=== PATIENT | female | born 1965 | race Caucasian/White ===

== ENCOUNTER 2018-12-16 14:17 | Outpatient (CLI) | payer MEDICARE, OTHER | END 2018-12-16 14:18 | disposition home or self-care (01) | LOC: BICMAMMO 14:17 | PROVIDERS: ATTEND Family Medicine | DX: Z12.31 Encounter for screening mammogram for malignant neoplasm of breast (principal); R92.1 Mammographic calcification found on diagnostic imaging of breast | CPT/HCPCS: 77063; 77067 ==

== ENCOUNTER 2019-12-14 10:27 | Inpatient (IN) | payer MEDICARE, MEDICAID ==
[2019-12-14 10:56] LABS: #Lymphocytes 1.5 thou/uL (1.20-3.40); #Monocytes 0.5 thou/uL (0.11-0.59); #Neutrophils 3.8 thou/uL (1.40-6.50); %Basophils 0.7 % (0.0-1.0); %Eosinophils 0.7 % (0.0-10.0); %Lymphocytes 25.6 % (21.0-51.0); %Monocytes 8.6 % (0.0-10.0); %Neutrophils 64.4 % (42.0-75.0); Hemoglobin 9.6 g/dL (12.0-16.0); Mean Corpuscular HGB CONC 32.5 g/dL (32.0-36.0); Mean Corpuscular Hemoglobin 32.2 pg (27.0-31.0); Mean Corpuscular Volume 98.9 fL (78.0-98.0); Mean Platelet Volume 8.2 fL (7.4-10.4); Platelet Count 181 thou/uL (130-400); RBC Distribution Width 15.4 % (11.5-14.5); Red Blood Cell (RBC) Count 2.99 mill/uL (4.20-5.40); White Blood Cell (WBC) Count 5.9 thou/uL (4.8-10.8)
[2019-12-14] MEDS ORDERED: Cefepime 1 GM VIAL ONE (11:00)
[2019-12-14 11:08] LABS: Actual Bicarbonate (HCO3a) 19.5 mEq/L (22-28); Analyzer IN Cardio ER; Base Excess (BEa) -6.3 mEq/L (-2.0 to +3.0); CO2 Tension 39.7 mmHg (35.0-45.0); Calcium, Ionized 1.06 mmol/L (1.12-1.30); Carboxyhemoglobin (COHb) 1.1 gm% (0.0-3.0); Hemoglobin (Hb) 9.2 g/dL (12.0-16.0); Potassium - ABG Lab 4.46 mmol/L (3.70-5.30); pH, Arterial 7.31 (7.35-7.45)
[2019-12-14 11:13] LABS: O2 Tension (PaO2) 57.3 mmHg (80.0-100.0)
[2019-12-14 11:14] LABS: ALV-art Gradient 106.975 (0-20); Puncture Site RR
[2019-12-14 11:14] LABS: ALT (SGPT) 28 U/L (8-55); AST (SGOT) 30 U/L (5-34); Albumin 3.8 g/dL (3.5-5.0); Alkaline Phosphatase 97 U/L (40-110); Anion Gap 25 mmol/L (10-20); BUN (Urea Nitrogen) 68 mg/dL (9.8-20.1); Bilirubin, Total 0.3 mg/dL (0.2-1.2); CK (CPK) 146 U/L (29-168); Calc. Creatinine Clearance 0 mL/min (70-130); Calcium 8.5 mg/dL (7.8-10.44); Carbon Dioxide 19 mmol/L (22-29); Chloride 107 mmol/L (98-107); Estimated GFR-MDRD 4; Globulin 2.9 g/dL (2.4-3.5); Glucose 90 mg/dL (70-105); Potassium 4.9 mmol/L (3.5-5.1); Protein, Total 6.7 g/dL (6.0-8.3); Sodium 146 mmol/L (136-145)
[2019-12-14 11:36] LABS: CKMB 4.9 ng/mL (0-6.6)
--- NOTE | 2019-12-14 11:39 | RAD ---
CHEST 1 VIEW: Date: 12/14/2019 HISTORY: Dyspnea, fever. History of COPD. History of pneumonia. FINDINGS: There are bilateral bullous changes and hyperinflation changes in the upper lung zones. There are guerline rly extensive bilateral interstitial and alveolar opacity changes in the mid and lower lung zones wit h blunting of both costophrenic angles, worse on the right side. Heart size is upper range of normal. IMPRESSION: Fairly extensive bilateral interstitial and alveolar opacity changes in the mid and lower lung zones bilaterally with costophrenic angle blunting, as well as marked hyperinflation and bullous changes in the upper lung zones. These basilar changes could certainly represent bilateral atypical pneumonia o r pneumonitis. There may well be some extensive component of chronic lung disease as well. Treatment and short-term follow-up for clearing or stability is suggested. No prior imaging available. POS: OFF
[2019-12-14] MEDS ORDERED: Bisacodyl 5 MG TAB PO PRN (13:16)
[2019-12-14] MEDS ORDERED: Ondansetron ODT 4 MG TAB PO PRN (13:16)
[2019-12-14] MEDS ORDERED: Ondansetron PF 4 MG/2 ML Vial IVP PRN (13:16)
[2019-12-14] MEDS ORDERED: HYDROcodone/Acetaminophen 7.5/325 mg Tablet PO PRN (13:16)
[2019-12-14] MEDS ORDERED: Loperamide HCl 2 MG CAP PO PRN (13:16)
[2019-12-14] MEDS ORDERED: Calcium Carbonate 500 MG ChewTAB PO PRN (13:16)
[2019-12-14] MEDS ORDERED: diphenhydrAMINE 25 MG CAP PO PRN (13:18)
[2019-12-14 14:26] LABS: Troponin I 0.069 ng/mL (< 0.028)
--- NOTE | 2019-12-14 14:48 | PDOC.HHP ---
Hospitalist HPI - History of Present Illness Shortness of breath History of Present Illness: 54-year-old female with past medical history of end-stage renal disease, extensive tobacco use who is currently smoking, and COPD presents for shortness of breath of hypoxia. Patient with two days of worsening malaise, cough with productive sputum, subjective fever and chills, and worsening shortness of breath. Patient denies sick contacts though she states that she did go to a get together that have a many people though she is not sure if any of them were sick or not. Patient has been compliant with her hemodialysis and had a full session on Thursday of this week. When patient shortness of breath worsen this a.m. 911 was called, patient was found to have hypoxia with O2 saturation's in the 70s on arrival. I find the patient in the emergency department she is struggling to breathe even on BiPAP therapy. She is able to talk in short one or two word sentences until she gets winded. Patient's breathing is tenuous and she states that she has never been this bad before. Patient tells me that she continues to smoke though she has come back to three cigarettes per day. Patient placed on continuous BiPAP with plans to admit to the critical care unit. Patient with bilateral pneumonia and bolus emphysema on chest x-ray. Prognosis guarded. Hospitalist ROS - Review of Systems All other systems reviewed; all pertinent +/- noted in HPI/Subj Hospitalist History - Past Medical History Source: patient Cardiac: denies: CAD, CHF Pulmonary: reports: COPD. denies: CVA/TIA/stroke RADIOLOGIC THERAPIST: denies: CVA, Seizure, TIA Renal/: reports: Chronic renal failure Endocrine: denies: Diabetes - Social History Smoking Status: Current every day smoker Tobacco Type: cigarettes Alcohol: reports: None Drugs: reports: none Living Situation: With Family Domestic Violence: Negative Activity level: independent ambulation - Exam General Appearance: ill appearing Eye: PERRL, anicteric sclera ENT: normocephalic atraumatic, moist mucosa Neck: supple, symmetric, no lymphadenopathy Heart: no murmur, no gallops, no rubs Respiratory: no rales, rhonchi, tachypneic, wheezes. negative: normal chest expansion Gastrointestinal: soft, non-tender, non-distended, no guarding, no rigidity Extremities: no edema Skin: no lesions, no rashes Neurological: cranial nerve grossly intact, no focal deficits Musculoskeletal: generalized weakness Psychiatric: normal affect, normal behavior, A&O x 3 Hospitalist Results - Labs Result Diagrams: 12/14/19 10:44 12/14/19 10:44 Lab results: WBC 5.9 thou/uL (4.8-10.8) 12/14/19 10:44 Hgb 9.6 g/dL (12.0-16.0) L 12/14/19 10:44 Hct 29.5 % (36.0-47.0) L 12/14/19 10:44 MCV 98.9 fL (78.0-98.0) H 12/14/19 10:44 Plt Count 181 thou/uL (130-400) 12/14/19 10:44 Neutrophils % 64.4 % (42.0-75.0) 12/14/19 10:44 ABG pH 7.31 (7.35-7.45) L 12/14/19 11:00 ABG pCO2 39.7 mmHg (35.0-45.0) 12/14/19 11:00 ABG pO2 57.3 mmHg (80.0-100.0) L* 12/14/19 11:00 Sodium 146 mmol/L (136-145) H 12/14/19 10:44 Potassium 4.9 mmol/L (3.5-5.1) 12/14/19 10:44 Chloride 107 mmol/L (98-107) 12/14/19 10:44 Carbon Dioxide 19 mmol/L (22-29) L 12/14/19 10:44 BUN 68 mg/dL (9.8-20.1) H 12/14/19 10:44 Creatinine 10.48 mg/dL (0.6-1.1) H 12/14/19 10:44 Glucose 90 mg/dL (70-105) 12/14/19 10:44 Lactic Acid 0.8 mmol/L (0.5-2.2) 12/14/19 10:44 Calcium 8.5 mg/dL (7.8-10.44) 12/14/19 10:44 Total Bilirubin 0.3 mg/dL (0.2-1.2) 12/14/19 10:44 AST 30 U/L (5-34) 12/14/19 10:44 ALT 28 U/L (8-55) 12/14/19 10:44 Alkaline Phosphatase 97 U/L (40-110) 12/14/19 10:44 Creatine Kinase 146 U/L (29-168) 12/14/19 10:44 CK-MB (CK-2) 4.9 ng/mL (0-6.6) 12/14/19 10:44 Troponin I 0.069 ng/mL (< 0.028) H 12/14/19 13:46 B-Natriuretic Peptide 1095.6 pg/mL (0-100) H 12/14/19 10:44 Serum Total Protein 6.7 g/dL (6.0-8.3) 12/14/19 10:44 Albumin 3.8 g/dL (3.5-5.0) 12/14/19 10:44 - Radiology Interpretation Chest x-ray Status: image reviewed by vt Hospitalist H&P A/P - Problem (1) COPD exacerbation Code(s): J44.1 - CHRONIC OBSTRUCTIVE PULMONARY DISEASE W (ACUTE) EXACERBATION Status: Acute (2) Acute respiratory failure Code(s): J96.00 - ACUTE RESPIRATORY FAILURE, UNSP W HYPOXIA OR HYPERCAPNIA Status: Acute (3) Shortness of breath Code(s): R06.02 - SHORTNESS OF BREATH Status: Acute (4) Tobacco abuse Code(s): Z72.0 - TOBACCO USE Status: Acute (5) ESRD (end stage renal disease) on dialysis Code(s): N18.6 - END STAGE RENAL DISEASE; Z99.2 - DEPENDENCE ON RENAL DIALYSIS Status: Acute - Plan Plan: Plan: Admit to intensive care unit pulmonology/critical-care consultation, recommendations appreciated nephrology consultation, recommendations appreciated continuous BiPAP as needed to maintain O2 saturation's breathing treatments IV steroids IV antibiotics hemodialysis per nephrology replace electrolytes as needed home medications as able G.I. prophylaxis DVT prophylaxis disposition: prognosis guarded
[2019-12-14] MEDS ORDERED: Bacteriostatic Water 30 ML VIAL FS PRN (15:20)
[2019-12-14] MEDS ORDERED: Pharmacy to Dose VANCOMYCIN, CEFEPIME IVPB PRN (15:27)
[2019-12-14] MEDS ORDERED: Vancomycin HCl 1 GM in Premix Bag 1 BAG IVPB SCH ×2 (15:30→21:00)
[2019-12-14] MEDS ORDERED: Vancomycin HCl 500 MG in Sodium Chloride 0.9% 100 ML IVPB SCH (15:30)
[2019-12-14] MEDS ORDERED: Vancomycin HCl 750 MG in Sodium Chloride 0.9% 250 ML 250 ML IVPB SCH (15:30)
[2019-12-14] MEDS ORDERED: Vancomycin HCl 250 MG in Sodium Chloride 0.9% 100 ML IVPB SCH (15:30)
[2019-12-14] MEDS ORDERED: HOLD VANCOMYCIN FOR LEVEL >20 FS SCH (15:30)
[2019-12-14] MEDS ORDERED: Vancomycin Sliding Scale 1 EACH FS ONE (15:30)
[2019-12-14] MEDS ORDERED: methylPREDNISolone Sod Succ 40 MG VIAL IVP SCH (16:00)
[2019-12-14 16:06] VITALS: BMI 19.5
[2019-12-14 16:29] LABS: ALV-art Gradient 165.425 (0-20); Actual Bicarbonate (HCO3a) 16.4 mEq/L (22-28); Base Excess (BEa) -9.5 mEq/L (-2.0 to +3.0); CO2 Tension 35.5 mmHg (35.0-45.0); Calcium, Ionized 1.13 mmol/L (1.12-1.30); Carboxyhemoglobin (COHb) 1.6 gm% (0.0-3.0); Hemoglobin (Hb) 9.1 g/dL (12.0-16.0); O2 Tension (PaO2) 75.4 mmHg (80.0-100.0); Potassium - ABG Lab 4.88 mmol/L (3.70-5.30); Puncture Site RRA; pH, Arterial 7.28 (7.35-7.45)
[2019-12-14 17:17] LABS: Troponin I 0.065 ng/mL (< 0.028)
[2019-12-14] MEDS ORDERED: methylPREDNISolone Sod Succ/PF 125 MG/2 ML VIAL IVP SCH (18:00)
[2019-12-14] MEDS ORDERED: Piperacillin/Tazobactam 3.375 GM in Sodium Chloride 0.9% 100 ML IVPB SCH (18:00)
[2019-12-14] MEDS ORDERED: Epoetin (ESRD) 20,000 UNITS/ML SC SCH (18:00)
[2019-12-14] MEDS ORDERED: EPOETIN ALFA-EPBX (ESRD) 4,000 UNIT/ML VIAL SC SCH (18:30)
[2019-12-14] MEDS: Heparin 5,000 UNITS/ML VIAL SC SCH ×2 (18:59→20:28)
--- NOTE | 2019-12-14 19:11 | PRG ---
DATE OF SERVICE: 12/14/2019 SUBJECTIVE: Ms. Branch is a 54-year-old female with ESRD-on maintenance hemodialysis, COPD, was admitted for acute respiratory distress. Chest x-ray suggested possible pneumonia. We are being consulted to follow up with her maintenance hemodialysis and management of her ESRD. I have scheduled her for emergent hemodialysis today. She has also been started with empiric IV antibiotics. Please note, this patient has had multiple episodes of pneumonia. She has also underlying COPD. OBJECTIVE: VITAL SIGNS: Blood pressure is 158/64, heart rate 90, respiratory rate 19, and pulse ox 98% on BiPAP. GENERAL: The patient is awake, comfortable on BiPAP, not in overt distress. SKIN: Adequate turgor. HEENT: She has a slightly pale conjunctivae. Anicteric sclerae. No neck mass. No carotid bruits. No JVD. CHEST: No deformities. LUNGS: Decreased breath sounds. HEART: Normal sinus rhythm. No murmurs, gallops, or rubs. ABDOMEN: Globular, soft, and nontender. No masses. EXTREMITIES: No edema. No deformities. NEUROLOGIC: Awake and oriented to 3 spheres. Moving all extremities. No tremors. No asterixis. MEDICATIONS: Medications of December 14, 2019 were reviewed. LABORATORY DATA: Of December 14, 2019, troponin I 0.065. BNP is 1095. Sodium 146, potassium 4.9, chloride 107, carbon dioxide 19, BUN 68, creatinine 10.48, calcium 8.5, AST 30, ALT 28, and albumin 3.8. White count 5.9 and hemoglobin 9.6. Chest x-ray shows multiple infiltrates ? of multifocal pneumonia. ASSESSMENT AND PLAN: 1. Shortness of breath, multifactorial etiology. This could be an underlying pneumonia as well as chronic obstructive pulmonary disease exacerbation. Due to history of previous congestive heart failure, we will max out fluid removal with hemodialysis today. On IV antibiotics. Currently on BiPAP. Continue supportive care. Pulmonary is following. 2. End-stage renal disease. We will continue hemodialysis regimen Thursday, Thursday, and Thursday. I have scheduled this patient for a 3.5 hour hemodialysis. We will do fluid removal as tolerated by the patient. 3. Anemia. We will resume weekly Epogen with this patient. 4. Overall prognosis remains guarded. Case discussed at length with the daughter. Job ID: [id number]
[2019-12-14] MEDS: Labetalol HCl 100 MG/20 ML VIAL SLOW IVP PRN (20:28)
[2019-12-14] MEDS: Famotidine 20 MG TAB PO SCH (20:29)
[2019-12-14] MEDS: methylPREDNISolone Sod Succ 40 MG VIAL IVP SCH (20:35)
[2019-12-14] MEDS ORDERED: Amlodipine 10 MG TAB PO SCH (22:15)
[2019-12-14] MEDS ORDERED: Losartan 25 MG TAB PO SCH (22:30)
[2019-12-14] MEDS: Melatonin 3 MG TAB PO PRN (22:40)
[2019-12-14] MEDS ORDERED: hydrALAZINE 25 MG TAB PO SCH (22:45)
[2019-12-14] MEDS: Acetaminophen 325 MG TAB PO PRN (22:50)
[2019-12-15] MEDS: Labetalol HCl 100 MG/20 ML VIAL SLOW IVP PRN ×3 (00:02→15:50)
[2019-12-15] MEDS: methylPREDNISolone Sod Succ 40 MG VIAL IVP SCH ×2 (03:10→07:48)
[2019-12-15 03:40] LABS: #Lymphocytes 0.5 thou/uL (1.20-3.40); #Monocytes 0.3 thou/uL (0.11-0.59); #Neutrophils 3.9 thou/uL (1.40-6.50); %Eosinophils 0.2 % (0.0-10.0); %Monocytes 5.5 % (0.0-10.0); %Neutrophils 83.3 % (42.0-75.0); Hemoglobin 9.2 g/dL (12.0-16.0); Mean Corpuscular HGB CONC 31.9 g/dL (32.0-36.0); Mean Corpuscular Hemoglobin 30.8 pg (27.0-31.0); Mean Corpuscular Volume 96.5 fL (78.0-98.0); Mean Platelet Volume 7.8 fL (7.4-10.4); Platelet Count 160 thou/uL (130-400); RBC Distribution Width 14.9 % (11.5-14.5); White Blood Cell (WBC) Count 4.7 thou/uL (4.8-10.8)
[2019-12-15 04:09] LABS: Anion Gap 17 mmol/L (10-20); BUN (Urea Nitrogen) 28 mg/dL (9.8-20.1); Calc. Creatinine Clearance 11 mL/min (70-130); Calcium 9.2 mg/dL (7.8-10.44); Carbon Dioxide 27 mmol/L (22-29); Chloride 102 mmol/L (98-107); Estimated GFR-MDRD 11; Glucose 112 mg/dL (70-105); Potassium 4.1 mmol/L (3.5-5.1); Sodium 142 mmol/L (136-145)
--- NOTE | 2019-12-15 07:35 | CON ---
DATE OF CONSULTATION: HISTORY OF PRESENT ILLNESS: Yolanda Branch is a 54-year-old female, who is in the hospital with respiratory distress. She is a pack a day smoker apparently most of her life, who apparently has chronic renal failure, followed by Dr. Alvarado, and it appears she might have missed a dialysis. In the ER, she was severely hypoxemic. Saturations were in the 70s. She was placed on noninvasive BiPAP. Still lethargic, arousable. PAST MEDICAL HISTORY: Renal failure, tobacco abuse, coronary artery disease, CHF, apparently diabetes. ALLERGIES: CEFTRIAXONE, CLONIDINE, PENICILLIN. SOCIAL HISTORY: Tobacco abuse. Alcohol, none. REVIEW OF SYSTEMS: Difficult to obtain. CHRONIC MEDICATIONS: Difficult to obtain at this time. PHYSICAL EXAMINATION: GENERAL: In the ER, she is arousable but lethargic. VITAL SIGNS: Saturations are 96% on BiPAP. Pulse 80, blood pressure 138/80. CHEST: Bilateral rhonchi and crackles. CARDIAC: Normal S1 and S2. No gallops. ABDOMEN: No masses. DIAGNOSTIC STUDIES: X-ray shows cardiomegaly, bilateral pleural effusion, bilateral infiltrates. White count is 5000, hemoglobin and hematocrit are 9 and 29, platelet count is 181. PO2 is 57, pCO2 of 39, pH 7.31. Creatinine is 10, BUN is 68, bicarb is 19. Troponin is elevated and BNP is 1095. IMPRESSION: Respiratory failure, multifactorial; 1. Congestive heart failure. 2. Fluid overloaded. 3. Tobacco abuse, chronic obstructive pulmonary disease, possibly superimposed pneumonia. Nephrology is consulted stat for emergency dialysis. Repeat blood gas in the ICU. She is still acidotic. She may very well require intubation. Primary care physician has already placed her on multiple antibiotics, neb treatments, supportive care, which we will follow up. This is a 45-minute consultation note. ADDENDUM: We were finally able to get a list of medicine. She normally goes to [facility] here locally. She has not been in this hospital before. MEDICATIONS: List of her medications includes, 1. Hydralazine 100 mg three times a day. 2. Amlodipine 5 mg twice a day. 3. Losartan 25 once a day. 4. Xanax 0.25 once a day as needed. 5. Pregabalin 100 mg once a day. PAST MEDICAL HISTORY: Pertinent for COPD, end-stage renal disease, major anxiety. PREVIOUS SURGERIES: Brain aneurysm bleed, dialysis access, eye surgery, , hysterectomy, tubal ligation. Please note, the patient is now in the ICU on BiPAP. She appears to be a little bit more responsive. I have notified dialysis for emergency dialysis. We will continue on the BiPAP until she gets dialysis. Thereafter, download it to nasal O2. Job ID: [id number]
[2019-12-15] MEDS: HYDROcodone/Acetaminophen 5/325 mg Tablet PO PRN ×2 (07:40→20:39)
[2019-12-15] MEDS ORDERED: Sevelamer Carbonate 800 MG TAB PO SCH (08:00)
[2019-12-15] MEDS: Heparin 5,000 UNITS/ML VIAL SC SCH ×3 (08:20→20:41)
[2019-12-15] MEDS: hydrALAZINE 25 MG TAB PO SCH ×3 (08:20→20:37)
--- NOTE | 2019-12-15 08:36 | RAD ---
PORTABLE CHEST: HISTORY: CCU followup. COMPARISON: 12/14/2019. FINDINGS: Increased interstitial markings in the lung bases again noted. Some of this may be due to crowding f rom bullous changes in the upper lung zones, although superimposed infiltrate cannot be excluded as n oted on yesterday's study. There is a spiculated nodular density in the right upper lung. Recommend elective followup CT chest to rule out underlying nodule. Mild cardiomegaly with dense aortic calcification again noted. IMPRESSION: 1. No acute change from yesterday. Basilar interstitial opacities remain as noted above. 2. Evidence of a spiculated nodular density in the right upper lung zone. Recommend followup chest CT to better evaluate lung cassidy. POS: [facility]
[2019-12-15] MEDS: Amlodipine 10 MG TAB PO SCH (09:05)
--- NOTE | 2019-12-15 09:16 | PRG ---
DATE OF SERVICE: 12/15/2019 SUBJECTIVE: This morning, she is much better. She was dialyzed last night. OBJECTIVE: VITAL SIGNS: Pulse of 53, blood pressure of 180/80, saturations 90%, respirations 18. CHEST: Decreased breath sounds. Minimal rhonchi. CARDIAC: Normal S1 and S2. No gallops. ABDOMEN: No masses. LABORATORY DATA: White count 4000, hemoglobin and hematocrit are 9 and 28, platelet count is normal. LABORATORY DATA: Creatinine is elevated at 4.3. X-ray shows much improvement in her bilateral infiltrates and pleural effusion. Findings all consistent with fluid overload. Influenza titer was negative. IMPRESSION AND PLAN: 1. Acute on chronic respiratory failure, fluid overload, chronic renal failure, missed dialysis, congestive heart failure. 2. Tobacco abuse, chronic obstructive pulmonary disease. P.o. medication. I do not see any evidence of any sepsis or gross pneumonia. Continue PT, supportive care. She is stable, she can be transferred out of the ICU at any time. Pulmonary will follow for the next 24 to 48 hours. She is clearly told to refrain from smoking. Job ID: [id number]
[2019-12-15] MEDS: Doxycycline 100 MG CAP PO SCH ×2 (09:27→20:36)
--- NOTE | 2019-12-15 10:05 | PRG ---
DATE OF SERVICE: 12/15/2019 SUBJECTIVE: Ms. Branch is a 54-year-old female with ESRD - maintenance hemodialysis, who was admitted for acute respiratory failure. She was found to have a superimposed pneumonia/COPD exacerbation. She was placed on BiPAP with improvement. She is also on empiric IV antibiotics. She also underwent hemodialysis yesterday. We were able to remove several liters of fluid. No other complaints. Today, she is feeling better. OBJECTIVE: VITAL SIGNS: Blood pressure is 169/60, heart rate 88, and respiratory rate 28. GENERAL: She is awake and alert, sitting comfortable, not in distress. SKIN: Adequate turgor. HEENT: Slightly pale conjunctivae. Anicteric sclerae. NECK: No neck mass. No carotid bruits. No JVD. CHEST: No deformities. LUNGS: Positive for wheezing. HEART: Normal sinus rhythm. No murmur. No gallops. No rubs. ABDOMEN: Globular, soft, and nontender. No masses. EXTREMITIES: No edema. MEDICATIONS: Medications of December 15, 2019, reviewed. LABORATORY DATA: Laboratories of December 15, 2019, white count 4.7 and hemoglobin 9.2. Sodium 142, potassium 4.1, chloride 102, carbon dioxide 27, BUN 28, creatinine 4.33, glucose 112, and calcium 9.2. BNP 1095. ASSESSMENT AND PLAN: 1. Shortness of breath, multifactorial etiology. Consider chronic obstructive pulmonary disease exacerbation/pneumonia as well as some degree of volume overload. Fluid removal was done with hemodialysis yesterday and she tolerated said treatment. 2. End-stage renal disease, stable. We will continue current Thursday, Thursday, and Thursday hemodialysis regimen. 3. Anemia. Continuing weekly Epogen. Agree with current management. Job ID: [id number]
[2019-12-15] MEDS ORDERED: Cefepime 1 GM in Sodium Chloride 0.9% 100 ML IVPB SCH (11:00)
[2019-12-15] MEDS: Sevelamer Carbonate 800 MG TAB PO SCH ×2 (11:48→17:24)
--- NOTE | 2019-12-15 13:54 | PDOC.HOSPP ---
- Subjective Subjective: Seen and examined. Clinically improving. Was able to be taken off BiPAP this a.m. and able to eat her breakfast. Maintained off BiPAP and the afternoon. Tolerated hemodialysis. Clinically improving on maximal medical therapy. Patient may be downgraded from the intensive care unit today. - Objective Vital Signs & Weight: Vital Signs (12 hours) Temp Pulse Pulse Pulse Resp BP BP 12/15/19 12:58 88 20 12/15/19 11:00 98.6 F 12/15/19 09:05 88 86 82 169/60 H 168/69 H 12/15/19 08:20 88 169/60 H 12/15/19 08:11 88 12/15/19 08:03 88 28 H 12/15/19 08:00 12/15/19 07:00 98.3 F 12/15/19 05:54 82 190/54 H 12/15/19 04:00 98.3 F 12/15/19 02:21 82 BP Pulse Ox Pulse Ox Pulse Ox 12/15/19 12:58 90 L 12/15/19 11:00 12/15/19 09:05 178/65 H 88 L 97 12/15/19 08:20 12/15/19 08:11 12/15/19 08:03 92 L 12/15/19 08:00 97 12/15/19 07:00 12/15/19 05:54 12/15/19 04:00 12/15/19 02:21 Weight Weight 107 lb 9.369 oz Most Recent Monitor Data Heart Rate from ECG 87 NIBP 166/73 NIBP BP-Mean 104 Respiration from ECG 19 SpO2 100 I&O: 12/14/19 12/15/19 12/16/19 06:59 06:59 06:59 Intake Total 384 340 Output Total 425 200 Balance -41 140 Result Diagrams: 12/15/19 03:18 12/15/19 03:18 Radiology Reviewed by me: Yes Hospitalist ROS - Review of Systems All other systems reviewed; all pertinent +/- noted in HPI/Subj - Medication Medications: Active Medications Generic Name Dose Route Start Last Admin Trade Name Freq PRN Reason Stop Dose Admin Acetaminophen 650 mg 12/14/19 13:16 12/14/19 22:50 Tylenol PO 650 mg Q4H PRN Administration Headache/Fever/Mild Pain (1-3) Hydrocodone Bitart/Acetaminophen 1 tab 12/14/19 13:16 12/15/19 07:40 Draper 5/325 PO 1 tab Q4H PRN Administration Moderate Pain (4-6) Albuterol/Ipratropium 3 ml 12/15/19 13:00 12/15/19 12:58 Duoneb NEB 3 ml [id number] PAT Administration Amlodipine Besylate 10 mg 12/15/19 09:00 12/15/19 09:05 Norvasc PO 10 mg DAILY PAT Administration Doxycycline Hyclate 100 mg 12/15/19 09:00 12/15/19 09:27 Vibramycin PO 12/20/19 09:01 100 mg BID PAT Administration Epoetin Alden-epbx 7,500 unit 12/14/19 18:30 12/14/19 20:29 Retacrit SC 7,500 unit Q7D PAT Administration Famotidine 20 mg 12/14/19 21:00 12/14/19 20:29 Pepcid PO 20 mg Q48H PAT Administration Heparin Sodium (Porcine) 5,000 units 12/14/19 15:00 12/15/19 08:20 Heparin SC 5,000 units TID PAT Administration Hydralazine HCl 100 mg 12/15/19 09:00 12/15/19 08:20 Apresoline PO 100 mg TID PAT Administration Labetalol HCl 10 mg 12/14/19 13:18 12/15/19 05:54 Normodyne SLOW IVP 10 mg Q4H PRN Administration SBP Greater Than 180 Melatonin 3 mg 12/14/19 13:18 12/14/19 22:40 Melatonin PO 3 mg HS PRN Administration Insomnia Sertraline HCl 50 mg 12/15/19 09:00 12/15/19 09:05 Zoloft PO 50 mg DAILY PAT Administration Sevelamer Carbonate 2,400 mg 12/15/19 12:00 12/15/19 11:48 Renvela PO 2,400 mg TID-WM PAT Administration Sodium Chloride 10 ml 12/14/19 21:00 12/15/19 08:20 Flush - Normal Saline IVF 10 ml Q12HR PAT Administration Sterile Water 1 ml 12/14/19 15:20 12/14/19 20:36 Bacteriostatic Water FS 1 ml PRN PRN Administration RECONSTITUTION - Exam General Appearance: NAD, awake alert Eye: anicteric sclera ENT: normocephalic atraumatic, moist mucosa Neck: supple, symmetric, no lymphadenopathy Heart: RRR, no murmur, no gallops, no rubs Respiratory: no rales, normal chest expansion, no tachypnea, rhonchi, wheezes Gastrointestinal: soft, non-tender, no guarding, no rigidity Extremities: no edema Skin: no lesions, no rashes Neurological: cranial nerve grossly intact, no focal deficits Musculoskeletal: generalized weakness Psychiatric: normal affect, normal behavior, A&O x 3 Hosp A/P (1) COPD exacerbation Code(s): J44.1 - CHRONIC OBSTRUCTIVE PULMONARY DISEASE W (ACUTE) EXACERBATION Status: Acute (2) Acute respiratory failure Code(s): J96.00 - ACUTE RESPIRATORY FAILURE, UNSP W HYPOXIA OR HYPERCAPNIA Status: Acute (3) Shortness of breath Code(s): R06.02 - SHORTNESS OF BREATH Status: Acute (4) Tobacco abuse Code(s): Z72.0 - TOBACCO USE Status: Acute (5) ESRD (end stage renal disease) on dialysis Code(s): N18.6 - END STAGE RENAL DISEASE; Z99.2 - DEPENDENCE ON RENAL DIALYSIS Status: Acute - Plan Plan: intensive care unit, stable for downgrade pulmonology/critical-care consultation, recommendations appreciated nephrology consultation, recommendations appreciated excellent PRN BiPAP to as needed to maintain O2 saturation's breathing treatments steroids, transition to oral per pulmonology antibiotics, transition to oral per pulmonology hemodialysis per nephrology replace electrolytes as needed home medications as able G.I. prophylaxis DVT prophylaxis smoking cessation
[2019-12-15] MEDS ORDERED: Prevnar 13-Val Conj/PF 0.5 ML SYRINGE IM ONE (17:30)
[2019-12-15] MEDS ORDERED: FLU VACC QS2019-20(6MOS UP)/PF 60 MCG/0.5 ML SYRINGE IM ONE (17:30)
[2019-12-15] MEDS: Budesonide 0.5 MG/2 ML NEB INH SCH (18:11)
[2019-12-15] MEDS: Losartan 25 MG TAB PO SCH (20:37)
[2019-12-15] MEDS: Doxazosin 2 MG TAB PO SCH (20:37)
[2019-12-15] MEDS: Gabapentin 300 MG CAP PO PRN (20:43)
[2019-12-15] MEDS ORDERED: Pregabalin 50 MG CAP PO SCH (21:00)
[2019-12-16] MEDS: Budesonide 0.5 MG/2 ML NEB INH SCH ×2 (07:33→18:41)
[2019-12-16] MEDS: predniSONE 20 MG TAB PO SCH (07:59)
[2019-12-16] MEDS: Amlodipine 10 MG TAB PO SCH (07:59)
[2019-12-16] MEDS: Sevelamer Carbonate 800 MG TAB PO SCH ×3 (07:59→15:33)
[2019-12-16] MEDS: Doxycycline 100 MG CAP PO SCH ×2 (08:00→20:07)
[2019-12-16] MEDS: Heparin 5,000 UNITS/ML VIAL SC SCH ×3 (08:01→20:07)
[2019-12-16] MEDS: hydrALAZINE 25 MG TAB PO SCH ×3 (08:01→20:07)
[2019-12-16] MEDS: HYDROcodone/Acetaminophen 5/325 mg Tablet PO PRN ×2 (08:08→20:10)
--- NOTE | 2019-12-16 09:24 | RAD ---
CHEST 1 VIEW PORTABLE: HISTORY: Followup pneumonia. COMPARISON: 12/15/2019. FINDINGS: Stable-appearing cardiomegaly, upper lung hyperinflation and bullous changes and mid and lower lung z one interstitial and alveolar opacity changes with some blunting of the left costophrenic angle. No significant new process. IMPRESSION: Extensive mid and lower lung zone parenchymal changes with bilateral emphysema and chronic lung garcía es in the mid and upper lung zones. Continued followup for clearing or stability. POS: [facility]
--- NOTE | 2019-12-16 12:03 | PRG ---
DATE OF SERVICE: 12/16/2019 SUBJECTIVE: This morning, she is better. Less cough and less shortness of breath. She is being dialyzed. OBJECTIVE: VITAL SIGNS: Temperature 98, pulse 82, blood pressure 149/57, satting 95% on 3 liters. Denies any breathing issues today. CHEST: Decreased breath sounds. No wheezing. CARDIAC: Normal S1 and S2. ABDOMEN: Soft, no masses. LABORATORY DATA: X-ray shows cardiomegaly, bilateral lower lung chronic changes. Cultures, all negative. IMPRESSION AND PLAN: 1. Chronic obstructive pulmonary disease exacerbation. 2. Bronchitis. 3. Respiratory failure. 4. Congestive heart failure. 5. Renal failure. 6. Fluid overload. 7. Poor compliance. Pulmonary jon, nebs, steroids, and p.o. antibiotics. Job ID: [id number]
[2019-12-16] MEDS ORDERED: HYDROcodone/Acetaminophen 10/325 mg Tablet PO PRN (14:44)
--- NOTE | 2019-12-16 14:47 | PDOC.HOSPP ---
- Subjective Subjective: Seen while on dialysis. Patient complains of pain with severe coughing. Rib pain that is reproducible to the touch. Requesting increased dose of [place]. Breathing much more comfortably though she is still very wheezy. Patient improving on maximal medical therapy. - Objective Vital Signs & Weight: Vital Signs (12 hours) Temp Pulse Resp BP BP Pulse Ox 12/16/19 13:11 81 16 94 L 12/16/19 13:04 82 176/54 H 12/16/19 08:01 82 149/57 H 12/16/19 08:00 95 12/16/19 07:59 82 149/57 H 12/16/19 07:33 82 20 95 12/16/19 07:13 98.6 F 82 20 149/57 H 95 12/16/19 03:37 98.4 F 82 18 168/57 H 98 Weight Weight 104 lb 14.4 oz Most Recent Monitor Data Heart Rate from ECG 76 NIBP 144/52 NIBP BP-Mean 82 Respiration from ECG 26 SpO2 90 I&O: 12/15/19 12/16/19 12/17/19 06:59 06:59 06:59 Intake Total 384 2050 Output Total 425 460 Balance -41 1590 Result Diagrams: 12/15/19 03:18 12/15/19 03:18 Radiology Reviewed by me: Yes Hospitalist ROS - Review of Systems All other systems reviewed; all pertinent +/- noted in HPI/Subj - Medication Medications: Active Medications Generic Name Dose Route Start Last Admin Trade Name Freq PRN Reason Stop Dose Admin Acetaminophen 650 mg 12/14/19 13:16 12/14/19 22:50 Tylenol PO 650 mg Q4H PRN Administration Headache/Fever/Mild Pain (1-3) Hydrocodone Bitart/Acetaminophen 1 tab 12/14/19 13:16 12/16/19 08:08 [place] 5/325 PO 1 tab Q4H PRN Administration Moderate Pain (4-6) Albuterol/Ipratropium 3 ml 12/15/19 13:00 12/16/19 13:11 Duoneb NEB 3 ml [id number] PAT Administration Amlodipine Besylate 10 mg 12/15/19 09:00 12/16/19 07:59 Norvasc PO 10 mg DAILY PAT Administration Budesonide 0.5 mg 12/15/19 18:30 12/16/19 07:33 Pulmicort Neb Solution INH 0.5 mg BID-RT PAT Administration Doxazosin Mesylate 4 mg 12/15/19 21:00 12/15/19 20:37 Cardura PO 4 mg HS PAT Administration Doxycycline Hyclate 100 mg 12/15/19 09:00 12/16/19 08:00 Vibramycin PO 12/20/19 09:01 100 mg BID PAT Administration Epoetin Alden-epbx 7,500 unit 12/14/19 18:30 12/14/19 20:29 Retacrit SC 7,500 unit Q7D PAT Administration Famotidine 20 mg 12/14/19 21:00 12/14/19 20:29 Pepcid PO 20 mg Q48H PAT Administration Gabapentin 300 mg 12/15/19 13:52 12/15/19 20:43 Neurontin PO 300 mg TID PRN Administration Pain Heparin Sodium (Porcine) 5,000 units 12/14/19 15:00 12/16/19 12:43 Heparin SC Not Given TID PAT Hydralazine HCl 100 mg 12/15/19 09:00 12/16/19 13:04 Apresoline PO 100 mg TID PAT Administration Labetalol HCl 10 mg 12/14/19 13:18 12/15/19 15:50 Normodyne SLOW IVP 10 mg Q4H PRN Administration SBP Greater Than 180 Losartan Potassium 25 mg 12/15/19 21:00 12/15/19 20:37 Cozaar PO 25 mg HS PAT Administration Melatonin 3 mg 12/14/19 13:18 12/14/19 22:40 Melatonin PO 3 mg HS PRN Administration Insomnia Prednisone 40 mg 12/16/19 08:00 12/16/19 07:59 Prednisone PO 40 mg QAM-WM PAT Administration Sertraline HCl 50 mg 12/15/19 09:00 12/16/19 08:00 Zoloft PO 50 mg DAILY PAT Administration Sevelamer Carbonate 2,400 mg 12/15/19 12:00 12/16/19 10:47 Renvela PO Not Given TID-WM PAT Sodium Chloride 10 ml 12/14/19 21:00 12/16/19 08:05 Flush - Normal Saline IVF 10 ml Q12HR PAT Administration Sterile Water 1 ml 12/14/19 15:20 12/14/19 20:36 Bacteriostatic Water FS 1 ml PRN PRN Administration RECONSTITUTION - Exam General Appearance: NAD, awake alert Eye: PERRL ENT: normocephalic atraumatic, moist mucosa Neck: supple, symmetric, no lymphadenopathy Heart: no murmur, no gallops, no rubs Respiratory: no rales, normal chest expansion, no tachypnea, rhonchi, wheezes ( moderate to severe - improving) Gastrointestinal: soft, non-tender, no guarding, no rigidity Extremities: 1+ LE edema Skin: no lesions, no rashes Neurological: cranial nerve grossly intact, no focal deficits Musculoskeletal: generalized weakness Psychiatric: normal affect, A&O x 3 Hosp A/P (1) COPD exacerbation Code(s): J44.1 - CHRONIC OBSTRUCTIVE PULMONARY DISEASE W (ACUTE) EXACERBATION Status: Acute (2) Acute respiratory failure Code(s): J96.00 - ACUTE RESPIRATORY FAILURE, UNSP W HYPOXIA OR HYPERCAPNIA Status: Acute (3) Shortness of breath Code(s): R06.02 - SHORTNESS OF BREATH Status: Acute (4) Tobacco abuse Code(s): Z72.0 - TOBACCO USE Status: Acute (5) ESRD (end stage renal disease) on dialysis Code(s): N18.6 - END STAGE RENAL DISEASE; Z99.2 - DEPENDENCE ON RENAL DIALYSIS Status: Acute - Plan Plan: medical unit pulmonology/critical-care consultation, recommendations appreciated nephrology consultation, recommendations appreciated Supplemental O2 to maintain O2 sat >88% breathing treatments steroids, transition to oral per pulmonology antibiotics, transition to oral per pulmonology hemodialysis per nephrology replace electrolytes as needed home medications as able G.I. prophylaxis DVT prophylaxis smoking cessation
[2019-12-16] MEDS: Acetaminophen 325 MG TAB PO PRN (15:33)
[2019-12-16] MEDS: Sodium Chloride 0.9% 1,000 ML IV SCH (18:02)
--- NOTE | 2019-12-16 18:04 | PRG ---
DATE OF SERVICE: 12/16/2019 SUBJECTIVE: Ms. Branch is a 54-year-old female with ESRD, was admitted for acute respiratory failure. She was empirically treated with renal antibiotics and maxed out on the fluid removal with dialysis today. She is feeling better. She did have some cramping with dialysis; for that reason, we will be restarting IV fluid. OBJECTIVE: VITAL SIGNS: Blood pressure 138/51, heart rate 81, respiratory rate 16, pulse ox 94% on 3 L. GENERAL: Awake, alert, and comfortable, not in distress. Skin: Adequate turgor. HEENT: Slightly pale conjunctivae. Anicteric sclerae. NECK: No neck mass. No carotid bruits. No JVD. CHEST: No deformities. LUNGS: Clear breath sounds. HEART: Normal sinus rhythm. No murmurs, gallops, or rubs. ABDOMEN: Globular. Soft. Nontender. No masses. EXTREMITIES: No edema. No deformities. MEDICATIONS: Medications of December 16, 2019 reviewed. LABORATORY DATA: Laboratories of December 15, 2019, hemoglobin 9.2, sodium 142, potassium 4.1, chloride 102, carbon dioxide 27, BUN 28, creatinine 4.33, and calcium 9.2. ASSESSMENT AND PLAN: 1. Shortness of breath - multifactorial etiology. Combination of possible pneumonia/congestive heart failure. She may also have COPD exacerbation, clinically much improved. Continue current management. 2. End-stage renal disease, stable, tolerating current hemodialysis. 2.5 L of fluid was removed today. She did develop some cramping later this afternoon; for that reason, we will resume normal saline at 75 mL/hour. 3. We will recheck basic metabolic, CBC in a.m. Job ID: [id number]
[2019-12-16] MEDS: Famotidine 20 MG TAB PO SCH (20:07)
[2019-12-16] MEDS: Doxazosin 2 MG TAB PO SCH (20:07)
[2019-12-16] MEDS: Losartan 25 MG TAB PO SCH (20:07)
[2019-12-16] MEDS: Benzonatate 100 MG CAP PO PRN (20:10)
[2019-12-17] MEDS: Benzonatate 100 MG CAP PO PRN ×3 (05:20→20:51)
[2019-12-17] MEDS: Acetaminophen 325 MG TAB PO PRN (05:20)
[2019-12-17] MEDS: Sodium Chloride 0.9% 1,000 ML IV SCH ×2 (05:20→20:52)
[2019-12-17] MEDS: Budesonide 0.5 MG/2 ML NEB INH SCH ×2 (05:31→19:58)
[2019-12-17 06:30] LABS: Band 5 % (5-11); Elliptocytes SLIGHT = 2-5 cells (100X) (0-1/hpf); Hemoglobin 9.6 g/dL (12.0-16.0); Lymphocytes 14 % (21-51); MDiff Complete? YES; Mean Corpuscular HGB CONC 31.4 g/dL (32.0-36.0); Mean Corpuscular Hemoglobin 30.9 pg (27.0-31.0); Mean Corpuscular Volume 98.5 fL (78.0-98.0); Mean Platelet Volume 7.8 fL (7.4-10.4); Metamyelocyte 1 % (0-0); Monocytes 3 % (0-10); Neutrophil 77 % (42-75); Platelet Count 189 thou/uL (130-400); Platelet Morphology Comment Appears Adequate; RBC Distribution Width 15.2 % (11.5-14.5); Red Blood Cell (RBC) Count 3.11 mill/uL (4.20-5.40); White Blood Cell (WBC) Count 5.2 thou/uL (4.8-10.8)
[2019-12-17 06:32] LABS: Anion Gap 15 mmol/L (10-20); BUN (Urea Nitrogen) 33 mg/dL (9.8-20.1); Calc. Creatinine Clearance 10 mL/min (70-130); Calcium 8.2 mg/dL (7.8-10.44); Carbon Dioxide 25 mmol/L (22-29); Chloride 104 mmol/L (98-107); Estimated GFR-MDRD 9; Glucose 83 mg/dL (70-105); Potassium 4.4 mmol/L (3.5-5.1); Sodium 140 mmol/L (136-145)
[2019-12-17] MEDS: Amlodipine 10 MG TAB PO SCH (08:00)
[2019-12-17] MEDS: Sevelamer Carbonate 800 MG TAB PO SCH ×3 (08:00→16:09)
[2019-12-17] MEDS: predniSONE 20 MG TAB PO SCH (08:00)
[2019-12-17] MEDS: Heparin 5,000 UNITS/ML VIAL SC SCH ×3 (08:00→20:43)
[2019-12-17] MEDS: Doxycycline 100 MG CAP PO SCH ×2 (08:01→20:43)
[2019-12-17] MEDS: hydrALAZINE 25 MG TAB PO SCH ×3 (08:02→20:43)
--- NOTE | 2019-12-17 12:55 | PDOC.HOSPP ---
- Subjective Subjective: Cough with productive sputum though she is not able to get much up. Patient overall states that she's feeling better. Still with rib pain from severe coughing. Patient has been tolerating dialysis. Time was given for questions, all answered in detail. - Objective Vital Signs & Weight: Vital Signs (12 hours) Temp Pulse Resp BP BP BP Pulse Ox 12/17/19 11:07 98.7 F 85 20 150/52 H 90 L 12/17/19 08:02 70 159/56 H 12/17/19 08:00 70 159/56 H 96 12/17/19 07:30 98.5 F 70 20 159/56 H 96 12/17/19 05:30 88 16 97 12/17/19 04:30 99.1 F 88 20 153/55 H 93 L Weight Weight 104 lb 4.458 oz Most Recent Monitor Data Heart Rate from ECG 76 NIBP 144/52 NIBP BP-Mean 82 Respiration from ECG 26 SpO2 90 I&O: 12/16/19 12/17/19 12/18/19 06:59 06:59 06:59 Intake Total 2050 1350 Output Total 460 Balance 1590 1350 Result Diagrams: 12/17/19 05:41 12/17/19 05:41 Radiology Reviewed by me: Yes Hospitalist ROS - Review of Systems All other systems reviewed; all pertinent +/- noted in HPI/Subj - Medication Medications: Active Medications Generic Name Dose Route Start Last Admin Trade Name Freq PRN Reason Stop Dose Admin Acetaminophen 650 mg 12/14/19 13:16 12/17/19 05:20 Tylenol PO 650 mg Q4H PRN Administration Headache/Fever/Mild Pain (1-3) Hydrocodone Bitart/Acetaminophen 1 tab 12/14/19 13:16 12/16/19 20:10 [place] 5/325 PO 1 tab Q4H PRN Administration Moderate Pain (4-6) Hydrocodone Bitart/Acetaminophen 1 tab 12/16/19 14:44 12/17/19 11:34 [place] 10/325 PO 1 tab Q4H PRN Administration Severe Pain (7-10) Albuterol/Ipratropium 3 ml 12/15/19 13:00 12/17/19 05:30 Duoneb NEB 3 ml [id number] PAT Administration Amlodipine Besylate 10 mg 12/15/19 09:00 12/17/19 08:00 Norvasc PO 10 mg DAILY PAT Administration Benzonatate 100 mg 12/14/19 13:18 12/17/19 05:20 Tessalon PO 100 mg Q4H PRN Administration Cough Budesonide 0.5 mg 12/15/19 18:30 12/17/19 05:31 Pulmicort Neb Solution INH 0.5 mg BID-RT PAT Administration Doxazosin Mesylate 4 mg 12/15/19 21:00 12/16/19 20:07 Cardura PO 4 mg HS PAT Administration Doxycycline Hyclate 100 mg 12/15/19 09:00 12/17/19 08:01 Vibramycin PO 12/20/19 09:01 100 mg BID PAT Administration Epoetin Alden-epbx 7,500 unit 12/14/19 18:30 12/14/19 20:29 Retacrit SC 7,500 unit Q7D PAT Administration Famotidine 20 mg 12/14/19 21:00 12/16/19 20:07 Pepcid PO 20 mg Q48H PAT Administration Gabapentin 300 mg 12/15/19 13:52 12/15/19 20:43 Neurontin PO 300 mg TID PRN Administration Pain Heparin Sodium (Porcine) 5,000 units 12/14/19 15:00 12/17/19 08:00 Heparin SC 5,000 units TID PAT Administration Hydralazine HCl 100 mg 12/15/19 09:00 12/17/19 08:02 Apresoline PO 100 mg TID PAT Administration Sodium Chloride 1,000 mls @ 75 mls/hr 12/16/19 17:45 12/17/19 05:20 Normal Saline 0.9% IV 1,000 mls .[id number] PAT Administration Labetalol HCl 10 mg 12/14/19 13:18 12/15/19 15:50 Normodyne SLOW IVP 10 mg Q4H PRN Administration SBP Greater Than 180 Losartan Potassium 25 mg 12/15/19 21:00 12/16/19 20:07 Cozaar PO 25 mg HS PAT Administration Melatonin 3 mg 12/14/19 13:18 12/14/19 22:40 Melatonin PO 3 mg HS PRN Administration Insomnia Prednisone 40 mg 12/16/19 08:00 12/17/19 08:00 Prednisone PO 40 mg QAM-WM PAT Administration Sertraline HCl 50 mg 12/15/19 09:00 12/17/19 08:01 Zoloft PO 50 mg DAILY PAT Administration Sevelamer Carbonate 2,400 mg 12/15/19 12:00 12/17/19 11:32 Renvela PO 2,400 mg TID-WM PAT Administration Sodium Chloride 10 ml 12/14/19 21:00 12/17/19 08:29 Flush - Normal Saline IVF Not Given Q12HR PAT Sterile Water 1 ml 12/14/19 15:20 12/14/19 20:36 Bacteriostatic Water FS 1 ml PRN PRN Administration RECONSTITUTION - Exam General Appearance: NAD, awake alert Eye: PERRL ENT: normocephalic atraumatic, moist mucosa Neck: supple, symmetric, no lymphadenopathy Heart: no murmur, no gallops, no rubs Respiratory: no rales, normal chest expansion, no tachypnea, rhonchi (improving) , wheezes Gastrointestinal: soft, no guarding, no rigidity Extremities: no edema Skin: no lesions, no rashes Neurological: cranial nerve grossly intact, no focal deficits Musculoskeletal: generalized weakness Psychiatric: normal behavior, A&O x 3 Hosp A/P (1) COPD exacerbation Code(s): J44.1 - CHRONIC OBSTRUCTIVE PULMONARY DISEASE W (ACUTE) EXACERBATION Status: Acute (2) Acute respiratory failure Code(s): J96.00 - ACUTE RESPIRATORY FAILURE, UNSP W HYPOXIA OR HYPERCAPNIA Status: Acute (3) Shortness of breath Code(s): R06.02 - SHORTNESS OF BREATH Status: Acute (4) Tobacco abuse Code(s): Z72.0 - TOBACCO USE Status: Acute (5) ESRD (end stage renal disease) on dialysis Code(s): N18.6 - END STAGE RENAL DISEASE; Z99.2 - DEPENDENCE ON RENAL DIALYSIS Status: Acute - Plan Plan: medical unit pulmonology/critical-care consultation, recommendations appreciated nephrology consultation, recommendations appreciated Supplemental O2 to maintain O2 sat >88% breathing treatments steroids, transition to oral per pulmonology antibiotics, transition to oral per pulmonology hemodialysis per nephrology IV fluids per nephrology Add Mucinex as expectorant for secretions replace electrolytes as needed home medications as able G.I. prophylaxis DVT prophylaxis smoking cessation
--- NOTE | 2019-12-17 15:56 | PRG ---
DATE OF SERVICE: Dr. Singh progress note Yolanda Fenton [id number] date of service 12/17/2019 she feels okay. She is only complaining of constipation. OBJECTIVE: VITAL SIGNS: Temperature 98.7, pulse, respirations 16, O2 saturation 98% on 4 L blood pressure 150/52. HEENT exam unremarkable neck no adenopathy or JVD. LUNGS: Coarse breath sounds cardiac S1, S2. Regular. ABDOMEN: Soft. EXTREMITIES: No edema. LABORATORY DATA: White blood cell count 5.2, hematocrit 30.7, and platelet count 189. Sodium 140, potassium 4.4, BUN 33, creatinine 4.8, and glucose 83. ASSESSMENT: 1. Multi focal pneumonia. 2. Chronic obstructive pulmonary disease with exacerbation. 3. Congestive heart failure. 4. Renal failure. PLAN: S continue current supportive care with oral antibiotics, nebulization treatments and steroids indication. Job ID: [id number]
[2019-12-17] MEDS: Docusate 100 MG CAP PO PRN (16:14)
[2019-12-17] MEDS: Doxazosin 2 MG TAB PO SCH (20:42)
[2019-12-17] MEDS: guaiFENesin ER 600 MG TAB PO SCH (20:43)
[2019-12-17] MEDS: Losartan 25 MG TAB PO SCH (20:44)
[2019-12-17] MEDS: Gabapentin 300 MG CAP PO PRN (20:51)
[2019-12-18] MEDS: HYDROcodone/Acetaminophen 5/325 mg Tablet PO PRN ×2 (00:10→08:21)
[2019-12-18] MEDS: Sodium Chloride 0.9% 1,000 ML IV SCH ×2 (07:04→22:50)
[2019-12-18] MEDS: Budesonide 0.5 MG/2 ML NEB INH SCH ×2 (07:50→19:20)
[2019-12-18] MEDS: hydrALAZINE 25 MG TAB PO SCH ×3 (08:03→20:43)
[2019-12-18] MEDS: Sevelamer Carbonate 800 MG TAB PO SCH ×3 (08:04→17:03)
[2019-12-18] MEDS: Heparin 5,000 UNITS/ML VIAL SC SCH ×3 (08:04→20:44)
[2019-12-18] MEDS: guaiFENesin ER 600 MG TAB PO SCH ×2 (08:04→20:44)
[2019-12-18] MEDS: Doxycycline 100 MG CAP PO SCH ×2 (08:04→20:44)
[2019-12-18] MEDS: predniSONE 20 MG TAB PO SCH (08:04)
[2019-12-18] MEDS: Amlodipine 10 MG TAB PO SCH (08:04)
[2019-12-18] MEDS: Docusate 100 MG CAP PO PRN (08:09)
--- NOTE | 2019-12-18 13:17 | PDOC.HOSPP ---
- Subjective Subjective: Patient continues to improve the course rhonchi in her lungs are improving. She remains diffusely wheezy and all lung cassidy. With the addition abuse and next she is starting to bring up more thick phlegm. Time was given for questions, all answered in detail. - Objective Vital Signs & Weight: Vital Signs (12 hours) Temp Pulse Resp BP Pulse Ox 12/18/19 12:02 77 18 92 L 12/18/19 11:41 98.5 F 73 20 147/56 H 91 L 12/18/19 08:00 92 L 12/18/19 07:49 84 20 92 L 12/18/19 07:27 98.5 F 84 18 158/55 H 92 L Weight Weight 106 lb 4.205 oz Most Recent Monitor Data Heart Rate from ECG 76 NIBP 144/52 NIBP BP-Mean 82 Respiration from ECG 26 SpO2 90 I&O: 12/17/19 12/18/19 12/19/19 06:59 06:59 06:59 Intake Total 1350 1400 Balance 1350 1400 Result Diagrams: 12/17/19 05:41 12/17/19 05:41 Radiology Reviewed by me: Yes Hospitalist ROS - Review of Systems All other systems reviewed; all pertinent +/- noted in HPI/Subj - Medication Medications: Active Medications Generic Name Dose Route Start Last Admin Trade Name Freq PRN Reason Stop Dose Admin Acetaminophen 650 mg 12/14/19 13:16 12/17/19 05:20 Tylenol PO 650 mg Q4H PRN Administration Headache/Fever/Mild Pain (1-3) Hydrocodone Bitart/Acetaminophen 1 tab 12/14/19 13:16 12/18/19 08:21 [place] 5/325 PO 1 tab Q4H PRN Administration Moderate Pain (4-6) Hydrocodone Bitart/Acetaminophen 1 tab 12/16/19 14:44 12/17/19 11:34 [place] 10/325 PO 1 tab Q4H PRN Administration Severe Pain (7-10) Albuterol/Ipratropium 3 ml 12/15/19 13:00 12/18/19 12:02 Duoneb NEB 3 ml [id number] PAT Administration Amlodipine Besylate 10 mg 12/15/19 09:00 12/18/19 08:04 Norvasc PO 10 mg DAILY PAT Administration Benzonatate 100 mg 12/14/19 13:18 12/17/19 20:51 Tessalon PO 100 mg Q4H PRN Administration Cough Budesonide 0.5 mg 12/15/19 18:30 12/18/19 07:50 Pulmicort Neb Solution INH 0.5 mg BID-RT PAT Administration Diphenhydramine HCl 25 mg 12/14/19 13:18 12/18/19 00:10 Benadryl PO 25 mg Q6H PRN Administration Itching & Insomnia Docusate Sodium 100 mg 12/14/19 13:18 12/18/19 08:09 Colace PO 100 mg BIDPRN PRN Administration Constipation Doxazosin Mesylate 4 mg 12/15/19 21:00 12/17/19 20:42 Cardura PO 4 mg HS PAT Administration Doxycycline Hyclate 100 mg 12/15/19 09:00 12/18/19 08:04 Vibramycin PO 12/20/19 09:01 100 mg BID PAT Administration Epoetin Alden-epbx 7,500 unit 12/14/19 18:30 12/14/19 20:29 Retacrit SC 7,500 unit Q7D PAT Administration Famotidine 20 mg 12/14/19 21:00 12/16/19 20:07 Pepcid PO 20 mg Q48H PAT Administration Gabapentin 300 mg 12/15/19 13:52 12/17/19 20:51 Neurontin PO 300 mg TID PRN Administration Pain Guaifenesin 1,200 mg 12/17/19 21:00 12/18/19 08:04 Mucinex PO 12/20/19 09:01 1,200 mg BID PAT Administration Heparin Sodium (Porcine) 5,000 units 12/14/19 15:00 12/18/19 08:04 Heparin SC 5,000 units TID PAT Administration Hydralazine HCl 100 mg 12/15/19 09:00 12/18/19 08:03 Apresoline PO 100 mg TID PAT Administration Sodium Chloride 1,000 mls @ 75 mls/hr 12/16/19 17:45 12/18/19 07:04 Normal Saline 0.9% IV 1,000 mls .[id number] PAT Administration Labetalol HCl 10 mg 12/14/19 13:18 12/15/19 15:50 Normodyne SLOW IVP 10 mg Q4H PRN Administration SBP Greater Than 180 Losartan Potassium 25 mg 12/15/19 21:00 12/17/19 20:44 Cozaar PO 25 mg HS PAT Administration Melatonin 3 mg 12/14/19 13:18 12/14/19 22:40 Melatonin PO 3 mg HS PRN Administration Insomnia Prednisone 40 mg 12/16/19 08:00 12/18/19 08:04 Prednisone PO 40 mg QAM-WM PAT Administration Sertraline HCl 50 mg 12/15/19 09:00 12/18/19 08:04 Zoloft PO 50 mg DAILY PAT Administration Sevelamer Carbonate 2,400 mg 12/15/19 12:00 12/18/19 11:35 Renvela PO 2,400 mg TID-WM PAT Administration Sodium Chloride 10 ml 12/14/19 21:00 12/18/19 08:04 Flush - Normal Saline IVF Not Given Q12HR PAT Sterile Water 1 ml 12/14/19 15:20 12/14/19 20:36 Bacteriostatic Water FS 1 ml PRN PRN Administration RECONSTITUTION - Exam General Appearance: NAD, awake alert Eye: anicteric sclera ENT: normocephalic atraumatic, moist mucosa Neck: supple, symmetric, no lymphadenopathy Heart: no murmur, no gallops, no rubs Respiratory: no rales, no ronchi, normal chest expansion, no tachypnea, wheezes (Rhonchi are gone though still moderate to severe wheezing) Gastrointestinal: soft, non-tender, no guarding, no rigidity Extremities: no edema Skin: no lesions, no rashes Neurological: cranial nerve grossly intact, no focal deficits Musculoskeletal: generalized weakness Psychiatric: normal affect, A&O x 3 Hosp A/P (1) COPD exacerbation Code(s): J44.1 - CHRONIC OBSTRUCTIVE PULMONARY DISEASE W (ACUTE) EXACERBATION Status: Acute (2) Acute respiratory failure Code(s): J96.00 - ACUTE RESPIRATORY FAILURE, UNSP W HYPOXIA OR HYPERCAPNIA Status: Acute (3) Shortness of breath Code(s): R06.02 - SHORTNESS OF BREATH Status: Acute (4) Tobacco abuse Code(s): Z72.0 - TOBACCO USE Status: Acute (5) ESRD (end stage renal disease) on dialysis Code(s): N18.6 - END STAGE RENAL DISEASE; Z99.2 - DEPENDENCE ON RENAL DIALYSIS Status: Acute - Plan Plan: medical unit pulmonology/critical-care consultation, recommendations appreciated nephrology consultation, recommendations appreciated Supplemental O2 to maintain O2 sat >88% breathing treatments steroids, transition to oral per pulmonology antibiotics, transition to oral per pulmonology hemodialysis per nephrology IV fluids per nephrology Continue Mucinex as expectorant for secretions 3 times per day replace electrolytes as needed home medications as able G.I. prophylaxis DVT prophylaxis smoking cessation
--- NOTE | 2019-12-18 15:47 | PRG ---
DATE OF SERVICE: 12/18/2019 SUBJECTIVE: The patient has no complaints. OBJECTIVE: VITAL SIGNS: Temperature 98.7, pulse 77, respirations 18, O2 saturation 92% on 3 L blood pressure 147/56. HEENT: Unremarkable. NECK: No adenopathy. LUNGS: Coarse breath sounds. CARDIAC: S1, S2 regular. ABDOMEN: Soft. EXTREMITIES: No edema. ASSESSMENT: 1. Chronic renal failure requiring, hemodialysis. 2. Chronic obstructive pulmonary disease. 3. Congestive heart failure. PLAN: Continue present therapy. Hopefully, home soon. Job ID: [id number]
[2019-12-18] MEDS: Famotidine 20 MG TAB PO SCH (20:43)
[2019-12-18] MEDS: Doxazosin 2 MG TAB PO SCH (20:43)
[2019-12-18] MEDS: Melatonin 3 MG TAB PO PRN (20:43)
[2019-12-18] MEDS: Losartan 25 MG TAB PO SCH (20:44)
[2019-12-19] MEDS: Budesonide 0.5 MG/2 ML NEB INH SCH (05:20)
--- NOTE | 2019-12-19 09:03 | PRG ---
DATE OF SERVICE: 12/19/2019 SUBJECTIVE: Ms. Branch is a 54-year-old female with ESRD and followed up by the [facility] for her hemodialysis. Still with cough. No acute shortness of breath. She is currently undergoing hemodialysis. We will attempt to remove about 2.5 L of fluid with her today. OBJECTIVE: VITAL SIGNS: Blood pressure is 160/58, heart rate 74, respiratory rate 18, temperature 97.7, pulse ox is 99%. GENERAL: Awake, alert, comfortable, not in overt distress. SKIN: Adequate turgor. HEENT: Slightly pale conjunctivae. Anicteric sclerae. No neck mass. No carotid bruits. No JVD. CHEST: No deformities. LUNGS: Harsh breath Sounds. HEART: Normal sinus rhythm. No murmur. No gallops. No rubs. ABDOMEN: Globular, soft, nontender. No masses. EXTREMITIES: No edema. MEDICATIONS: Medications of December 19, 2019, was reviewed. LABORATORY DATA: Laboratories of December 17, 2019, white count 5.2, hemoglobin 9.6, sodium 140, potassium 4.4, chloride 104, carbon dioxide 25, BUN 33, creatinine 4.87, glucose 83, and calcium 8.2. ASSESSMENT/PLAN: 1. Chronic obstructive pulmonary disease exacerbation-continue supportive care. Pulmonary is following. 2. End stage renal disease, stable. We will continue Thursday, Thursday, and Thursday hemodialysis, attempting 2.5 L fluid removal with today's dialysis. 3. Anemia. We will continue current Epogen regimen. 4. Hyperphosphatemia. The patient currently on Renvela one tablet t.i.d. Recheck basic metabolic panel and CBC in a.m. Job ID: [id number]
[2019-12-19] MEDS: Sevelamer Carbonate 800 MG TAB PO SCH ×3 (09:09→16:10)
[2019-12-19] MEDS: hydrALAZINE 25 MG TAB PO SCH ×3 (09:10→20:23)
[2019-12-19] MEDS: Heparin 5,000 UNITS/ML VIAL SC SCH ×3 (09:10→20:24)
[2019-12-19] MEDS: Acetaminophen 325 MG TAB PO PRN (09:33)
--- NOTE | 2019-12-19 09:45 | PRG ---
DATE OF SERVICE: 12/19/2019 SUBJECTIVE: A 54-year-old female, being dialyzed today. She is having difficulty breathing. OBJECTIVE: VITAL SIGNS: Temperature 97, pulse rate 74, saturations are 98% on 3L, respiratory rate 18, and blood pressure 160/58. CHEST: Bilateral wheezing. CARDIAC: Normal S1 and S2. No gallops. ABDOMEN: No masses. IMPRESSION: 1. Chronic obstructive pulmonary disease. 2. Respiratory failure. 3. Congestive heart failure. 4. Chronic renal failure. Discontinue IV fluids. Continue PT, supportive care. Disposition as per Nephrology. Job ID: [id number]
[2019-12-19] MEDS: predniSONE 20 MG TAB PO SCH (11:44)
[2019-12-19] MEDS: guaiFENesin ER 600 MG TAB PO SCH ×2 (11:45→20:22)
[2019-12-19] MEDS: Amlodipine 10 MG TAB PO SCH (11:45)
[2019-12-19] MEDS: Doxycycline 100 MG CAP PO SCH ×2 (12:02→20:53)
--- NOTE | 2019-12-19 16:58 | PDOC.HOSPP ---
- Subjective Subjective: Seen and examined. Follow up on COPD in end-stage renal disease. Patient remains diffusely wheezy, the saturating into the 70s at times. Decreased exercise tolerance. Patient has had big improvements over the past several days though. - Objective Vital Signs & Weight: Vital Signs (12 hours) Temp Pulse Resp BP BP Pulse Ox 12/19/19 16:11 81 167/58 H 12/19/19 13:10 83 165/55 H 95 12/19/19 12:05 74 16 96 12/19/19 11:41 97.6 F 83 18 186/52 H 12/19/19 07:58 99 12/19/19 07:41 97.7 F 74 18 160/58 H 99 12/19/19 07:33 90 L 12/19/19 07:32 79 16 90 L 12/19/19 05:20 80 16 94 L 12/19/19 05:19 80 16 94 L Weight Weight 115 lb 8 oz Most Recent Monitor Data Heart Rate from ECG 76 NIBP 144/52 NIBP BP-Mean 82 Respiration from ECG 26 SpO2 90 I&O: 12/18/19 12/19/19 12/20/19 06:59 06:59 06:59 Intake Total 1400 1550 Balance 1400 1550 Result Diagrams: 12/17/19 05:41 12/17/19 05:41 Radiology Reviewed by me: Yes Hospitalist ROS - Review of Systems All other systems reviewed; all pertinent +/- noted in HPI/Subj - Medication Medications: Active Medications Generic Name Dose Route Start Last Admin Trade Name Freq PRN Reason Stop Dose Admin Acetaminophen 650 mg 12/14/19 13:16 12/19/19 09:33 Tylenol PO 650 mg Q4H PRN Administration Headache/Fever/Mild Pain (1-3) Hydrocodone Bitart/Acetaminophen 1 tab 12/14/19 13:16 12/18/19 08:21 [place] 5/325 PO 1 tab Q4H PRN Administration Moderate Pain (4-6) Hydrocodone Bitart/Acetaminophen 1 tab 12/16/19 14:44 12/17/19 11:34 [place] 10/325 PO 1 tab Q4H PRN Administration Severe Pain (7-10) Albuterol/Ipratropium 3 ml 12/15/19 13:00 12/19/19 12:05 Duoneb NEB 3 ml [id number] PAT Administration Albuterol/Ipratropium 3 ml 12/19/19 05:09 12/19/19 05:19 Duoneb NEB 3 ml Q4H PRN Administration SOB &/or Wheezing Amlodipine Besylate 10 mg 12/15/19 09:00 12/19/19 11:45 Norvasc PO 10 mg DAILY PAT Administration Benzonatate 100 mg 12/14/19 13:18 12/17/19 20:51 Tessalon PO 100 mg Q4H PRN Administration Cough Diphenhydramine HCl 25 mg 12/14/19 13:18 12/18/19 00:10 Benadryl PO 25 mg Q6H PRN Administration Itching & Insomnia Docusate Sodium 100 mg 12/14/19 13:18 12/18/19 08:09 Colace PO 100 mg BIDPRN PRN Administration Constipation Doxazosin Mesylate 4 mg 12/15/19 21:00 12/18/19 20:43 Cardura PO 4 mg HS PAT Administration Doxycycline Hyclate 100 mg 12/15/19 09:00 12/19/19 12:02 Vibramycin PO 12/20/19 09:01 100 mg BID PAT Administration Epoetin Alden-epbx 7,500 unit 12/14/19 18:30 12/14/19 20:29 Retacrit SC 7,500 unit Q7D PAT Administration Famotidine 20 mg 12/14/19 21:00 12/18/19 20:43 Pepcid PO 20 mg Q48H PAT Administration Gabapentin 300 mg 12/15/19 13:52 12/17/19 20:51 Neurontin PO 300 mg TID PRN Administration Pain Guaifenesin 1,200 mg 12/17/19 21:00 12/19/19 11:45 Mucinex PO 12/20/19 09:01 1,200 mg BID PAT Administration Heparin Sodium (Porcine) 5,000 units 12/14/19 15:00 12/19/19 16:10 Heparin SC 5,000 units TID PAT Administration Hydralazine HCl 100 mg 12/15/19 09:00 12/19/19 16:11 Apresoline PO 100 mg TID PAT Administration Labetalol HCl 10 mg 12/14/19 13:18 12/15/19 15:50 Normodyne SLOW IVP 10 mg Q4H PRN Administration SBP Greater Than 180 Losartan Potassium 25 mg 12/15/19 21:00 12/18/19 20:44 Cozaar PO 25 mg HS PAT Administration Melatonin 3 mg 12/14/19 13:18 12/18/19 20:43 Melatonin PO 3 mg HS PRN Administration Insomnia Prednisone 40 mg 12/16/19 08:00 12/19/19 11:44 Prednisone PO 40 mg QAM-WM PAT Administration Sertraline HCl 50 mg 12/15/19 09:00 12/19/19 11:45 Zoloft PO 50 mg DAILY PAT Administration Sevelamer Carbonate 2,400 mg 12/15/19 12:00 12/19/19 16:10 Renvela PO 2,400 mg TID-WM PAT Administration Sodium Chloride 10 ml 12/14/19 21:00 12/19/19 11:46 Flush - Normal Saline IVF 10 ml Q12HR PAT Administration Sterile Water 1 ml 12/14/19 15:20 12/14/19 20:36 Bacteriostatic Water FS 1 ml PRN PRN Administration RECONSTITUTION - Exam General Appearance: NAD, awake alert Eye: anicteric sclera ENT: normocephalic atraumatic, moist mucosa Neck: supple, symmetric, no lymphadenopathy Heart: no murmur, no gallops, no rubs Respiratory: no rales, normal chest expansion, no tachypnea, rhonchi, wheezes ( improving) Gastrointestinal: soft, non-tender, no guarding, no rigidity Extremities: no edema Skin: no rashes Neurological: cranial nerve grossly intact, no focal deficits Musculoskeletal: generalized weakness Psychiatric: normal affect, normal behavior, A&O x 3 Hosp A/P (1) COPD exacerbation Code(s): J44.1 - CHRONIC OBSTRUCTIVE PULMONARY DISEASE W (ACUTE) EXACERBATION Status: Acute (2) Acute respiratory failure Code(s): J96.00 - ACUTE RESPIRATORY FAILURE, UNSP W HYPOXIA OR HYPERCAPNIA Status: Acute (3) Shortness of breath Code(s): R06.02 - SHORTNESS OF BREATH Status: Acute (4) Tobacco abuse Code(s): Z72.0 - TOBACCO USE Status: Acute (5) ESRD (end stage renal disease) on dialysis Code(s): N18.6 - END STAGE RENAL DISEASE; Z99.2 - DEPENDENCE ON RENAL DIALYSIS Status: Acute - Plan Plan: medical unit pulmonology/critical-care consultation, recommendations appreciated nephrology consultation, recommendations appreciated Supplemental O2 to maintain O2 sat >88% breathing treatments steroids, transition to oral per pulmonology antibiotics, transition to oral per pulmonology hemodialysis per nephrology IV fluids per nephrology Continue Mucinex as expectorant for secretions BID for 3 days total replace electrolytes as needed home medications as able G.I. prophylaxis DVT prophylaxis smoking cessation
[2019-12-19] MEDS: Docusate 100 MG CAP PO PRN (18:18)
[2019-12-19] MEDS: Mometasone/Formoterol 120 PUFF INHALER INH SCH (19:12)
[2019-12-19] MEDS: Gabapentin 300 MG CAP PO PRN (20:23)
[2019-12-19] MEDS: Losartan 25 MG TAB PO SCH (20:53)
[2019-12-19] MEDS: Doxazosin 2 MG TAB PO SCH (20:53)
[2019-12-19] MEDS: Melatonin 3 MG TAB PO PRN (20:55)
[2019-12-20 06:07] LABS: #Monocytes 0.4 thou/uL (0.11-0.59); #Neutrophils 1.6 thou/uL (1.40-6.50); %Basophils 1.6 % (0.0-1.0); %Eosinophils 0.4 % (0.0-10.0); %Lymphocytes 34.5 % (21.0-51.0); %Monocytes 11.8 % (0.0-10.0); %Neutrophils 51.8 % (42.0-75.0); Hemoglobin 9.5 g/dL (12.0-16.0); Mean Corpuscular HGB CONC 31.9 g/dL (32.0-36.0); Mean Corpuscular Hemoglobin 31.2 pg (27.0-31.0); Mean Corpuscular Volume 97.9 fL (78.0-98.0); Mean Platelet Volume 7.5 fL (7.4-10.4); Platelet Count 184 thou/uL (130-400); RBC Distribution Width 15.3 % (11.5-14.5); Red Blood Cell (RBC) Count 3.05 mill/uL (4.20-5.40)
[2019-12-20 06:30] LABS: Anion Gap 13 mmol/L (10-20); BUN (Urea Nitrogen) 37 mg/dL (9.8-20.1); Calc. Creatinine Clearance 9 mL/min (70-130); Calcium 8.2 mg/dL (7.8-10.44); Carbon Dioxide 27 mmol/L (22-29); Chloride 103 mmol/L (98-107); Estimated GFR-MDRD 8; Glucose 75 mg/dL (70-105); Potassium 5.1 mmol/L (3.5-5.1); Sodium 138 mmol/L (136-145)
[2019-12-20] MEDS: Mometasone/Formoterol 120 PUFF INHALER INH SCH ×2 (06:35→18:43)
[2019-12-20] MEDS: hydrALAZINE 25 MG TAB PO SCH ×3 (09:40→20:14)
[2019-12-20] MEDS: predniSONE 20 MG TAB PO SCH (09:41)
[2019-12-20] MEDS: guaiFENesin ER 600 MG TAB PO SCH (09:41)
[2019-12-20] MEDS: Sevelamer Carbonate 800 MG TAB PO SCH ×3 (09:42→17:53)
[2019-12-20] MEDS: Doxycycline 100 MG CAP PO SCH (09:42)
[2019-12-20] MEDS: Amlodipine 10 MG TAB PO SCH (09:42)
[2019-12-20] MEDS: Heparin 5,000 UNITS/ML VIAL SC SCH ×3 (09:42→20:13)
[2019-12-20] MEDS: HYDROcodone/Acetaminophen 5/325 mg Tablet PO PRN (09:47)
--- NOTE | 2019-12-20 11:18 | PRG ---
DATE OF SERVICE: 12/20/2019 OBJECTIVE: VITAL SIGNS: Temperature 98, pulse 70, blood pressure 177/65, respirations 18. GENERAL: She is walking in the halls. She is less short of breath. CHEST: Decreased breath sounds. No wheezing. CARDIAC: Normal S1, S2. No gallops IMPRESSION: Renal failure, respiratory failure, pneumonia, chronic obstructive pulmonary disease. PLAN: Disposition as per Nephrology. She is stable enough to be discharged home. Follow up with the primary care physician. Job ID: [id number]
--- NOTE | 2019-12-20 14:13 | PDOC.HOSPP ---
- Subjective Subjective: Seen and examined. Patient is having significant improvement over the past several days. She tells me that she did walk around the yan with her oxygen she did dip down into the low 80s. She is having improved exercise tolerance. She is wheezing and coughing less. Patient happy with plan of care. - Objective Vital Signs & Weight: Vital Signs (12 hours) Temp Pulse Pulse Pulse Pulse Resp BP 12/20/19 09:42 70 177/65 H 12/20/19 09:40 70 177/65 H 12/20/19 09:31 88 70 74 12/20/19 08:00 12/20/19 07:24 98.5 F 70 18 12/20/19 06:33 78 18 BP BP Pulse Ox Pulse Ox Pulse Ox Pulse Ox 12/20/19 09:42 12/20/19 09:40 12/20/19 09:31 177/65 H 86 L 93 L 92 L 12/20/19 08:00 93 L 12/20/19 07:24 177/65 H 93 L 12/20/19 06:33 98 Weight Weight 110 lb 7.225 oz Most Recent Monitor Data Heart Rate from ECG 76 NIBP 144/52 NIBP BP-Mean 82 Respiration from ECG 26 SpO2 90 I&O: 12/19/19 12/20/19 12/21/19 06:59 06:59 06:59 Intake Total 1550 1275 240 Balance 1550 1275 240 Result Diagrams: 12/20/19 05:37 12/20/19 05:37 Radiology Reviewed by me: Yes Hospitalist ROS - Review of Systems All other systems reviewed; all pertinent +/- noted in HPI/Subj - Medication Medications: Active Medications Generic Name Dose Route Start Last Admin Trade Name Freq PRN Reason Stop Dose Admin Acetaminophen 650 mg 12/14/19 13:16 12/19/19 09:33 Tylenol PO 650 mg Q4H PRN Administration Headache/Fever/Mild Pain (1-3) Hydrocodone Bitart/Acetaminophen 1 tab 12/14/19 13:16 12/20/19 09:47 [place] 5/325 PO 1 tab Q4H PRN Administration Moderate Pain (4-6) Hydrocodone Bitart/Acetaminophen 1 tab 12/16/19 14:44 12/17/19 11:34 [place] 10/325 PO 1 tab Q4H PRN Administration Severe Pain (7-10) Albuterol/Ipratropium 3 ml 12/15/19 13:00 12/20/19 06:33 Duoneb NEB 3 ml [id number] PAT Administration Albuterol/Ipratropium 3 ml 12/19/19 05:09 12/19/19 05:19 Duoneb NEB 3 ml Q4H PRN Administration SOB &/or Wheezing Amlodipine Besylate 10 mg 12/15/19 09:00 12/20/19 09:42 Norvasc PO 10 mg DAILY PAT Administration Benzonatate 100 mg 12/14/19 13:18 12/17/19 20:51 Tessalon PO 100 mg Q4H PRN Administration Cough Bisacodyl 10 mg 12/14/19 13:16 12/20/19 09:52 Dulcolax PO 10 mg DAILYPRN PRN Administration Constipation Calcium Carbonate 1,000 mg 12/14/19 13:16 12/19/19 20:53 Tums PO 1,000 mg Q4H PRN Administration Heartburn or Indigestion Diphenhydramine HCl 25 mg 12/14/19 13:18 12/18/19 00:10 Benadryl PO 25 mg Q6H PRN Administration Itching & Insomnia Docusate Sodium 100 mg 12/14/19 13:18 12/19/19 18:18 Colace PO 100 mg BIDPRN PRN Administration Constipation Doxazosin Mesylate 4 mg 12/15/19 21:00 12/19/19 20:53 Cardura PO 4 mg HS PAT Administration Epoetin Alden-epbx 7,500 unit 12/14/19 18:30 12/14/19 20:29 Retacrit SC 7,500 unit Q7D PAT Administration Famotidine 20 mg 12/14/19 21:00 12/18/19 20:43 Pepcid PO 20 mg Q48H PAT Administration Gabapentin 300 mg 12/15/19 13:52 12/19/19 20:23 Neurontin PO 300 mg TID PRN Administration Pain Heparin Sodium (Porcine) 5,000 units 12/14/19 15:00 12/20/19 09:42 Heparin SC 5,000 units TID PAT Administration Hydralazine HCl 100 mg 12/15/19 09:00 12/20/19 09:40 Apresoline PO 100 mg TID PAT Administration Labetalol HCl 10 mg 12/14/19 13:18 12/15/19 15:50 Normodyne SLOW IVP 10 mg Q4H PRN Administration SBP Greater Than 180 Losartan Potassium 25 mg 12/15/19 21:00 12/19/19 20:53 Cozaar PO 25 mg HS PAT Administration Melatonin 3 mg 12/14/19 13:18 12/19/19 20:55 Melatonin PO 3 mg HS PRN Administration Insomnia Mometasone Furoate/Formoterol Fumar 2 puff 12/19/19 18:30 12/20/19 06:35 Dulera 200 Mcg/5 Mcg Inhaler INH 2 puff BID-RT PAT Administration Prednisone 40 mg 12/16/19 08:00 12/20/19 09:41 Prednisone PO 40 mg QAM-WM PAT Administration Sertraline HCl 50 mg 12/15/19 09:00 12/20/19 09:41 Zoloft PO 50 mg DAILY PAT Administration Sevelamer Carbonate 2,400 mg 12/15/19 12:00 12/20/19 13:28 Renvela PO 2,400 mg TID-WM PAT Administration Sodium Chloride 10 ml 12/14/19 21:00 12/20/19 09:42 Flush - Normal Saline IVF 10 ml Q12HR PAT Administration Sterile Water 1 ml 12/14/19 15:20 12/14/19 20:36 Bacteriostatic Water FS 1 ml PRN PRN Administration RECONSTITUTION - Exam General Appearance: NAD, awake alert Eye: anicteric sclera ENT: normocephalic atraumatic, moist mucosa Neck: supple, symmetric, no lymphadenopathy Heart: no murmur, no gallops, no rubs Respiratory: no rales, normal chest expansion, no tachypnea, rhonchi, wheezes ( improving) Gastrointestinal: soft, non-tender, no rigidity Extremities: no edema Skin: normal turgor, no lesions, no rashes Neurological: cranial nerve grossly intact, no weakness Musculoskeletal: generalized weakness Psychiatric: normal affect, normal behavior, A&O x 3 Hosp A/P (1) COPD exacerbation Code(s): J44.1 - CHRONIC OBSTRUCTIVE PULMONARY DISEASE W (ACUTE) EXACERBATION Status: Acute (2) Acute respiratory failure Code(s): J96.00 - ACUTE RESPIRATORY FAILURE, UNSP W HYPOXIA OR HYPERCAPNIA Status: Acute (3) Shortness of breath Code(s): R06.02 - SHORTNESS OF BREATH Status: Acute (4) Tobacco abuse Code(s): Z72.0 - TOBACCO USE Status: Acute (5) ESRD (end stage renal disease) on dialysis Code(s): N18.6 - END STAGE RENAL DISEASE; Z99.2 - DEPENDENCE ON RENAL DIALYSIS Status: Acute - Plan Plan: medical unit pulmonology/critical-care consultation, recommendations appreciated nephrology consultation, recommendations appreciated Supplemental O2 to maintain O2 sat >88% breathing treatments steroids, transition to oral per pulmonology antibiotics, transition to oral per pulmonology hemodialysis per nephrology IV fluids per nephrology Continue Mucinex as expectorant for secretions BID for 3 days total replace electrolytes as needed home medications as able G.I. prophylaxis DVT prophylaxis smoking cessationDisposition: Improving on maximum medical therapy. Anticipate D/c in the next 24-48 hours. Still desaturating to the low 80% while on oxygen with ambulation.
[2019-12-20] MEDS ORDERED: Gabapentin 100 MG CAP PO PRN (15:30)
--- NOTE | 2019-12-20 15:50 | PQF ---
CLINICAL DOCUMENTATION IMPROVEMENT CLARIFICATION FORM: ICD-10 Updated PLEASE DO AN ADDENDUM TO THE PROGRESS NOTE WITH ANY DOCUMENTATION UPDATES OR ADDITIONS AND CARRY THROUGH TO DC SUMMARY. THANK YOU. DATE: 12/21/19 ATTN: DR. COLLIER Please exercise your independent, professional judgment in responding to the clarification form. Clinical indicators are provided on the bottom of this form for your review Please check appropriate box(s) to clarify if the following diagnosis has been ruled in or ruled out: "PNEUMONIA" [ ] Ruled in diagnosis [ ] Continue to treat [ ] Resolved [ ] Ruled out diagnosis [ ] Cannot rule out diagnosis [ ] Other diagnosis [ ] Unable to determine In addition, please specify: Present on Admission (POA): [ ] Yes [ ] No [ ] Unable to determine For continuity of documentation, please document condition throughout progress notes and discharge summary. Thank You. CLINICAL INDICATORS - SIGNS / SYMPTOMS / LABS / RESULTS AND LOCATION IN MR ER NOTE: "MULTIFOCAL PNEUMONIA" PROGRESS NOTE (PULMONARY) 12/15: "I DO NOT SEE ANY EVIDENCE OF SEPSIS OR GROSS PNEUMONIA" PROGRESS NOTE (PULMONARY) 12/19: "MULTIFOCAL PNEUMONIA" RISKS: COPD EXACERBATION (ER) TREATMENT: IV METHYLPREDNISOLONE (ER) IV VANCOMYCIN (ER) IV CEFEPIME (ER) DUONEBS (ER) DULERA (12/19-PRESENT) PO PREDNISONE (12/16-PRESENT) VIBRAMYCIN (12/15-12/20) MUCINEX (12/17-12/20) PULMONARY CONSULT SAP Process Safety Specialist Crystal Reports Winform Viewer (This form is maintained as a part of the permanent medical record) 2014 [employer] All Rights Reserved CARLIN [email or web address] Office: [phone] [facility]
[2019-12-20] MEDS: Famotidine 20 MG TAB PO SCH (20:15)
[2019-12-20] MEDS: Losartan 25 MG TAB PO SCH (20:15)
[2019-12-20] MEDS: Doxazosin 2 MG TAB PO SCH (20:15)
[2019-12-21] MEDS: Mometasone/Formoterol 120 PUFF INHALER INH SCH (07:29)
[2019-12-21] MEDS: Amlodipine 10 MG TAB PO SCH (07:52)
[2019-12-21] MEDS: Acetaminophen 325 MG TAB PO PRN (07:52)
[2019-12-21] MEDS: hydrALAZINE 25 MG TAB PO SCH ×2 (07:58→15:15)
[2019-12-21] MEDS: Heparin 5,000 UNITS/ML VIAL SC SCH (09:14)
[2019-12-21] MEDS: Sevelamer Carbonate 800 MG TAB PO SCH ×2 (09:14→11:13)
--- NOTE | 2019-12-21 10:29 | PRG ---
DATE OF SERVICE: 12/21/2019 SUBJECTIVE: This morning, she is awake, alert, and responsive. She is being dialyzed. OBJECTIVE: VITAL SIGNS: Temperature 98, pulse 79, blood pressure 186/75, and sats 97 on 3 L. CHEST: Minimal wheezing. CARDIAC: Normal S1 and S2. No gallops. ABDOMEN: No masses. IMPRESSION: Chronic obstructive pulmonary disease, bronchitis, and chronic renal failure. PLAN: The patient is much improved. She can be discharged home any time. Follow up with the primary care physician at [facility]. Job ID: [id number]
[2019-12-21] MEDS: predniSONE 20 MG TAB PO SCH (11:07)
--- NOTE | 2019-12-21 12:23 | PDOC.HOSPP ---
- Subjective Encounter Date: 12/21/19 Encounter Time: 12:22 Subjective: Patient seen and examined for resp failure. SOB improving. Cough with some production. No new complaints. No overnight events - Objective Vital Signs & Weight: Vital Signs (12 hours) Temp Pulse Resp BP BP Pulse Ox 12/21/19 09:00 87 14 97 12/21/19 07:58 73 186/75 H 12/21/19 07:52 73 186/75 H 12/21/19 04:00 98.4 F 79 20 175/68 H 93 L 12/21/19 00:34 71 16 97 Weight Weight 110 lb 7.225 oz Most Recent Monitor Data Heart Rate from ECG 76 NIBP 144/52 NIBP BP-Mean 82 Respiration from ECG 26 SpO2 90 I&O: 12/20/19 12/21/19 12/22/19 06:59 06:59 06:59 Intake Total 1275 1080 Balance 1275 1080 Result Diagrams: 12/20/19 05:37 12/20/19 05:37 Radiology Reviewed by me: Yes (CXR - improving) Hospitalist ROS - Review of Systems Constitutional: reports: weakness (gen). denies: fever, chills, sweats, malaise , other Cardiovascular: denies: chest pain, palpitations, orthopnea, paroxysmal noc. dyspnea, edema, light headedness, other - Medication Medications: Active Medications Generic Name Dose Route Start Last Admin Trade Name Freq PRN Reason Stop Dose Admin Acetaminophen 650 mg 12/14/19 13:16 12/21/19 07:52 Tylenol PO 650 mg Q4H PRN Administration Headache/Fever/Mild Pain (1-3) Hydrocodone Bitart/Acetaminophen 1 tab 12/14/19 13:16 12/20/19 09:47 [place] 5/325 PO 1 tab Q4H PRN Administration Moderate Pain (4-6) Hydrocodone Bitart/Acetaminophen 1 tab 12/16/19 14:44 12/17/19 11:34 [place] 10/325 PO 1 tab Q4H PRN Administration Severe Pain (7-10) Albuterol/Ipratropium 3 ml 12/15/19 13:00 12/21/19 07:30 Duoneb NEB Not Given [id number] PAT Albuterol/Ipratropium 3 ml 12/19/19 05:09 12/21/19 09:00 Duoneb NEB 3 ml Q4H PRN Administration SOB &/or Wheezing Amlodipine Besylate 10 mg 12/15/19 09:00 12/21/19 07:52 Norvasc PO 10 mg DAILY PAT Administration Benzonatate 100 mg 12/14/19 13:18 12/17/19 20:51 Tessalon PO 100 mg Q4H PRN Administration Cough Bisacodyl 10 mg 12/14/19 13:16 12/20/19 09:52 Dulcolax PO 10 mg DAILYPRN PRN Administration Constipation Calcium Carbonate 1,000 mg 12/14/19 13:16 12/19/19 20:53 Tums PO 1,000 mg Q4H PRN Administration Heartburn or Indigestion Diphenhydramine HCl 25 mg 12/14/19 13:18 12/18/19 00:10 Benadryl PO 25 mg Q6H PRN Administration Itching & Insomnia Docusate Sodium 100 mg 12/14/19 13:18 12/19/19 18:18 Colace PO 100 mg BIDPRN PRN Administration Constipation Doxazosin Mesylate 4 mg 12/15/19 21:00 12/20/19 20:15 Cardura PO 4 mg HS PAT Administration Epoetin Alden-epbx 7,500 unit 12/14/19 18:30 12/14/19 20:29 Retacrit SC 7,500 unit Q7D PAT Administration Famotidine 20 mg 12/14/19 21:00 12/20/19 20:15 Pepcid PO 20 mg Q48H PAT Administration Gabapentin 200 mg 12/20/19 15:30 12/20/19 20:21 Neurontin PO 200 mg DAILYPRN PRN Administration NEUROPATHY Heparin Sodium (Porcine) 5,000 units 12/14/19 15:00 12/21/19 09:14 Heparin SC Not Given TID PAT Hydralazine HCl 100 mg 12/15/19 09:00 12/21/19 07:58 Apresoline PO 100 mg TID PAT Administration Labetalol HCl 10 mg 12/14/19 13:18 12/15/19 15:50 Normodyne SLOW IVP 10 mg Q4H PRN Administration SBP Greater Than 180 Losartan Potassium 25 mg 12/15/19 21:00 12/20/19 20:15 Cozaar PO 25 mg HS PAT Administration Melatonin 3 mg 12/14/19 13:18 12/19/19 20:55 Melatonin PO 3 mg HS PRN Administration Insomnia Mometasone Furoate/Formoterol Fumar 2 puff 12/19/19 18:30 12/21/19 07:29 Dulera 200 Mcg/5 Mcg Inhaler INH Not Given BID-RT PAT Prednisone 40 mg 12/16/19 08:00 12/21/19 11:07 Prednisone PO 40 mg QAM-WM PAT Administration Sertraline HCl 50 mg 12/15/19 09:00 12/21/19 11:08 Zoloft PO 50 mg DAILY PAT Administration Sevelamer Carbonate 2,400 mg 12/15/19 12:00 12/21/19 11:13 Renvela PO 2,400 mg TID-WM PAT Administration Sodium Chloride 10 ml 12/14/19 21:00 12/21/19 11:08 Flush - Normal Saline IVF 10 ml Q12HR PAT Administration Sterile Water 1 ml 12/14/19 15:20 12/14/19 20:36 Bacteriostatic Water FS 1 ml PRN PRN Administration RECONSTITUTION - Exam General Appearance: NAD Neck: symmetric, no JVD Heart: no gallops, no rubs Respiratory: rhonchi, wheezes Gastrointestinal: non-tender, non-distended, normal bowel sounds Extremities: no cyanosis, no clubbing, no edema Hosp A/P - Plan DVT proph w/heparin Acute on chronic hypoxic resp failure due to COPD exacerbation s/p NIPPV Severe Sepsis due to Multifocal Pneumonia ?gram negative - POA ESRD on dialysis HTN Physical deconditioning Tobacco dep Anemia due to renal insuf PLAN: Cont Prednisone/Nebs Atbx completed Counselled to quit smoking Cont other meds DC planning in 24-48 hr
[2019-12-21] MEDS ORDERED: hydrALAZINE 20 MG/ML VIAL SLOW IVP PRN (12:31)
--- NOTE | 2019-12-21 14:54 | PRG ---
DATE OF SERVICE: SUBJECTIVE: Ms. Branch is a 54-year-old female, who was admitted for acute respiratory failure. She has underlying pneumonia/COPD exacerbation. She intermittently is hypoxemic, but clinically improving. No other complaints today. She is undergoing hemodialysis. OBJECTIVE: VITAL SIGNS: Blood pressure is 186/75 after and before BP medications, heart rate 79, respiratory rate 20, temperature 98.4, pulse ox 93%. GENERAL: The patient is awake, comfortable, not in overt distress. SKIN: Adequate turgor. HEENT: She has slightly pale conjunctivae. Anicteric sclerae. NECK: No neck mass. No carotid bruits. No JVD. CHEST: No deformities. LUNGS: Clear breath sounds. No wheezing. No crackles. HEART: Normal sinus rhythm. No murmur. No gallops. No rubs. ABDOMEN: Globular, soft, nontender. No masses. EXTREMITIES: No edema. No deformities. MEDICATIONS: Medications of December 20, 2019, was reviewed. LABORATORY DATA: Laboratories of December 20, 2019, white count 3, hemoglobin 9.5. Sodium 138, potassium 5.1, chloride 103, carbon dioxide 27, BUN 37, creatinine 5.63, glucose 75, calcium is 8.2. ASSESSMENT AND PLAN: 1. End-stage renal disease, stable, tolerating current hemodialysis regimen. We will continue Thursday, Thursday, and Thursday dialysis treatment. 2. Chronic obstructive pulmonary disease exacerbation. Supportive care. On supplemental O2. 3. Anemia, continuing weekly Epogen. Agree with current management. Job ID: [id number]
--- NOTE | 2019-12-21 15:10 | DIS ---
DATE OF ADMISSION: 12/14/2019 DATE OF DISCHARGE: 12/21/2019 DISCHARGE DISPOSITION: Home. FOLLOWUP: 1. Follow up with primary care physician, Dr. Chavo Johnson in 1 week. 2. Follow up with primary product development chemist, Dr. Velásquez as scheduled. ALLERGIES: THE PATIENT IS ALLERGIC TO CEFTRIAXONE, CLONIDINE, AND PENICILLIN. DISCHARGE MEDICATIONS: Same as admission medications. Prednisone taper was added. The patient was seen and examined on the day of discharge. Please refer to my progress note for details. BRIEF HOSPITAL COURSE: The patient is a 54-year-old female with COPD, chronic hypoxic respiratory failure, on home oxygen, with ongoing tobacco abuse, presented to the hospital on November,, with shortness of breath along with chest tightness, wheezing, and fever. She was started on noninvasive positive-pressure ventilation. Her workup was consistent with acute hypoxic respiratory failure secondary to COPD exacerbation along with multifocal pneumonia. She showed good improvement with above measures. She was later transferred to the medical floor. She has completed antibiotics. She will continue prednisone taper as outpatient. Please refer to the various consultation note for details. She underwent hemodialysis per Nephrology. FINAL DIAGNOSES: 1. Acute on chronic hypoxic respiratory failure. 2. Chronic obstructive pulmonary disease exacerbation, requiring noninvasive positive pressure ventilation. 3. Severe sepsis due to multifocal pneumonia, suspected gram negative. 4. End-stage renal disease, on hemodialysis. 5. Hypertension. 6. Ongoing tobacco abuse. The patient was counseled. 7. Anemia due to renal insufficiency. 8. Physical deconditioning. Home health care will be resumed. Job ID: [id number]
[2019-12-21 15:16] VITALS: BP 177/56; TEMP 98.6
[2019-12-21] MEDS ORDERED: Calcium Carbonate + Vit D 1 TAB PO SCH (17:00)
[2019-12-21] MEDS ORDERED: guaiFENesin ER 600 MG TAB PO SCH (21:00)
[2019-12-21] MEDS ORDERED: Heparin 5,000 UNITS/ML VIAL SC SCH (21:00)
--- NOTE | 2019-12-22 01:26 | PQF ---
[employer] Emergency Technician Crystal Reports Winform Viewer WENDY ALVES MAGAN LOPEZ MD [id number] CLINICAL DOCUMENTATION CLARIFICATION FORM: POST DISCHARGE Addendum to original discharge summary date: ____ Late entry note date: __ DATE: 12/22/19 ATTN: Magan Aldana Please exercise your independent, professional judgment in responding to the clarification form. Clinical indicators are provided on the bottom of this form for your review Diagnosis: Severe Sepsis DS 12/21/19 pg.1 Present on Admission (POA): [ ] Yes [ ] No [ ] Unable to determine Coding guidelines require hospitals to identify whether a diagnosis was present on admission (POA) or not. To accurately assign the appropriate POA indicator, this information must be clearly documented within the medical record. CLINICAL INDICATORS - SIGNS / SYMPTOMS / LABS H and P pg.1- presents for shortness of breath of hypoxia" H and P pg.4- Admit to ICU PN 12/[address] Felipe- I do not see any evidence of any sepsis or gross pneumonia DS pg.1- severe sepsis due to multifactorial; pneumonia, suspected gram negative RISK FACTORS: Acute on chronic hypoxic respiratory failure- DS pg.1 COPD exacerbation- DS pg.1 ESRD- DS pg.1 Hypertension- DS pg.1 Tobacco abuse- DS pg.1 Pneumonia- DS pg.1 TREATMENT: IV Antibiotics- SALVATORE IV fluid- SALVATORE Pulmonary Consult 12/14 Dr. Felipe Chest X ray 12/14 BiPAP- ED Provider (This form is maintained as a part of the permanent medical record) 2014 [employer]. All Rights Reserved [email or web address] [email or web address]
[2019-12-22] MEDS ORDERED: Saccharomyces boulardii 250 MG CAP PO SCH (09:00)
[2019-12-22] MEDS ORDERED: Folic Acid/Vit B Comp W-C PO SCH (09:00)
== END 2019-12-21 18:07 | disposition home health service (06) | DRG 871 ==
LOC: ERS 10:27 → CCU 13:33 → T4-B 12-15 16:41
PROVIDERS: ADMIT Internal Medicine; ATTEND Internal Medicine
PROC: 5A09457 Assistance with Respiratory Ventilation, 24-96 Consecutive Hours, Continuous Positive Airway Pressure (ICD-10-PCS; principal; 2019-12-14)
PROC: 5A1D70Z Performance of Urinary Filtration, Intermittent, Less than 6 Hours Per Day (ICD-10-PCS; 2019-12-15)
DX: A41.50 Gram-negative sepsis, unspecified (principal); J96.21 Acute and chronic respiratory failure with hypoxia; J15.6 Pneumonia due to other Gram-negative bacteria; N18.6 End stage renal disease; J44.1 Chronic obstructive pulmonary disease with (acute) exacerbation; J44.0 Chronic obstructive pulmonary disease with (acute) lower respiratory infection; I13.2 Hypertensive heart and chronic kidney disease with heart failure and with stage 5 chronic kidney disease, or end stage renal disease; E87.2 Acidosis; R65.20 Severe sepsis without septic shock; D63.1 Anemia in chronic kidney disease; I50.9 Heart failure, unspecified; I25.10 Atherosclerotic heart disease of native coronary artery without angina pectoris; F17.210 Nicotine dependence, cigarettes, uncomplicated; F41.9 Anxiety disorder, unspecified; Z99.2 Dependence on renal dialysis; Z90.710 Acquired absence of both cervix and uterus; Z98.51 Tubal ligation status; Z88.0 Allergy status to penicillin; Z88.1 Allergy status to other antibiotic agents; Z88.8 Allergy status to other drugs, medicaments and biological substances; Z79.899 Other long term (current) drug therapy; K59.00 Constipation, unspecified; E83.39 Other disorders of phosphorus metabolism
CPT/HCPCS: 36415; 71045; 80048; 80053; 82550; 82553; 82805; 83605; 83880; 84484; 85025; 87040; 87804; 90935; 93005; 93306; 94640; 94660; 96365; 96367; 99292; G0257; J0692; J1644; J2920; J3370; J7512; J7620; J7626; Q0163; Q5105

== ENCOUNTER 2020-01-15 19:21 | Inpatient (IN) | payer MEDICARE, MEDICAID ==
[2020-01-15 19:59] LABS: #Eosinphils 0.4 thou/uL (0.0-0.7); #Lymphocytes 1.6 thou/uL (1.20-3.40); #Monocytes 0.6 thou/uL (0.11-0.59); #Neutrophils 5.8 thou/uL (1.40-6.50); %Basophils 0.6 % (0.0-1.0); %Eosinophils 4.3 % (0.0-10.0); %Lymphocytes 19.6 % (21.0-51.0); %Monocytes 6.5 % (0.0-10.0); %Neutrophils 69.1 % (42.0-75.0); Hemoglobin 8.7 g/dL (12.0-16.0); Mean Corpuscular HGB CONC 32.4 g/dL (32.0-36.0); Mean Corpuscular Volume 98.7 fL (78.0-98.0); Mean Platelet Volume 6.8 fL (7.4-10.4); Platelet Count 244 thou/uL (130-400); RBC Distribution Width 14.5 % (11.5-14.5); Red Blood Cell (RBC) Count 2.72 mill/uL (4.20-5.40); White Blood Cell (WBC) Count 8.4 thou/uL (4.8-10.8)
--- NOTE | 2020-01-15 20:07 | RAD ---
EXAM: CHEST ONE VIEW, PORTABLE: History: Shortness of breath, difficulty breathing. Comparison: 12-16-2019 FINDINGS: Extensive bilateral upper lung zone bullous emphysema changes with minimal cardiomegaly and fairly pr ominent increased linear, interstitial, and reticular nodular parenchymal changes in the lower lung z ones. These appear little changed from one 12-16-2019, but appear more marked than on the 12-15-2019 st udy, raising concern for some bilateral lower lobe pneumonia in addition to underlying chronic change . IMPRESSION: Bilateral upper lung zone bullous emphysema changes. Parenchymal changes in the lower lung zones bila terally showing worsening from 12-15-2019 suggesting some acute bilateral pneumonia in addition to ext ensive underlying chronic changes. Continued short term follow up. POS: RRE
[2020-01-15] MEDS ORDERED: Albuterol Sulfate 2.5 mg/3 ml Neb ONE (20:09)
[2020-01-15 20:20] LABS: ALT (SGPT) 24 U/L (8-55); AST (SGOT) 24 U/L (5-34); Albumin 3.6 g/dL (3.5-5.0); Alkaline Phosphatase 92 U/L (40-110); Anion Gap 19 mmol/L (10-20); BUN (Urea Nitrogen) 71 mg/dL (9.8-20.1); Bilirubin, Total 0.6 mg/dL (0.2-1.2); Calc. Creatinine Clearance 0 mL/min (70-130); Calcium 9.1 mg/dL (7.8-10.44); Carbon Dioxide 24 mmol/L (22-29); Chloride 106 mmol/L (98-107); Estimated GFR-MDRD 5; Globulin 2.8 g/dL (2.4-3.5); Glucose 100 mg/dL (70-105); Potassium 5.4 mmol/L (3.5-5.1); Protein, Total 6.4 g/dL (6.0-8.3); Sodium 144 mmol/L (136-145)
[2020-01-15 20:42] LABS: CKMB 4.3 ng/mL (0-6.6)
[2020-01-15] MEDS ORDERED: Aztreonam 2 GM in Sodium Chloride 0.9% 100 ML IVPB SCH (21:30)
[2020-01-15 23:29] LABS: Troponin I 0.022 ng/mL (< 0.028)
[2020-01-16] MEDS ORDERED: Vancomycin HCl 1.25 GM in Sodium Chloride 0.9% 250 ML 250 ML IVPB SCH (00:15)
[2020-01-16] MEDS ORDERED: Ondansetron ODT 4 MG TAB SL PRN (00:31)
[2020-01-16] MEDS ORDERED: Ondansetron PF 4 MG/2 ML Vial IVP PRN (00:31)
[2020-01-16 02:14] LABS: Troponin I 0.031 ng/mL (< 0.028)
[2020-01-16 02:29] LABS: Bacteria/HPF None Seen HPF (None Seen); Bilirubin Negative (Negative); Blood, Urine Trace (Negative); Clarity Clear (Clear); Glucose, Urine (Dipstick) 300 mg/dL (Negative); Leukocyte Negative Leu/uL (Negative); Nitrite Negative (Negative); Protein, Urine (Dipstick) 600 mg/dL (Neg-Trace); RBC/HPF 0-3 HPF (0-3); Urobilinogen Normal mg/dL (Less than 2); WBC/HPF 0-3 HPF (0-3)
[2020-01-16] MEDS: methylPREDNISolone Sod Succ 40 MG VIAL IVP SCH ×4 (03:20→22:32)
[2020-01-16] MEDS ORDERED: methylPREDNISolone Sod Succ 40 MG VIAL ONE ×2 (03:21→09:21)
[2020-01-16] MEDS ORDERED: Bacteriostatic Water 30 ML VIAL FS PRN (04:17)
[2020-01-16] MEDS ORDERED: Ondansetron ODT 4 MG TAB PO PRN (09:00)
[2020-01-16] MEDS ORDERED: PROVENTIL INHALER 6.7 G (200 INHALATIONS) INH PRN (09:00)
[2020-01-16] MEDS ORDERED: Non-Formulary Item 1 EACH (Hydralazine Hcl [Hydralazine Hcl] 100 MG) PO SCH (09:00)
[2020-01-16] MEDS ORDERED: Non-Formulary Item 1 EACH (Sertraline Hcl [Sertraline Hcl] 50 MG) PO SCH (09:00)
[2020-01-16] MEDS ORDERED: Senokot S 8.6-50 MG TAB PO PRN (09:00)
[2020-01-16] MEDS ORDERED: hydrALAZINE 20 MG/ML VIAL ONE (10:58)
[2020-01-16] MEDS ORDERED: Lorazepam 2 MG/ML VIAL ONE (10:59)
[2020-01-16] MEDS: hydrALAZINE 25 MG TAB PO SCH ×3 (13:58→21:09)
[2020-01-16] MEDS: Amlodipine 10 MG TAB PO SCH (14:00)
[2020-01-16] MEDS: Sevelamer Carbonate 800 MG TAB PO SCH ×2 (14:28→18:22)
[2020-01-16 15:00] LABS: Actual Bicarbonate (HCO3a) 21.8 mEq/L (22-28); Base Excess (BEa) -5.8 mEq/L (-2.0 to +3.0); CO2 Tension 53.4 mmHg (35.0-45.0); Calcium, Ionized 1.24 mmol/L (1.12-1.30); Carboxyhemoglobin (COHb) 0.6 gm% (0.0-3.0); Hemoglobin (Hb) 9.4 g/dL (12.0-16.0); Potassium - ABG Lab 5.81 mmol/L (3.70-5.30)
[2020-01-16 15:03] LABS: pH, Arterial 7.23 (7.35-7.45)
[2020-01-16] MEDS ORDERED: ALPRAZolam 0.25 MG TAB PO PRN (15:44)
[2020-01-16] MEDS ORDERED: Furosemide 20 MG/2 ML VIAL SLOW IVP SCH (15:45)
--- NOTE | 2020-01-16 16:38 | PDOC.EVN ---
Event Note - Event Note Event Note: code status addressed with pt and she likes to be DNR
--- NOTE | 2020-01-16 18:23 | PRG ---
DATE OF SERVICE: 01/16/2020 SUBJECTIVE: Ms. Branch is a 54-year-old female with known history of ESRD and was admitted for shortness of breath. She was found to have COPD exacerbation as well as possible CHF. We have been consulted for emergent hemodialysis. I have scheduled this patient for hemodialysis this afternoon. She is currently on BiPAP. REVIEW OF SYSTEM: No chest pain. Positive for shortness of breath. No nausea. No vomiting. No diarrhea. No constipation. No productive cough. No fever or chills. No diarrhea. No syncopal episode. No dysuria. No urinary frequency. MEDICATIONS: Home medications includes; 1. Hydralazine 100 mg t.i.d. 2. Amlodipine 10 mg at bedtime. 3. Losartan 25 mg once a day. 4. Xanax 0.25 mg p.r.n. 5. Renvela 800 mg three tablets t.i.d. with meals. 6. Doxazosin 4 mg at bedtime. 7. Lyrica 100 mg once a day. 8. Sertraline 50 mg daily. 9. Gabapentin? 400 mg daily. 10. Symbicort oral inhaler as directed. 11. Ventolin oral inhaler as directed. PHYSICAL EXAMINATION: VITAL SIGNS: Blood pressure is 197/67 with a heart rate of 105, respiratory rate 26, O2 saturation 95% on BiPAP, temperature 98.7. GENERAL: Noted to be awake, alert, comfortable, not in overt distress. SKIN: Adequate turgor. HEENT: [place], slightly pale conjunctivae. Anicteric sclerae. No neck mass. No carotid bruits. No JVD. CHEST: No deformities. LUNGS: Decreased breath sounds. HEART: Normal sinus rhythm. No murmur. No gallops. No rubs. ABDOMEN: Globular, soft, nontender. No masses. EXTREMITIES: No edema. No deformities. LABORATORY DATA: January 15, 2020; white count 8.4, hemoglobin 8.7. Sodium was 144, potassium 5.4, chloride 106, carbon dioxide 24, BUN 71, creatinine 9.05. Troponin I 0.031. BNP is 620. DIAGNOSTIC DATA: Chest x-ray of January 15, 2020, showed bilateral upper lung bullous emphysema changes. Parenchymal changes in the lower lung zones bilaterally showing worsening from December 15 suggesting acute bilateral pneumonia. She does have underlying extensive chronic changes. ASSESSMENT AND PLAN: 1. Shortness of breath, multifactorial etiology. COPD exacerbation with ? of pneumonia. Please note that with this last hospitalization, the patient was treated with a prolonged course of antibiotics. 2. ESRD. We will do emergent hemodialysis. Fluid removal as tolerated by the patient. We will max out fluid removal as tolerated by the patient. 3. Anemia. We will start weekly Epogen 7500 units subcu every week. Job ID: [id number]
[2020-01-16] MEDS ORDERED: EPOETIN ALFA-EPBX (ESRD) 4,000 UNIT/ML VIAL SC SCH (20:00)
--- NOTE | 2020-01-16 22:11 | HP ---
CHIEF COMPLAINT: Short of breath. HISTORY OF PRESENT ILLNESS: A 54-year-old female with a longstanding history of pulmonary dysfunction with COPD secondary to active tobacco abuse, presenting with not able to breathe and not able to lie down flat. She was recently hospitalized and discharged on December 21 for similar complaints. She does wear CPAP at home, but that is not working. She felt congested and home oxygen did not help her as well as breathing treatments. During the previous hospitalization, she required BiPAP to improve her respiratory status. She also had a severe sepsis at that time, seemed to be gram-negative. Patient is on nonrebreather mask during my exam. She is in respiratory distress but able to complete her sentences fully. I also talked to the respiratory therapist as well as the RN who is taking care of her in the ER. We will give her a low dose Ativan to reduce her anxiety level. We will also be getting a stat Mag level. REVIEW OF SYSTEMS: A 13-point review of systems reviewed with the patient. The only pertinent addressed in the history of present illness. She did not have any fever, but subjective cough at home. She denies any nausea, vomiting, abdominal pain, constipation, diarrhea, hematuria, dysuria, or hematochezia. PAST MEDICAL HISTORY: 1. Chronic renal failure/end-stage kidney disease. 2. Hypertension. SOCIAL HISTORY: She does smoke, but states that she quit smoking during her last hospitalization. She does not drink alcohol. She lives with her family. MEDICATIONS: 1. Proventil HFA as needed twice a day. 2. Norvasc 10 mg daily. 3. Hydralazine 100 mg three times a day. 4. Sertraline 50 mg daily. 5. Losartan 25 mg bedtime. 6. Cardura 4 mg at bedtime. 7. Xanax 0.25 mg p.o. p.r.n. 8. Lyrica 100 mg. 9. Gabapentin 400 mg. 10. Renvela mg t.i.d. PHYSICAL EXAMINATION: VITAL SIGNS: Her temp is 98.7, pulse 102, and blood pressure is 197/67. GENERAL: Patient is alert and oriented. She is in respiratory distress. I discussed with the RN. Her blood pressure needs aggressive intervention. I gave her a stat order for hydralazine IV. HEENT: Pupils are equal, round, and reactive to light. HEART: She is tachycardic with a regular rhythm. RESPIRATORY: She has wheezing as well as crackles. She is tachypneic. She is on a nonbreathing mask. ABDOMEN: Soft, nontender, and nondistended. Good bowel sounds. EXTREMITIES: Without any pitting edema. LABORATORIES: Her CBC with a hemoglobin 8.7, platelets 244, and WBC 8.4. Her potassium 5.4, creatinine 9.05. Troponin is 0.031. BNP 620. Chest x-ray showed bilateral upper lung zone bullous emphysema changes and it seems to be worsening from the x-ray with acute bilateral pneumonia in addition to extensive underlying chronic lung changes. IMPRESSION AND PLAN: This is a 54-year-old female with a significant lung dysfunction, presenting with: 1. Acute respiratory failure with hypercapnia.-Healthcare-associated pneumonia. 2. Bilateral pneumonia with underlying history of chronic emphysema changes. 3. Oxygen dependent worsening chronic respiratory failure. 4. Hypertensive urgency. 5. End-stage renal disease, on hemodialysis. 6. Elevated BNP in the context of end-stage renal disease, on hemodialysis, as well as pulmonary congestion. 7. Patient had an echo done on December 15 that showed an ejection fraction of 65% with normal diastolic function. Mild concentric left ventricular hypertrophy as well as dilated left atrium. Patient is admitted in the telemetry monitoring. We will continue to monitor her closely. Lately, her breathing condition got worse requiring BiPAP intervention. We did a blood gas that showed a pH of 7.23, pCO2 of 53, as well as PO2 of 77. Patient will be moving to the intermediate care unit. I will request Dr. Singh, who has seen her during her previous hospitalization for further input. We will also treat her with aggressive breathing treatments. Also, she will be scheduled to go to dialysis today. 8. Given her worsening lung conditions, I am also going to give her one dose of Lasix until her dialysis starts today or tomorrow. 9. Accelerated hypertension secondary to acute stress. Already, she will be receiving home regimen as well as p.r.n. hydralazine. We will continue the same regimen. 10. Healthcare-associated pneumonia. Patient is admitted within the last 30 days, so I am going to switch from ceftriaxone, Zithromax to broad-spectrum antibiotic to cover for gram negative rods, atypical etc... Further management based on clinical course. Job ID: [id number] MTDD
[2020-01-16] MEDS: Pregabalin 50 MG CAP PO SCH (22:30)
[2020-01-16] MEDS: Losartan 25 MG TAB PO SCH (22:32)
[2020-01-16] MEDS: Doxazosin 2 MG TAB PO SCH (22:32)
[2020-01-17] MEDS: methylPREDNISolone Sod Succ 40 MG VIAL IVP SCH ×4 (04:21→20:34)
--- NOTE | 2020-01-17 08:39 | PRG ---
DATE OF SERVICE: 01/17/2020 SUBJECTIVE: Ms. Branch is a 54-year-old female, who was admitted for shortness of breath. She underwent emergent hemodialysis yesterday. Her breathing is much improved. The shortness of breath is multifactorial-combination of COPD exacerbation/CHF. No new complaints today, she is eating better. OBJECTIVE: VITAL SIGNS: Blood pressure 179/65, heart rate 90, respiratory rate 26, and pulse ox 91%. GENERAL: Awake, alert, comfortable, not in distress. SKIN: Adequate turgor. HEENT: Pinkish conjunctivae, anicteric sclerae. NECK: No neck mass. No carotid bruits. No JVD. CHEST: No deformities. LUNGS: Decreased breath sounds. HEART: Normal sinus rhythm. No murmurs, gallops, or rubs. ABDOMEN: Globular. Soft. Nontender. No masses. EXTREMITIES: No edema. No deformities. MEDICATIONS: Medications of January 17, 2020, reviewed. LABORATORY DATA: Laboratories of January 15, 2020, hemoglobin 8.7, sodium 144, potassium 5.4, chloride 106, carbon dioxide 24, BUN 71, creatinine 9.05. LFTs normal. ASSESSMENT AND PLAN: 1. Anemia. Continuing weekly Epogen with this patient. 2. Shortness of breath, multifactorial etiology. Fluid removal was done with hemodialysis yesterday. Continue to try to treat her underlying emphysema. 3. End-stage renal disease, stable. We will continue current Thursday, Thursday, and Thursday hemodialysis regimen. Again, fluid removal only as tolerated. We will recheck basic metabolic profile and CBC in a.m. Job ID: [id number]
[2020-01-17] MEDS ORDERED: Meropenem 500 MG in Sodium Chloride 0.9% 100 ML IVPB SCH (09:00)
[2020-01-17] MEDS: hydrALAZINE 25 MG TAB PO SCH ×3 (09:06→22:44)
[2020-01-17] MEDS: Sevelamer Carbonate 800 MG TAB PO SCH ×3 (09:06→17:32)
[2020-01-17] MEDS: Amlodipine 10 MG TAB PO SCH (09:06)
--- NOTE | 2020-01-17 09:36 | CON ---
DATE OF CONSULTATION: HISTORY OF PRESENT ILLNESS: Yolanda Branch, who said she came back to the hospital again with increasing shortness of breath and cough. She was just recently discharged with a diagnosis of failed dialysis and superimposed pneumonia. Till smoking up to half pack a day. She, this morning, says she is feeling better. She is here for almost 36 hours now, arrived on 01/15 at 1924 hours. This morning, she says she feels better after she was dialyzed yesterday. PAST MEDICAL HISTORY: Extensive past medical history; COPD, renal failure, history of brain aneurysm, and hypertension. PAST SURGICAL HISTORY: Previous surgeries; access, hysterectomy, tubal ligation, eye surgery, and . SOCIAL HISTORY: Tobacco and alcohol, none. MEDICATIONS: Home medicines: 1. Symbicort. 2. Ventolin. 3. Norvasc. 4. Hydralazine 100. 5. Zoloft 50. 6. Cozaar 25. 7. Cardura 4. 8. Xanax. 9. Lyrica 100. 10. Zofran. 11. Gabapentin. She is now started on: 1. Levaquin. 2. Meropenem. 3. Steroids. REVIEW OF SYSTEMS: Otherwise, 10-point negative. PHYSICAL EXAMINATION: VITAL SIGNS: Saturations are 98%, blood pressure 179/85, respirations 18, and pulse 80. GENERAL: Awake, alert, and responsive. No distress. CHEST: Bilateral crackles. CARDIAC: Normal S1 and S2. No gallops. ABDOMEN: No masses. LABORATORY DATA: A pO2 was 77, pCO2 53, pH 7.23. Rest of the lab shows white count 8000, H and H 8 and 26, and platelet count normal. Chemistry profile shows BNP 620. ASSESSMENT AND PLAN: 1. Acute on chronic respiratory failure secondary to mainly superimposed fluid overload, congestive heart failure. 2. Chronic obstructive pulmonary disease. 3. Tobacco abuse. I doubt she got significant pneumonia mostly maybe fluid overloaded. I would obtain sputum for culture. Continue antibiotics, deescalate in the next 24 to 48 hours. We will follow. This is a consultation note, 70 minutes, 50% direct patient care. Job ID: [id number]
[2020-01-17] MEDS ORDERED: Furosemide 20 MG/2 ML VIAL SLOW IVP SCH (10:45)
--- NOTE | 2020-01-17 14:19 | PDOC.HOSPP ---
- Subjective Encounter Date: 01/17/20 Encounter Time: 11:45 Subjective: pt much better, off bipap, boy friend at bedside. fluid overload, had HD y'day. agreed for pulm rehab. - Objective Vital Signs & Weight: Vital Signs (12 hours) Temp Pulse Resp BP Pulse Ox 01/17/20 12:32 97.9 F 01/17/20 11:12 104 H 18 92 L 01/17/20 09:06 90 01/17/20 08:00 98 01/17/20 07:43 94 L 01/17/20 07:40 90 16 01/17/20 07:39 97.9 F 01/17/20 04:00 98.1 F 94 16 174/65 H 96 01/17/20 02:14 97 16 100 Weight Weight 104 lb 14.4 oz Most Recent Monitor Data Heart Rate from ECG 90 NIBP 179/65 NIBP BP-Mean 103 Respiration from ECG 26 SpO2 91 I&O: 01/16/20 01/17/20 01/18/20 06:59 06:59 06:59 Intake Total 270 Output Total 3500 Balance -3230 Result Diagrams: 01/15/20 19:51 01/15/20 19:51 Hospitalist ROS - Medication Medications: Active Medications Generic Name Dose Route Start Last Admin Trade Name Freq PRN Reason Stop Dose Admin Albuterol/Ipratropium 3 ml 01/16/20 06:30 01/17/20 11:12 Duoneb NEB 3 ml [id number] PAT Administration Amlodipine Besylate 10 mg 01/16/20 09:00 01/17/20 09:06 Norvasc PO 10 mg DAILY PAT Administration Doxazosin Mesylate 4 mg 01/16/20 21:00 01/16/20 22:32 Cardura PO 4 mg HS PAT Administration Epoetin Alden-epbx 7,500 unit 01/16/20 20:00 01/17/20 06:14 Retacrit SC 7,500 unit Q7D PAT Administration Hydralazine HCl 100 mg 01/16/20 09:00 01/17/20 09:06 Apresoline PO 100 mg TID PAT Administration Meropenem 500 mg/ Sodium 100 mls @ 200 mls/hr 01/17/20 09:00 01/17/20 09:07 Chloride IVPB 100 mls DAILY PAT Administration Losartan Potassium 25 mg 01/16/20 21:00 01/16/20 22:32 Cozaar PO 25 mg HS PAT Administration Methylprednisolone Sodium Succinate 40 mg 01/16/20 09:00 01/17/20 09:07 Solu-Medrol IVP 40 mg 0300,0900,1500,2100 PAT Administration Pregabalin 100 mg 01/16/20 21:00 01/16/20 22:30 Lyrica PO 100 mg HS PAT Administration Sertraline HCl 50 mg 01/16/20 09:00 01/17/20 09:06 Zoloft PO 50 mg DAILY PAT Administration Sevelamer Carbonate 2,400 mg 01/16/20 12:00 01/17/20 13:15 Renvela PO 2,400 mg TID-WM PAT Administration Sodium Chloride 10 ml 01/16/20 21:00 01/17/20 09:07 Flush - Normal Saline IVF 10 ml Q12HR PAT Administration Sodium Chloride 10 ml 01/16/20 09:12 01/17/20 04:22 Flush - Normal Saline IVF 10 ml PRN PRN Administration Saline Flush - Exam General Appearance: NAD, awake alert Eye: PERRL ENT: normocephalic atraumatic Neck: supple Heart: RRR Respiratory: normal chest expansion, rales Gastrointestinal: normal bowel sounds Extremities: no cyanosis Skin: normal turgor Neurological: cranial nerve grossly intact, no focal deficits Hosp A/P - Plan HCAP Acute on chronic resp failure w.. hypoxia and hypercapnia - cw abx -off bipap -echo done on 12/15--nl ef, no diastolic dysfn.. --? not sure then she has CHF ESRD on HD HTN urgency - pt has very little voiding -titrate her BP meds, along w.. her HD. Code status has to be readdressed with her and her family Pulm rehab- PT and CM consult. pt agreeable for rehab eval..
[2020-01-17] MEDS: Acetaminophen 325 MG TAB PO PRN (17:32)
[2020-01-17] MEDS: Mometasone/Formoterol 120 PUFF INHALER INH SCH (18:55)
[2020-01-17] MEDS: Doxazosin 2 MG TAB PO SCH (19:37)
[2020-01-17] MEDS: Losartan 25 MG TAB PO SCH (19:38)
[2020-01-17] MEDS: Pregabalin 50 MG CAP PO SCH (20:26)
[2020-01-17] MEDS: hydrALAZINE 20 MG/ML VIAL SLOW IVP PRN (20:30)
[2020-01-18 03:11] LABS: #Eosinphils 0.1 thou/uL (0.0-0.7); #Lymphocytes 0.5 thou/uL (1.20-3.40); #Monocytes 0.3 thou/uL (0.11-0.59); #Neutrophils 8.8 thou/uL (1.40-6.50); %Basophils 0.2 % (0.0-1.0); %Eosinophils 1.4 % (0.0-10.0); %Lymphocytes 4.9 % (21.0-51.0); %Monocytes 3.2 % (0.0-10.0); %Neutrophils 90.3 % (42.0-75.0); Mean Corpuscular HGB CONC 31.8 g/dL (32.0-36.0); Mean Corpuscular Hemoglobin 31.9 pg (27.0-31.0); Mean Platelet Volume 7.9 fL (7.4-10.4); Platelet Count 218 thou/uL (130-400); RBC Distribution Width 14.7 % (11.5-14.5); Red Blood Cell (RBC) Count 2.82 mill/uL (4.20-5.40); White Blood Cell (WBC) Count 9.8 thou/uL (4.8-10.8)
[2020-01-18] MEDS: methylPREDNISolone Sod Succ 40 MG VIAL IVP SCH ×2 (03:29→08:03)
[2020-01-18] MEDS: hydrALAZINE 20 MG/ML VIAL SLOW IVP PRN ×2 (05:14→16:37)
[2020-01-18 06:45] LABS: Anion Gap 19 mmol/L (10-20); BUN (Urea Nitrogen) 82 mg/dL (9.8-20.1); Calc. Creatinine Clearance 7 mL/min (70-130); Carbon Dioxide 25 mmol/L (22-29); Chloride 101 mmol/L (98-107); Estimated GFR-MDRD 6; Glucose 107 mg/dL (70-105); Potassium 5.4 mmol/L (3.5-5.1); Sodium 140 mmol/L (136-145)
[2020-01-18] MEDS: hydrALAZINE 25 MG TAB PO SCH ×3 (08:04→19:53)
[2020-01-18] MEDS: Amlodipine 10 MG TAB PO SCH (08:04)
[2020-01-18] MEDS: Sevelamer Carbonate 800 MG TAB PO SCH ×3 (08:05→16:32)
[2020-01-18] MEDS: Acetaminophen 325 MG TAB PO PRN ×2 (08:09→19:53)
--- NOTE | 2020-01-18 08:59 | PRG ---
DATE OF SERVICE: 01/18/2020 SUBJECTIVE: This morning, she is better, less short of breath. She is being dialyzed. OBJECTIVE: VITAL SIGNS: Temperature 98.7, blood pressure 170/69, saturations 92% on 2 L, and respiratory rate 18. CHEST: No wheezing or crackles. CARDIAC: Normal S1 and S2. No gallops. ABDOMEN: No masses. LABORATORY DATA: White count 9000 without a left shift. Creatinine 7. ASSESSMENT: Chronic renal failure, abnormal chest x-ray, fluid overload versus possibly pneumonia. PLAN: Switch over to oral medication, PT, supportive care. Disposition, home in the next few days. Job ID: [id number]
[2020-01-18] MEDS ORDERED: Furosemide 20 MG/2 ML VIAL SLOW IVP SCH (09:00)
--- NOTE | 2020-01-18 09:49 | PRG ---
DATE OF SERVICE: 01/18/2020 SUBJECTIVE: Ms. Branch is a 54-year-old female with ESRD, who was admitted for shortness of breath. She is breathing better. She did develop episode of cramping with fluid removal. We are currently minimizing fluid removal with her today. OBJECTIVE: VITAL SIGNS: Blood pressure is 171/69, heart rate 99, and respiratory rate 12. GENERAL: The patient is noted to be awake, alert, and comfortable, not in distress. SKIN: Adequate turgor. HEENT: She has slightly pale conjunctivae. Anicteric sclerae. NECK: No neck mass. No carotid bruits. No JVD. CHEST: No deformities. LUNGS: Decreased breath sounds. HEART: Normal sinus rhythm. No murmur. No gallops. No rubs. ABDOMEN: Globular, soft, and nontender. No masses. EXTREMITIES: No edema. No deformities. MEDICATIONS: Medications of January 18, 2020, reviewed. LABORATORY DATA: Laboratories of January 18, 2020; white count 9.8, hemoglobin 9. Sodium 140, potassium 5.4, chloride 101, carbon dioxide 25, BUN 82, creatinine 7.3, glucose 107, calcium 9, and magnesium 2.3. ASSESSMENT AND PLAN: 1. End-stage renal disease, stable, currently undergoing hemodialysis today. Fluid removal of about 1.2 L will be done. Fluid removal only as tolerated. 2. Anemia. Continuing weekly Epogen. 3. Hypertension. Agree with current management. Continue current BP medications. 4. Cramping-we are minimizing fluid removal at the present time. 5. Shortness of breath, much improved. Combination of congestive heart failure/chronic obstructive pulmonary disease exacerbation. Agree with current management. Job ID: [id number]
[2020-01-18] MEDS: Losartan 25 MG TAB PO SCH ×2 (12:29→19:54)
[2020-01-18] MEDS: Mometasone/Formoterol 120 PUFF INHALER INH SCH ×2 (14:30→19:03)
--- NOTE | 2020-01-18 16:04 | PDOC.HOSPP ---
- Subjective Encounter Date: 01/18/20 Encounter Time: 09:45 Subjective: getting dialysis, cramps. - Objective Vital Signs & Weight: Vital Signs (12 hours) Temp Pulse Resp BP Pulse Ox 01/18/20 15:10 99.8 F H 01/18/20 14:17 98 24 H 01/18/20 11:28 101 H 16 01/18/20 11:07 99.2 F 01/18/20 08:04 99 171/69 H 01/18/20 08:00 98 01/18/20 07:42 97.4 F L 01/18/20 06:32 89 15 100 01/18/20 06:30 90 15 100 01/18/20 05:14 103 H 181/83 H Weight Weight 106 lb 3.2 oz Most Recent Monitor Data Heart Rate from ECG 101 NIBP 165/57 NIBP BP-Mean 93 Respiration from ECG 25 SpO2 93 I&O: 01/17/20 01/18/20 01/19/20 06:59 06:59 06:59 Intake Total 270 500 Output Total 3500 650 Balance -3230 -150 Result Diagrams: 01/18/20 03:02 01/18/20 06:13 Hospitalist ROS - Medication Medications: Active Medications Generic Name Dose Route Start Last Admin Trade Name Freq PRN Reason Stop Dose Admin Acetaminophen 650 mg 01/16/20 09:00 01/18/20 08:09 Tylenol PO 650 mg Q4H PRN Administration Headache/Fever/Mild Pain (1-3) Albuterol/Ipratropium 3 ml 01/16/20 06:30 01/18/20 14:17 Duoneb NEB 3 ml [id number] PAT Administration Amlodipine Besylate 10 mg 01/16/20 09:00 01/18/20 08:04 Norvasc PO 10 mg DAILY PAT Administration Doxazosin Mesylate 4 mg 01/16/20 21:00 01/17/20 19:37 Cardura PO 4 mg HS PAT Administration Epoetin Alden-epbx 7,500 unit 01/16/20 20:00 01/17/20 06:14 Retacrit SC 7,500 unit Q7D PAT Administration Hydralazine HCl 100 mg 01/16/20 09:00 01/18/20 08:04 Apresoline PO 100 mg TID PAT Administration Hydralazine HCl 10 mg 01/17/20 03:28 01/18/20 05:14 Apresoline SLOW IVP 10 mg Q4H PRN Administration SBP Greater Than 180 Losartan Potassium 50 mg 01/18/20 09:00 01/18/20 12:29 Cozaar PO 50 mg BID PAT Administration Mometasone Furoate/Formoterol Fumar 2 puff 01/17/20 18:30 01/18/20 14:30 Dulera 200 Mcg/5 Mcg Inhaler INH Not Given BID-RT PAT Pregabalin 100 mg 01/16/20 21:00 01/17/20 20:26 Lyrica PO 100 mg HS PAT Administration Sertraline HCl 50 mg 01/16/20 09:00 01/18/20 08:03 Zoloft PO 50 mg DAILY PAT Administration Sevelamer Carbonate 2,400 mg 01/16/20 12:00 01/18/20 12:29 Renvela PO 2,400 mg TID-WM PAT Administration Sodium Chloride 10 ml 01/16/20 21:00 01/18/20 08:06 Flush - Normal Saline IVF 10 ml Q12HR PAT Administration Sodium Chloride 10 ml 01/16/20 09:12 01/18/20 05:15 Flush - Normal Saline IVF 10 ml PRN PRN Administration Saline Flush - Exam General Appearance: NAD, awake alert Eye: PERRL ENT: normocephalic atraumatic Neck: supple Heart: RRR Respiratory: CTAB Gastrointestinal: normal bowel sounds Extremities: no cyanosis Hosp A/P - Plan HCAP Acute on chronic resp failure w.. hypoxia and hypercapnia - cw abx -off bipap -echo done on 12/15--nl ef, no diastolic dysfn.. --? not sure then she has CHF ESRD on HD HTN urgency - pt has very little voiding -titrate her BP meds, along w.. her HD. Code status has to be readdressed with her and her family Pulm rehab- PT and CM consult. pt agreeable for rehab eval.. pending rehab placement. stable for dc.
[2020-01-18] MEDS: Pregabalin 50 MG CAP PO SCH (19:54)
[2020-01-18] MEDS: Doxazosin 2 MG TAB PO SCH (19:55)
[2020-01-19] MEDS: Mometasone/Formoterol 120 PUFF INHALER INH SCH (07:32)
[2020-01-19] MEDS ORDERED: predniSONE 20 MG TAB PO SCH (08:00)
--- NOTE | 2020-01-19 08:07 | RAD ---
EXAM: XR Chest Pa Lat STANDARD PROVIDED CLINICAL HISTORY: Congestive heart failure COMPARISON: 01/15/2020 FINDINGS: Cardiac silhouette remains enlarged. Conspicuous emphysematous changes are redemonstrated. Improvemen t in bibasilar parenchymal opacities. Blunting of the costophrenic angles related to hyperinflation without definite pleural fluid. No evidence for pneumothorax. Atherosclerosis is redemonstrated. IMPRESSION: Interval improvement in aeration at the lung bases.
[2020-01-19] MEDS: Amlodipine 10 MG TAB PO SCH (08:28)
[2020-01-19] MEDS: Sevelamer Carbonate 800 MG TAB PO SCH ×2 (08:28→12:32)
[2020-01-19] MEDS: hydrALAZINE 25 MG TAB PO SCH ×2 (08:29→14:32)
[2020-01-19] MEDS: Losartan 25 MG TAB PO SCH (08:29)
--- NOTE | 2020-01-19 09:13 | PRG ---
DATE OF SERVICE: 01/19/2020 SUBJECTIVE: This morning, she is awake, alert, and responsive. X-ray shows primary resolution of the infiltrate, which is probably felt to be fluid overloaded rather than a pneumonia. OBJECTIVE: VITAL SIGNS: Temperature 99, pulse 70, respiratory rate 16, saturations 90% on room air, and blood pressure 160/61. CHEST: No wheezing or crackles. CARDIAC: Normal S1 and S2. No gallops. ABDOMEN: No masses. ASSESSMENT: Congestive heart failure, doubt significant pneumonia, chronic obstructive pulmonary disease, tobacco abuse, and renal failure. PLAN: Disposition, home at any time. Follow up with her doctor at [facility]. Job ID: [id number]
--- NOTE | 2020-01-19 09:40 | PRG ---
DATE OF SERVICE: 01/19/2020 SUBJECTIVE: Ms. Branch is a 54-year-old female with ESRD, admitted for shortness of breath. She had a COPD exacerbation as well as some mild CHF. Her breathing is much better. No other complaints today. OBJECTIVE: VITAL SIGNS: Blood pressure is 143/53, heart rate 89, temperature 99, and pulse ox 95%. GENERAL: Awake, alert, and comfortable, not in overt distress. SKIN: Adequate turgor. HEENT: She has slightly pale conjunctivae. Anicteric sclerae. NECK: No neck mass. No carotid bruits. No JVD. CHEST: No deformities. LUNGS: Clear breath sounds. No wheezing. No crackles. HEART: Normal sinus rhythm. No murmur. No gallops. No rubs. ABDOMEN: Globular, soft, and nontender. No masses. EXTREMITIES: No edema. No deformities. MEDICATIONS: Medications of January 19, 2020, reviewed. LABORATORY DATA: Laboratories of January 18, 2020; white count 9.8, hemoglobin 9. Sodium 140, potassium 5.4, chloride 101, carbon dioxide 25, BUN 82, creatinine 7.3, glucose 107, and calcium 9. ASSESSMENT AND PLAN: 1. End-stage renal disease, stable, continuing hemodialysis regimen Thursday, Thursday, and Thursday. Fluid removal as tolerated. We have been adjusting the fluid removal due to the cramping episodes. 2. Anemia. We will continue current Epogen regimen. 3. Chronic obstructive pulmonary disease/emphysema/congestive heart failure, clinically much improved with neb treatment. In addition, we are maxing out fluid removal as tolerated by the patient. Recheck CBC and basic metabolic in a.m. Job ID: [id number]
[2020-01-19 10:26] LABS: #Eosinphils 0.1 thou/uL (0.0-0.7); #Lymphocytes 1.5 thou/uL (1.20-3.40); #Monocytes 0.9 thou/uL (0.11-0.59); #Neutrophils 6.9 thou/uL (1.40-6.50); %Basophils 0.2 % (0.0-1.0); %Eosinophils 1.4 % (0.0-10.0); %Monocytes 9.3 % (0.0-10.0); %Neutrophils 73.1 % (42.0-75.0); Hemoglobin 9.4 g/dL (12.0-16.0); Mean Corpuscular HGB CONC 31.8 g/dL (32.0-36.0); Mean Corpuscular Hemoglobin 31.6 pg (27.0-31.0); Mean Corpuscular Volume 99.4 fL (78.0-98.0); Mean Platelet Volume 6.8 fL (7.4-10.4); Platelet Count 271 thou/uL (130-400); RBC Distribution Width 14.4 % (11.5-14.5); Red Blood Cell (RBC) Count 2.96 mill/uL (4.20-5.40); White Blood Cell (WBC) Count 9.5 thou/uL (4.8-10.8)
[2020-01-19 10:46] LABS: Anion Gap 16 mmol/L (10-20); BUN (Urea Nitrogen) 48 mg/dL (9.8-20.1); Calc. Creatinine Clearance 9 mL/min (70-130); Calcium 8.3 mg/dL (7.8-10.44); Carbon Dioxide 28 mmol/L (22-29); Chloride 101 mmol/L (98-107); Estimated GFR-MDRD 8; Glucose 77 mg/dL (70-105); Potassium 4.4 mmol/L (3.5-5.1); Sodium 141 mmol/L (136-145)
--- NOTE | 2020-01-19 13:30 | PDOC.HOSPP ---
- Subjective Encounter Date: 01/19/20 Encounter Time: 10:20 Subjective: pt doing well, still ongoing cough and congestion. - Objective Vital Signs & Weight: Vital Signs (12 hours) Temp Pulse Resp BP Pulse Ox 01/19/20 11:14 99.6 F 01/19/20 10:53 89 17 98 01/19/20 08:29 88 143/53 H 01/19/20 08:28 89 143/53 H 01/19/20 08:00 98 01/19/20 07:39 99.0 F 01/19/20 07:31 78 16 95 01/19/20 03:25 97.9 F 01/19/20 02:11 85 95 01/19/20 02:10 85 16 95 Weight Weight 109 lb 12.643 oz Most Recent Monitor Data Heart Rate from ECG 88 NIBP 138/51 NIBP BP-Mean 80 Respiration from ECG 14 SpO2 91 I&O: 01/18/20 01/19/20 01/20/20 06:59 06:59 06:59 Intake Total 500 850 Output Total 650 650 Balance -150 200 Result Diagrams: 01/19/20 10:15 01/19/20 10:15 Hospitalist ROS - Medication Medications: Active Medications Generic Name Dose Route Start Last Admin Trade Name Freq PRN Reason Stop Dose Admin Acetaminophen 650 mg 01/16/20 09:00 01/18/20 19:53 Tylenol PO 650 mg Q4H PRN Administration Headache/Fever/Mild Pain (1-3) Albuterol/Ipratropium 3 ml 01/16/20 06:30 01/19/20 10:53 Duoneb NEB 3 ml Q9SX-CG PAT Administration Amlodipine Besylate 10 mg 01/16/20 09:00 01/19/20 08:28 Norvasc PO 10 mg DAILY PAT Administration Doxazosin Mesylate 4 mg 01/16/20 21:00 01/18/20 19:55 Cardura PO 4 mg HS PAT Administration Epoetin Alden-epbx 7,500 unit 01/16/20 20:00 01/17/20 06:14 Retacrit SC 7,500 unit Q7D PAT Administration Hydralazine HCl 100 mg 01/16/20 09:00 01/19/20 08:29 Apresoline PO 100 mg TID PAT Administration Hydralazine HCl 10 mg 01/17/20 03:28 01/18/20 16:37 Apresoline SLOW IVP 10 mg Q4H PRN Administration SBP Greater Than 180 Levofloxacin 250 mg 01/19/20 06:00 01/19/20 06:38 Levaquin PO 01/22/20 06:01 250 mg 0600 PAT Administration Losartan Potassium 50 mg 01/18/20 09:00 01/19/20 08:29 Cozaar PO 50 mg BID PAT Administration Mometasone Furoate/Formoterol Fumar 2 puff 01/17/20 18:30 01/19/20 07:32 Dulera 200 Mcg/5 Mcg Inhaler INH 2 puff BID-RT PAT Administration Ondansetron HCl 4 mg 01/16/20 09:00 01/18/20 19:53 Zofran Odt PO 4 mg Q6H PRN Administration Nausea/Vomiting Prednisone 20 mg 01/19/20 08:00 01/19/20 08:29 Prednisone PO 20 mg QAM-WM PAT Administration Pregabalin 100 mg 01/16/20 21:00 01/18/20 19:54 Lyrica PO 100 mg HS PAT Administration Sertraline HCl 50 mg 01/16/20 09:00 01/19/20 08:28 Zoloft PO 50 mg DAILY PAT Administration Sevelamer Carbonate 2,400 mg 01/16/20 12:00 01/19/20 12:32 Renvela PO 2,400 mg TID-WM PAT Administration Sodium Chloride 10 ml 01/16/20 21:00 01/19/20 08:30 Flush - Normal Saline IVF 10 ml Q12HR PAT Administration Sodium Chloride 10 ml 01/16/20 09:12 01/18/20 05:15 Flush - Normal Saline IVF 10 ml PRN PRN Administration Saline Flush - Exam General Appearance: NAD, awake alert Eye: PERRL ENT: normocephalic atraumatic Neck: supple Heart: RRR Respiratory: normal chest expansion, no tachypnea, rales, rhonchi Gastrointestinal: soft, normal bowel sounds Hosp A/P - Plan HCAP Acute on chronic resp failure w.. hypoxia and hypercapnia - cw abx -off bipap -echo done on 12/15--nl ef, no diastolic dysfn.. --? not sure then she has CHF ESRD on HD HTN urgency - pt has very little voiding -titrate her BP meds, along w.. her HD. Code status has to be readdressed with her and her family Pulm rehab- PT and CM consult. pt agreeable for rehab eval.. clinically some improvement but with underling hx of COPD and active tobacco abuse, cant expect good resolution, hence pulm rehab. pending rehab placement. stable for dc.
[2020-01-19 15:03] VITALS: TEMP 98.2
[2020-01-19 15:06] VITALS: BP 155/64
--- NOTE | 2020-01-20 11:16 | DIS ---
DATE OF ADMISSION: 01/15/2020 DATE OF DISCHARGE: 01/19/2020 DISCHARGE DIAGNOSES: 1. Chronic obstructive pulmonary disease exacerbation. 2. Chronic oxygen-dependent respiratory failure. 3. Acute on chronic hypoxia and hypercapnia. 4. End-stage renal disease, on hemodialysis. 5. Hypertensive urgency. DISCHARGE MEDICATIONS: 1. Levaquin 250 mg daily for seven days. 2. Prednisone 40 mg daily for two weeks. 3. Zofran 4 mg as needed for nausea. 4. Gabapentin 400 mg daily. 5. Budesonide/formoterol two puffs every 4 hours as needed. 6. Xanax 0.25 mg daily as needed. 7. Ventolin two puffs every 4 hours as needed. 8. Renvela 2400 mg three times a day. 9. Sertraline 50 mg daily. 10. Pregabalin 50 mg daily. 11. Losartan 25 mg daily. 12. Hydralazine 100 mg three times daily. 13. Doxazosin 4 mg bedtime. 14. Amlodipine 10 mg daily. Please see my progress note for today's observation and exam. HOSPITAL COURSE: A 54-year-old female with a history of COPD and ongoing tobacco abuse, acute on chronic respiratory failure, as well as oxygen dependent, presented with the shortness of breath and home inhaler is not helping much. She was transiently put on BiPAP while monitored in the ER and on the floor. She also had dialysis during her stay. Her pulmonary function is quite labile and she needs pulmonary rehab. She also had some signs of volume overload and that was addressed by hemodialysis. The patient is voiding very little during off dialysis. Her volume expansion as well as hypertensive urgency have to be addressed. In this regard, IV Lasix did not help much as her voiding is very little. She is completely dialysis dependent. She will be going to the pulmonary rehab. DISCHARGE INSTRUCTIONS: 1. Activity as tolerated with supervision. 2. Renal diet. 3. Follow up with the primary care physician in 1 week. TIME SPENT: Discharge time took over 30 minutes. Job ID: [id number] MTDD
--- NOTE | 2020-01-20 23:50 | PQF ---
JOSELYNWENDY KRISTOPHER PICKENS [id number] NISA ANNA [id number] CLINICAL DOCUMENTATION CLARIFICATION FORM: POST DISCHARGE Addendum to original discharge summary date: ____ Late entry note date: __ DATE: 01/20/2020 ATTN:KRISTOPHER PICKENS Please exercise your independent, professional judgment in responding to the clarification form. Clinical indicators are provided on the bottom of this form for your review Please check appropriate box(s) to clarify if the following diagnosis has been ruled in or ruled out: Pneumonia [ x] Ruled in diagnosis [ x] Continue to treat [ ] Resolved [ ] Ruled out diagnosis [ ] Cannot rule out diagnosis [ ] Other diagnosis [ ] Unable to determine For continuity of documentation, please document condition throughout progress notes and discharge summary. Thank You. CLINICAL INDICATORS - SIGNS / SYMPTOMS / LABS - Bilateral pneumonia with underlying history of chronic emphysema changes-H&P, 01/16, KRISTOPHER PICKENS - COPD exacerbation with ? of pneumonia- Progress note, 01/16, Christiano Byrne MD - I doubt she got significant pneumonia mostly maybe fluid overload- Consult report, 01/17, Destinee Lopez MD - HCAP- Hospital PN, 01/17, KRISTOPHER PICKENS - Interval improvement in aeration at the lung bases-Chest X ray, 01/19 RISK FACTORS - Acute respiratory failure wiuth hypercapnia--H&P, 01/16, KRISTOPHER PICKENS - Volume overload- DS, 01/19, KRISTOPHER PICKENS TREATMENTS - Levaquin.IV- MAR, 01/15 (This form is maintained as a part of the permanent medical record) 2014 [employer]. All Rights Reserved [email or web address]
== END 2020-01-19 15:22 | DRG 193 ==
LOC: ERS 19:21 → ERHOLD 22:03 → 2SE 01-16 13:17 → IMCU/EMU 01-16 15:59
PROVIDERS: ADMIT Family Medicine; ATTEND Internal Medicine
PROC: 5A09357 Assistance with Respiratory Ventilation, Less than 24 Consecutive Hours, Continuous Positive Airway Pressure (ICD-10-PCS; 2020-01-16)
PROC: 5A1D70Z Performance of Urinary Filtration, Intermittent, Less than 6 Hours Per Day (ICD-10-PCS; principal; 2020-01-17)
DX: J18.9 Pneumonia, unspecified organism (principal); J96.21 Acute and chronic respiratory failure with hypoxia; N18.6 End stage renal disease; E87.70 Fluid overload, unspecified; D63.1 Anemia in chronic kidney disease; J43.9 Emphysema, unspecified; F41.9 Anxiety disorder, unspecified; Z66 Do not resuscitate; I12.9 Hypertensive chronic kidney disease with stage 1 through stage 4 chronic kidney disease, or unspecified chronic kidney disease; I16.0 Hypertensive urgency; F17.210 Nicotine dependence, cigarettes, uncomplicated; Z99.2 Dependence on renal dialysis; Z88.1 Allergy status to other antibiotic agents; Z88.0 Allergy status to penicillin; Z88.8 Allergy status to other drugs, medicaments and biological substances; Z99.81 Dependence on supplemental oxygen; Z98.51 Tubal ligation status
CPT/HCPCS: 36415; 71045; 71046; 80048; 80053; 81003; 81015; 82553; 82805; 83605; 83735; 83880; 84484; 85025; 87040; 87070; 87205; 87804; 93005; 94640; 94660; 96365; 96375; J0360; J1940; J1956; J2060; J2185; J2920; J3490; J7512; J7611; J7620; Q0162; Q5105

== ENCOUNTER 2020-02-10 05:06 | Inpatient (IN) | payer MEDICARE, MEDICAID ==
[2020-02-10] MEDS ORDERED: Acetaminophen 500 MG TAB ONE (05:27)
[2020-02-10] MEDS ORDERED: Vancomycin 1 GM/200 ML BAG ONE (05:29)
[2020-02-10 05:35] LABS: #Eosinphils 0.1 thou/uL (0.0-0.7); #Lymphocytes 0.7 thou/uL (1.20-3.40); #Monocytes 0.7 thou/uL (0.11-0.59); #Neutrophils 7.6 thou/uL (1.40-6.50); %Basophils 0.4 % (0.0-1.0); %Eosinophils 1.6 % (0.0-10.0); %Lymphocytes 7.5 % (21.0-51.0); %Monocytes 7.8 % (0.0-10.0); %Neutrophils 82.8 % (42.0-75.0); Hemoglobin 9.4 g/dL (12.0-16.0); Mean Corpuscular HGB CONC 32.2 g/dL (32.0-36.0); Mean Corpuscular Volume 99.4 fL (78.0-98.0); Mean Platelet Volume 7.4 fL (7.4-10.4); Platelet Count 183 thou/uL (130-400); RBC Distribution Width 16.8 % (11.5-14.5); Red Blood Cell (RBC) Count 2.95 mill/uL (4.20-5.40); White Blood Cell (WBC) Count 9.2 thou/uL (4.8-10.8)
[2020-02-10 05:57] LABS: ALT (SGPT) 20 U/L (8-55); AST (SGOT) 16 U/L (5-34); Albumin 3.7 g/dL (3.5-5.0); Alkaline Phosphatase 66 U/L (40-110); Anion Gap 17 mmol/L (10-20); BUN (Urea Nitrogen) 55 mg/dL (9.8-20.1); Bilirubin, Total 0.8 mg/dL (0.2-1.2); Calc. Creatinine Clearance 0 mL/min (70-130); Calcium 9.1 mg/dL (7.8-10.44); Carbon Dioxide 28 mmol/L (22-29); Chloride 100 mmol/L (98-107); Estimated GFR-MDRD 4; Globulin 2.4 g/dL (2.4-3.5); Glucose 90 mg/dL (70-105); Magnesium 1.9 mg/dL (1.6-2.6); Potassium 5.3 mmol/L (3.5-5.1); Protein, Total 6.1 g/dL (6.0-8.3); Sodium 140 mmol/L (136-145)
[2020-02-10] MEDS ORDERED: Aztreonam 1 GM in Sodium Chloride 0.9% 100 ML IVPB SCH (06:00)
--- NOTE | 2020-02-10 07:17 | RAD ---
CHEST 1 VIEW: Date: 02/10/2020 INDICATION: History of chills, COPD, fever, and possible COVID infection. COMPARISON: Prior exam dated 01/19/2020. FINDINGS: There is worsening interstitial and air space opacities involving both lower lobes, superimposed on m oderate to severe COPD change. Mild cardiomegaly is stable appearing. There is minimal blunting of th e costophrenic angles that appear similar appearing, possibly related to underlying pleural thickenin g. No acute osseous abnormality is evident. IMPRESSION: 1. Worsening interstitial and air space opacities of both lower lobes that has been waxing and wanin g since 12/14/2019. Findings remain suspicious for recurrent pneumonia. 2. Moderate to severe COPD change. 3. Stable mild cardiomegaly. POS: BH
--- NOTE | 2020-02-10 07:22 | CT ---
CT OF THE THORAX WITHOUT IV CONTRAST: Date: 02/10/2020 INDICATION: 54-year-old female with recent pneumonia, with now a productive cough, shortness of breath, and fever . COMPARISON: Chest radiographs dated through 12/16/2019, and through 01/19/2020. FINDINGS: As seen on the comparison chest radiograph, there is severe bullous emphysema in an upper lobe predil ection. There is diffuse ground-glass opacity seen involving the lower lung regions with more promine nt air space consolidation seen posteriorly within both lower lobes. There are areas of interlobular and intralobular septal thickening involving the lung bases. There is some subpleural sparing of grou nd-glass opacities due to subpleural emphysema. There are severe vascular calcifications involving the thoracic aorta. There is an enlarged anterior mediastinal lymph node measuring 1.1 cm. There are numerous shotty appearing lymph nodes seen within the right paratracheal region. One of the largest is seen measuring 9.0 mm within the right paratrach eal region. Visualized upper abdomen demonstrated an atrophic left kidney. Visualized adrenal glands are unremark able appearing. Spleen measures 11.0 cm. No acute osseous abnormality is evident. 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 IMPRESSION: 1. Severe emphysema. 2. There is diffuse ground-glass opacity with interlobular and intralobular septal thickening involv ing the lung base with areas of peripheral consolidation seen involving the posterior lower lobes. Fi ndings are suspicious for infectious pneumonitis and [place] pneumonia involving both lower lobes. 3. Mildly enlarged lymph nodes of the mediastinum are likely reactive in nature. 4. Continued CT follow-up is recommended. 5. Atrophic left kidney. POS: BH
[2020-02-10] MEDS ORDERED: Bisacodyl 5 MG TAB PO PRN (07:32)
[2020-02-10] MEDS ORDERED: Ondansetron PF 4 MG/2 ML Vial IVP PRN (07:32)
[2020-02-10] MEDS ORDERED: Senokot S 8.6-50 MG TAB PO PRN (07:32)
[2020-02-10 09:47] VITALS: BMI 19.8
[2020-02-10] MEDS: Famotidine/PF 20 mg/2ml Vial SLOW IVP SCH (11:36)
[2020-02-10 11:44] LABS: CKMB 2.5 ng/mL (0-6.6)
--- NOTE | 2020-02-10 14:42 | PDOC.HHP ---
Hospitalist HPI - History of Present Illness fever, shortness of breath History of Present Illness: THis is a 54 year old female with past medical history of COPD, ESRD, SRIDHAR, hypertension who presented to the hospital with fever and chills. The patient was recently discharged from this hospital on 01/19 for a COPD exacerbation. She states that she finished two week course of predisone and levaquin. She went to pulmonary rehab and started feeling much better and got home last week. She was told by her PCP to come to the ER if she had a fever of 101. Patient reports she had a fever of 101 and instead of going to dialysis decided to come here to avoid exposing other patients. She also reported diffuse muscle aches. She denies sore throat or runny nose. She has been having an intermittent dry cough for the past few days. SHe denies chest pain. She normally can only walk from the bed to the room door before she gets out of breath, but states it got worst yesterday and her oxygen saturation was in the 70's on 2L. She denies orthopnea, recent travel history. The patient says she is also using CPAP at night at home and was told by her PCP that she may need to have a prescription for BIPAP. She says she did not qualify for BIPAP after doing a sleep study. ED Course: Upon presentation to the ER, the patient had a temperature of 100.6, HR of 105, BP 171/72. Labs showed normal white count and some mild hyperkalemia of 5.3. THe patient Hospitalist ROS - Review of Systems Constitutional: reports: fever. denies: chills Eyes: denies: vision change ENT: denies: ear discharge Respiratory: reports: cough, shortness of breath Cardiovascular: denies: chest pain, palpitations, orthopnea Gastrointestinal: denies: nausea, vomiting, abdominal pain, diarrhea, constipation Genitourinary: denies: dysuria, frequency, incontinence Musculoskeletal: denies: neck pain, foot pain, other Skin: denies: rash, lesions Neurological: denies: weakness, numbness - Medication Medications: Active Medications Generic Name Dose Route Start Last Admin Trade Name Freq PRN Reason Stop Dose Admin Famotidine 20 mg 02/10/20 09:00 02/10/20 11:36 Pepcid SLOW IVP 20 mg Q24HR PAT Administration Sodium Chloride 10 ml 02/10/20 09:34 02/10/20 11:39 Flush - Normal Saline IVF 10 ml PRN PRN Administration Saline Flush Hospitalist History - Past Medical History Renal/: reports: Chronic renal failure - Past Surgical History Other Surgical History: Dialysis shunt left arm C section Tubal ligation - Family History Other Family History: Patient has 8 brothers Mother of Alzheimers Brother of lung cancer and liver problems Another brother of heart attack Father had heart problems - Social History Smoking Status: Former smoker (Quit 1.5 months ago, smoked from age of 10 1 pack a day) Alcohol: reports: Occassional Drugs: reports: none 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 - Exam General Appearance: NAD, awake alert General - other findings: on nasal cannula Eye: PERRL, anicteric sclera ENT: normocephalic atraumatic, no oropharyngeal lesions Neck: supple, no JVD Heart: RRR, no murmur, no gallops, no rubs Respiratory: CTAB, no wheezes, no rales, no ronchi Gastrointestinal: soft, non-tender, non-distended, normal bowel sounds Extremities: no cyanosis, no clubbing, no edema Skin: normal turgor, no lesions, no rashes Neurological: cranial nerve grossly intact, normal sensation to touch, no focal deficits, no new deficit Hospitalist Results - Labs Result Diagrams: 02/10/20 05:18 02/10/20 05:18 Lab results: WBC 9.2 thou/uL (4.8-10.8) 02/10/20 05:18 Hgb 9.4 g/dL (12.0-16.0) L 02/10/20 05:18 Hct 29.3 % (36.0-47.0) L 02/10/20 05:18 MCV 99.4 fL (78.0-98.0) H 02/10/20 05:18 Plt Count 183 thou/uL (130-400) 02/10/20 05:18 Neutrophils % 82.8 % (42.0-75.0) H 02/10/20 05:18 Sodium 140 mmol/L (136-145) 02/10/20 05:18 Potassium 5.3 mmol/L (3.5-5.1) H 02/10/20 05:18 Chloride 100 mmol/L (98-107) 02/10/20 05:18 Carbon Dioxide 28 mmol/L (22-29) 02/10/20 05:18 BUN 55 mg/dL (9.8-20.1) H 02/10/20 05:18 Creatinine 9.38 mg/dL (0.6-1.1) H 02/10/20 05:18 Glucose 90 mg/dL (70-105) 02/10/20 05:18 Lactic Acid 1.0 mmol/L (0.5-2.2) 02/10/20 05:30 Calcium 9.1 mg/dL (7.8-10.44) 02/10/20 05:18 Total Bilirubin 0.8 mg/dL (0.2-1.2) 02/10/20 05:18 AST 16 U/L (5-34) 02/10/20 05:18 ALT 20 U/L (8-55) 02/10/20 05:18 Alkaline Phosphatase 66 U/L (40-110) 02/10/20 05:18 CK-MB (CK-2) 2.5 ng/mL (0-6.6) 02/10/20 10:50 Troponin I 0.041 ng/mL (< 0.028) H 02/10/20 13:49 B-Natriuretic Peptide 1059.8 pg/mL (0-100) H 02/10/20 05:18 Serum Total Protein 6.1 g/dL (6.0-8.3) 02/10/20 05:18 Albumin 3.7 g/dL (3.5-5.0) 02/10/20 05:18 - EKG Interpretation EKG: possible left atrial enlargement Hospitalist H&P A/P - Plan Plan: Chest X ray: worsening interstitial and air space opacities of both lower lobes. Recurrent pneumonia. Moderate to severe COPD. Stable mild cardiomegaly THis is a 54 year old female with past medical history of COPD, SRIDHAR, who presents to the hospital with fever, cough, worsening shortness of breath Acute hypoxic respiratory failure secondary to possible sepsis secondary to pneumonia vs fluid overload - temp of 101, tachycardic. BLood cultures sent, sputum culture will send. Chest Xray shows worsening interstitial and airspace opacities bilaterally - flu panel negative, respiratory viral panel negative - will continue with Vanc and aztreonam. Patient anaphylaxis to cephalosporin and allergic to penicillin as a child - COVID 19 testing sent and pending - IV steroids ordered - appreciate nephrology to dialyze since BNP elevated ESRD - nephrology consulted for dialysis Hyperkalemia - potassium 5.3, plan for dialysis today Elevated troponin - up to 0.03. Will check ECHO - patient denies chest pain Hypertension - continue amlodipine and losartan Depression - continue sertraline Code status: full code
[2020-02-10] MEDS ORDERED: PROVENTIL INHALER 6.7 G (200 INHALATIONS) INH PRN (14:54)
[2020-02-10] MEDS ORDERED: ALPRAZolam 0.25 MG TAB PO PRN (14:54)
--- NOTE | 2020-02-10 15:30 | CON ---
DATE OF CONSULTATION: 02/10/2020 This is dictated after conversation with Dr. Annalee Snyder. HISTORY OF PRESENT ILLNESS: This is a 54-year-old female, who presents to the hospital with increasing shortness of breath. Apparently, she had just been hospitalized at [facility] and was sent home on antibiotics and had tapered off for course of steroids. She is also a dialysis patient with renal failure. She is noted to have a profoundly elevated BNP at this time. PAST MEDICAL HISTORY: 1. Chronic renal failure requiring 3 times weekly hemodialysis. 2. Brain aneurysm. 3. Hypertension. 4. COPD. PAST SURGICAL HISTORY: 1. Left arm dialysis shunt. 2. section. 3. Hysterectomy. 4. Bilateral tubal ligation. SOCIAL HISTORY: Former tobacco user, quit smoking about a month and a half ago. Very rarely drinks alcohol. ALLERGIES: CEPHALEXIN, CLONIDINE, PENICILLIN, AND ROCEPHIN. MEDICATIONS: Prior to admission; 1. Hydralazine. 2. Amlodipine. 3. Losartan. 4. Alprazolam. 5. Renvela. 6. Zofran. 7. Doxazosin. 8. Sertraline. 9. Gabapentin. 10. Symbicort. 11. Ventolin. 12. Omeprazole. 13. Tramadol. 14. Anoro Ellipta. 15. Fluticasone. REVIEW OF SYSTEMS: Not obtained. PHYSICAL EXAMINATION: VITAL SIGNS: Temperature 100.6, pulse 90, blood pressure 171/72, and O2 saturation 94%. IMAGING DATA: Her CT scan was reviewed, shows horrible upper lobe emphysematous changes with edema versus ground-glass changes at the bases versus compressive atelectasis. LABORATORY DATA: White blood cell count 9.2, hematocrit 29.3, and platelet count 183 with 64% neutrophils, 1% bands. Sodium 140, potassium 5.3, chloride 100, CO2 of 28, BUN 55, creatinine 9.3, and glucose 90. BNP 1059. IMPRESSION AND PLAN: After reviewing the data and the history, I would think the patient is most likely fluid overloaded and needs to be more aggressively dialyzed. A viral syndrome is possible and she is being concurrently ruled out for the COVID-19 virus. I agree with Dr[address] Snyder with vancomycin and aztreonam. I would discontinue this quickly if her 48-hour cultures come back negative. She should be started on steroids and that should be tapered. Job ID: [id number]
[2020-02-10] MEDS: ALBUTEROL SULFATE INH PRN (16:42)
[2020-02-10] MEDS ORDERED: Vancomycin 1 GM in Premix Bag 1 BAG IVPB SCH ×2 (17:00→17:15)
[2020-02-10] MEDS ORDERED: Vancomycin HCl 750 MG in Sodium Chloride 0.9% 250 ML 250 ML IVPB SCH (17:15)
[2020-02-10] MEDS ORDERED: HOLD VANCOMYCIN FOR LEVEL >20 FS SCH (17:15)
[2020-02-10] MEDS ORDERED: Vancomycin HCl 500 MG in Sodium Chloride 0.9% 100 ML IVPB SCH (17:15)
[2020-02-10] MEDS ORDERED: Vancomycin Sliding Scale 1 EACH FS ONE (17:15)
[2020-02-10] MEDS ORDERED: Amlodipine 10 MG TAB PO SCH (17:15)
[2020-02-10] MEDS ORDERED: Vancomycin HCl 250 MG in Sodium Chloride 0.9% 100 ML IVPB SCH (17:15)
[2020-02-10] MEDS: Sevelamer Carbonate 800 MG TAB PO SCH (17:22)
[2020-02-10] MEDS: methylPREDNISolone Sod Succ 40 MG VIAL IVP SCH ×2 (17:23→23:01)
[2020-02-10] MEDS: Aztreonam 2 GM in Sodium Chloride 0.9% 100 ML IVPB SCH ×2 (18:53→23:00)
[2020-02-10 19:50] LABS: Vancomycin, Random 20.3 ug/mL (See Comment)
[2020-02-10] MEDS: hydrALAZINE 25 MG TAB PO SCH (20:54)
[2020-02-10] MEDS: Doxazosin 2 MG TAB PO SCH (22:54)
[2020-02-10] MEDS: Acetaminophen 325 MG TAB PO PRN (22:54)
[2020-02-10] MEDS: Losartan 25 MG TAB PO SCH (22:54)
[2020-02-10] MEDS: Pregabalin 50 MG CAP PO SCH (22:55)
[2020-02-11] MEDS: Aztreonam 2 GM in Sodium Chloride 0.9% 100 ML IVPB SCH ×2 (05:55→17:17)
[2020-02-11] MEDS: methylPREDNISolone Sod Succ 40 MG VIAL IVP SCH ×3 (05:56→17:17)
[2020-02-11 07:14] LABS: #Lymphocytes 0.4 thou/uL (1.20-3.40); #Monocytes 0.1 thou/uL (0.11-0.59); #Neutrophils 4.1 thou/uL (1.40-6.50); %Eosinophils 0.5 % (0.0-10.0); %Lymphocytes 9.5 % (21.0-51.0); %Monocytes 2.4 % (0.0-10.0); %Neutrophils 87.6 % (42.0-75.0); Hemoglobin 8.5 g/dL (12.0-16.0); Mean Corpuscular HGB CONC 32.4 g/dL (32.0-36.0); Mean Corpuscular Hemoglobin 32.6 pg (27.0-31.0); Mean Platelet Volume 7.1 fL (7.4-10.4); Platelet Count 143 thou/uL (130-400); RBC Distribution Width 16.1 % (11.5-14.5); Red Blood Cell (RBC) Count 2.61 mill/uL (4.20-5.40); White Blood Cell (WBC) Count 4.6 thou/uL (4.8-10.8)
[2020-02-11 07:44] LABS: Anion Gap 16 mmol/L (10-20); BUN (Urea Nitrogen) 24 mg/dL (9.8-20.1); Calc. Creatinine Clearance 13 mL/min (70-130); Calcium 7.3 mg/dL (7.8-10.44); Carbon Dioxide 22 mmol/L (22-29); Chloride 106 mmol/L (98-107); Estimated GFR-MDRD 12; Glucose 90 mg/dL (70-105); Potassium 3.9 mmol/L (3.5-5.1); Sodium 140 mmol/L (136-145)
[2020-02-11] MEDS ORDERED: Gabapentin 100 MG CAP PO SCH (09:00)
[2020-02-11] MEDS: Famotidine/PF 20 mg/2ml Vial SLOW IVP SCH (09:13)
[2020-02-11] MEDS: Sevelamer Carbonate 800 MG TAB PO SCH ×3 (09:13→17:17)
[2020-02-11] MEDS: Amlodipine 10 MG TAB PO SCH (09:13)
[2020-02-11] MEDS: hydrALAZINE 25 MG TAB PO SCH ×3 (09:14→21:27)
[2020-02-11] MEDS: ALBUTEROL SULFATE INH PRN (09:15)
[2020-02-11] MEDS: Acetaminophen 325 MG TAB PO PRN (09:20)
[2020-02-11] MEDS ORDERED: EPOETIN ALFA-EPBX (ESRD) 4,000 UNIT/ML VIAL SC SCH (10:15)
--- NOTE | 2020-02-11 11:03 | PRG ---
DATE OF SERVICE: 02/11/2020 SUBJECTIVE: Ms. Branch is a 54-year-old female with ESRD and re-admitted for shortness of breath. Working diagnosis, she may have recurrent pneumonia. Currently, on empiric IV antibiotics. In addition, we have been consulted for emergent hemodialysis yesterday. She missed her dialysis. We removed several liters of fluid. Her breathing this morning has much improved. OBJECTIVE: VITAL SIGNS: Blood pressure is 168/62, temperature 98.6. GENERAL: She is noted to be awake, alert, comfortable, not in distress. SKIN: Adequate turgor. HEENT: She has a slightly pale conjunctivae. Anicteric sclerae. NECK: No neck mass. No carotid bruits. No JVD. CHEST: No deformities. LUNGS: Decreased breath sounds. HEART: Normal sinus rhythm. No murmur. No gallops. No rubs. ABDOMEN: Globular, soft, nontender. No masses. EXTREMITIES: No edema. No deformities. MEDICATIONS: Medications of February 11, 2020, reviewed. LABORATORY DATA: Laboratories of February 11, 2020; white count 4.6, hemoglobin 8.5. Sodium 140, potassium 3.9, chloride 106, carbon dioxide 22, BUN 24, creatinine 3.92, calcium 7.3. Troponin I 0.041. IMAGING STUDIES: Chest x-ray of February 10, 2020 ?of recurrent pneumonia. CT scan of the chest, February 10, 2020, showed severe emphysema, mildly enlarged lymph nodes of the mediastinum. In addition, there is a diffuse ground-glass opacity and interlobular septal thickening involving the lung bases. Findings, species for pneumonia/infectious pneumonitis. ASSESSMENT AND PLAN: 1. Pneumonia, on empiric IV antibiotics. Currently, the patient is on IV aztreonam. In addition, she is on q.6 methylprednisolone, currently also on IV vancomycin. 2. End-stage renal disease, stable. Continuing 3 times a week hemodialysis. She underwent dialysis yesterday with significant fluid removal. 3. Shortness of breath, multifactorial etiology, pneumonia/?of congestive heart failure/chronic obstructive pulmonary disease. Breathing is better. Significant fluid removal was done with dialysis. 4. Anemia. Restarted Epogen 7500 units subcu q.week.-the patient is also on p.r.n. blood transfusion. Job ID: [id number]
[2020-02-11] MEDS ORDERED: ALPRAZolam 0.25 MG TAB PO PRN (12:17)
--- NOTE | 2020-02-11 12:35 | PRG ---
DATE OF SERVICE: 02/11/2020 SUBJECTIVE: It is reported to me by the nursing staff that the patient is up and walking around. She is breathing better today. Her vital signs indicate temperature 98.6, pulse 80, O2 saturation 96% on 3 L, and blood pressure 168/62. ASSESSMENT: Multifactorial dyspnea. The patient had fluid overload yesterday. She does have underlying chronic obstructive pulmonary disease, which is severe. It is question of concurrent pneumonia, although I doubt she has all three things at once. RECOMMENDATION: 1. If her cultures come back negative, then I would consolidate antibiotics or discontinue rapidly. 2. Continue albuterol metered-dose inhaler and low-dose steroids. Job ID: [id number]
--- NOTE | 2020-02-11 14:11 | PDOC.HOSPP ---
- Subjective Encounter Date: 02/11/20 Encounter Time: 09:45 Subjective: pt had several qs written on the note, all are ansswered. rencet move to an apt , concerned for mold causing pulm.. sxs. no hx of asthma. wants bipap at night. Echo pending. pt had HD y'day. - Objective Vital Signs & Weight: Vital Signs (12 hours) Temp Pulse Resp BP BP Pulse Ox 02/11/20 13:15 97.5 F L 86 18 154/58 H 94 L 02/11/20 09:14 80 168/62 H 02/11/20 09:13 80 168/62 H 02/11/20 09:10 98.6 F 80 20 168/62 H 96 02/11/20 06:00 98.2 F 80 18 193/75 H 95 Weight Weight 112 lb Result Diagrams: 02/11/20 06:42 02/11/20 06:42 Hospitalist ROS - Medication Medications: Active Medications Generic Name Dose Route Start Last Admin Trade Name Freq PRN Reason Stop Dose Admin Acetaminophen 650 mg 02/10/20 21:16 02/11/20 09:20 Tylenol PO 650 mg Q4H PRN Administration Headache/Fever/MILD Pain 1-3 Albuterol Sulfate 2 puff 02/10/20 16:15 02/11/20 09:15 Proventil Hfa INH 2 puff Q4H PRN Administration SOB &/or Wheezing Amlodipine Besylate 10 mg 02/11/20 09:00 02/11/20 09:13 Norvasc PO 10 mg DAILY PAT Administration Doxazosin Mesylate 4 mg 02/10/20 21:00 02/10/20 22:54 Cardura PO 4 mg HS PAT Administration Famotidine 20 mg 02/10/20 09:00 02/11/20 09:13 Pepcid SLOW IVP 20 mg Q24HR PAT Administration Hydralazine HCl 100 mg 02/10/20 21:00 02/11/20 09:14 Apresoline PO 100 mg TID PAT Administration Aztreonam 2 gm/ Sodium 100 mls @ 100 mls/hr 02/10/20 18:00 02/11/20 05:55 Chloride IVPB 100 mls Q12H PAT Administration Losartan Potassium 25 mg 02/10/20 21:00 03/20/20 22:54 Cozaar PO 25 mg HS PAT Administration Methylprednisolone Sodium Succinate 20 mg 02/10/20 18:00 02/11/20 12:59 Solu-Medrol IVP 20 mg Q6HR PAT Administration Pregabalin 100 mg 02/10/20 21:00 02/10/20 22:55 Lyrica PO 100 mg HS PAT Administration Sertraline HCl 50 mg 02/11/20 09:00 02/11/20 09:14 Zoloft PO 50 mg DAILY PAT Administration Sevelamer Carbonate 2,400 mg 02/10/20 17:00 02/11/20 12:59 Renvela PO 2,400 mg TID-WM PAT Administration Sodium Chloride 10 ml 02/10/20 21:00 02/11/20 09:15 Flush - Normal Saline IVF 10 ml Q12HR PAT Administration Sodium Chloride 10 ml 02/10/20 09:34 02/10/20 11:39 Flush - Normal Saline IVF 10 ml PRN PRN Administration Saline Flush - Exam General Appearance: NAD, awake alert Eye: PERRL ENT: normocephalic atraumatic Neck: supple Heart: RRR Respiratory: normal chest expansion, rales, wheezes Gastrointestinal: soft, non-distended, normal bowel sounds Neurological: cranial nerve grossly intact, no focal deficits Hosp A/P - Plan Acute hypoxic respiratory failure secondary to possible sepsis secondary to pneumonia vs fluid overload - temp of 101, tachycardic. BLood cultures sent, sputum culture will send. Chest Xray shows worsening interstitial and airspace opacities bilaterally - flu panel negative, respiratory viral panel negative - will continue with Vanc and aztreonam. Patient anaphylaxis to cephalosporin and allergic to penicillin as a child - COVID 19 testing sent and pending - IV steroids ESRD--M/w/F - had dialysis y'day. Hyperkalemia - potassium 5.3, plan for dialysis today Elevated troponin - up to 0.03. Will check ECHO--------->pending. --prob type II, mismatch. - patient denies chest pain Hypertension - continue amlodipine and losartan Depression - continue sertraline Code status: full code once covID 19 results back, plan for dc. Her spouse is checking with apt mgr, reg.. molds in the apt, per pt.
[2020-02-11] MEDS: ALPRAZolam 0.25 MG TAB PO SCH (21:24)
[2020-02-11] MEDS: Losartan 25 MG TAB PO SCH (21:25)
[2020-02-11] MEDS: Cyclobenzaprine 10 MG TAB PO PRN (21:25)
[2020-02-11] MEDS: Gabapentin 100 MG CAP PO SCH (21:26)
[2020-02-11] MEDS: Doxazosin 2 MG TAB PO SCH (21:26)
[2020-02-11] MEDS: Pregabalin 50 MG CAP PO SCH (21:27)
[2020-02-12] MEDS: methylPREDNISolone Sod Succ 40 MG VIAL IVP SCH ×4 (00:19→17:15)
[2020-02-12] MEDS: Aztreonam 2 GM in Sodium Chloride 0.9% 100 ML IVPB SCH ×2 (05:33→17:13)
[2020-02-12] MEDS ORDERED: hydrALAZINE 20 MG/ML VIAL SLOW IVP PRN (08:09)
[2020-02-12] MEDS ORDERED: Losartan 25 MG TAB PO SCH ×2 (09:00→21:00)
[2020-02-12] MEDS: hydrALAZINE 25 MG TAB PO SCH ×3 (09:38→20:23)
[2020-02-12] MEDS: Sevelamer Carbonate 800 MG TAB PO SCH ×3 (09:38→17:13)
[2020-02-12] MEDS: Famotidine/PF 20 mg/2ml Vial SLOW IVP SCH (09:39)
[2020-02-12] MEDS: Amlodipine 10 MG TAB PO SCH (09:42)
--- NOTE | 2020-02-12 13:42 | PDOC.HOSPP ---
- Subjective Encounter Date: 02/12/20 Encounter Time: 11:10 Subjective: feels better with cramps after getting flexiril. got bipap last night. HD in her room. - Objective Vital Signs & Weight: Vital Signs (12 hours) Temp Pulse Resp BP Pulse Ox 02/12/20 10:00 97.8 F 89 16 186/88 H 96 02/12/20 09:42 89 02/12/20 09:38 89 02/12/20 08:00 96 Weight Weight 112 lb Result Diagrams: 02/11/20 06:42 02/11/20 06:42 Hospitalist ROS - Medication Medications: Active Medications Generic Name Dose Route Start Last Admin Trade Name Freq PRN Reason Stop Dose Admin Acetaminophen 650 mg 02/10/20 21:16 02/11/20 09:20 Tylenol PO 650 mg Q4H PRN Administration Headache/Fever/MILD Pain 1-3 Albuterol Sulfate 2 puff 02/10/20 16:15 02/11/20 09:15 Proventil Hfa INH 2 puff Q4H PRN Administration SOB &/or Wheezing Alprazolam 0.125 mg 02/11/20 20:00 02/11/20 21:24 Xanax PO 0.125 mg 2000 PAT Administration Amlodipine Besylate 10 mg 02/11/20 09:00 02/12/20 09:42 Norvasc PO 10 mg DAILY PAT Administration Cyclobenzaprine HCl 5 mg 02/11/20 18:26 02/11/20 21:25 Flexeril PO 5 mg TIDPRN PRN Administration Muscle Spasm Doxazosin Mesylate 4 mg 02/10/20 21:00 02/11/20 21:26 Cardura PO 4 mg HS PAT Administration Epoetin Alden-epbx 7,500 unit 02/11/20 10:15 02/11/20 15:33 Retacrit SC 7,500 unit Q7D PAT Administration Famotidine 20 mg 02/10/20 09:00 02/12/20 09:39 Pepcid SLOW IVP 20 mg Q24HR PAT Administration Gabapentin 100 mg 02/11/20 21:00 02/11/20 21:26 Neurontin PO 100 mg HS PAT Administration Hydralazine HCl 100 mg 02/10/20 21:00 02/12/20 09:38 Apresoline PO 100 mg TID PAT Administration Aztreonam 2 gm/ Sodium 100 mls @ 100 mls/hr 02/10/20 18:00 02/12/20 05:33 Chloride IVPB 100 mls Q12H PAT Administration Methylprednisolone Sodium Succinate 20 mg 02/10/20 18:00 02/12/20 05:30 Solu-Medrol IVP 20 mg Q6HR PAT Administration Pregabalin 100 mg 02/10/20 21:00 02/11/20 21:27 Lyrica PO 100 mg HS PAT Administration Sertraline HCl 50 mg 02/11/20 09:00 02/12/20 09:39 Zoloft PO 50 mg DAILY PAT Administration Sevelamer Carbonate 2,400 mg 02/10/20 17:00 02/12/20 09:38 Renvela PO 2,400 mg TID-WM PAT Administration Sodium Chloride 10 ml 02/10/20 21:00 02/11/20 21:32 Flush - Normal Saline IVF 10 ml Q12HR PAT Administration Sodium Chloride 10 ml 02/10/20 09:34 02/10/20 11:39 Flush - Normal Saline IVF 10 ml PRN PRN Administration Saline Flush - Exam General Appearance: NAD, awake alert Eye: PERRL Neck: supple Heart: RRR Respiratory: CTAB, normal chest expansion Gastrointestinal: soft, normal bowel sounds Neurological: cranial nerve grossly intact, no focal deficits Hosp A/P - Plan Acute hypoxic respiratory failure secondary to possible sepsis secondary to pneumonia vs fluid overload - temp of 101, tachycardic. BLood cultures sent, sputum culture will send. Chest Xray shows worsening interstitial and airspace opacities bilaterally - flu panel negative, respiratory viral panel negative - will continue with Vanc and aztreonam. Patient anaphylaxis to cephalosporin and allergic to penicillin as a child - COVID 19 testing sent and pending - IV steroids ESRD--M/w/F - had dialysis y'day. Hyperkalemia - potassium 5.3, --->3.9 Elevated troponin - up to 0.03. Will check ECHO--------->EF 65%; Mild MR, mod TR, LVH, mod pHTN. --prob type II, mismatch. - patient denies chest pain -trop plateaued. Hypertension - continue amlodipine and losartan Depression - continue sertraline Code status: full code once covID 19 results back, plan for dc. Her spouse is checking with apt mgr, reg.. molds in the apt, per pt.
[2020-02-12] MEDS: Cyclobenzaprine 10 MG TAB PO PRN (17:15)
[2020-02-12] MEDS ORDERED: Mometasone/Formoterol 120 PUFF INHALER INH PRN (18:30)
[2020-02-12] MEDS: Doxazosin 2 MG TAB PO SCH (20:22)
[2020-02-12] MEDS: Gabapentin 100 MG CAP PO SCH (20:23)
[2020-02-12] MEDS: ALPRAZolam 0.25 MG TAB PO SCH (20:26)
[2020-02-12] MEDS: Pregabalin 50 MG CAP PO SCH (20:27)
[2020-02-13] MEDS: methylPREDNISolone Sod Succ 40 MG VIAL IVP SCH ×3 (00:47→13:28)
[2020-02-13] MEDS: Aztreonam 2 GM in Sodium Chloride 0.9% 100 ML IVPB SCH (05:41)
[2020-02-13] MEDS: Amlodipine 10 MG TAB PO SCH (08:08)
[2020-02-13] MEDS: hydrALAZINE 25 MG TAB PO SCH ×2 (08:08→13:24)
[2020-02-13 08:30] LABS: Vancomycin, Random 10.3 ug/mL (See Comment)
[2020-02-13] MEDS: Sevelamer Carbonate 800 MG TAB PO SCH ×2 (09:10→13:23)
[2020-02-13] MEDS: Famotidine/PF 20 mg/2ml Vial SLOW IVP SCH (09:11)
--- NOTE | 2020-02-13 10:01 | PRG ---
DATE OF SERVICE: 02/13/2020 SUBJECTIVE: Ms. Branch is a 54-year-old female with ESRD-on maintenance hemodialysis, admitted for shortness of breath. She was found to have a ? of recurrent pneumonia versus/CHF. She underwent emergent hemodialysis at that time with improvement with shortness of breath. This morning, she is noted to be asymptomatic. She has also complained of leg cramps and for that reason, was given Flexeril which helped the cramping. She is currently undergoing dialysis. We are attempting to remove 2.5 L of fluid as tolerated. OBJECTIVE: VITAL SIGNS: Blood pressure 178/89, heart rate 83, respiratory rate 20, temperature 98.1, and pulse ox %. GENERAL: Noted to be awake, alert, comfortable, not in distress. SKIN: Adequate turgor. HEENT: She has slightly pale conjunctivae. Anicteric sclerae. NECK: No neck mass. No carotid bruits. No JVD. CHEST: No deformities. LUNGS: Decreased breath sounds. HEART: Normal sinus rhythm. No murmur. No gallops. No rubs. ABDOMEN: Globular, soft, and nontender. No masses. EXTREMITIES: No edema. No deformities. MEDICATIONS: Medications of February 13, 2020, was reviewed. LABORATORY DATA: Laboratories of February 11, 2020; white count 4.6, hemoglobin 8.5. Sodium 140, potassium 3.9, chloride 106, carbon dioxide 22, BUN 24, creatinine 3.92, and calcium 7.3. ASSESSMENT AND PLAN: 1. End-stage renal disease, stable, tolerating current hemodialysis regimen. Fluid removal as tolerated. Continue Thursday, Thursday, and Thursday dialysis. 2. Shortness of breath, multifactorial etiology, much improved with fluid removal. 3. Anemia, continuing weekly Epogen at 7500 units subcu every week. 4. Leg cramps, improved with Flexeril. 5. Agree with current management. Job ID: [id number]
[2020-02-13 15:12] VITALS: BP 186/67; TEMP 98.5
--- NOTE | 2020-02-13 17:13 | DIS ---
DATE OF ADMISSION: 02/10/2020 DATE OF DISCHARGE: 02/13/2020 DISCHARGE DIAGNOSES: 1. Acute hypoxic respiratory failure secondary to sepsis, secondary to pneumonia. 2. End-stage renal disease, on dialysis, hyperkalemia. 3. Elevated troponin secondary to metabolic mismatch, type 2 demand ischemia. 4. Hypertension. 5. Depression. 6. Ruled out COVID-19. DISCHARGE MEDICATIONS: 1. Xanax 0.125 mg twice a day and at bedtime as needed. 2. Norvasc 10 mg daily. 3. Budesonide formoterol 2 puffs twice a day. 4. Cardura 4 mg bedtime. 5. Gabapentin 400 mg bedtime. 6. Hydralazine 100 mg three times daily. 7. Losartan 25 mg bedtime. 8. Pregabalin 100 mg bedtime. 9. Sertraline 50 mg daily. 10. Renvela 2400 mg 3 times a day. 11. Levaquin 250 mg every other day for a total of 10 days. 12. Omeprazole 40 mg daily. 13. Tramadol 50 mg as needed for pain. PHYSICAL EXAMINATION: VITAL SIGNS: On the day of discharge, the patient is afebrile with temperature of 98.1, pulse 83, saturations 100% with 2 L oxygen by nasal cannula. GENERAL: The patient is seen in the dialysis area. She appears well and she is agreeable for discharge plan today. CARDIOVASCULAR: Regular rate and rhythm without murmurs, rubs, or gallops. LUNGS: Clear to auscultation bilaterally without wheezing, rales, or rhonchi. ABDOMEN: Soft, nontender, and nondistended. Good bowel sounds. EXTREMITIES: Without any pitting edema. HOSPITAL COURSE: This is a 54-year-old female admitted with acute hypoxic respiratory failure secondary to sepsis which is secondary to pneumonia. Her chest x-ray showed worsening of interstitial and airspace opacities bilaterally. Flu panel was negative. Respiratory viral panel negative. She was started on vancomycin and aztreonam. The patient has anaphylactic reactions to cephalosporin and allergic to penicillin as a child. Given her clinical conditions, COVID-19 tested and it came back negative. The patient did go through her routine dialysis during her stay. Her potassium was 5.3, improved to 3.9 prior to discharge. The patient had an elevated troponin of 0.03 in the context of kidney disease without chest pain. Her echo showed EF of 50% to 65% with mild MR, moderate tricuspid regurgitation , moderate pulmonary hypertension as well as LVH. Troponin plateaued. The patient moved recently to an apartment and concerned about mold may be triggering her respiratory symptoms. The patient's spouse will be checking with the property managers regarding that. No further intervention at this point along this line. COVID-19 negative and she is discharged clinically in stable condition. DISCHARGE INSTRUCTIONS: ACTIVITY: As tolerated. DIET: Renal diet. FOLLOWUP: Follow up with the primary care physician in 1 week. Follow up with your routine dialysis on Thursday, Thursday, and Thursday. TIME SPENT: Discharge time took over 30 minutes. Job ID: [id number] MTDD
--- NOTE | 2020-02-13 21:33 | EKG ---
Test Reason : Blood Pressure : / mmHG Vent. Rate : 091 BPM Atrial Rate : 091 BPM P-R Int : 178 ms QRS Dur : 086 ms QT Int : 344 ms P-R-T Axes : 064 076 023 degrees QTc Int : 423 ms Normal sinus rhythm Possible Left atrial enlargement Borderline ECG When compared with ECG of 10-FEB-2020 05:42, (Unconfirmed) Nonspecific T wave abnormality now evident in Inferior leads T wave inversion now evident in Lateral leads Confirmed by JENNIFER BACON, SIla ([id number]) on 02/13/2020 9:33:08 PM Referred By: OSKAR Confirmed By:DR. Rober RODRIGUEZ MD
--- NOTE | 2020-02-15 17:19 | PQF ---
JOSELYNKRISTOPHER MARIE [id number] CLINICAL DOCUMENTATION IMPROVEMENT CLARIFICATION FORM: ICD-10 Updated PLEASE DO AN ADDENDUM TO THE PROGRESS NOTE WITH ANY DOCUMENTATION UPDATES OR ADDITIONS AND CARRY THROUGH TO DC SUMMARY. THANK YOU. DATE: 02/15/2020 ATTN: Dr. Barnes Please exercise your independent, professional judgment in responding to the clarification form. Clinical indicators are provided on the bottom of this form for your review Please check appropriate box(es): [ ] Acute Hypoxic Respiratory Failure [ ] Acute on Chronic Hypoxic Respiratory Failure [ ] Other diagnosis [ ] Unable to determine For continuity of documentation, please document condition throughout progress notes and discharge summary. Thank You. CLINICAL INDICATORS - SIGNS / SYMPTOMS / LABS / RESULTS AND LOCATION IN ED 02/09: o Respirations: 19-32 Pulse ox 90-100% on 2-3lpm NC o States shes usually on 2L oxygen. H&P 02/09 ([facility]): o This is a 54 year old female with past medical history of COPD, SRIDHAR, who presents to the hospital with fever, cough, worsening shortness of breath. o She normally can only walk from the bed to the room before she gets out of breath, but states it got worse yesterday and her oxygen saturation as in the 70s on 2L. o Acute hypoxic respiratory failure secondary to possible sepsis secondary to pneumonia vs fluid overload. DC Summary 02/12 ([facility]): o Acute hypoxic respiratory failure secondary to sepsis, secondary to pneumonia. o On the day of discharge . Saturations 100% with 2 L oxygen by nasal cannula. RISK FACTORS / RESULTS AND LOCATION IN H&P 02/09 ([facility]): past medical history of COPD, SRIDHAR. ED 02/09: States shes usually on 2L oxygen. TREATMENTS / RESULTS AND LOCATION IN ED 02/09: CXR, O2 per [facility] Pulmonology Consult 02/09 Order: CPAP/BiPAP HS 02/10 Thank you, Natalia (This form is maintained as a part of the permanent medical record) 2014 [employer]. All Rights Reserved Natalia Crane RN, CDS [email or web address] [phone] Acute Respiratory Failure: ABG pH < 7.35 or > 7.45; Decreased oxygen saturation (<90% room air or < 95% on oxygen); PCO2 > 50 mm Hg; PO2 < 60 mm Hg; Labored or rapid respirations ARDS: Dx Criteria [[place] ARDS]: Respiratory symptoms within one week of a known clinical insult (e.g. shock, infection, surgery, trauma) Bilateral opacities in CXR/Chest CT not due to CHF or fluid MTDD
== END 2020-02-13 14:29 | disposition home or self-care (01) | DRG 871 ==
LOC: ERS 05:06 → T4-A 07:33
PROVIDERS: ADMIT Internal Medicine; ATTEND Internal Medicine
PROC: 5A1D70Z Performance of Urinary Filtration, Intermittent, Less than 6 Hours Per Day (ICD-10-PCS; principal; 2020-02-13)
DX: A41.9 Sepsis, unspecified organism (principal); J96.01 Acute respiratory failure with hypoxia; J18.9 Pneumonia, unspecified organism; N18.6 End stage renal disease; I21.A1 Myocardial infarction type 2; I12.0 Hypertensive chronic kidney disease with stage 5 chronic kidney disease or end stage renal disease; E87.5 Hyperkalemia; F32.9 Major depressive disorder, single episode, unspecified; I27.20 Pulmonary hypertension, unspecified; I08.1 Rheumatic disorders of both mitral and tricuspid valves; F41.9 Anxiety disorder, unspecified; E87.70 Fluid overload, unspecified; G47.33 Obstructive sleep apnea (adult) (pediatric); D63.1 Anemia in chronic kidney disease; J43.9 Emphysema, unspecified; Z99.2 Dependence on renal dialysis; Z79.51 Long term (current) use of inhaled steroids; Z90.710 Acquired absence of both cervix and uterus; Z87.891 Personal history of nicotine dependence; Z88.0 Allergy status to penicillin; Z88.1 Allergy status to other antibiotic agents; Z88.8 Allergy status to other drugs, medicaments and biological substances; Z79.82 Long term (current) use of aspirin; Z99.89 Dependence on other enabling machines and devices
CPT/HCPCS: 36415; 71045; 71250; 80048; 80053; 80202; 82553; 83605; 83735; 83880; 84484; 85025; 87040; 87633; 87804; 90935; 93005; 93010; 93306; 94660; 96365; G0257; J2920; J3370; J3490; Q5105; S0028; U0001

== ENCOUNTER 2020-05-24 18:07 | Inpatient (IN) | payer MEDICARE, MEDICAID, OTHER ==
--- NOTE | 2020-05-24 18:49 | RAD ---
XR Chest 1 View Portable History: Shortness of breath Comparison: Radiograph January 2020 Findings: Extensive airspace opacities throughout the lungs. Moderate effusions. Severe emphysema in the lung apices. Impression: Slightly worsened lung aeration from January 2020.
[2020-05-24 18:57] LABS: ALT (SGPT) 16 U/L (8-55); AST (SGOT) 13 U/L (5-34); Albumin 3.8 g/dL (3.5-5.0); Alkaline Phosphatase 68 U/L (40-110); Anion Gap 20 mmol/L (10-20); BUN (Urea Nitrogen) 54 mg/dL (9.8-20.1); Bilirubin, Total 0.4 mg/dL (0.2-1.2); CK (CPK) 60 U/L (29-168); Calc. Creatinine Clearance 0 mL/min (70-130); Carbon Dioxide 23 mmol/L (22-29); Chloride 103 mmol/L (98-107); Estimated GFR-MDRD 6; Globulin 2.3 g/dL (2.4-3.5); Glucose 123 mg/dL (70-105); Potassium 5.2 mmol/L (3.5-5.1); Protein, Total 6.1 g/dL (6.0-8.3); Sodium 141 mmol/L (136-145)
[2020-05-24 19:04] LABS: #Eosinphils 0.1 thou/uL (0.0-0.7); #Lymphocytes 1.1 thou/uL (1.20-3.40); #Monocytes 0.5 thou/uL (0.11-0.59); #Neutrophils 4.6 thou/uL (1.40-6.50); %Basophils 0.3 % (0.0-1.0); %Eosinophils 2.4 % (0.0-10.0); %Lymphocytes 17.7 % (21.0-51.0); %Neutrophils 71.7 % (42.0-75.0); Hemoglobin 8.8 g/dL (12.0-16.0); Mean Corpuscular HGB CONC 31.7 g/dL (32.0-36.0); Mean Corpuscular Hemoglobin 30.6 pg (27.0-31.0); Mean Corpuscular Volume 96.4 fL (78.0-98.0); Mean Platelet Volume 7.2 fL (7.4-10.4); Platelet Count 228 thou/uL (130-400); RBC Distribution Width 17.2 % (11.5-14.5); Red Blood Cell (RBC) Count 2.89 mill/uL (4.20-5.40); White Blood Cell (WBC) Count 6.4 thou/uL (4.8-10.8)
[2020-05-24] MEDS ORDERED: Piperacillin/Tazobactam 4.5 GM VIAL ONE (19:41)
[2020-05-24] MEDS ORDERED: hydrALAZINE 20 MG/ML VIAL ONE (20:33)
[2020-05-24 20:40] LABS: Lactic Acid 0.6 mmol/L (0.5-2.2)
[2020-05-24] MEDS ORDERED: Vancomycin 1 GM/200 ML BAG ONE (20:44)
[2020-05-24] MEDS ORDERED: Acetaminophen 325 MG TAB PO PRN (22:38)
[2020-05-24] MEDS ORDERED: Guaifenesin DM 100-10/5 ML UDCUP PO PRN (22:38)
[2020-05-24] MEDS ORDERED: Acetaminophen 650 MG Suppository PR PRN (22:38)
[2020-05-24] MEDS ORDERED: HYDROcodone/Acetaminophen 5/325 mg Tablet PO PRN ×2 (22:38)
[2020-05-24] MEDS ORDERED: hydrALAZINE 20 MG/ML VIAL SLOW IVP PRN (22:43)
--- NOTE | 2020-05-24 22:46 | PDOC.HHP ---
Hospitalist HPI - History of Present Illness dyspnea History of Present Illness: Case of an 54y/o female with pmhx of esrd on h/d, copd on 2l oxygen at home, htn , and brain aneurysms who comes to hospital due to dyspnea. patient refers she was on her usual state of health until about 5 days ago when she started with dyspnea. she states went to h/d center then went home and used her cpap and felt somewhat better, but on the next followings days she again began to have progressive dyspnea that was not responding to treatment at home and she decided to come to hospital for evaluation. apart from dyspnea patient reports some cough non productive, chills and a non quantified low grade fever. Hospitalist ROS - Review of Systems All other systems reviewed; all pertinent +/- noted in HPI/Subj Hospitalist History - Past Medical History Source: patient Cardiac: reports: HTN, Hyperlipidemia Pulmonary: reports: COPD Renal/: reports: Chronic renal failure - Past Surgical History Past Surgical History: reports: Hysterectomy, Tubal Ligation Other Surgical History: fistual - Family History Family History: reports: cardiac disorder, hypertension - Social History Smoking Status: Former smoker Alcohol: reports: Occassional Drugs: reports: none Occupation: works as a [employer] Activity level: independent ambulation - Exam General Appearance: awake alert Eye: PERRL, anicteric sclera ENT: normocephalic atraumatic, no oropharyngeal lesions Neck: supple, symmetric, no JVD Heart: RRR, no murmur, no gallops Respiratory: rales, rhonchi, tachypneic Respiratory - other findings: decreased lung sounds Gastrointestinal: soft, non-tender, non-distended Extremities: no cyanosis, no clubbing, no edema Skin: normal turgor, no lesions, no rashes Neurological: cranial nerve grossly intact, normal sensation to touch Musculoskeletal: normal tone, normal strength, no muscle wasting Psychiatric: normal affect, normal behavior, A&O x 3 Hospitalist Results - Labs Result Diagrams: 05/24/20 18:34 05/24/20 18:18 Lab results: WBC 6.4 thou/uL (4.8-10.8) 05/24/20 18:34 Hgb 8.8 g/dL (12.0-16.0) L 05/24/20 18:34 Hct 27.9 % (36.0-47.0) L 05/24/20 18:34 MCV 96.4 fL (78.0-98.0) 05/24/20 18:34 Plt Count 228 thou/uL (130-400) 05/24/20 18:34 Neutrophils % 71.7 % (42.0-75.0) 05/24/20 18:34 Sodium 141 mmol/L (136-145) 05/24/20 18:18 Potassium 5.2 mmol/L (3.5-5.1) H 05/24/20 18:18 Chloride 103 mmol/L (98-107) 05/24/20 18:18 Carbon Dioxide 23 mmol/L (22-29) 05/24/20 18:18 BUN 54 mg/dL (9.8-20.1) H 05/24/20 18:18 Creatinine 7.07 mg/dL (0.6-1.1) H 05/24/20 18:18 Glucose 123 mg/dL (70-105) H 05/24/20 18:18 Lactic Acid 0.6 mmol/L (0.5-2.2) 05/24/20 20:18 Calcium 9.0 mg/dL (7.8-10.44) 05/24/20 18:18 Total Bilirubin 0.4 mg/dL (0.2-1.2) 05/24/20 18:18 AST 13 U/L (5-34) 05/24/20 18:18 ALT 16 U/L (8-55) 05/24/20 18:18 Alkaline Phosphatase 68 U/L (40-110) 05/24/20 18:18 Creatine Kinase 60 U/L (29-168) 05/24/20 18:18 Troponin I 0.021 ng/mL (< 0.028) 05/24/20 18:18 Serum Total Protein 6.1 g/dL (6.0-8.3) 05/24/20 18:18 Albumin 3.8 g/dL (3.5-5.0) 05/24/20 18:18 Hospitalist H&P A/P - Problem (1) Pneumonia Code(s): J18.9 - PNEUMONIA, UNSPECIFIED ORGANISM Status: Acute (2) Hypoxia Code(s): R09.02 - HYPOXEMIA Status: Acute (3) COPD exacerbation Code(s): J44.1 - CHRONIC OBSTRUCTIVE PULMONARY DISEASE W (ACUTE) EXACERBATION Status: Acute (4) ESRD (end stage renal disease) on dialysis Code(s): N18.6 - END STAGE RENAL DISEASE; Z99.2 - DEPENDENCE ON RENAL DIALYSIS Status: Acute (5) Hypertensive urgency Code(s): I16.0 - HYPERTENSIVE URGENCY Status: Acute - Plan Plan: 54y/o female with the stated pmhx who present with dyspnea pneumonia / copd exacerbation - worsening pneumonia from previous examinations 02/09 - on levaquin and vanc. will order mrsa screen. adjust therapy as necessary - supplementation goal 88-92% - f/u blood and sputum cultures - due nebs q 6hr - solumedrol 40 q 8hr esrd on h/d -crackles on physical exam, might have an overload component - seafood preparer consulted for h/d treatment hypertensive urgency - continue home meds for hypertension - improved after oxygen administration - hydralazine prn
[2020-05-24 23:45] VITALS: BMI 19.1
[2020-05-25] MEDS ORDERED: Acetaminophen 325 MG TAB PO PRN (00:25)
[2020-05-25] MEDS ORDERED: Guaifenesin DM 100-10/5 ML UDCUP PO PRN (00:26)
[2020-05-25] MEDS ORDERED: Acetaminophen 650 MG Suppository PR PRN (00:26)
[2020-05-25] MEDS ORDERED: HYDROcodone/Acetaminophen 5/325 mg Tablet PO PRN (00:26)
[2020-05-25] MEDS: HYDROcodone/Acetaminophen 5/325 mg Tablet PO PRN ×3 (00:47→18:52)
[2020-05-25] MEDS ORDERED: Vancomycin HCl 750 MG in Sodium Chloride 0.9% 250 ML 250 ML IVPB SCH (01:00)
[2020-05-25] MEDS ORDERED: Vancomycin 1 GM in Premix Bag 1 BAG IVPB SCH (01:00)
[2020-05-25] MEDS ORDERED: Vancomycin HCl 500 MG in Sodium Chloride 0.9% 100 ML IVPB SCH (01:00)
[2020-05-25] MEDS ORDERED: Vancomycin HCl 250 MG in Sodium Chloride 0.9% 100 ML IVPB SCH (01:00)
[2020-05-25] MEDS ORDERED: HOLD VANCOMYCIN FOR LEVEL >20 FS SCH (01:00)
[2020-05-25] MEDS ORDERED: Sodium Chloride 0.9% 20 ML ONE (04:48)
[2020-05-25] MEDS: hydrALAZINE 20 MG/ML VIAL SLOW IVP PRN ×3 (05:52→23:10)
[2020-05-25] MEDS: methylPREDNISolone Sod Succ 40 MG VIAL IVP SCH ×3 (05:52→21:41)
[2020-05-25] MEDS ORDERED: methylPREDNISolone Sod Succ 40 MG VIAL IVP SCH (06:00)
[2020-05-25] MEDS ORDERED: Enoxaparin Sodium 30 MG/0.3 ML SYRINGE SC SCH (09:00)
[2020-05-25] MEDS ORDERED: Epoetin (ESRD) 20,000 UNITS/ML SC SCH (09:15)
--- NOTE | 2020-05-25 09:42 | PRG ---
DATE OF SERVICE: 05/25/2020 SUBJECTIVE: Ms. Branch is a 54-year-old female with ESRD-on maintenance hemodialysis, who was admitted for presumed COPD exacerbation. Please note, this patient has longstanding history of COPD/emphysema. We are now being consulted for maintenance hemodialysis. She is due for dialysis today, and for this reason, we made arrangements for her to undergo her regular dialysis. Her breathing is still relatively unimproved compared yesterday. The patient has been having worsening shortness of breath for the last few days. The patient started having shortness of breath early this Thursday. It was progressive. Attempt at fluid removal was not successful. She started cramping. I doubt that she has a lot of volume. This may be a COPD exacerbation. REVIEW OF SYSTEMS: No chest pain. Positive for shortness of breath. No nausea. No vomiting. No productive cough. No fever or chills. No hematochezia. No melena. No hematemesis. No syncopal episode. Appetite and energy level are decreased. Occasional joint pains. No headache. No diplopia. No dysuria. PAST MEDICAL HISTORY: COPD/emphysema, ESRD from presumed hypertensive nephropathy, longstanding hypertension, hyperlipidemia. PAST SURGICAL HISTORY: Status post AV fistula placement, status post cuffed hemodialysis catheter placement, status post hysterectomy, status post bilateral tubal ligation, status post AV fistula. FAMILY HISTORY: Positive family history of hypertension. No ESRD. SOCIAL HISTORY: The patient is . Lives in [place]. Several children. 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 No IV drug abuse. Smoked for several years, about 30 years, half pack to one pack a day, currently no longer smoking. Alcohol rarely. ALLERGIES: UNKNOWN. TRAUMA: None. IMMUNIZATIONS: Up-to-date. HOSPITALIZATIONS: Please see past medical history. PHYSICAL EXAMINATION: VITAL SIGNS: Blood pressure is 182/79, heart rate 89, respiratory rate 17, temperature 98.3, O2 saturation 96%. GENERAL: The patient is noted to be awake, alert, comfortable, not in overt distress. SKIN: Adequate turgor. HEENT: Slightly pale conjunctivae. Anicteric sclerae. NECK: No neck mass. No carotid bruits. No JVD. CHEST: No deformities. LUNGS: Decreased breath sounds. No wheezing. No crackles. HEART: Normal sinus rhythm. No murmur. No gallops. No rubs. ABDOMEN: Globular, soft, nontender. No masses. EXTREMITIES: No edema. No deformities. MEDICATIONS: Medications of May 25, 2020: 1. Tylenol 650 mg q.4 p.r.n. 2. Lovenox 30 mg subcu daily. 3. [place] 5/325 one tablet t.i.d. as needed. 4. Levaquin 250 mg IV daily. 5. Solu-Medrol 40 mg IV q.8., status post vancomycin. DIAGNOSTIC DATA: May 24, 2020, chest x-ray shows extensive airspace opacities with moderate effusion-severe emphysema. LABORATORY DATA: White count 6.4, hemoglobin 8.8. Sodium 141, potassium 5.2, chloride 103, carbon dioxide 23, BUN 54, creatinine 7.07, glucose 120. AST 13, ALT 16, and albumin 3.8. ASSESSMENT AND PLAN: 1. Chronic obstructive pulmonary disease exacerbation, on empiric IV antibiotics. In addition, the patient has been started on steroids. Consider placing the patient on q.4 to q.6 DuoNeb if needed. 2. Anemia. Start Epogen 7500 units subcu every week. 3. End-stage renal disease. We will start hemodialysis today-continue Thursday, Thursday, and Thursday dialysis treatment. Fluid removal only as tolerated. Review of the last Kt/V suggests the patient is adequately dialyzed with the current dialysis regimen. Job ID: [id number]
[2020-05-25] MEDS: Enoxaparin Sodium 30 MG/0.3 ML SYRINGE SC SCH (09:59)
[2020-05-25 11:42] LABS: Vancomycin, Random 23.6 ug/mL (See Comment)
[2020-05-25] MEDS ORDERED: EPOETIN ALFA-EPBX (ESRD) 4,000 UNIT/ML VIAL SC SCH (12:00)
--- NOTE | 2020-05-25 13:05 | PDOC.HOSPP ---
- Subjective Encounter Date: 05/25/20 Encounter Time: 09:45 Subjective: has dry cough, no palp or chest pain is going for HD this am - Objective Vital Signs & Weight: Vital Signs (12 hours) Temp Pulse Resp BP BP BP Pulse Ox 05/25/20 07:15 92 L 05/25/20 07:14 89 20 05/25/20 07:10 98.3 F 89 17 182/79 H 96 05/25/20 06:40 82 189/82 H 05/25/20 05:52 86 195/81 H 05/25/20 04:23 97.4 F L 86 17 184/78 H 93 L Weight Weight 108 lb 1.6 oz I&O: 05/24/20 05/25/20 05/26/20 06:59 06:59 06:59 Intake Total 551.5 Output Total 400 Balance 151.5 Result Diagrams: 05/24/20 18:34 05/24/20 18:18 Hospitalist ROS - Medication Medications: Active Medications Generic Name Dose Route Start Last Admin Trade Name Freq PRN Reason Stop Dose Admin Hydrocodone Bitart/Acetaminophen 2 tab 05/25/20 00:27 05/25/20 12:29 [place] 5/325 PO 2 tab Q4H PRN Administration Severe Pain (7-10) Albuterol/Ipratropium 3 ml 05/25/20 01:00 05/25/20 07:14 Duoneb NEB 3 ml [id number] PAT Administration Enoxaparin Sodium 30 mg 05/25/20 09:00 05/25/20 09:59 Lovenox SC 30 mg 0900 PAT Administration Epoetin Alden-epbx 7,500 unit 05/25/20 12:00 05/25/20 12:36 Retacrit SC 7,500 unit Q7D PAT Administration Hydralazine HCl 10 mg 05/25/20 00:28 05/25/20 05:52 Apresoline SLOW IVP 10 mg Q6H PRN Administration SBP Greater Than 170 Methylprednisolone Sodium Succinate 40 mg 05/25/20 06:00 05/25/20 05:52 Solu-Medrol IVP 40 mg Q8HR PAT Administration - Exam General Appearance: awake alert Eye: PERRL, anicteric sclera ENT: no oropharyngeal lesions, moist mucosa Neck: supple, no JVD Heart: RRR, no murmur Respiratory: no wheezes, no rales, rhonchi Gastrointestinal: soft, non-tender, non-distended, normal bowel sounds Extremities: no cyanosis, no edema Neurological: cranial nerve grossly intact, no focal deficits Psychiatric: normal affect, A&O x 3 Hosp A/P (1) COPD exacerbation Code(s): J44.1 - CHRONIC OBSTRUCTIVE PULMONARY DISEASE W (ACUTE) EXACERBATION Status: Acute (2) ESRD (end stage renal disease) on dialysis Code(s): N18.6 - END STAGE RENAL DISEASE; Z99.2 - DEPENDENCE ON RENAL DIALYSIS Status: Chronic (3) Fluid overload Code(s): E87.70 - FLUID OVERLOAD, UNSPECIFIED Status: Acute (4) Chronic respiratory failure Code(s): J96.10 - CHRONIC RESPIRATORY FAILURE, UNSP W HYPOXIA OR HYPERCAPNIA Status: Chronic Qualifiers: Respiratory failure complication: hypoxia Qualified Code(s): J96.11 - Chronic respiratory failure with hypoxia - Plan is getting hemodialysis today on nebs, mild steroids, empiric antibiotics to ambulate as tolerated after HD continue home meds hemostable pt is on home O2 for copd
[2020-05-25 13:11] LABS: HBSAg Index 0.16 S/CO (0-0.99); Hep B Surf Ag Non-Reactive S/CO (NonReactive)
[2020-05-25] MEDS ORDERED: traMADol HCl 50 MG TAB PO PRN (18:32)
[2020-05-25] MEDS: Doxazosin 2 MG TAB PO SCH (20:06)
[2020-05-25] MEDS: hydrALAZINE 25 MG TAB PO SCH (20:07)
[2020-05-25] MEDS: Gabapentin 400 MG CAP PO SCH (20:07)
[2020-05-25] MEDS: Amlodipine 10 MG TAB PO SCH (20:08)
[2020-05-25] MEDS: Pramipexole Di-HCl 0.25 MG TAB PO SCH (20:08)
[2020-05-25] MEDS: Losartan 25 MG TAB PO SCH (20:08)
[2020-05-26] MEDS: methylPREDNISolone Sod Succ 40 MG VIAL IVP SCH ×2 (05:36→14:27)
[2020-05-26] MEDS: Mometasone 200 MCG/Formoterol 5 MCG 120 PUFF INHALER INH SCH ×2 (07:26→19:16)
[2020-05-26] MEDS: Losartan 25 MG TAB PO SCH ×2 (08:38→20:28)
[2020-05-26] MEDS: Enoxaparin Sodium 30 MG/0.3 ML SYRINGE SC SCH (08:38)
[2020-05-26] MEDS: hydrALAZINE 25 MG TAB PO SCH ×3 (08:38→20:28)
[2020-05-26] MEDS: Sevelamer Carbonate 800 MG TAB PO SCH ×3 (08:38→16:51)
[2020-05-26] MEDS: Amlodipine 10 MG TAB PO SCH ×2 (08:39→20:28)
--- NOTE | 2020-05-26 10:07 | PRG ---
DATE OF SERVICE: 05/26/2020 SUBJECTIVE: Ms. Branch is a 54-year-old female with ESRD, was admitted for shortness of breath. She had COPD exacerbation. She is now being treated for the COPD exacerbation with improvement. This morning, she tells me that breathing is much better. She denies any worsening shortness of breath or chest pain. She denies any fever or chills. OBJECTIVE: VITAL SIGNS: Blood pressure 170/70, heart rate is 100, respiratory rate 18, and temperature 98.9. GENERAL: Noted to be awake, alert, comfortable, not in distress. SKIN: Adequate turgor. HEENT: She has a slightly pale conjunctivae. Anicteric sclerae. NECK: No neck mass. No carotid bruits. No JVD. CHEST: No deformities. LUNGS: Clear breath sounds. No wheezing. No crackles. HEART: Normal sinus rhythm. No murmurs, gallops, or rubs. ABDOMEN: Globular, soft, and nontender. No masses. EXTREMITIES: No edema. No deformities. MEDICATIONS: Medications of May 26, 2020, reviewed. LABORATORY DATA: Laboratories of May 24, 2020; white count 6.4, hemoglobin 8.8. Sodium 141, potassium 5.2, chloride 103, carbon dioxide 23, BUN 54, and creatinine 7.07. LFTs normal. ASSESSMENT AND PLAN: 1. Chronic obstructive pulmonary disease exacerbation - the patient has underlying emphysema, clinically much improved with steroids and neb treatment. 2. End-stage renal failure, stable. We will continue current Thursday, Thursday, and Thursday hemodialysis. Again, fluid removal only as tolerated by the patient. 3. Anemia. Continuing weekly Epogen regimen at 7500 units subcu daily. 4. Recheck CBC and basic metabolic panel in a.m. Job ID: [id number]
[2020-05-26] MEDS: HYDROcodone/Acetaminophen 5/325 mg Tablet PO PRN ×2 (11:42→20:52)
[2020-05-26] MEDS: hydrALAZINE 20 MG/ML VIAL SLOW IVP PRN (11:43)
--- NOTE | 2020-05-26 12:40 | PDOC.HOSPP ---
- Subjective Encounter Date: 05/26/20 Encounter Time: 09:25 Subjective: sob is better had HD yesterday feels better overall this am - Objective Vital Signs & Weight: Vital Signs (12 hours) Temp Pulse Resp BP BP Pulse Ox 05/26/20 11:57 98.6 F 98 16 158/70 H 93 L 05/26/20 11:36 98.5 F 94 18 173/74 H 94 L 05/26/20 08:50 96 05/26/20 08:30 98.9 F 100 18 170/70 H 96 05/26/20 07:26 92 19 05/26/20 07:18 92 19 05/26/20 03:27 99 F 88 18 184/77 H 92 L Weight Weight 108 lb 1.6 oz I&O: 05/25/20 05/26/20 05/27/20 06:59 06:59 06:59 Intake Total 551.5 490 Output Total 400 400 Balance 151.5 90 Result Diagrams: 05/24/20 18:34 05/24/20 18:18 Hospitalist ROS - Medication Medications: Active Medications Generic Name Dose Route Start Last Admin Trade Name Freq PRN Reason Stop Dose Admin Hydrocodone Bitart/Acetaminophen 2 tab 05/25/20 00:27 05/26/20 11:42 [place] 5/325 PO 2 tab Q4H PRN Administration Severe Pain (7-10) Albuterol/Ipratropium 3 ml 05/25/20 01:00 05/26/20 07:18 Duoneb NEB 3 ml [id number] PAT Administration Amlodipine Besylate 10 mg 05/25/20 21:00 05/26/20 08:39 Norvasc PO 10 mg BID PAT Administration Doxazosin Mesylate 4 mg 05/25/20 21:00 05/25/20 20:06 Cardura PO 4 mg HS PAT Administration Enoxaparin Sodium 30 mg 05/25/20 09:00 05/26/20 08:38 Lovenox SC 30 mg 0900 PAT Administration Epoetin Alden-epbx 7,500 unit 05/25/20 12:00 05/25/20 12:36 Retacrit SC 7,500 unit Q7D PAT Administration Gabapentin 400 mg 05/25/20 21:00 05/25/20 20:07 Neurontin PO 400 mg HS PAT Administration Hydralazine HCl 10 mg 05/25/20 00:28 05/26/20 11:43 Apresoline SLOW IVP 10 mg Q6H PRN Administration SBP Greater Than 170 Hydralazine HCl 100 mg 05/25/20 21:00 05/26/20 08:38 Apresoline PO 100 mg TID PAT Administration Losartan Potassium 25 mg 05/25/20 21:00 05/26/20 08:38 Cozaar PO 25 mg BID PAT Administration Methylprednisolone Sodium Succinate 40 mg 05/25/20 06:00 05/26/20 05:36 Solu-Medrol IVP 40 mg Q8HR PAT Administration Mometasone Furoate/Formoterol Fumar 2 puff 05/26/20 06:30 05/26/20 07:26 Dulera 200 Mcg/5 Mcg Inhaler INH 2 puff BID-RT PAT Administration Pantoprazole Sodium 40 mg 05/26/20 09:00 05/26/20 08:39 Protonix PO 40 mg DAILY PAT Administration Pramipexole Dihydrochloride 0.5 mg 05/25/20 21:00 05/25/20 20:08 Mirapex PO Not Given QPM PAT Sertraline HCl 50 mg 05/26/20 09:00 05/26/20 08:38 Zoloft PO 50 mg DAILY PAT Administration Sevelamer Carbonate 2,400 mg 05/26/20 08:00 05/26/20 11:42 Renvela PO 2,400 mg TID-WM PAT Administration Sodium Chloride 10 ml 05/25/20 21:00 05/26/20 08:39 Flush - Normal Saline IVF 10 ml Q12HR PAT Administration Tramadol HCl 50 mg 05/25/20 18:32 05/25/20 20:10 Ultram PO 50 mg DAILY PRN Administration Pain - Exam General Appearance: awake alert Eye: PERRL, anicteric sclera ENT: no oropharyngeal lesions, moist mucosa Neck: supple, no JVD Heart: RRR, no murmur Respiratory: no wheezes, no rales, rhonchi Gastrointestinal: soft, non-tender, non-distended, normal bowel sounds Extremities: no cyanosis, no edema Neurological: cranial nerve grossly intact, no focal deficits Psychiatric: normal affect, A&O x 3 Hosp A/P (1) COPD exacerbation Code(s): J44.1 - CHRONIC OBSTRUCTIVE PULMONARY DISEASE W (ACUTE) EXACERBATION Status: Acute (2) ESRD (end stage renal disease) on dialysis Code(s): N18.6 - END STAGE RENAL DISEASE; Z99.2 - DEPENDENCE ON RENAL DIALYSIS Status: Chronic (3) Fluid overload Code(s): E87.70 - FLUID OVERLOAD, UNSPECIFIED Status: Resolved (4) Chronic respiratory failure Code(s): J96.10 - CHRONIC RESPIRATORY FAILURE, UNSP W HYPOXIA OR HYPERCAPNIA Status: Chronic Qualifiers: Respiratory failure complication: hypoxia Qualified Code(s): J96.11 - Chronic respiratory failure with hypoxia - Plan had hemodialysis 05/25/20 on nebs, mild steroids, empiric antibiotics to ambulate as tolerated transfer to med floor dc plan in am continue home meds hemostable pt is on home O2 for copd
[2020-05-26 17:12] LABS: #Eosinphils 0.1 thou/uL (0.0-0.7); #Lymphocytes 0.5 thou/uL (1.20-3.40); #Monocytes 0.3 thou/uL (0.11-0.59); #Neutrophils 9.5 thou/uL (1.40-6.50); %Basophils 0.1 % (0.0-1.0); %Eosinophils 0.5 % (0.0-10.0); %Monocytes 3.2 % (0.0-10.0); %Neutrophils 91.3 % (42.0-75.0); Hemoglobin 9.8 g/dL (12.0-16.0); Mean Corpuscular Hemoglobin 30.9 pg (27.0-31.0); Mean Corpuscular Volume 96.5 fL (78.0-98.0); Mean Platelet Volume 6.9 fL (7.4-10.4); Platelet Count 255 thou/uL (130-400); RBC Distribution Width 17.1 % (11.5-14.5); Red Blood Cell (RBC) Count 3.16 mill/uL (4.20-5.40); White Blood Cell (WBC) Count 10.4 thou/uL (4.8-10.8)
[2020-05-26 17:29] LABS: Anion Gap 19 mmol/L (10-20); BUN (Urea Nitrogen) 43 mg/dL (9.8-20.1); Calc. Creatinine Clearance 8 mL/min (70-130); Calcium 9.6 mg/dL (7.8-10.44); Carbon Dioxide 26 mmol/L (22-29); Chloride 96 mmol/L (98-107); Estimated GFR-MDRD 7; Glucose 124 mg/dL (70-105); Potassium 4.2 mmol/L (3.5-5.1); Sodium 137 mmol/L (136-145)
[2020-05-26] MEDS: Pramipexole Di-HCl 0.25 MG TAB PO SCH (20:27)
[2020-05-26] MEDS: Doxazosin 2 MG TAB PO SCH (20:28)
[2020-05-26] MEDS: Gabapentin 400 MG CAP PO SCH (20:29)
[2020-05-27 06:17] LABS: #Eosinphils 0.1 thou/uL (0.0-0.7); #Lymphocytes 1.2 thou/uL (1.20-3.40); #Monocytes 0.9 thou/uL (0.11-0.59); #Neutrophils 7.9 thou/uL (1.40-6.50); %Eosinophils 0.9 % (0.0-10.0); %Lymphocytes 11.5 % (21.0-51.0); %Monocytes 8.7 % (0.0-10.0); %Neutrophils 78.8 % (42.0-75.0); Hemoglobin 8.8 g/dL (12.0-16.0); Mean Corpuscular HGB CONC 31.4 g/dL (32.0-36.0); Mean Corpuscular Volume 95.5 fL (78.0-98.0); Mean Platelet Volume 6.9 fL (7.4-10.4); Platelet Count 265 thou/uL (130-400); Red Blood Cell (RBC) Count 2.95 mill/uL (4.20-5.40); White Blood Cell (WBC) Count 10.1 thou/uL (4.8-10.8)
[2020-05-27 06:29] LABS: Anion Gap 17 mmol/L (10-20); BUN (Urea Nitrogen) 60 mg/dL (9.8-20.1); Calc. Creatinine Clearance 6 mL/min (70-130); Calcium 9.1 mg/dL (7.8-10.44); Carbon Dioxide 29 mmol/L (22-29); Chloride 96 mmol/L (98-107); Estimated GFR-MDRD 6; Glucose 90 mg/dL (70-105); Potassium 4.8 mmol/L (3.5-5.1); Sodium 137 mmol/L (136-145)
[2020-05-27] MEDS: Mometasone 200 MCG/Formoterol 5 MCG 120 PUFF INHALER INH SCH (06:38)
[2020-05-27] MEDS ORDERED: predniSONE 20 MG TAB PO SCH (08:00)
[2020-05-27 08:36] VITALS: BP 146/67; TEMP 98.4
[2020-05-27] MEDS: Sevelamer Carbonate 800 MG TAB PO SCH (08:49)
[2020-05-27] MEDS: Amlodipine 10 MG TAB PO SCH (08:50)
[2020-05-27] MEDS: hydrALAZINE 25 MG TAB PO SCH (08:50)
[2020-05-27] MEDS: Losartan 25 MG TAB PO SCH (08:50)
[2020-05-27] MEDS: Enoxaparin Sodium 30 MG/0.3 ML SYRINGE SC SCH (08:50)
--- NOTE | 2020-05-27 10:36 | PRG ---
DATE OF SERVICE: 05/27/2020 SUBJECTIVE: Ms. Branch is a 54-year-old female with ESRD, was admitted for shortness of breath. She was found to have a COPD exacerbation. Breathing has been improving over the last few days. She was given steroids, placed on round the clock DuoNeb. In addition, we have maxed out fluid removal with dialysis with this patient. She is feeling a little better today. She denies any worsening shortness of breath; however, she complains of being tired. OBJECTIVE: VITAL SIGNS: Blood pressure 146/67, heart rate 93, respiratory rate 18, temperature 98.4, and O2 saturation 91%. GENERAL: The patient is awake, supine, comfortable, not in overt distress. SKIN: Adequate turgor. HEENT: Slightly pale conjunctivae. Anicteric sclerae. No neck mass. No carotid bruits. No JVD. CHEST: No deformities. LUNGS: Clear breath sounds. No wheezing. No crackles. HEART: Normal sinus rhythm. No murmurs, gallops, or rubs. ABDOMEN: Globular, soft, and nontender. No masses. EXTREMITIES: No edema. No deformities. MEDICATIONS: Of May 27, 2020, was reviewed. LABORATORY DATA: Of May 27, 2020; white count 10.1, hemoglobin 8.8. Sodium 137, potassium 4.8, chloride 96, carbon dioxide 29, BUN 63, creatinine 7.55, and calcium 9.1. ASSESSMENT AND PLAN: 1. End-stage renal disease, stable. No indication for any emergent hemodialysis today. I have scheduled her for dialysis tomorrow. 2. Fluid removal was done with the last dialysis session. 3. Chronic obstructive pulmonary disease exacerbation, stable. Continue current around the clock DuoNeb. 4. Anemia. P.r.n. blood transfusion. Hemoglobin is acceptable. Continue current Epogen regimen. Please note, this will be continued in the outpatient dialysis. The plan is for a possible discharge today. We will follow up this patient with outpatient dialysis if she is discharged today. Job ID: [id number]
--- NOTE | 2020-05-27 14:33 | DIS ---
DATE OF ADMISSION: 05/24/2020 DATE OF DISCHARGE: 05/27/2020 DISCHARGE DISPOSITION: To home. PRIMARY DISCHARGE DIAGNOSES: Mild volume overload, resolved with hemodialysis; chronic obstructive pulmonary disease exacerbation, resolving; COVID-19 PCR is negative. PROCEDURES DONE DURING HOSPITALIZATION: Chest x-ray done showed pulmonary vascular congestion with emphysema. H and H of 9 and 28, platelet count 265, MCV is 95. COVID-19 PCR was negative on 05/24/2020. HBS antigen nonreactive. BUN 60, creatinine 7.5, serum bicarb 29, albumin 3.8. DISCHARGE MEDICATIONS: 1. Doxycycline 100 mg p.o. twice daily for another 4 days. 2. Prednisone 10 mg p.o. daily for 6 days. 3. Sevelamer 2400 mg p.o. 3 times daily. 4. Sertraline 50 mg daily. 5. Pramipexole 0.5 mg p.o. q.p.m. 6. Omeprazole 40 mg p.o. daily. 7. Cozaar 25 mg twice daily. 8. Hydralazine 100 mg 3 times daily. 9. Gabapentin 400 mg p.o. at bedtime. 10. Cardura 4 mg p.o. at bedtime. 11. Symbicort 160/4.5 mcg 2 puffs twice daily. 12. Norvasc 10 mg twice daily. 13. Albuterol inhaler q.6 hourly p.r.n. ALLERGIES: TO CEFTRIAXONE, CLONIDINE, AND PENICILLIN. DISCHARGE PLAN: The patient to follow up with Dr. Chavo Johnson, her primary care physician in 1 week. BRIEF COURSE DURING HOSPITALIZATION: The patient initially came into ER with complaints of shortness of breath. She normally is on 2 L oxygen at home by nasal cannula for COPD. The patient had volume overload with history of end-stage renal disease, on hemodialysis. She has had [id number] hemodialysis done and was also wheezing on clinical exam and was placed on steroids and empiric antibiotics. COVID-19 PCR is negative. She is at her baseline nasal cannula 2 L at the time of discharge. She is also ambulating in the room. COVID-19 PCR was negative. She is hemodynamically stable and will be shortly discharged home. Please note, I have seen and examined the patient on the day of discharge. Job ID: [id number]
== END 2020-05-27 12:24 | disposition home or self-care (01) | DRG 640 ==
LOC: ERS 18:07 → 2NO 20:40 → ERS 23:04 → T4-A 05-26 16:28
PROVIDERS: ADMIT Internal Medicine; ATTEND Internal Medicine
PROC: 8E0ZXY6 Isolation (ICD-10-PCS; principal; 2020-05-24)
PROC: 5A1D70Z Performance of Urinary Filtration, Intermittent, Less than 6 Hours Per Day (ICD-10-PCS; 2020-05-25)
DX: E87.70 Fluid overload, unspecified (principal); N18.6 End stage renal disease; I12.0 Hypertensive chronic kidney disease with stage 5 chronic kidney disease or end stage renal disease; J44.1 Chronic obstructive pulmonary disease with (acute) exacerbation; J96.11 Chronic respiratory failure with hypoxia; F41.9 Anxiety disorder, unspecified; Z20.828 Contact with and (suspected) exposure to other viral communicable diseases; E78.5 Hyperlipidemia, unspecified; I16.0 Hypertensive urgency; D63.1 Anemia in chronic kidney disease; Z90.710 Acquired absence of both cervix and uterus; Z99.2 Dependence on renal dialysis; Z88.1 Allergy status to other antibiotic agents; Z88.0 Allergy status to penicillin; Z88.8 Allergy status to other drugs, medicaments and biological substances; Z98.51 Tubal ligation status; Z87.891 Personal history of nicotine dependence
CPT/HCPCS: 36415; 71045; 80048; 80053; 80202; 82550; 83605; 84484; 85025; 87040; 87081; 87340; 90471; 90732; 90935; 93005; 94640; 94664; 94760; 96365; 96366; 96367; 96375; G0009; G0257; J0360; J1650; J1956; J2543; J2920; J3370; J7512; J7620; Q5105; U0002

== ENCOUNTER 2020-06-12 10:06 | Inpatient (IN) | payer MEDICARE, MEDICAID, OTHER ==
[2020-06-12] MEDS ORDERED: predniSONE 20 MG TAB ONE (10:47)
[2020-06-12] MEDS ORDERED: Magnesium 2 GM/50 ML BAG (IN WATER) ONE (10:47)
[2020-06-12] MEDS ORDERED: Nitroglycerin 2% Ointment 1 INCH/1 GM Packet ONE (10:47)
[2020-06-12] MEDS ORDERED: Albuterol 200 PUFF (6.7GM INHALER) ONE (11:01)
[2020-06-12 11:52] LABS: Base Excess-Venous 4.4 mmol/L (-2.0 to 3.0); Bicarbonate (HCO3v) 30.3 mmol/L (22.0-28.0); CO2 Tension (PvCO2) 51.3 mmHg (40.0-50.0); Calcium, Ionized 1.05 mmol/L (See Comments:); Chloride 103 mmol/L (98-107); Hemoglobin - Calc 9.2 g/dL (12.0-16.0); Potassium 4.5 mmol/L (3.5-5.1); Sodium 141 mmol/L (138-145); T. Carbon Dioxide 31.9 mmol/L (22.0-28.0); vO2 Saturation-calc 96.8 % (60.0-85.0)
[2020-06-12 12:24] LABS: ALT (SGPT) 10 U/L (8-55); AST (SGOT) 9 U/L (5-34); Albumin 3.6 g/dL (3.5-5.0); Alkaline Phosphatase 68 U/L (40-110); Anion Gap 16 mmol/L (10-20); BUN (Urea Nitrogen) 39 mg/dL (9.8-20.1); Bilirubin, Total 0.7 mg/dL (0.2-1.2); Calc. Creatinine Clearance 0 mL/min (70-130); Carbon Dioxide 30 mmol/L (22-29); Chloride 100 mmol/L (98-107); Estimated GFR-MDRD 6; Globulin 2.6 g/dL (2.4-3.5); Glucose 97 mg/dL (70-105); Potassium 4.4 mmol/L (3.5-5.1); Protein, Total 6.2 g/dL (6.0-8.3); Sodium 142 mmol/L (136-145)
[2020-06-12 12:29] LABS: %Lymphocytes 12.1 % (21.0-51.0); %Neutrophils 77.2 % (42.0-75.0); Hemoglobin 8.5 g/dL (12.0-16.0); Mean Corpuscular HGB CONC 31.1 g/dL (32.0-36.0); Mean Corpuscular Hemoglobin 30.7 pg (27.0-31.0); Mean Corpuscular Volume 98.6 fL (78.0-98.0); Platelet Count 199 thou/uL (130-400); RBC Distribution Width 16.8 % (11.5-14.5); Red Blood Cell (RBC) Count 2.77 mill/uL (4.20-5.40); White Blood Cell (WBC) Count 6.2 thou/uL (4.8-10.8)
[2020-06-12 12:30] LABS: #Eosinphils 0.1 thou/uL (0.0-0.7); #Lymphocytes 0.8 thou/uL (1.20-3.40); #Monocytes 0.5 thou/uL (0.11-0.59); #Neutrophils 4.8 thou/uL (1.40-6.50); %Basophils 0.1 % (0.0-1.0); %Monocytes 8.5 % (0.0-10.0)
--- NOTE | 2020-06-12 12:39 | RAD ---
EXAM: Single view of the chest HISTORY: Shortness of breath COMPARISON: 05/24/2020 FINDINGS: Single view of the chest shows a normal sized cardiomediastinal silhouette. Severe emphyse matous changes are seen in the lung apices. There are mixed alveolar and interstitial infiltrates in the bilateral lower lobes. The bones are unremarkable IMPRESSION: Bilateral lower lobe infiltrates
[2020-06-12 12:45] LABS: CKMB 4.7 ng/mL (0-6.6)
[2020-06-12] MEDS ORDERED: Aspirin Chewable 81 MG TAB ONE (13:00)
[2020-06-12 14:28] LABS: SARS-CoV-2 NAA Rapid Test Not Detected (NotDetected)
[2020-06-12 16:44] VITALS: BMI 19.1
[2020-06-12 17:52] LABS: Troponin I 0.038 ng/mL (< 0.028)
[2020-06-12] MEDS: methylPREDNISolone Sod Succ 40 MG VIAL IVP SCH (18:01)
[2020-06-12] MEDS: hydrALAZINE 20 MG/ML VIAL SLOW IVP PRN ×2 (18:01→20:54)
--- NOTE | 2020-06-12 20:23 | HP ---
PRIMARY CARE PHYSICIAN: Chavo Johnson DO CHIEF COMPLAINT: "I couldn't breathe." HISTORY OF PRESENT ILLNESS: The patient is a 54-year-old female with past medical history significant for COPD, who presents to the ER today for difficulty breathing. She states she has been having worsening shortness of breath over the past 2 days. She started to feel a little short of breath after her dialysis session yesterday. She is normally on dialysis Thursday, Thursday, and Thursday. She had 2 L removed a dialysis and felt a little bit of improvement at that time, but then just increasingly got worse after that. The patient denies any chest pain, abdominal pain, vomiting, diarrhea, sick contact, or fever. No recent travel. She states shortness of breath is worse with exertion. At home, she was trying her albuterol and CPAP with little relief. She states that when she was watching her oxygen levels at home, it was getting into the 60s when she was walking, so she called 911. She was hospitalized earlier this month for similar symptoms. When EMS arrived, her O2 sats were in the low 80s and on 5 L she increased to 86%. Today in the ER, they completed a chest x-ray, EKG, lab work, and COVID tested. PAST MEDICAL HISTORY: Hypertension; hyperlipidemia; COPD; and end-stage renal disease, on dialysis. PAST SURGICAL HISTORY: Hysterectomy, tubal ligation, and fistula to left arm. ALLERGIES: CEFTRIAXONE, CLONIDINE, AND PENICILLIN. HOME MEDICATIONS: 1. Losartan 50 mg p.o. daily. 2. Flonase 2 sprays twice a day. 3. Xanax 0.25 mg p.o. twice a day. 4. Cardura 4 mg p.o. at bedtime. 5. Symbicort 160/4.5 one puff twice a day. 6. Norvasc 10 mg twice a day. 7. Ventolin 2 puffs every 6 hours as needed. 8. Omeprazole 40 mg p.o. daily. 9. Gabapentin 400 mg p.o. at bedtime. 10. Tramadol 50 mg p.o. daily as needed. 11. Hydralazine 100 mg p.o. t.i.d. 12. Renvela 2400 mg p.o. t.i.d. with meals. 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 Occasional alcohol use. No drug use. The patient is a former smoker. FAMILY HISTORY: Reports cardiac disease and hypertension. REVIEW OF SYSTEMS: All other review of systems negative unless noted in HPI. PHYSICAL EXAMINATION: VITAL SIGNS: Blood pressure 188/72, pulse 97, respiratory rate 23, temp 98.8 orally, and 93% on 3 L. The patient normally on 2 L at home. The patient appears comfortable. HEENT: Head atraumatic and normocephalic. Eyes, extraocular muscles intact. PERRLA. NECK: Normal range of motion. Trachea midline. RESPIRATORY: Decreased breath sounds in lower lobes, in midlung crackles throughout, prolonged respiratory. No significant respiratory distress. Able to speak in complete sentences. CARDIOVASCULAR: Regular rate and rhythm. No murmur. No gallops. ABDOMEN: Nontender. Normal bowel sounds. No distention. EXTREMITIES: Upper extremity, fistula to the left biceps. Palpable thrill. Lower extremities, sensation intact. Pedal pulse normal. Posterior tibial pulse normal. No edema. SKIN: Warm, dry, and intact. PSYCH: Normal affect. Normal behavior. LABORATORY DATA: EKG showed sinus rhythm, pulse 82. Chest x-ray, bilateral lower lobe infiltrates. White blood cells 6.2, hemoglobin 8.5, hematocrit 27.3, pH 7.3, pCO2 of 51.3, and PO2 of 92.1. Chemistry; sodium 142, potassium 4.4, BUN 39, creatinine 7.28, and GFR 6. Initial troponin 0.050. BNP 1615 COVID negative. IMPRESSION AND PLAN: 1. Chronic obstructive pulmonary disease exacerbation. We will continue the patient on IV steroids and antibiotics along with DuoNeb treatments scheduled for now. 2. Hypertension. We will restart the patient's home medications and treat with p.r.n. antihypertensives as needed. Monitor the patient on telemetry overnight. 3. End-stage renal disease, on dialysis. We will consult her confectionery cooker, Dr. Alvarado. Tomorrow is her normally scheduled dialysis day and will watch the patient for fluid overload. 4. The patient with gastrointestinal prophylaxis with Pepcid and SCDs for venous thromboembolism prophylaxis. The patient wishes to be a full code. Her surrogate decision maker is her , Blair. The patient has been discussed with Dr. Tucker. Job ID: [id number] [facility]
[2020-06-13] MEDS: methylPREDNISolone Sod Succ 40 MG VIAL IVP SCH ×5 (00:48→23:20)
[2020-06-13] MEDS: Melatonin 3 MG TAB PO SCH ×2 (00:50→21:11)
[2020-06-13] MEDS: Labetalol HCl 100 MG/20 ML VIAL SLOW IVP PRN ×2 (04:25→15:52)
[2020-06-13 05:26] LABS: #Lymphocytes 0.3 thou/uL (1.20-3.40); #Monocytes 0.1 thou/uL (0.11-0.59); #Neutrophils 4.7 thou/uL (1.40-6.50); %Eosinophils 0.3 % (0.0-10.0); %Lymphocytes 6.5 % (21.0-51.0); %Neutrophils 92.3 % (42.0-75.0); Hemoglobin 8.9 g/dL (12.0-16.0); Mean Corpuscular HGB CONC 31.1 g/dL (32.0-36.0); Mean Corpuscular Hemoglobin 30.5 pg (27.0-31.0); Mean Corpuscular Volume 98.2 fL (78.0-98.0); Mean Platelet Volume 7.1 fL (7.4-10.4); Platelet Count 189 thou/uL (130-400); RBC Distribution Width 16.5 % (11.5-14.5); Red Blood Cell (RBC) Count 2.92 mill/uL (4.20-5.40); White Blood Cell (WBC) Count 5.1 thou/uL (4.8-10.8)
[2020-06-13 05:45] LABS: Anion Gap 17 mmol/L (10-20); BUN (Urea Nitrogen) 56 mg/dL (9.8-20.1); Calc. Creatinine Clearance 5 mL/min (70-130); Calcium 9.3 mg/dL (7.8-10.44); Carbon Dioxide 25 mmol/L (22-29); Chloride 101 mmol/L (98-107); Estimated GFR-MDRD 5; Glucose 123 mg/dL (70-105); Potassium 5.3 mmol/L (3.5-5.1); Sodium 138 mmol/L (136-145)
[2020-06-13] MEDS: hydrALAZINE 20 MG/ML VIAL SLOW IVP PRN ×3 (06:57→23:51)
--- NOTE | 2020-06-13 08:27 | PDOC.HOSPP ---
- Subjective Encounter Date: 06/13/20 Encounter Time: 10:40 Subjective: Patient seen in dialysis. Breathing easily on 2L NC currently. BP still high but better than last night. Got her AM meds, but reviewing her chart didn't get any Amlodipine yesterday as she often takes her 1st dose at noon and she was already at the hospital. No chest pain. Some dry cough, but not bad. - Objective Vital Signs & Weight: Vital Signs (12 hours) Temp Pulse Resp BP BP Pulse Ox 06/13/20 07:29 82 16 06/13/20 06:57 91 205/88 H 06/13/20 04:25 91 205/88 H 06/13/20 04:19 98.4 F 91 20 205/88 H 100 06/13/20 00:29 91 16 93 L 06/12/20 21:00 98.5 F 88 20 204/82 H 95 06/12/20 20:54 88 204/82 H 06/12/20 20:48 95 Weight Weight 108 lb Result Diagrams: 06/13/20 04:50 06/13/20 04:50 Hospitalist ROS - Review of Systems Constitutional: denies: fever, chills Respiratory: reports: cough. denies: shortness of breath, SOB with excertion Cardiovascular: denies: chest pain, palpitations Gastrointestinal: denies: nausea, vomiting, abdominal pain - Medication Medications: Active Medications Generic Name Dose Route Start Last Admin Trade Name Freq PRN Reason Stop Dose Admin Albuterol/Ipratropium 3 ml 06/12/20 19:00 06/13/20 07:29 Duoneb NEB 3 ml [id number] PAT Administration Hydralazine HCl 10 mg 06/12/20 17:43 06/13/20 06:57 Apresoline SLOW IVP 10 mg Q4H PRN Administration SBP Greater Than 180 Labetalol HCl 10 mg 06/12/20 17:43 06/13/20 04:25 Normodyne SLOW IVP 2 ml Q4H PRN Administration SBP Greater Than 180 Melatonin 6 mg 06/13/20 21:00 06/13/20 00:50 Melatonin PO 6 mg HS PAT Administration Methylprednisolone Sodium Succinate 40 mg 06/12/20 18:00 06/13/20 04:27 Solu-Medrol IVP 40 mg Q6HR PAT Administration - Exam General Appearance: NAD, awake alert ENT: moist mucosa Heart: RRR, no murmur, no gallops, no rubs Respiratory: CTAB, no wheezes, no rales, no ronchi Gastrointestinal: soft, non-tender, non-distended, normal bowel sounds Psychiatric: normal affect, normal behavior, A&O x 3 Hosp A/P (1) COPD exacerbation Code(s): J44.1 - CHRONIC OBSTRUCTIVE PULMONARY DISEASE W (ACUTE) EXACERBATION Status: Acute (2) Acute on chronic respiratory failure with hypoxia Code(s): J96.21 - ACUTE AND CHRONIC RESPIRATORY FAILURE WITH HYPOXIA Status: Acute (3) Hypertensive urgency Code(s): I16.0 - HYPERTENSIVE URGENCY Status: Acute (4) ESRD (end stage renal disease) on dialysis Code(s): N18.6 - END STAGE RENAL DISEASE; Z99.2 - DEPENDENCE ON RENAL DIALYSIS Status: Chronic (5) Fluid overload Code(s): E87.70 - FLUID OVERLOAD, UNSPECIFIED Status: Acute - Plan Patient with persistent severely elevated blood pressures overnight, suspect volume overload and lack of Amlodipine in system, Dr. Alvarado consulted for dialysis Will add metoprolol to BP regiment On steroids, nebs, antibiotics for COPD flair, sating well on 3L NC overnight and now down to 2L this AM DVT proph:SCDs GI proph: home PPI
[2020-06-13] MEDS: Losartan 25 MG TAB PO SCH (08:33)
[2020-06-13] MEDS: hydrALAZINE 25 MG TAB PO SCH ×3 (08:33→21:11)
[2020-06-13] MEDS: Azithromycin 250 MG TAB PO SCH (08:33)
[2020-06-13] MEDS: Amlodipine 10 MG TAB PO SCH ×2 (08:34→21:12)
[2020-06-13] MEDS: ALPRAZolam 0.25 MG TAB PO PRN ×2 (08:45→21:11)
[2020-06-13] MEDS ORDERED: Sevelamer Carbonate 800 MG TAB PO SCH (08:45)
[2020-06-13] MEDS ORDERED: Fluticasone Propionate Nasal Spray 16 gm Bottle NASAL SCH (09:00)
[2020-06-13] MEDS ORDERED: Metoprolol Tartrate 50 MG TAB PO SCH ×2 (09:00)
[2020-06-13] MEDS ORDERED: Non-Formulary Item 1 EACH (Omeprazole [Omeprazole] 40 MG) PO SCH (09:00)
[2020-06-13] MEDS ORDERED: Epoetin (ESRD) 20,000 UNITS/ML SC SCH (09:00)
[2020-06-13] MEDS ORDERED: Non-Formulary Item 1 EACH (Budesonide-Formoterol [Symbicort 160-4.5] 1 PUFF) INH SCH (09:00)
[2020-06-13] MEDS ORDERED: Famotidine 20 MG TAB PO SCH (09:00)
[2020-06-13 09:22] LABS: HBSAg Index 0.11 S/CO (0-0.99); Hep B Surf Ag Non-Reactive S/CO (NonReactive)
--- NOTE | 2020-06-13 09:45 | CON ---
DATE OF CONSULTATION: HISTORY OF PRESENT ILLNESS: Ms. Branch is a 54-year-old female with ESRD, COPD, and emphysema and admitted for worsening shortness of breath. She was admitted for COPD exacerbation. Chest x-ray showed bilateral lower lobe infiltrates and is also being treated for a possible underlying bronchitis/pneumonia. This morning, the breathing is improved. We are following up with this patient for management of her ESRD as well as for her maintenance hemodialysis. REVIEW OF SYSTEMS: Positive for shortness of breath. No chest pain. Denies any fever or chills. No nausea. No vomiting. Appetite and energy level are fair. No hematochezia. No melena. No hematemesis. No syncopal episode. No headache. No diplopia. No gross hematuria. No dysuria. No urinary frequency. No melena. No hematemesis. MEDICATIONS: The patient is currently on; 1. Xanax 0.25 mg p.o. b.i.d. p.r.n. 2. Amlodipine 10 mg b.i.d. 3. Azithromycin 500 mg p.o. daily. 4. Budesonide oral inhaler 1 puff p.o. b.i.d. 5. Doxazosin 4 mg at bedtime. 6. Fluticasone nasal inhaler p.r.n. 7. Gabapentin 400 mg at bedtime. 8. Hydralazine 100 mg p.o. t.i.d. 9. Losartan 50 mg tablet daily. 10. Melatonin 6 mg p.o. at bedtime. 11. Methylprednisolone 40 mg IV q.6. 12. Metoprolol tartrate 50 mg p.o. b.i.d. 13. Sevelamer 800 mg 4 tablets t.i.d. with meals. 14. Tramadol 50 mg daily p.r.n. PAST MEDICAL HISTORY: 1. ESRD from hypertensive nephropathy. 2. Longstanding hypertension. 3. COPD/emphysema. PAST SURGICAL HISTORY: The patient is status post hysterectomy, status post AV fistula placement, status post cuffed hemodialysis catheter placement, and status post cardiac cath. SOCIAL HISTORY: The patient is . Lives in [place]. Occasional alcohol. Did smoke heavily at one time, but denies any current smoking. No IV drug abuse. Status post blood transfusion. The patient has several children. 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 FAMILY HISTORY: No family history of ESRD. ALLERGIES: CEFTRIAXONE, ? CLONIDINE, AND PENICILLIN. TRAUMA: None. IMMUNIZATION: Up-to-date. HOSPITALIZATIONS: Please see past medical history. PHYSICAL EXAMINATION: VITAL SIGNS: Blood pressure 194/81, heart rate 88, respiratory rate 18, temperature is 98.3, and O2 saturation 100%. GENERAL: The patient is awake, alert, and comfortable, not in distress. SKIN: Adequate turgor. HEENT: Slightly pale conjunctivae. Anicteric sclerae. No neck mass. No carotid bruits. No JVD. CHEST: No deformities. LUNGS: Decreased breath sounds. No wheezing. No crackles. HEART: Normal sinus rhythm. No murmur. No gallops. No rubs. ABDOMEN: Globular, soft, and nontender. No masses. EXTREMITIES: No edema. No deformities. LABORATORY DATA: On June 13, 2020; white count 5.1, hemoglobin 8.9, sodium 138, potassium 5.3, chloride 101, carbon dioxide 25, BUN 56, creatinine 8.95, glucose 123, and calcium 9.3. Troponin I 0.038. Chest x-ray of June 12, 2020, shows bilateral infiltrates. ASSESSMENT AND PLAN: 1. Bronchitis/pneumonia-currently on empiric antibiotics. The patient is on azithromycin. 2. End-stage renal disease, stable. We will continue Thursday, Thursday, and Thursday hemodialysis. Fluid removal as tolerated by the patient. Review of the last Kt/V suggests she is currently well dialyzed or adequately dialyzed with the current regimen. Please note, the patient is undergoing hemodialysis at the dialysis room. 3. Anemia. We will start weekly Epogen with this patient at 7500 units subcu every week. 4. Recheck basic metabolic profile, CBC in a.m. Job ID: [id number]
[2020-06-13] MEDS ORDERED: Losartan 25 MG TAB PO SCH (10:45)
[2020-06-13] MEDS ORDERED: EPOETIN ALFA-EPBX (ESRD) 4,000 UNIT/ML VIAL SC SCH (12:00)
[2020-06-13] MEDS: Fluticasone Propionate Nasal Spray 16 gm Bottle NASAL SCH ×2 (13:08→21:12)
[2020-06-13] MEDS: Sevelamer Carbonate 800 MG TAB PO SCH ×2 (13:09→17:12)
[2020-06-13] MEDS: Acetaminophen 325 MG TAB PO PRN ×2 (14:57→19:35)
[2020-06-13] MEDS: Mometasone 200 MCG/Formoterol 5 MCG 120 PUFF INHALER INH SCH (18:42)
[2020-06-13] MEDS: Doxazosin 2 MG TAB PO SCH (21:11)
[2020-06-13] MEDS: Gabapentin 400 MG CAP PO SCH (21:11)
[2020-06-13] MEDS: traMADol HCl 50 MG TAB PO PRN (23:51)
[2020-06-14 04:43] LABS: #Lymphocytes 0.4 thou/uL (1.20-3.40); #Monocytes 0.2 thou/uL (0.11-0.59); #Neutrophils 7.2 thou/uL (1.40-6.50); %Eosinophils 0.3 % (0.0-10.0); %Lymphocytes 4.8 % (21.0-51.0); %Monocytes 2.5 % (0.0-10.0); %Neutrophils 92.4 % (42.0-75.0); Hemoglobin 9.8 g/dL (12.0-16.0); Mean Corpuscular Hemoglobin 31.6 pg (27.0-31.0); Mean Corpuscular Volume 98.8 fL (78.0-98.0); Mean Platelet Volume 7.1 fL (7.4-10.4); Platelet Count 217 thou/uL (130-400); RBC Distribution Width 16.8 % (11.5-14.5); Red Blood Cell (RBC) Count 3.09 mill/uL (4.20-5.40); White Blood Cell (WBC) Count 7.8 thou/uL (4.8-10.8)
[2020-06-14 05:07] LABS: Anion Gap 15 mmol/L (10-20); BUN (Urea Nitrogen) 45 mg/dL (9.8-20.1); Calc. Creatinine Clearance 8 mL/min (70-130); Calcium 9.4 mg/dL (7.8-10.44); Carbon Dioxide 29 mmol/L (22-29); Chloride 99 mmol/L (98-107); Estimated GFR-MDRD 8; Glucose 129 mg/dL (70-105); Potassium 4.7 mmol/L (3.5-5.1); Sodium 138 mmol/L (136-145)
[2020-06-14] MEDS: methylPREDNISolone Sod Succ 40 MG VIAL IVP SCH ×2 (06:11→11:35)
[2020-06-14] MEDS: hydrALAZINE 25 MG TAB PO SCH ×3 (07:51→21:16)
[2020-06-14] MEDS: Losartan 25 MG TAB PO SCH ×2 (07:52→08:25)
[2020-06-14] MEDS: Amlodipine 10 MG TAB PO SCH ×2 (07:52→21:17)
[2020-06-14] MEDS: Azithromycin 250 MG TAB PO SCH (07:52)
[2020-06-14] MEDS: Sevelamer Carbonate 800 MG TAB PO SCH ×3 (07:53→16:32)
--- NOTE | 2020-06-14 07:55 | PDOC.HOSPP ---
- Subjective Encounter Date: 06/14/20 Encounter Time: 10:00 Subjective: Patient without complaints this morning. No chest pain. No SOB on her home O2. No cough. No headache. BP up all day yesterday, just a bit better this AM. - Objective Vital Signs & Weight: Vital Signs (12 hours) Temp Pulse Resp BP BP Pulse Ox 06/14/20 07:52 83 192/84 H 06/14/20 07:51 83 192/84 H 06/14/20 03:49 97.8 F 83 20 179/77 H 100 06/14/20 00:20 16 06/13/20 23:55 98.2 F 81 21 H 196/73 H 95 Weight Admit Weight 108 lb Weight 108 lb Result Diagrams: 06/14/20 04:30 06/14/20 04:30 Hospitalist ROS - Review of Systems Constitutional: denies: fever, chills Respiratory: denies: cough, shortness of breath Cardiovascular: denies: chest pain, palpitations Gastrointestinal: denies: nausea, vomiting, abdominal pain - Medication Medications: Active Medications Generic Name Dose Route Start Last Admin Trade Name Freq PRN Reason Stop Dose Admin Acetaminophen 650 mg 06/12/20 17:24 06/13/20 19:35 Tylenol PO 650 mg Q4H PRN Administration Headache/Fever/Mild Pain (1-3) Albuterol/Ipratropium 3 ml 06/12/20 19:00 06/14/20 00:20 Duoneb NEB 3 ml [id number] PAT Administration Alprazolam 0.25 mg 06/13/20 08:35 06/13/20 21:11 Xanax PO 0.25 mg BID PRN Administration Anxiety Amlodipine Besylate 10 mg 06/13/20 09:00 06/14/20 07:52 Norvasc PO 10 mg BID PAT Administration Azithromycin 500 mg 06/13/20 09:00 06/14/20 07:52 Zithromax PO 500 mg DAILY PAT Administration Doxazosin Mesylate 4 mg 06/13/20 21:00 06/13/20 21:11 Cardura PO 4 mg HS PAT Administration Epoetin Alden-epbx 7,500 unit 06/13/20 12:00 06/13/20 13:11 Retacrit SC 7,500 unit Q7D PAT Administration Fluticasone Propionate 0 gm 06/13/20 09:00 06/13/20 21:12 Flonase Nasal [place] NASAL 2 spr BID PAT Administration Gabapentin 400 mg 06/13/20 21:00 06/13/20 21:11 Neurontin PO 400 mg HS PAT Administration Hydralazine HCl 10 mg 06/12/20 17:43 06/13/20 23:51 Apresoline SLOW IVP 10 mg Q4H PRN Administration SBP Greater Than 180 Hydralazine HCl 100 mg 06/13/20 09:00 06/14/20 07:51 Apresoline PO 100 mg TID PAT Administration Losartan Potassium 50 mg 06/13/20 09:00 06/14/20 07:52 Cozaar PO 50 mg DAILY PAT Administration Melatonin 6 mg 06/13/20 21:00 06/13/20 21:11 Melatonin PO 6 mg HS PAT Administration Methylprednisolone Sodium Succinate 40 mg 06/12/20 18:00 06/14/20 06:11 Solu-Medrol IVP 40 mg Q6HR PAT Administration Mometasone Furoate/Formoterol Fumar 2 puff 06/13/20 18:30 06/13/20 18:42 Dulera 200 Mcg/5 Mcg Inhaler INH 2 puff BID-RT PAT Administration Pantoprazole Sodium 40 mg 06/13/20 09:00 06/14/20 07:53 Protonix PO 40 mg DAILY PAT Administration Sevelamer Carbonate 2,400 mg 06/13/20 12:00 06/14/20 07:53 Renvela PO 2,400 mg TID-WM PAT Administration Sodium Chloride 10 ml 06/13/20 09:00 06/14/20 07:53 Flush - Normal Saline IVF 10 ml Q12HR PAT Administration Tramadol HCl 50 mg 06/13/20 08:35 06/13/20 23:51 Ultram PO 50 mg DAILY PRN Administration Pain - Exam General Appearance: NAD, awake alert ENT: moist mucosa Heart: RRR, no murmur, no gallops, no rubs Respiratory: CTAB, no wheezes, no rales, no ronchi Gastrointestinal: soft, non-tender, non-distended, normal bowel sounds Psychiatric: normal affect, normal behavior, A&O x 3 Hosp A/P (1) COPD exacerbation Code(s): J44.1 - CHRONIC OBSTRUCTIVE PULMONARY DISEASE W (ACUTE) EXACERBATION Status: Acute (2) Acute on chronic respiratory failure with hypoxia Code(s): J96.21 - ACUTE AND CHRONIC RESPIRATORY FAILURE WITH HYPOXIA Status: Acute (3) Hypertensive urgency Code(s): I16.0 - HYPERTENSIVE URGENCY Status: Acute (4) ESRD (end stage renal disease) on dialysis Code(s): N18.6 - END STAGE RENAL DISEASE; Z99.2 - DEPENDENCE ON RENAL DIALYSIS Status: Chronic (5) Fluid overload Code(s): E87.70 - FLUID OVERLOAD, UNSPECIFIED Status: Acute - Plan Patient with persistent severely elevated blood pressures even after dialysis and resuming all home meds. Patient started having 3 second pauses with metoprolol and labetalol so discontinued Will consult cardiology for recs on BP control On steroids, nebs, antibiotics for COPD flair, sating well on 0-2 L NC O2 DVT proph:SCDs GI proph: home PPI
[2020-06-14] MEDS: Mometasone 200 MCG/Formoterol 5 MCG 120 PUFF INHALER INH SCH ×2 (08:25→19:05)
[2020-06-14] MEDS: Fluticasone Propionate Nasal Spray 16 gm Bottle NASAL SCH ×2 (08:25→21:17)
--- NOTE | 2020-06-14 08:33 | PRG ---
DATE OF SERVICE: SUBJECTIVE: Ms. Branch is a 54-year-old female with ESRD - on maintenance hemodialysis and was admitted for COPD exacerbation. She has also been having a labile hypertension. Yesterday, she was started on metoprolol, but this was subsequently discontinued due to side effects - she had a 3-second pause. In addition, she tolerated hemodialysis yesterday. Fluid removal was done. No new complaints today. No chest pain or shortness of breath. OBJECTIVE: VITAL SIGNS: Blood pressure is 192/84, heart rate 77, respiratory rate 18, temperature 97.2, and O2 saturation is 100%. GENERAL: Noted to be awake, alert, comfortable, not in overt distress. SKIN: Adequate turgor. HEENT: She has slightly pale conjunctivae. Anicteric sclerae. No neck mass. No carotid bruits. No JVD. CHEST: No deformities. LUNGS: Clear breath sounds. HEART: Normal sinus rhythm. No murmur. No gallops. No rubs. ABDOMEN: Globular, soft, nontender. No masses. EXTREMITIES: No edema. No deformities. MEDICATIONS: Medications of June 14, 2020, were reviewed. LABORATORY DATA: Laboratories of June 14, 2020: White count is 7.8, hemoglobin 9.8, sodium 138, potassium 4.7, chloride 99, carbon dioxide 29, BUN 45, creatinine 5.73, glucose 129, calcium 9.4. ASSESSMENT AND PLAN: 1. Sinus pause secondary to beta lisa - Cardiology consult has been done. 2. Labile hypertension. We would consider restarting her back on her minoxidil at 2.5 mg tablet once a day. She will continue the other antihypertensive regimen. 3. End stage renal disease, stable. We will continue current hemodialysis regimen. She is tolerating said treatment. 4. Chronic obstructive pulmonary disease exacerbation, much improved. Continue current management. 5. We will recheck CBC and basic metabolic in the a.m. Job ID: [id number]
--- NOTE | 2020-06-14 15:50 | CON ---
DATE OF CONSULTATION: 06/14/2020 REASON FOR CONSULTATION: Shortness of breath and positive troponins. HISTORY OF PRESENT ILLNESS: Ms. Branch is a pleasant 54-year-old female, who comes to the hospital for shortness of breath. She has a history of COPD. She came in through the ER. She felt she could not breathe for about 2 days. She was admitted after two negative COVID tests were done and started on therapies for COPD exacerbation. She already feels better. During her admission, she had troponins drawn that were in the indeterminate range x3, so Cardiology has been consulted for this. On my evaluation, Ms. Branch denies any chest pain, tightness, pressure, and only admits to shortness of breath, which is actually better today. PAST MEDICAL HISTORY: 1. Hypertension. 2. Hyperlipidemia. 3. COPD. 4. End-stage renal disease. SURGICAL HISTORY: 1. Hysterectomy. 2. Tubal ligation. 3. Left arm fistula. OUTPATIENT MEDICATIONS: 1. Losartan 50 mg a day. 2. Flonase. 3. Xanax. 4. Cardura 4 mg at bedtime. 5. Symbicort. 6. Norvasc 10 mg twice a day. 7. Ventolin inhaler. 8. Omeprazole. 9. Gabapentin. 10. Tramadol. 11. Hydralazine 100 mg t.i.d. 12. Renvela. ALLERGIES: CEFTRIAXONE, CLONIDINE, AND PENICILLIN. SOCIAL HISTORY: Occasional alcohol use. No drug use. Former smoker. FAMILY HISTORY: No early coronary artery disease. REVIEW OF SYSTEMS: A 12-point review of systems was done and was found to be negative other than stated in the history of present illness. PHYSICAL EXAMINATION: VITAL SIGNS: Temperature 97.2, pulse 81, respiratory rate 16, saturating 95% on 2 L nasal cannula, blood pressure 150/67. GENERAL: Awake, alert, and oriented x3. No distress. HEENT: Normocephalic and atraumatic. NECK: Supple. LUNGS: Have reduced breath sounds with expiratory wheezes. CARDIOVASCULAR: S1 and S2. No S3 or S4. No murmurs. ABDOMEN: Soft. Positive bowel sounds. EXTREMITIES: No edema. SKIN: Warm and dry. LABORATORY DATA: Laboratory work was reviewed. CBC with a white count of 7, hemoglobin 9.8, hematocrit 30, platelet count of 217. ABG was reviewed. Chemistries were reviewed. BUN and creatinine are high. GFR. Troponin was 0.05, 0.04 and 0.038. COVID-19 PCR was not detected. Hepatitis B surface antigen was nonreactive. ASSESSMENT: 1. Chronic obstructive pulmonary disease with acute exacerbation. 2. Indeterminate troponins, likely type 2 demand ischemia from both end-stage renal disease and chronic obstructive pulmonary disease exacerbation. PLAN: 1. Do echocardiogram. 2. If this is unremarkable, no further cardiac evaluation is warranted. Thank you for letting us to participate in the care of your patient. We will follow. Job ID: [id number]
[2020-06-14] MEDS: Melatonin 3 MG TAB PO SCH (21:16)
[2020-06-14] MEDS: Gabapentin 400 MG CAP PO SCH (21:17)
[2020-06-14] MEDS: Doxazosin 2 MG TAB PO SCH (21:17)
[2020-06-14] MEDS: traMADol HCl 50 MG TAB PO PRN (21:20)
[2020-06-14] MEDS: ALPRAZolam 0.25 MG TAB PO PRN (21:21)
[2020-06-15 04:28] LABS: #Eosinphils 0.1 thou/uL (0.0-0.7); #Lymphocytes 1.2 thou/uL (1.20-3.40); #Monocytes 0.7 thou/uL (0.11-0.59); #Neutrophils 6.7 thou/uL (1.40-6.50); %Basophils 0.2 % (0.0-1.0); %Eosinophils 0.6 % (0.0-10.0); %Lymphocytes 13.4 % (21.0-51.0); %Monocytes 7.8 % (0.0-10.0); %Neutrophils 77.9 % (42.0-75.0); Hemoglobin 9.5 g/dL (12.0-16.0); Mean Corpuscular HGB CONC 31.3 g/dL (32.0-36.0); Mean Corpuscular Hemoglobin 31.1 pg (27.0-31.0); Mean Corpuscular Volume 99.3 fL (78.0-98.0); Platelet Count 239 thou/uL (130-400); RBC Distribution Width 16.6 % (11.5-14.5); Red Blood Cell (RBC) Count 3.04 mill/uL (4.20-5.40); White Blood Cell (WBC) Count 8.6 thou/uL (4.8-10.8)
[2020-06-15 04:52] LABS: Anion Gap 15 mmol/L (10-20); BUN (Urea Nitrogen) 75 mg/dL (9.8-20.1); Calc. Creatinine Clearance 6 mL/min (70-130); Calcium 8.8 mg/dL (7.8-10.44); Carbon Dioxide 29 mmol/L (22-29); Chloride 98 mmol/L (98-107); Estimated GFR-MDRD 5; Glucose 106 mg/dL (70-105); Potassium 4.2 mmol/L (3.5-5.1); Sodium 138 mmol/L (136-145)
--- NOTE | 2020-06-15 07:24 | PDOC.HOSPP ---
- Subjective Encounter Date: 06/15/20 Encounter Time: 10:00 Subjective: Patient without SOB. Feeling much better. BP improved today. - Objective Vital Signs & Weight: Vital Signs (12 hours) Temp Pulse Resp BP Pulse Ox 06/15/20 04:09 97.4 F L 85 16 133/63 96 06/14/20 21:17 92 06/14/20 21:16 92 06/14/20 21:06 97.9 F 92 17 154/69 H 92 L Weight Admit Weight 108 lb Weight 108 lb I&O: 06/14/20 06/15/20 06/16/20 06:59 06:59 06:59 Intake Total 990 Balance 990 Result Diagrams: 06/15/20 04:00 06/15/20 04:00 Hospitalist ROS - Review of Systems Constitutional: denies: fever, chills Respiratory: denies: cough, shortness of breath Cardiovascular: denies: chest pain, palpitations Gastrointestinal: denies: nausea, vomiting, abdominal pain - Medication Medications: Active Medications Generic Name Dose Route Start Last Admin Trade Name Freq PRN Reason Stop Dose Admin Acetaminophen 650 mg 06/12/20 17:24 06/13/20 19:35 Tylenol PO 650 mg Q4H PRN Administration Headache/Fever/Mild Pain (1-3) Albuterol/Ipratropium 3 ml 06/12/20 19:00 06/15/20 00:53 Duoneb NEB 3 ml [id number] PAT Administration Alprazolam 0.25 mg 06/13/20 08:35 06/14/20 21:21 Xanax PO 0.25 mg BID PRN Administration Anxiety Amlodipine Besylate 10 mg 06/13/20 09:00 06/14/20 21:17 Norvasc PO 10 mg BID PAT Administration Azithromycin 500 mg 06/13/20 09:00 06/14/20 07:52 Zithromax PO 500 mg DAILY PAT Administration Doxazosin Mesylate 4 mg 06/13/20 21:00 06/14/20 21:17 Cardura PO 4 mg HS PAT Administration Epoetin Alden-epbx 7,500 unit 06/13/20 12:00 06/13/20 13:11 Retacrit SC 7,500 unit Q7D PAT Administration Fluticasone Propionate 0 gm 06/13/20 09:00 06/14/20 21:17 Flonase Nasal [place] NASAL 2 spr BID PAT Administration Gabapentin 400 mg 06/13/20 21:00 06/14/20 21:17 Neurontin PO 400 mg HS PAT Administration Hydralazine HCl 10 mg 06/12/20 17:43 06/13/20 23:51 Apresoline SLOW IVP 10 mg Q4H PRN Administration SBP Greater Than 180 Hydralazine HCl 100 mg 06/13/20 09:00 06/14/20 21:16 Apresoline PO 100 mg TID PAT Administration Losartan Potassium 25 mg 06/14/20 09:00 06/14/20 08:25 Cozaar PO 25 mg DAILY PAT Administration Melatonin 6 mg 06/13/20 21:00 06/14/20 21:16 Melatonin PO 6 mg HS PAT Administration Mometasone Furoate/Formoterol Fumar 2 puff 06/13/20 18:30 06/14/20 19:05 Dulera 200 Mcg/5 Mcg Inhaler INH 2 puff BID-RT PAT Administration Pantoprazole Sodium 40 mg 06/13/20 09:00 06/14/20 07:53 Protonix PO 40 mg DAILY PAT Administration Sevelamer Carbonate 2,400 mg 06/13/20 12:00 06/14/20 16:32 Renvela PO 2,400 mg TID-WM PAT Administration Sodium Chloride 10 ml 06/13/20 09:00 06/14/20 21:18 Flush - Normal Saline IVF 10 ml Q12HR PAT Administration Sodium Chloride 10 ml 06/13/20 08:34 06/14/20 11:36 Flush - Normal Saline IVF 10 ml PRN PRN Administration Saline Flush Tramadol HCl 50 mg 06/13/20 08:35 06/14/20 21:20 Ultram PO 50 mg DAILY PRN Administration Pain - Exam General Appearance: NAD, awake alert ENT: moist mucosa Heart: RRR, no murmur, no gallops, no rubs Respiratory: CTAB, no wheezes, no rales, no ronchi Gastrointestinal: soft, non-tender, non-distended, normal bowel sounds Psychiatric: normal affect, normal behavior, A&O x 3 Hosp A/P (1) COPD exacerbation Code(s): J44.1 - CHRONIC OBSTRUCTIVE PULMONARY DISEASE W (ACUTE) EXACERBATION Status: Acute (2) Acute on chronic respiratory failure with hypoxia Code(s): J96.21 - ACUTE AND CHRONIC RESPIRATORY FAILURE WITH HYPOXIA Status: Acute (3) Hypertensive urgency Code(s): I16.0 - HYPERTENSIVE URGENCY Status: Resolved (4) ESRD (end stage renal disease) on dialysis Code(s): N18.6 - END STAGE RENAL DISEASE; Z99.2 - DEPENDENCE ON RENAL DIALYSIS Status: Chronic (5) Fluid overload Code(s): E87.70 - FLUID OVERLOAD, UNSPECIFIED Status: Resolved - Plan Patient started having 3 second pauses with metoprolol and labetalol so discontinued Losartan 75mg Today BP excellent Cardiology recommending ECHO, no further w/u needed if that is ok On steroids, nebs, antibiotics for COPD flair, sating well on 0-2 L NC O2 Likely home later today if ECHO ok No more than 5 days of steroids DVT proph:SCDs GI proph: home PPI
[2020-06-15] MEDS: Mometasone 200 MCG/Formoterol 5 MCG 120 PUFF INHALER INH SCH ×2 (07:32→19:20)
[2020-06-15] MEDS: Sevelamer Carbonate 800 MG TAB PO SCH ×3 (08:00→17:58)
--- NOTE | 2020-06-15 08:55 | PRG ---
DATE OF SERVICE: 06/15/2020 SUBJECTIVE: Ms. Branch is a 54-year-old female with ESRD and currently on maintenance hemodialysis. We are following her up for management of her ESRD. She was initially admitted with COPD exacerbation. Due to the indeterminate troponin I. Cardiology consult was done. Recommendation for cardiac echo was made. The patient is feeling better. No chest pain or shortness of breath. OBJECTIVE: VITAL SIGNS: Blood pressure 133/63, heart rate 85, respiratory rate 16, temperature 97.4, O2 saturation 96%. GENERAL: Awake, alert, comfortable, not in overt distress. SKIN: Adequate turgor. HEENT: She has slightly pale conjunctivae. Anicteric sclerae. No neck mass. No carotid bruits. No JVD. CHEST: No deformities. LUNGS: Clear breath sounds. No wheezing. No crackles. HEART: Normal sinus rhythm. No murmur. No gallops. No rubs. ABDOMEN: Globular, soft, nontender. No masses. EXTREMITIES: No edema, no deformities. MEDICATIONS: Medications of June 15, 2020, was reviewed. LABORATORY DATA: Laboratories of June 15, 2020, white count 8.6, hemoglobin 9.5. Sodium 130, potassium 4.2, chloride 98, carbon dioxide 29, BUN 75, creatinine 8.13, glucose 106, calcium 8.8. ASSESSMENT AND PLAN: 1. End-stage renal disease, stable. We will continue current hemodialysis regimen. Fluid removal as tolerated by the patient. No changes will be made with her dialysis today. She is tolerating the said treatment. 2. Borderline anemia, currently on weekly Epogen. 3. Shortness of breath, chronic obstructive pulmonary disease exacerbation, being ruled out for possible cardiac etiology. Cardiac echo has been recommended by Cardiology. 4. Agree with current management. Job ID: [id number]
[2020-06-15] MEDS: hydrALAZINE 25 MG TAB PO SCH ×3 (10:36→21:38)
[2020-06-15] MEDS: predniSONE 20 MG TAB PO SCH (10:37)
[2020-06-15] MEDS: Amlodipine 10 MG TAB PO SCH ×2 (10:37→21:42)
[2020-06-15] MEDS: Losartan 25 MG TAB PO SCH (10:37)
[2020-06-15] MEDS: Azithromycin 250 MG TAB PO SCH (10:38)
--- NOTE | 2020-06-15 11:40 | PDOC.CPN ---
- Subjective Date: 06/15/20 Time: 11:38 Interval history: No new issues. Breathing better. - Review of Systems General: denies: fever/chills, weight/appetite/sleep changes, night sweats, fatigue Respiratory: reports: cough, shortness of breath. denies: congestion, exercise intolerance Cardiovascular: denies: chest pain, palpitation, edema, paroxysmal nocturnal dyspnea, orthopnea Gastrointestinal: denies: nausea, vomiting, diarrhea, constipation, abd pain, GI bleeding Musculoskeletal: denies: pain, tenderness, stiffness, swelling, arthritis/ arthralgias Neurological: denies: numbness, syncope, seizure, weakness - Objective Allergies/Adverse Reactions: Allergies Allergy/AdvReac Type Severity Reaction Status Date / Time ceftriaxone Allergy Verified 05/24/20 23:30 clonidine Allergy Verified 05/24/20 23:30 Penicillins Allergy Verified 05/24/20 23:30 Visit Medications: Current Medications Acetaminophen (Tylenol) 650 mg PO Q4H PRN PRN Reason: Headache/Fever/Mild Pain (1-3) Last Admin: 06/13/20 19:35 Dose: 650 mg Albuterol/Ipratropium (Duoneb) 3 ml NEB [id number] [facility] Last Admin: 06/15/20 07:32 Dose: 3 ml Alprazolam (Xanax) 0.25 mg PO BID PRN PRN Reason: Anxiety Last Admin: 06/14/20 21:21 Dose: 0.25 mg Amlodipine Besylate (Norvasc) 10 mg PO BID [facility] Last Admin: 06/15/20 10:37 Dose: 10 mg Azithromycin (Zithromax) 500 mg PO DAILY [facility] Last Admin: 06/15/20 10:38 Dose: 500 mg Doxazosin Mesylate (Cardura) 4 mg PO HS [facility] Last Admin: 06/14/20 21:17 Dose: 4 mg Epoetin Alden-epbx (Retacrit) 7,500 unit SC Q7D [facility] Last Admin: 06/13/20 13:11 Dose: 7,500 unit Fluticasone Propionate (Flonase Nasal [place]) 0 gm NASAL BID [facility] Last Admin: 06/14/20 21:17 Dose: 2 spr Gabapentin (Neurontin) 400 mg PO HS [facility] Last Admin: 06/14/20 21:17 Dose: 400 mg Hydralazine HCl (Apresoline) 10 mg SLOW IVP Q4H PRN PRN Reason: SBP Greater Than 180 Last Admin: 06/13/20 23:51 Dose: 10 mg Hydralazine HCl (Apresoline) 100 mg PO TID [facility] Last Admin: 06/15/20 10:36 Dose: 100 mg Losartan Potassium (Cozaar) 25 mg PO DAILY [facility] Last Admin: 06/15/20 10:37 Dose: 25 mg Melatonin (Melatonin) 6 mg PO HS [facility] Last Admin: 06/14/20 21:16 Dose: 6 mg Mometasone Furoate/Formoterol Fumar (Dulera 200 Mcg/5 Mcg Inhaler) 2 puff INH BID-RT [facility] Last Admin: 06/15/20 07:32 Dose: 2 puff Pantoprazole Sodium (Protonix) 40 mg PO DAILY [facility] Last Admin: 06/15/20 10:38 Dose: 40 mg Prednisone (Prednisone) 40 mg PO QAM[facility] Last Admin: 06/15/20 10:37 Dose: 40 mg Sevelamer Carbonate (Renvela) 2,400 mg PO TID[facility] Last Admin: 06/14/20 16:32 Dose: 2,400 mg Sodium Chloride (Flush - Normal Saline) 10 ml IVF Q12HR [facility] Last Admin: 06/14/20 21:18 Dose: 10 ml Sodium Chloride (Flush - Normal Saline) 10 ml IVF PRN PRN PRN Reason: Saline Flush Last Admin: 06/14/20 11:36 Dose: 10 ml Tramadol HCl (Ultram) 50 mg PO DAILY PRN PRN Reason: Pain Last Admin: 06/14/20 21:20 Dose: 50 mg Vital Signs & Weight: Vital Signs Temp Pulse Resp BP Pulse Ox 06/15/20 08:00 98.4 F 86 20 154/88 H 100 06/15/20 07:32 76 16 06/15/20 04:09 97.4 F L 85 16 133/63 96 Admit Weight 108 lb Weight 108 lb - Physical Exam General: alert & oriented x3 HEENT: mucus membranes moist Neck: supple neck Cardiac: regular rate and rhythm Lungs: decreased breath sounds Neuro: grossly intact Abdomen: active bowel sounds Extremities: no edema Skin: clear Musculoskeletal: no pain - Labs Result Diagrams: 06/15/20 04:00 07/24/20 04:00 Troponin/CKMB CK-MB (CK-2) 4.7 ng/mL (0-6.6) 06/12/20 11:20 Troponin I 0.038 ng/mL (< 0.028) H 06/12/20 17:20 - Telemetry Sinus rhythms and dysrhythmias: sinus rhythm - Assessment/Plan Assessment/Plan: 1. Type 2 DE, demand ischemia. 2. COPD with acute exacerbation. 3. ESRD in HD. PLAN - Echo pending, if unremarkable no further cardiac work up as inpatient from cardiac perspective. - Follow up in the office in 4 weeks.
[2020-06-15] MEDS ORDERED: Losartan 25 MG TAB PO SCH (13:00)
[2020-06-15] MEDS: Acetaminophen 325 MG TAB PO PRN (13:23)
[2020-06-15] MEDS: traMADol HCl 50 MG TAB PO PRN (13:23)
[2020-06-15] MEDS: Fluticasone Propionate Nasal Spray 16 gm Bottle NASAL SCH ×2 (15:23→21:51)
[2020-06-15] MEDS ORDERED: traMADol HCl 50 MG TAB PO PRN (16:03)
[2020-06-15] MEDS: Doxazosin 2 MG TAB PO SCH (21:38)
[2020-06-15] MEDS: Gabapentin 400 MG CAP PO SCH (21:40)
--- NOTE | 2020-06-16 06:21 | PRG ---
DATE OF SERVICE: 06/16/2020 SUBJECTIVE: Ms. Branch is a 54-year-old female who was seen for her ESRD. She was initially admitted for COPD exacerbation. She was treated with steroids and neb treatment and shortness of breath has improved. A cardiac echo was also done, which showed a normal EF. She tolerated her dialysis during this hospitalization. The patient voices no new complaints today. She denies any chest pain or shortness of breath. OBJECTIVE: VITAL SIGNS: Blood pressure is , heart rate 87, respiratory rate 14, temperature 98.3, O2 saturation 97%. GENERAL: Awake, alert, comfortable, not in distress. SKIN: Adequate turgor. HEENT: Slightly pale conjunctivae. Anicteric sclerae. NECK: No neck mass. No carotid bruits. No JVD. CHEST: No deformities. LUNGS: Clear breath sounds. No wheezing. No crackles. HEART: Normal sinus rhythm. No murmur. No gallops. No rubs. ABDOMEN: Globular, soft, nontender. No masses. EXTREMITIES: No edema. No deformities. MEDICATIONS: Medications of June 16, 2020, was reviewed. LABORATORY DATA: Laboratories of June 15, 2020; white count 8.6, hemoglobin 9.5 , sodium 138, potassium 4.2, chloride 98, carbon dioxide 29, BUN 75, creatinine 8.13, glucose 106, and calcium is 8.8. ASSESSMENT AND PLAN: 1. End-stage renal failure, stable. Tolerated hemodialysis regimen. Continue Thursday, Thursday, and Thursday dialysis. No indication for any dialytic intervention. 2. Shortness of breath - secondary to chronic obstructive pulmonary disease exacerbation, much improved. 3. Anemia. Continue weekly Epogen. 4. Labile hypertension, much improved. Continue current blood pressure medications. Job ID: [id number] [facility]
[2020-06-16] MEDS: Mometasone 200 MCG/Formoterol 5 MCG 120 PUFF INHALER INH SCH (08:11)
[2020-06-16] MEDS ORDERED: Losartan 25 MG TAB PO SCH (09:00)
[2020-06-16] MEDS: Sevelamer Carbonate 800 MG TAB PO SCH (09:21)
[2020-06-16] MEDS: predniSONE 20 MG TAB PO SCH (09:21)
[2020-06-16] MEDS: hydrALAZINE 25 MG TAB PO SCH (09:21)
[2020-06-16] MEDS: Azithromycin 250 MG TAB PO SCH (09:21)
[2020-06-16] MEDS: Amlodipine 10 MG TAB PO SCH (09:22)
[2020-06-16 09:23] VITALS: BP 172/74
[2020-06-16] MEDS: Fluticasone Propionate Nasal Spray 16 gm Bottle NASAL SCH (09:23)
[2020-06-16 09:35] VITALS: TEMP 98.7
--- NOTE | 2020-06-18 04:29 | PQF ---
CLINICAL DOCUMENTATION CLARIFICATION FORM: Dear : Christoph Franz Date / Time: 06/16/20 1602 Please exercise your independent, professional judgment in responding to the clarification form. Clinical indicators are provided on the bottom of this form for your review In your clinical opinion based on clinical findings below, can you please identify the condition as the reason for Inpatient admission: Please check appropriate box(es): [ ] Hypertension Urgency [ ] Pneumonia [ ] COPD Exacerbation/Emphysema [ ] Acute Respiratory Failure [ ] Other diagnosis [ ] Unable to determine Physician Signature: Date/Time: For continuity of documentation, please document condition throughout progress notes and discharge summary. Thank You. To be completed by CDI/Coding staff for physician review: Present Clinical Indicators - Signs / Symptoms / Labs Results and Location in Medical Record [X] PH7.380, qJM269.3, pO2 92.1, Bse Excess 4.4 Laboratory Blood gas 06/12 [X] BP 240/100; 225/88; 205/88:195/70, Pulse 87, Resp 18, Temp 98.4 Vital signs 06/12 [X] Chest X-ray Impression: Bilateral lower lobe infilrates Imaging 06/12 Dr Presley [X] Pt o2 low 80s when EMS arrived, increased to 86% on 5L NC ED notes p2 06/12 [X] Hypoxia, Severe HTN, COPD exacebation ED notes p10 06/12 [X] presents to ER today for difficulty breathing H&P p1 06/12 [X] Acute on chronic respiratory failure HPN p3 06/13 Dr Franz [X] HTN urgency HPN p3 06/13 Dr Franz [X] Bronchitis/Pneumonia-currently on empiric antibiotics Consult p2 06/13 Dr Alvarado Present Risk Factors Results and Location in Medical Record [X] HTN H&P p1 06/12 [facility] [X] HLD H&P p1 06/12 [facility] [X] COPD exacerbation H&P p1 06/12 [facility] [X] ESRD on HD H&P p1 06/12 [facility] [X] PR type 2, demand ischemia [X] Emphysema Consult p1 06/13 Dr Alvarado Present Treatments Results and Location in Medical Record [X] Duoneb 3 ml Neb JAN 27 [X] Aspirin Chewable 81 mg JAN 27 [X] Zithromax 500 mg oral JAN 27 [X] IV Apresolin 10 mg JAN 27 [X] IV Normodyne 10 mg JAN 27 [X] Nitro-bid 2% ointment JAN 27 [X] IVF NS 1L JAN 27 [X] VBG Laboratory Blood gas 06/12 [X] Oxygen 3L Respiratory Panel 06/12 [X] Chest-Xray Imaging 06/12 Dr Presley [X] Cardiology consult Consult Misbah Rene CDS/Progressive Care Nurse Signature: Christie Méndez Phone #: ext [phone] Date/Time: 06/18/20 6969 This is a permanent part of the Medical Record [facility]
--- NOTE | 2020-06-24 18:33 | PQF ---
CLINICAL DOCUMENTATION CLARIFICATION FORM: Dear : Christoph Franz Date / Time: 06/24/20 5925 Please exercise your independent, professional judgment in responding to the clarification form. Clinical indicators are provided on the bottom of this form for your review Please check appropriate box(es) to clarify if the following diagnosis has been ruled in our ruled out: Pneumonia [ ] Ruled in diagnosis [ ] Continue to treat [ ] Resolved [ ] Ruled out diagnosis [ ] Improving [ ] Cannot rule out diagnosis [ ] Other diagnosis [ ] Unable to determine In addition, please specify: Present on Admission (POA): [ ] Yes [ ] No [ ] Unable to determine Physician Signature: Date/Time: For continuity of documentation, please document condition throughout progress notes and discharge summary. Thank You. To be completed by CDI/Coding staff for physician review: Present Clinical Indicators - Signs / Symptoms / Labs Results and Location in Medical Record [X] PH7.380, nDT088.3, pO2 92.1, Bse Excess 4.4 Laboratory Blood gas 06/12 [X] BP 240/100; 225/88; 205/88:195/70, Pulse 87, Resp 18, Temp 98.4 Vital signs 06/12 [X] Chest X-ray Impression: Bilateral lower lobe infiltrates Imaging 06/12 Dr Presley [X] Pt o2 low 80s when EMS arrived, increased to 86% on 5L NC ED notes p2 06/12 [X] Hypoxia, Severe HTN, COPD exacerbation ED notes p10 06/12 [X] presents to ER today for difficulty breathing H&P p1 06/12 [X] Acute on chronic respiratory failure HPN p3 06/13 Dr Franz [X] Bronchitis/Pneumonia-currently on empiric antibiotics Consult p2 06/13 Dr Alvarado Present Risk Factors Results and Location in Medical Record [X] HTN H&P p1 06/12 [facility] [employer] [facility] [X] HLD H&P p1 06/12 [facility] [employer] [X] COPD exacerbation H&P p1 06/12 [facility] [employer] [X] ESRD on HD H&P p1 06/12 [facility] [employer] [X] SD type 2, demand ischemia [X] Emphysema Consult p1 06/13 Dr Alvarado Present Treatments Results and Location in Medical Record [X] Duoneb 3 ml Neb JAN 27 [X] Zithromax 500 mg oral JAN 27 [X] IVF NS 1L JAN 27 [X] VBG Laboratory Blood gas 06/12 [X] Oxygen 3L Respiratory Panel 06/12 [X] Chest-Xray Imaging 06/12 Dr Presley CDS/Hand Brim Ironer Signature: Christie Carolnyn Callowaygigifletcher Phone #: ext [phone] Date/Time: 06/24/20 1832 This is a permanent part of the Medical Record [facility]
== END 2020-06-16 10:02 | disposition home or self-care (01) | DRG 280 ==
LOC: ERS 10:06 → ERHOLD 12:32 → 2NO 16:31
PROVIDERS: ADMIT Emergency Medicine; ATTEND Emergency Medicine
PROC: 5A1D70Z Performance of Urinary Filtration, Intermittent, Less than 6 Hours Per Day (ICD-10-PCS; principal; 2020-06-13)
DX: I16.0 Hypertensive urgency (principal); J96.21 Acute and chronic respiratory failure with hypoxia; I21.A1 Myocardial infarction type 2; N18.6 End stage renal disease; I12.0 Hypertensive chronic kidney disease with stage 5 chronic kidney disease or end stage renal disease; J43.9 Emphysema, unspecified; Z20.828 Contact with and (suspected) exposure to other viral communicable diseases; I25.10 Atherosclerotic heart disease of native coronary artery without angina pectoris; F41.9 Anxiety disorder, unspecified; E87.70 Fluid overload, unspecified; E78.5 Hyperlipidemia, unspecified; D63.1 Anemia in chronic kidney disease; I45.5 Other specified heart block; T44.7X5A Adverse effect of beta-adrenoreceptor antagonists, initial encounter; Z90.710 Acquired absence of both cervix and uterus; Z98.51 Tubal ligation status; Z87.891 Personal history of nicotine dependence; Z99.2 Dependence on renal dialysis; Z79.899 Other long term (current) drug therapy; Z79.51 Long term (current) use of inhaled steroids; Z88.1 Allergy status to other antibiotic agents; Z88.0 Allergy status to penicillin; Z88.8 Allergy status to other drugs, medicaments and biological substances
CPT/HCPCS: 36415; 71045; 80048; 80053; 82330; 82553; 82803; 83880; 84484; 85025; 87340; 90935; 93005; 93306; 94640; 94664; 96365; G0257; J0360; J2920; J3475; J7512; J7620; Q5105; U0002

== ENCOUNTER 2020-06-19 09:04 | Outpatient (CLI) | payer MEDICARE, MEDICAID ==
--- NOTE | 2020-06-19 10:14 | BD ---
EXAM: Bone densitometry using DEXA HISTORY: 54 yo female. Screening for postmenopausal osteoporosis FINDINGS: L1--bone mineral density 1.018 g/sq cm; T score 0.3 ; Z score 1.3 L2--bone mineral density 1.029 g/sq cm; T score 0.0 ; Z score 1.2 L3--bone mineral density 1.091 g/sq cm; T score 0.1 ; Z score 1.3 L4--bone mineral density 0.953 g/sq cm; T score -1.0 ; Z score 0.3 Total L1-L4--bone mineral density 1.023 g/sq cm; T score -0.2 ; Z score 1.0 Left femoral neck--bone mineral density0.603; T score -2.2 ; Z score -1.1 Total proximal left femur--bone mineral density 0.723; T score -1.8 ; Z score -1.0 The 10 year fracture risk for a major osteoporotic fracture is 7.6% and for a hip fracture is 1.1%. IMPRESSION: Osteopenia
--- NOTE | 2020-06-19 10:55 | MMO ---
Bilateral MAMMO Bilat Screen [facility]SE. CLINICAL HISTORY: Patient is 54 years old and is seen for screening. The patient has no family history of breast cancer. The patient has no personal history of cancer. VIEWS: The views performed were: bilateral craniocaudal with tomosynthesis and bilateral mediolateral oblique with tomosynthesis. FILMS COMPARED: The present examination has been compared to prior imaging studies performed at [facility] on 04/20/2008 and 12/16/2018. This study has been interpreted with the assistance of computer-aided detection. MAMMOGRAM FINDINGS: There are scattered fibroglandular densities. Benign calcifications are noted bilaterally. There are no suspicious masses, suspicious calcifications, or new areas of architectural distortion. IMPRESSION: THERE IS NO MAMMOGRAPHIC EVIDENCE OF MALIGNANCY. A ROUTINE FOLLOW-UP MAMMOGRAM IN 1 YEAR IS RECOMMENDED. THE RESULTS OF THIS EXAM WERE SENT TO THE PATIENT. ACR BI-RADS Category 2 - Benign finding MAMMOGRAPHY NOTE: 1. A negative mammogram report should not delay a biopsy if a dominant of clinically suspicious mass is present. 2. Approximately 10% to 15% of breast cancers are not detected by mammography. 3. Adenosis and dense breasts may obscure an underlying neoplasm. Reported by: RASHAAD BAUER MD Electonically Signed: [id number]
== END 2020-06-19 09:05 | disposition home or self-care (01) ==
LOC: BICMAMMO 09:04
PROVIDERS: ATTEND Family Medicine
DX: Z12.31 Encounter for screening mammogram for malignant neoplasm of breast (principal); Z13.820 Encounter for screening for osteoporosis; Z78.0 Asymptomatic menopausal state; M85.89 Other specified disorders of bone density and structure, multiple sites
CPT/HCPCS: 77063; 77067; 77080

== ENCOUNTER 2020-09-24 05:12 | Inpatient (IN) | payer MEDICARE, MEDICAID ==
[2020-09-24 06:24] LABS: #Eosinphils 0.2 thou/uL (0.0-0.7); #Lymphocytes 0.6 thou/uL (1.20-3.40); #Monocytes 0.6 thou/uL (0.11-0.59); #Neutrophils 7.4 thou/uL (1.40-6.50); %Basophils 0.1 % (0.0-1.0); %Eosinophils 2.7 % (0.0-10.0); %Lymphocytes 6.9 % (21.0-51.0); %Monocytes 6.3 % (0.0-10.0); Hemoglobin 9.2 g/dL (12.0-16.0); Mean Corpuscular HGB CONC 31.4 g/dL (32.0-36.0); Mean Corpuscular Hemoglobin 29.5 pg (27.0-31.0); Mean Corpuscular Volume 94.2 fL (78.0-98.0); Mean Platelet Volume 7.8 fL (7.4-10.4); Platelet Count 142 thou/uL (130-400); RBC Distribution Width 18.1 % (11.5-14.5); Red Blood Cell (RBC) Count 3.12 mill/uL (4.20-5.40); White Blood Cell (WBC) Count 8.8 thou/uL (4.8-10.8)
[2020-09-24 06:41] LABS: ALT (SGPT) 18 U/L (8-55); AST (SGOT) 12 U/L (5-34); Albumin 3.5 g/dL (3.5-5.0); Alkaline Phosphatase 85 U/L (40-110); Anion Gap 21 mmol/L (10-20); BUN (Urea Nitrogen) 80 mg/dL (9.8-20.1); Bilirubin, Total 0.6 mg/dL (0.2-1.2); Calc. Creatinine Clearance 0 mL/min (70-130); Carbon Dioxide 24 mmol/L (22-29); Chloride 102 mmol/L (98-107); Estimated GFR-MDRD 4; Globulin 2.7 g/dL (2.4-3.5); Glucose 117 mg/dL (70-105); Potassium 5.9 mmol/L (3.5-5.1); Protein, Total 6.2 g/dL (6.0-8.3); Sodium 141 mmol/L (136-145)
[2020-09-24 07:02] LABS: CKMB 3.6 ng/mL (0-6.6)
--- NOTE | 2020-09-24 07:49 | RAD ---
RADIOGRAPH CHEST 1 VIEW: DATE: 09/24/2020 TIME: 5:49 AM HISTORY: 54-year-old female with dyspnea COMPARISON: 06/12/2020 FINDINGS: Severe hyperlucency of upper lung zones. Severe interstitial infiltrates throughout the mid and lower lung zones. Airspace opacity at region in the right lower lung zone. Mild blunting of lateral costophrenic angles. Prominence of cardiac silhouette. Findings appear similar to those of prior stud y. IMPRESSION: 1) interstitial and alveolar infiltrates throughout the mid and lower lung zones. Pulmonary edema abel summer pneumonia. 2) severe emphysema. 3) similar to 06/12/2020
[2020-09-24] MEDS ORDERED: methylPREDNISolone Sod Succ/PF 125 MG/2 ML VIAL ONE (07:53)
[2020-09-24 09:08] LABS: SARS-CoV-2 NAA Rapid Test Not Detected (NotDetected)
[2020-09-24 09:39] LABS: Troponin I 0.058 ng/mL (< 0.028)
[2020-09-24] MEDS ORDERED: Albuterol Sulfate 2.5 mg/3 ml Neb NEB PRN (09:46)
[2020-09-24] MEDS ORDERED: Calcium Gluconate 4.6 MEQ in Sodium Chloride 0.9% 100 ML IVPB SCH (09:55)
[2020-09-24] MEDS ORDERED: hydrALAZINE 20 MG/ML VIAL SLOW IVP PRN (09:59)
[2020-09-24 10:01] LABS: Actual Bicarbonate (HCO3a) 23.9 mEq/L (22-28); Analyzer IN Cardio ER; Base Excess (BEa) -1.8 mEq/L (-2.0 to +3.0); CO2 Tension 45.2 mmHg (35.0-45.0); Calcium, Ionized (arterial) 1.12 mmol/L (1.12-1.30); Carboxyhemoglobin (COHb) 0.7 gm% (0.0-3.0); O2 Tension (PaO2), arterial 74.7 mmHg (80.0-100.0); Potassium - ABG Lab 6.09 mmol/L (3.70-5.30); pH, Arterial 7.34 (7.35-7.45)
[2020-09-24 10:02] LABS: Lactic Acid 0.7 mmol/L (0.5-2.2)
[2020-09-24 10:04] LABS: Puncture Site LBA
[2020-09-24 10:07] LABS: Anion Gap 23 mmol/L (10-20); BUN (Urea Nitrogen) 82 mg/dL (9.8-20.1); Calc. Creatinine Clearance 0 mL/min (70-130); Carbon Dioxide 20 mmol/L (22-29); Chloride 102 mmol/L (98-107); Estimated GFR-MDRD 4; Glucose 117 mg/dL (70-105); Potassium 6.2 mmol/L (3.5-5.1); Sodium 139 mmol/L (136-145)
--- NOTE | 2020-09-24 11:47 | PDOC.HHP ---
Hospitalist HPI - History of Present Illness SOB History of Present Illness: Ms. Young is a 54-year-old female with a past medical history of severe COPD on 2.5 L nasal cannula at home, end-stage renal disease on dialysis Thursday, hypertension, anemia of chronic disease, hyperlipidemia who presented to the emergency room for worsening shortness of breath. Patient has noticed over the past week a worsening of her shortness of breath from baseline. Has increased her oxygen up to 4 L nasal cannula at home. Patient feels as though she is struggling to breathe and cannot get air in. Patient was sent in from dialysis this morning because of her increased oxygen requirement. Patient reports she tried a duoneb at home, but this did not improve her breathing. Denies any known COVID contacts. Endorses productive cough after nebulizer treatments. In the emergency room initial vital signs 148/46, 90, 28, 98% on nonrebreather. Chest x-ray showed pulmonary edema and severe emphysema. Initial troponin 0 0.047, EKG with a left anterior fascicular block, no ST changes. BNP elevated at 849.1. BUN/CR 80/10.24, sodium 141, potassium 5.9. H/H 9.2/29.4. WBC 8.8. Patient received duo nebs, Solu-Medrol, Levaquin in the emergency room. Emergency room staff contacted patient's reservation sales agent Dr. Alvarado for dialysis. Hospitalist ROS - Review of Systems Constitutional: denies: fever, chills, sweats, weakness, malaise, other Eyes: denies: pain, vision change, conjunctivae inflammation, eyelid inflammation, redness, other ENT: denies: ear pain, ear discharge, nose pain, nose discharge, nose congestion, mouth pain, mouth swelling, throat pain, throat swelling, other Respiratory: reports: cough, shortness of breath, SOB with excertion, sputum, wheezing Cardiovascular: denies: chest pain, palpitations, orthopnea, paroxysmal noc. dyspnea, edema, light headedness, other Gastrointestinal: denies: nausea, vomiting, abdominal pain, diarrhea, constipation, melena, hematochezia, other Genitourinary: denies: dysuria, frequency, incontinence, hematuria, retention, other Musculoskeletal: denies: neck pain, shoulder pain, arm pain, back pain, hand pain, leg pain, foot pain, other Skin: denies: rash, lesions, reggie, bruising, other Neurological: denies: weakness, numbness, incoordination, change in speech, confusion, seizures, other - Medication Medications: Home medications include Hydralazine Amlodipine Losartan Gabapentin Omeprazole Flonase Cardura Symbicort Ventolin Xanax Patient with multiple medication allergies including ceftriaxone, clonidine, penicillins, Keflex Hospitalist History - Past Medical History Renal/: reports: Chronic renal failure Other Medical History: Past medical history significant for Severe COPD, requiring multiple admissions for COPD exacerbations Hypertension Hyperlipidemia End-stage renal disease on dialysis Anemia of chronic disease Brain aneurysm - Past Surgical History Past Surgical History: reports: Hysterectomy, Tubal Ligation Other Surgical History: Past surgical history of Hysterectomy Tubal ligation AV fistula creation - Family History Other Family History: Patient denies family history of cardiac disease or cancer. - Social History Smoking Status: Former smoker Tobacco Type: cigarettes (Patient quit smoking proximately 3 months ago.) Alcohol: reports: Occassional Drugs: reports: none Occupation: works as a [employer] Activity level: independent ambulation - Exam General Appearance: awake alert General - other findings: In acute respiratory distress Eye: PERRL, anicteric sclera ENT: normocephalic atraumatic, no oropharyngeal lesions Neck: no JVD, no carotid bruit Heart: RRR, no murmur, no gallops, normal peripheral pulses Respiratory: wheezes Respiratory - other findings: Diminished breath sounds, accessory muscle use Gastrointestinal: soft, non-tender, non-distended, normal bowel sounds, no palpable masses, no hepatomegaly, no splenomegaly, no bruit Extremities: no cyanosis, no clubbing, no edema Skin: normal turgor, no lesions, no rashes Neurological: no focal deficits Musculoskeletal: normal tone, normal strength, diffuse muscle atrophy Psychiatric: normal affect, normal behavior, A&O x 3 Hospitalist Results - Labs Result Diagrams: 09/24/20 06:04 09/24/20 09:34 Lab results: WBC 8.8 thou/uL (4.8-10.8) 09/24/20 06:04 Hgb 9.2 g/dL (12.0-16.0) L 09/24/20 06:04 Hct 29.4 % (36.0-47.0) L 09/24/20 06:04 MCV 94.2 fL (78.0-98.0) 09/24/20 06:04 Plt Count 142 thou/uL (130-400) 09/24/20 06:04 Neutrophils % 84.0 % (42.0-75.0) H 09/24/20 06:04 ABG pH 7.34 (7.35-7.45) L 09/24/20 09:55 ABG pCO2 45.2 mmHg (35.0-45.0) H 09/24/20 09:55 ABG pO2 74.7 mmHg (80.0-100.0) L 09/24/20 09:55 Sodium 139 mmol/L (136-145) 09/24/20 09:34 Potassium 6.2 mmol/L (3.5-5.1) H 09/24/20 09:34 Chloride 102 mmol/L (98-107) 09/24/20 09:34 Carbon Dioxide 20 mmol/L (22-29) L 09/24/20 09:34 BUN 82 mg/dL (9.8-20.1) H 09/24/20 09:34 Creatinine 10.20 mg/dL (0.6-1.1) H 09/24/20 09:34 Glucose 117 mg/dL (70-105) H 09/24/20 09:34 Lactic Acid 0.7 mmol/L (0.5-2.2) 09/24/20 09:34 Calcium 9.0 mg/dL (7.8-10.44) 09/24/20 09:34 Total Bilirubin 0.6 mg/dL (0.2-1.2) 09/24/20 06:04 AST 12 U/L (5-34) 09/24/20 06:04 ALT 18 U/L (8-55) 09/24/20 06:04 Alkaline Phosphatase 85 U/L (40-110) 09/24/20 06:04 CK-MB (CK-2) 3.6 ng/mL (0-6.6) 09/24/20 06:04 Troponin I 0.058 ng/mL (< 0.028) H 09/24/20 09:01 B-Natriuretic Peptide 849.1 pg/mL (0-100) H 09/24/20 06:04 Serum Total Protein 6.2 g/dL (6.0-8.3) 09/24/20 06:04 Albumin 3.5 g/dL (3.5-5.0) 09/24/20 06:04 Hospitalist H&P A/P - Plan Plan: Acute COPD exacerbation 54-year-old female with possible history of severe COPD on 2.5 L nasal cannula at home, end-stage renal disease on dialysis who presents with COPD exacerbation. Patient in acute respiratory distress on my exam, with significant work of breathing and accessory muscle use. Patient on 4 L with O2 sat of 88%. Respiratory therapy called to initiate patient on BiPAP. Patient received Solu-Medrol, DuoNeb, Levaquin in emergency room. Will admit patient to IMCU for closer monitoring. Plan BiPAP Continuous pulse ox monitoring DuoNebs, albuterol nebulizers Continue prednisone 40 mg daily Continue Levaquin 500 mg IV daily Acute respiratory failure with hypercapnia Patient in acute respiratory failure secondary to acute COPD exacerbation with hypercapnia requiring BiPAP. We will continue to monitor patient closely in the IMCU. And treat her COPD exacerbation as above. Patient does not meet sirs criteria, however will check blood cultures. Plan BiPAP, IMCU monitoring Blood cultures pending Plan as above Hyperkalemia Patient with end-stage renal disease on dialysis. Patient missed her dialysis session this morning secondary to her respiratory distress. Initial potassium 5.9. EKG with no T wave changes. Will administer calcium gluconate, start patient on dialysis. Patient also receiving albuterol nebulizers as a temporizing measure for her hyperkalemia. Dr. Alvarado, patient's reservation sales agent contacted to start dialysis. Plan Trend potassium Calcium gluconate Albuterol nebulizers Dialysis Nephrology following, recommendations appreciated Elevated troponin Patient's troponin mildly elevated to 0.047. Patient denies any chest pain. Likely secondary to chronic kidney disease. EKG with no ST elevation or depression. We will continue to monitor patient for symptoms. End-stage renal disease End-stage renal disease on Thursday dialysis. Patient follows Dr. Alvarado. Patient hyperkalemic, and chest x-ray with vascular congestion. Dr. Alvarado contacted for dialysis, as patient likely needs fluid offloaded to improve her respiratory status. Plan Dialysis Nephrology following, recommendations appreciated Hypertension History of hypertension on home amlodipine, hydralazine, losartan. We will continue these as inpatient, and monitor patient's blood pressure. Anemia of chronic disease Anemia of chronic disease secondary to end-stage renal disease. H/H 9.2/29.4. We will continue to monitor. DVT prophylaxis with SQ heparin Full code Case discussed with attending physician, Dr. Cintron.
[2020-09-24 12:14] VITALS: BMI 18.9
[2020-09-24] MEDS ORDERED: predniSONE 20 MG TAB ONE (12:19)
[2020-09-24] MEDS ORDERED: Levofloxacin 500 mg/D5W 100 ml Premix Bag ONE (12:19)
[2020-09-24] MEDS ORDERED: Labetalol HCl 100 MG/20 ML VIAL ONE (12:36)
[2020-09-24] MEDS: predniSONE 20 MG TAB PO SCH (12:54)
[2020-09-24] MEDS: Labetalol HCl 100 MG/20 ML VIAL SLOW IVP PRN ×2 (13:04→21:30)
[2020-09-24 13:16] LABS: Troponin I 0.036 ng/mL (< 0.028)
--- NOTE | 2020-09-24 16:26 | PRG ---
DATE OF SERVICE: 09/24/2020 SUBJECTIVE: Ms. Branch is a 54-year-old female with ESRD, COPD from emphysema, and admitted for shortness of breath. She was found to have an exacerbation of her COPD. Addition chest x-ray suggested an increased lung markings. She is currently undergoing emergent hemodialysis for fluid removal. We are following up this patient for management of her ESRD. She is currently undergoing hemodialysis. We are attempting 3 L fluid removal with this patient. REVIEW OF SYSTEMS: No chest pain. Positive shortness of breath. No nausea. No vomiting. No fever or chills. No productive cough. No diarrhea. No constipation. No abdominal pain. Appetite and energy level are fair. MEDICATIONS: Medications of September 24, 2020, was reviewed. LABORATORY DATA: Laboratories of September 24, 2020; white count 8.8, hemoglobin 9.2, and hematocrit 29.4. Sodium 139, potassium 6.2, chloride 102, carbon dioxide 20, BUN 82, creatinine 10.2, and calcium 9.0. BNP is 849 and troponin I 0.036. OBJECTIVE: VITAL SIGNS: Blood pressure 209/72 with a heart rate of 90, respiratory rate 27, and O2 saturation 99%. GENERAL: The patient is awake, currently on BiPAP. HEENT: She has a pinkish, slightly pale conjunctivae. Anicteric sclerae. NECK: No neck mass. No carotid bruits. No JVD. CHEST: No deformities. LUNGS: Decreased breath sounds. HEART: Normal sinus rhythm. No murmur. No gallops. No rubs. ABDOMEN: Globular, soft, and nontender. No masses. EXTREMITIES: No edema. No deformities. ASSESSMENT AND PLAN: 1. Shortness of breath, multifactorial etiology - consider chronic obstructive pulmonary disease exacerbation and plus and minus congestive heart failure. Emergent hemodialysis for fluid removal. 2. End-stage renal disease, stable. We will continue current Thursday, Thursday, and Thursday hemodialysis. We will max out fluid removal today. 3. Anemia. We will start Epogen 7500 units subcu every week. Job ID: [id number]
[2020-09-24] MEDS ORDERED: Amlodipine 5 MG TAB PO SCH (16:45)
[2020-09-24] MEDS ORDERED: Amlodipine 5 MG TAB ONE (16:54)
[2020-09-24] MEDS ORDERED: EPOETIN ALFA-EPBX (ESRD) 4,000 UNIT/ML VIAL SC SCH (17:00)
[2020-09-24] MEDS: Heparin 5,000 UNITS/ML VIAL SC SCH ×2 (17:38→21:31)
[2020-09-24 17:58] LABS: Actual Bicarbonate (HCO3a) 26.8 mEq/L (22-28); Analyzer IN Cardio ER; Base Excess (BEa) 3.8 mEq/L (-2.0 to +3.0); CO2 Tension 34.5 mmHg (35.0-45.0); Calcium, Ionized (arterial) 1.14 mmol/L (1.12-1.30); Carboxyhemoglobin (COHb) 1.4 gm% (0.0-3.0); Hemoglobin (Hb) 10.4 g/dL (12.0-16.0); Potassium - ABG Lab 4.08 mmol/L (3.70-5.30); pH, Arterial 7.51 (7.35-7.45)
[2020-09-24 18:01] LABS: O2 Tension (PaO2), arterial 44.4 mmHg (80.0-100.0); Puncture Site LRA
[2020-09-24] MEDS ORDERED: Acetaminophen 325 MG TAB ONE ×2 (18:01→18:02)
[2020-09-24] MEDS: Acetaminophen 325 MG TAB PO PRN (18:17)
[2020-09-24] MEDS ORDERED: hydrALAZINE 25 MG TAB PO SCH (23:15)
[2020-09-24] MEDS ORDERED: Losartan 25 MG TAB PO SCH (23:15)
[2020-09-25] MEDS: ALPRAZolam 0.25 MG TAB PO PRN ×2 (00:31→20:37)
[2020-09-25 03:58] LABS: #Lymphocytes 0.7 thou/uL (1.20-3.40); #Monocytes 0.5 thou/uL (0.11-0.59); #Neutrophils 6.1 thou/uL (1.40-6.50); %Basophils 0.3 % (0.0-1.0); %Eosinophils 0.3 % (0.0-10.0); %Monocytes 6.3 % (0.0-10.0); %Neutrophils 83.1 % (42.0-75.0); Hemoglobin 9.7 g/dL (12.0-16.0); Mean Corpuscular HGB CONC 31.4 g/dL (32.0-36.0); Mean Corpuscular Hemoglobin 29.4 pg (27.0-31.0); Mean Corpuscular Volume 93.6 fL (78.0-98.0); Mean Platelet Volume 7.6 fL (7.4-10.4); Platelet Count 165 thou/uL (130-400); RBC Distribution Width 17.9 % (11.5-14.5); Red Blood Cell (RBC) Count 3.28 mill/uL (4.20-5.40); White Blood Cell (WBC) Count 7.3 thou/uL (4.8-10.8)
[2020-09-25 04:33] LABS: Anion Gap 21 mmol/L (10-20); BUN (Urea Nitrogen) 47 mg/dL (9.8-20.1); Calc. Creatinine Clearance 8 mL/min (70-130); Calcium 9.3 mg/dL (7.8-10.44); Carbon Dioxide 25 mmol/L (22-29); Chloride 100 mmol/L (98-107); Estimated GFR-MDRD 8; Glucose 74 mg/dL (70-105); Potassium 5.7 mmol/L (3.5-5.1); Sodium 140 mmol/L (136-145)
[2020-09-25] MEDS: Labetalol HCl 100 MG/20 ML VIAL SLOW IVP PRN ×3 (05:17→20:38)
[2020-09-25] MEDS: Losartan 25 MG TAB PO SCH ×2 (07:29→20:38)
[2020-09-25] MEDS: hydrALAZINE 25 MG TAB PO SCH ×3 (07:29→20:37)
[2020-09-25] MEDS: Amlodipine 10 MG TAB PO SCH ×2 (07:29→20:37)
[2020-09-25] MEDS: predniSONE 20 MG TAB PO SCH (07:29)
[2020-09-25] MEDS: Heparin 5,000 UNITS/ML VIAL SC SCH ×3 (07:33→20:37)
[2020-09-25] MEDS ORDERED: ALPRAZolam 0.25 MG TAB PO SCH (09:00)
[2020-09-25] MEDS ORDERED: traMADol HCl 50 MG TAB PO SCH (09:00)
--- NOTE | 2020-09-25 09:46 | PRG ---
DATE OF SERVICE: 09/25/2020 SUBJECTIVE: Ms. Branch is a 54-year-old female with ESRD, was admitted for shortness of breath. She was found to have COPD exacerbation and mild CHF. She underwent emergent hemodialysis with several liters of fluid removed. Her breathing is much better this morning. She is also getting regular DuoNeb treatment. She voices no new complaints. No chest pain or shortness of breath. OBJECTIVE: VITAL SIGNS: Blood pressure 197/85, heart rate 87, respiratory rate is 17, and O2 saturation is 96% on 3 L. GENERAL: Awake, alert, and comfortable, not in overt distress. SKIN: Adequate turgor. HEENT: She has pinkish, slightly pale conjunctivae. Anicteric sclerae. No neck mass. No carotid bruits. No JVD. CHEST: No deformities. LUNGS: Decreased breath sounds. HEART: Normal sinus rhythm. No murmur. No gallops. No rubs. ABDOMEN: Globular. Soft and nontender. No masses. EXTREMITIES: No edema. No deformities. MEDICATIONS: Medications of September 25, 2020, reviewed. LABORATORY DATA: Laboratories of 09/25/2020; white count 7.3 and hemoglobin 9.7. Sodium 140, potassium 5.7, chloride 100, carbon dioxide 25, BUN 47, creatinine 5.73, calcium 9.3. Troponin I 0.036. ASSESSMENT AND PLAN: 1. Mild hyperkalemia. We will simply observe back for dialysis tomorrow. 2. Shortness of breath, multifactorial etiology-chronic obstructive pulmonary disease exacerbation/congestive heart failure. Breathing is better. 3. End-stage renal disease. We will continue current Thursday, Thursday, and Thursday hemodialysis regimen. Again, fluid removal as tolerated by the patient. 4. Anemia. The patient's Epogen has been initiated. 5. Agree with current management. Job ID: [id number]
[2020-09-25] MEDS: traMADol HCl 50 MG TAB PO PRN (13:50)
--- NOTE | 2020-09-25 14:01 | PDOC.HOSPP ---
- Subjective Encounter Date: 09/25/20 Encounter Time: 10:20 Subjective: She is on 4 L oxygen now. Alert oriented x3 she however has respiratory distress even at rest. She is to be 2.5 L oxygen at baseline r escalated to 4 L for the last 1 week. She is hemodynamically stable to come to the monitored bed. - Objective Vital Signs & Weight: Vital Signs (12 hours) Temp Pulse Resp BP BP Pulse Ox 09/25/20 13:51 89 168/85 H 09/25/20 12:34 98.7 F 94 18 187/79 H 94 L 09/25/20 10:33 85 22 H 96 09/25/20 08:07 96 09/25/20 08:00 98 09/25/20 07:29 87 197/85 H 09/25/20 07:14 99.0 F 09/25/20 05:35 88 24 H 94 L 09/25/20 05:17 82 190/67 H 09/25/20 04:01 98.2 F 09/25/20 04:00 82 20 174/62 H Weight Admit Weight 106 lb 14.787 oz Weight 106 lb 14.787 oz Most Recent Monitor Data Heart Rate from ECG 90 NIBP 186/70 NIBP BP-Mean 108 Respiration from ECG 22 SpO2 93 I&O: 09/24/20 09/25/20 09/26/20 06:59 06:59 06:59 Intake Total 440 Output Total 450 Balance -10 Result Diagrams: 09/25/20 03:15 09/25/20 03:15 Hospitalist ROS - Medication Medications: Active Medications Generic Name Dose Route Start Last Admin Trade Name Freq PRN Reason Stop Dose Admin Acetaminophen 650 mg 09/24/20 09:42 09/24/20 18:17 Acetaminophen 325 Mg Tab PO 650 mg Q4H PRN Administration Headache/Fever/Mild Pain (1-3) Albuterol/Ipratropium 3 ml 09/24/20 10:30 09/25/20 10:33 Ipratropium/Albuterol Sulfate 3 Ml Neb NEB 3 ml [id number] PAT Administration Alprazolam 0.25 mg 09/25/20 00:17 09/25/20 00:31 Alprazolam 0.25 Mg Tab PO 0.25 mg TIDPRN PRN Administration Anxiety Amlodipine Besylate 10 mg 09/25/20 09:00 09/25/20 07:29 Amlodipine 10 Mg Tab PO 10 mg BID PAT Administration Epoetin Alden-epbx 7,500 unit 09/24/20 17:00 09/24/20 17:47 Epoetin Alden-Epbx (Esrd) 4,000 Unit/Ml Vial SC 7,500 unit Q7D PAT Administration Heparin Sodium (Porcine) 5,000 units 09/24/20 15:00 09/25/20 13:53 Heparin 5,000 Units/Ml Vial SC 5,000 units TID PAT Administration Hydralazine HCl 100 mg 09/25/20 09:00 09/25/20 13:51 Hydralazine 25 Mg Tab PO 100 mg TID PAT Administration Labetalol HCl 10 mg 09/24/20 12:28 09/25/20 05:17 Labetalol Hcl 100 Mg/20 Ml Vial SLOW IVP 10 mg Q4H PRN Administration SBP Greater Than 180 Losartan Potassium 50 mg 09/25/20 09:00 09/25/20 07:29 Losartan 25 Mg Tab PO 50 mg DAILY PAT Administration Prednisone 40 mg 09/25/20 09:00 09/25/20 07:29 Prednisone 20 Mg Tab PO 40 mg DAILY PAT Administration Sodium Chloride 10 ml 09/24/20 09:42 09/25/20 05:18 Flush - Normal Saline 10 Ml Syringe IVF 10 ml PRN PRN Administration Saline Flush Tramadol HCl 50 mg 09/25/20 00:17 09/25/20 13:50 Tramadol Hcl 50 Mg Tab PO 50 mg BIDPRN PRN Administration Moderate Pain (4-6) - Exam General Appearance: NAD, awake alert Eye: PERRL ENT: normocephalic atraumatic Neck: supple Heart: RRR Respiratory: CTAB, normal chest expansion Gastrointestinal: soft, normal bowel sounds Neurological: cranial nerve grossly intact, no focal deficits Psychiatric: A&O x 3 Hosp A/P - Plan Acute COPD exacerbation 54-year-old female with possible history of severe COPD on 2.5 L nasal cannula at home, end-stage renal disease on dialysis who presents with COPD exacerbation. Patient in acute respiratory distress on my exam, with significant work of breathing and accessory muscle use. Patient on 4 L with O2 sat of 88%. Respiratory therapy called to initiate patient on BiPAP. Patient received Solu-Medrol, DuoNeb, Levaquin in emergency room. Will admit patient to IMCU for closer monitoring. -Off BiPAP -On Levaquin and prednisone Acute respiratory failure with hypercapnia Patient in acute respiratory failure secondary to acute COPD exacerbation with hypercapnia requiring BiPAP. We will continue to monitor patient closely in the IMCU. And treat her COPD exacerbation as above. Patient does not meet sirs criteria, however will check blood cultures. - Covid negative Hyperkalemia -Due to end-stage renal disease -If there is no change in the EKG including T wave abnormalities or chest pain ,then we do not treat the hyperkalemia on a dialysis patient -Continue with the scheduled dialysis Elevated troponin Patient's troponin mildly elevated to 0.047. Patient denies any chest pain. Likely secondary to chronic kidney disease. EKG with no ST elevation or depression. We will continue to monitor patient for symptoms. End-stage renal disease End-stage renal disease on Thursday dialysis. -Dr. Alvarado will be following with us Hypertension History of hypertension on home amlodipine, hydralazine, losartan. We will continue these as inpatient, and monitor patient's blood pressure. Anemia of chronic disease Anemia of chronic disease secondary to end-stage renal disease. H/H 9.2/29.4. We will continue to monitor. DVT prophylaxis with SQ heparin Transfer her to a monitored bed.
[2020-09-26] MEDS: Labetalol HCl 100 MG/20 ML VIAL SLOW IVP PRN ×2 (03:39→11:19)
[2020-09-26 04:14] LABS: #Basophils 0.1 thou/uL (0.0-0.2); #Lymphocytes 1.5 thou/uL (1.20-3.40); #Monocytes 0.5 thou/uL (0.11-0.59); #Neutrophils 6.2 thou/uL (1.40-6.50); %Basophils 0.6 % (0.0-1.0); %Eosinophils 0.5 % (0.0-10.0); %Lymphocytes 17.8 % (21.0-51.0); %Monocytes 6.2 % (0.0-10.0); %Neutrophils 74.8 % (42.0-75.0); Hemoglobin 9.8 g/dL (12.0-16.0); Mean Corpuscular HGB CONC 32.1 g/dL (32.0-36.0); Mean Corpuscular Hemoglobin 30.3 pg (27.0-31.0); Mean Corpuscular Volume 94.6 fL (78.0-98.0); Mean Platelet Volume 7.4 fL (7.4-10.4); Platelet Count 183 thou/uL (130-400); RBC Distribution Width 17.8 % (11.5-14.5); Red Blood Cell (RBC) Count 3.24 mill/uL (4.20-5.40); White Blood Cell (WBC) Count 8.2 thou/uL (4.8-10.8)
[2020-09-26 04:34] LABS: Anion Gap 20 mmol/L (10-20); BUN (Urea Nitrogen) 77 mg/dL (9.8-20.1); Calc. Creatinine Clearance 6 mL/min (70-130); Carbon Dioxide 22 mmol/L (22-29); Chloride 101 mmol/L (98-107); Estimated GFR-MDRD 5; Glucose 84 mg/dL (70-105); Potassium 5.3 mmol/L (3.5-5.1); Sodium 138 mmol/L (136-145)
--- NOTE | 2020-09-26 09:16 | PRG ---
DATE OF SERVICE: 09/26/2020 SUBJECTIVE: Ms. Branch is a 54-year-old female with ESRD-on maintenance hemodialysis and admitted for shortness of breath secondary to multifactorial etiology-COPD exacerbation and CHF. The patient is being followed up by the Renal Service for management of her ESRD. She is currently undergoing hemodialysis. I am attempting 3.5 L fluid removal as tolerated. No acute events. Shortness of breath is actually improved. OBJECTIVE: VITAL SIGNS: Blood pressure 194/80, heart rate 76, respiratory rate 16, temperature 98.4, and O2 saturation 92%. GENERAL: The patient is awake, alert, comfortable, not in overt distress. SKIN: Adequate turgor. HEENT: She has pinkish conjunctivae. Anicteric sclerae. No neck mass. No carotid bruits. No JVD. CHEST: No deformities. LUNGS: Clear breath sounds. HEART: Normal sinus rhythm. No murmurs, no gallops, no rubs. ABDOMEN: Globular, soft, nontender, no masses. EXTREMITIES: No edema. No deformities. MEDICATIONS: Of September 26, 2020, reviewed. LABORATORY DATA: Of September 26, 2020; white count 8.2, hemoglobin 9.8. Sodium 138, potassium 5.3, chloride 101, carbon dioxide 22, BUN 77, creatinine 7.88, glucose 84, calcium 9. ASSESSMENT AND PLAN: 1. End-stage renal disease - Stable, tolerating current hemodialysis regimen. Attempting fluid removal 3.5 L as tolerated. No changes to be made with the current dialysis regimen. 2. Anemia. Continue current Epogen regimen of 7500 units subcu q.7 days. 3. Hypertension. Consider increasing losartan to 100 mg if no improvement with the blood pressure. Please note, yesterday this was increased to a total of 75 mg tablet once a day. She will continue with the current amlodipine regimen. 4. Congestive heart failure/chronic obstructive pulmonary disease exacerbation, clinically much improved. Continue supportive care. Job ID: [id number]
[2020-09-26] MEDS: Amlodipine 10 MG TAB PO SCH ×2 (09:19→21:21)
[2020-09-26] MEDS: hydrALAZINE 25 MG TAB PO SCH ×3 (09:20→21:21)
[2020-09-26] MEDS: Heparin 5,000 UNITS/ML VIAL SC SCH ×3 (09:20→21:21)
[2020-09-26] MEDS: Losartan 25 MG TAB PO SCH ×2 (09:20→21:22)
[2020-09-26] MEDS: Acetaminophen 325 MG TAB PO PRN (09:23)
[2020-09-26] MEDS: predniSONE 20 MG TAB PO SCH (11:19)
--- NOTE | 2020-09-26 11:28 | PDOC.HOSPP ---
- Subjective Encounter Date: 09/26/20 Encounter Time: 09:50 Subjective: Patient seen in the dialysis area. Her blood pressure this morning is quite high in the systolic over 190. Her oxygen status 4 L with 92% sat. Patient feels better she has no acute complaints this morning. - Objective Vital Signs & Weight: Vital Signs (12 hours) Temp Pulse Resp BP BP Pulse Ox 09/26/20 09:19 74 185/76 H 09/26/20 07:15 98.4 F 76 16 194/80 H 92 L 09/26/20 07:03 77 18 98 09/26/20 03:39 191/82 H 09/26/20 03:28 98.7 F 84 15 191/82 H 09/26/20 00:00 98.3 F 78 17 183/85 H 97 09/25/20 23:55 92 L Weight Admit Weight 106 lb 14.787 oz Weight 106 lb 14.787 oz Most Recent Monitor Data Heart Rate from ECG 90 NIBP 186/70 NIBP BP-Mean 108 Respiration from ECG 22 SpO2 93 I&O: 09/25/20 09/26/20 09/27/20 06:59 06:59 06:59 Intake Total 440 680 Output Total 450 Balance -10 680 Result Diagrams: 09/26/20 03:48 09/26/20 03:48 Hospitalist ROS - Medication Medications: Active Medications Generic Name Dose Route Start Last Admin Trade Name Freq PRN Reason Stop Dose Admin Acetaminophen 650 mg 09/24/20 09:42 09/26/20 09:23 Acetaminophen 325 Mg Tab PO 650 mg Q4H PRN Administration Headache/Fever/Mild Pain (1-3) Albuterol/Ipratropium 3 ml 09/24/20 10:30 09/26/20 10:27 Ipratropium/Albuterol Sulfate 3 Ml Neb NEB Not Given [id number] PAT Alprazolam 0.25 mg 09/25/20 00:17 09/25/20 20:37 Alprazolam 0.25 Mg Tab PO 0.25 mg TIDPRN PRN Administration Anxiety Amlodipine Besylate 10 mg 09/25/20 09:00 09/26/20 09:19 Amlodipine 10 Mg Tab PO 10 mg BID PAT Administration Epoetin Alden-epbx 7,500 unit 09/24/20 17:00 09/24/20 17:47 Epoetin Alden-Epbx (Esrd) 4,000 Unit/Ml Vial SC 7,500 unit Q7D PAT Administration Heparin Sodium (Porcine) 5,000 units 09/24/20 15:00 09/26/20 09:20 Heparin 5,000 Units/Ml Vial SC Not Given TID PAT Hydralazine HCl 100 mg 09/25/20 09:00 09/26/20 09:20 Hydralazine 25 Mg Tab PO 100 mg TID PAT Administration Labetalol HCl 10 mg 09/24/20 12:28 09/26/20 11:19 Labetalol Hcl 100 Mg/20 Ml Vial SLOW IVP 10 mg Q4H PRN Administration SBP Greater Than 180 Losartan Potassium 25 mg 09/25/20 21:00 09/25/20 20:38 Losartan 25 Mg Tab PO 25 mg HS PAT Administration Losartan Potassium 50 mg 09/25/20 09:00 09/26/20 09:20 Losartan 25 Mg Tab PO 50 mg DAILY PAT Administration Prednisone 40 mg 09/25/20 09:00 09/26/20 11:19 Prednisone 20 Mg Tab PO 40 mg DAILY PAT Administration Sodium Chloride 10 ml 09/24/20 09:42 09/25/20 05:18 Flush - Normal Saline 10 Ml Syringe IVF 10 ml PRN PRN Administration Saline Flush Tramadol HCl 50 mg 09/25/20 00:17 09/25/20 13:50 Tramadol Hcl 50 Mg Tab PO 50 mg BIDPRN PRN Administration Moderate Pain (4-6) - Exam General Appearance: NAD, awake alert Eye: PERRL ENT: normocephalic atraumatic Neck: supple Heart: RRR Respiratory: CTAB, normal chest expansion Gastrointestinal: soft, normal bowel sounds Neurological: no focal deficits Psychiatric: A&O x 3 Hosp A/P - Plan Acute COPD exacerbation 54-year-old female with possible history of severe COPD on 2.5 L nasal cannula at home, end-stage renal disease on dialysis who presents with COPD exacerbation. Patient in acute respiratory distress on my exam, with significant work of breathing and accessory muscle use. Patient on 4 L with O2 sat of 88%. Respiratory therapy called to initiate patient on BiPAP. Patient received Solu-Medrol, DuoNeb, Levaquin in emergency room. Will admit patient to [facility] for closer monitoring. -Off BiPAP -On Levaquin and prednisone Acute respiratory failure with hypercapnia Patient in acute respiratory failure secondary to acute COPD exacerbation with h ypercapnia requiring BiPAP. We will continue to monitor patient closely in the IMCU. And treat her COPD exacerbation as above. Patient does not meet sirs criteria, however will check blood cultures. - Covid negative Hyperkalemia -Due to end-stage renal disease -If there is no change in the EKG including T wave abnormalities or chest pain ,then we do not treat the hyperkalemia on a dialysis patient -Continue with the scheduled dialysis Elevated troponin Patient's troponin mildly elevated to 0.047. Patient denies any chest pain. Likely secondary to chronic kidney disease. EKG with no ST elevation or depression. We will continue to monitor patient for symptoms. End-stage renal disease End-stage renal disease on Thursday dialysis. -Dr. Alvarado will be following with us Hypertension History of hypertension on home amlodipine, hydralazine, losartan. We will continue these as inpatient, and monitor patient's blood pressure. Anemia of chronic disease Anemia of chronic disease secondary to end-stage renal disease. H/H 9.2/29.4. We will continue to monitor. DVT prophylaxis with SQ heparin --I do not think that we can wean her off from 4 L oxygen at this point. This may be her new baseline with severe underlying end-stage COPD. This is her second admission in the last 3 months. -Though she is a very young female at 54-year-old and with comorbidities like kidney disease on hemodialysis, she may not be strong candidate for to consider for lung transplantation. -I believe she is still actively smoking - we have to verify that.
[2020-09-26] MEDS: traMADol HCl 50 MG TAB PO PRN (21:22)
[2020-09-26] MEDS: ALPRAZolam 0.25 MG TAB PO PRN (21:23)
[2020-09-27 04:40] LABS: #Lymphocytes 0.9 thou/uL (1.20-3.40); #Monocytes 0.5 thou/uL (0.11-0.59); #Neutrophils 5.3 thou/uL (1.40-6.50); %Basophils 0.3 % (0.0-1.0); %Eosinophils 0.4 % (0.0-10.0); %Lymphocytes 13.3 % (21.0-51.0); %Monocytes 8.1 % (0.0-10.0); %Neutrophils 77.9 % (42.0-75.0); Hemoglobin 11.1 g/dL (12.0-16.0); Mean Corpuscular HGB CONC 31.1 g/dL (32.0-36.0); Mean Corpuscular Hemoglobin 29.5 pg (27.0-31.0); Mean Corpuscular Volume 94.8 fL (78.0-98.0); Platelet Count 241 thou/uL (130-400); Red Blood Cell (RBC) Count 3.76 mill/uL (4.20-5.40); White Blood Cell (WBC) Count 6.8 thou/uL (4.8-10.8)
[2020-09-27 05:02] LABS: Anion Gap 18 mmol/L (10-20); BUN (Urea Nitrogen) 47 mg/dL (9.8-20.1); Calc. Creatinine Clearance 9 mL/min (70-130); Carbon Dioxide 29 mmol/L (22-29); Chloride 100 mmol/L (98-107); Estimated GFR-MDRD 8; Glucose 88 mg/dL (70-105); Potassium 5.2 mmol/L (3.5-5.1); Sodium 142 mmol/L (136-145)
[2020-09-27] MEDS: Metoprolol Tartrate 50 MG TAB PO SCH ×2 (08:53→20:21)
[2020-09-27] MEDS: hydrALAZINE 25 MG TAB PO SCH ×3 (08:53→20:21)
--- NOTE | 2020-09-27 08:54 | PRG ---
DATE OF SERVICE: 09/27/20 SUBJECTIVE: Ms. Branch is a 54-year-old female with ESRD, on maintenance hemodialysis, who was admitted for shortness of breath secondary to COPD exacerbation and mild CHF. She has been undergoing treatment for the COPD as well as removal of fluid dialysis. Breathing is better. No new complaints today. Appetite and energy level are fair. OBJECTIVE: VITAL SIGNS: Blood pressure 184/77, heart rate 85, respiratory rate 18, temperature 99, O2 saturation 92%. GENERAL: Patient is awake, alert, comfortable, not in overt distress. SKIN: Adequate turgor. HEENT: Slightly pale conjunctivae. Anicteric sclerae. NECK: No neck mass. No carotid bruits. No JVD. CHEST: No deformities. LUNGS: Decreased breath sounds. HEART: Normal sinus rhythm. No murmurs, no gallops, no rubs. ABDOMEN: Globular, soft, nontender, no masses. EXTREMITIES: No edema. MEDICATIONS: Of September 27, 2020, was reviewed. LABORATORY DATA: Of September 27, 2020; white count 6.8, hemoglobin 11.1. Sodium 142, potassium 5.2, chloride 100, carbon dioxide 29, BUN 47, creatinine 5.44, glucose 88, calcium 9. ASSESSMENT AND PLAN: 1. Shortness of breath, multifactorial etiology; chronic obstructive pulmonary disease exacerbation/congestive heart failure, clinically much improved. Max out fluid removal with dialysis. Of note, she declined more than 2 L to be removed yesterday with dialysis. 2. End-stage renal disease, stable. We will continue current Thursday, Thursday, and Thursday hemodialysis regimen. 3. Anemia, continue weekly Epogen. 4. Hyperphosphatemia. Resume Renvela 800 mg three tabs t.i.d. with meals. Job ID: [id number] [facility]
[2020-09-27] MEDS: predniSONE 20 MG TAB PO SCH (08:55)
[2020-09-27] MEDS: Amlodipine 10 MG TAB PO SCH ×2 (08:56→20:21)
[2020-09-27] MEDS: Losartan 25 MG TAB PO SCH ×2 (08:57→20:21)
[2020-09-27] MEDS: Heparin 5,000 UNITS/ML VIAL SC SCH ×3 (08:57→20:21)
[2020-09-27] MEDS ORDERED: cloNIDine 0.2 MG TAB PO SCH (09:00)
--- NOTE | 2020-09-27 12:46 | PDOC.HOSPP ---
- Subjective Encounter Date: 09/27/20 Encounter Time: 09:20 Subjective: Patient is doing well. She seems to be at baseline. Her oxygen requirement decreased and currently she is on about 2 to 3 L oxygen. No short of breath at rest. - Objective Vital Signs & Weight: Vital Signs (12 hours) Temp Pulse Resp BP BP Pulse Ox 09/27/20 10:49 89 18 90 L 09/27/20 08:56 88 145/66 H 09/27/20 07:44 99.0 F 85 18 184/77 H 92 L 09/27/20 07:34 81 18 90 L 09/27/20 04:29 95 09/27/20 04:00 98.4 F 80 20 173/77 H 100 Weight Admit Weight 106 lb 14.787 oz Weight 106 lb 14.787 oz Most Recent Monitor Data Heart Rate from ECG 90 NIBP 186/70 NIBP BP-Mean 108 Respiration from ECG 22 SpO2 93 I&O: 09/26/20 09/27/20 09/28/20 06:59 06:59 06:59 Intake Total 680 990 Balance 680 990 Result Diagrams: 09/27/20 04:11 09/27/20 04:11 Hospitalist ROS - Medication Medications: Active Medications Generic Name Dose Route Start Last Admin Trade Name Freq PRN Reason Stop Dose Admin Acetaminophen 650 mg 09/24/20 09:42 09/26/20 09:23 Acetaminophen 325 Mg Tab PO 650 mg Q4H PRN Administration Headache/Fever/Mild Pain (1-3) Albuterol/Ipratropium 3 ml 09/24/20 10:30 09/27/20 10:49 Ipratropium/Albuterol Sulfate 3 Ml Neb NEB 3 ml [id number] PAT Administration Alprazolam 0.25 mg 09/25/20 00:17 09/26/20 21:23 Alprazolam 0.25 Mg Tab PO 0.25 mg TIDPRN PRN Administration Anxiety Amlodipine Besylate 10 mg 09/25/20 09:00 09/27/20 08:56 Amlodipine 10 Mg Tab PO 10 mg BID PAT Administration Epoetin Alden-epbx 7,500 unit 09/24/20 17:00 09/24/20 17:47 Epoetin Alden-Epbx (Esrd) 4,000 Unit/Ml Vial SC 7,500 unit Q7D PAT Administration Heparin Sodium (Porcine) 5,000 units 09/24/20 15:00 09/27/20 08:57 Heparin 5,000 Units/Ml Vial SC 5,000 units TID PAT Administration Hydralazine HCl 100 mg 09/25/20 09:00 09/27/20 08:53 Hydralazine 25 Mg Tab PO 100 mg TID PAT Administration Levofloxacin 250 mg/ Device 50 mls @ 100 mls/hr 09/27/20 08:00 09/27/20 08:53 IVPB 50 mls Q2D@0800 PAT Administration Labetalol HCl 10 mg 09/24/20 12:28 09/26/20 11:19 Labetalol Hcl 100 Mg/20 Ml Vial SLOW IVP 10 mg Q4H PRN Administration SBP Greater Than 180 Losartan Potassium 25 mg 09/25/20 21:00 09/26/20 21:22 Losartan 25 Mg Tab PO 25 mg HS PAT Administration Losartan Potassium 50 mg 09/25/20 09:00 09/27/20 08:57 Losartan 25 Mg Tab PO 50 mg DAILY PAT Administration Metoprolol Tartrate 50 mg 09/27/20 09:00 09/27/20 08:53 Metoprolol Tartrate 50 Mg Tab PO 50 mg BID PAT Administration Prednisone 40 mg 09/25/20 09:00 09/27/20 08:55 Prednisone 20 Mg Tab PO 40 mg DAILY PAT Administration Sodium Chloride 10 ml 09/24/20 09:42 09/25/20 05:18 Flush - Normal Saline 10 Ml Syringe IVF 10 ml PRN PRN Administration Saline Flush Tramadol HCl 50 mg 09/25/20 00:17 09/26/20 21:22 Tramadol Hcl 50 Mg Tab PO 50 mg BIDPRN PRN Administration Moderate Pain (4-6) - Exam General Appearance: NAD, awake alert Eye: PERRL ENT: normocephalic atraumatic Neck: supple Heart: RRR Respiratory: CTAB, normal chest expansion, rhonchi, tachypneic, wheezes Gastrointestinal: soft, normal bowel sounds Neurological: no focal deficits Psychiatric: A&O x 3 Hosp A/P - Plan Acute COPD exacerbation 54-year-old female with possible history of severe COPD on 2.5 L nasal cannula at home, end-stage renal disease on dialysis who presents with COPD exacerbatio n. Patient in acute respiratory distress on my exam, with significant work of breathing and accessory muscle use. Patient on 4 L with O2 sat of 88%. Respiratory therapy called to initiate patient on BiPAP. Patient received Solu- Medrol, DuoNeb, Levaquin in emergency room. Will admit patient to IMCU for closer monitoring. -Off BiPAP -On Levaquin and prednisone Acute respiratory failure with hypercapnia Patient in acute respiratory failure secondary to acute COPD exacerbation with hypercapnia requiring BiPAP. We will continue to monitor patient closely in the IMCU. And treat her COPD exacerbation as above. Patient does not meet sirs criteria, however will check blood cultures. - Covid negative Hyperkalemia -Due to end-stage renal disease -If there is no change in the EKG including T wave abnormalities or chest pain ,then we do not treat the hyperkalemia on a dialysis patient -Continue with the scheduled dialysis Elevated troponin Patient's troponin mildly elevated to 0.047. Patient denies any chest pain. Likely secondary to chronic kidney disease. EKG with no ST elevation or depression. We will continue to monitor patient for symptoms. End-stage renal disease End-stage renal disease on Thursday dialysis. -Dr. Alvarado will be following with us Hypertension History of hypertension on home amlodipine, hydralazine, losartan. We will continue these as inpatient, and monitor patient's blood pressure. Anemia of chronic disease Anemia of chronic disease secondary to end-stage renal disease. H/H 9.2/29.4. We will continue to monitor. DVT prophylaxis with SQ heparin This is her second admission in the last 3 months. - quit smoking for some time and restarted back. Last smoking is roughly 3 months ago. Physical therapy evaluation and possible discharge to home in 1 to 2 days with home health as needed.
[2020-09-27] MEDS: Sevelamer Carbonate 800 MG TAB PO SCH ×2 (13:22→17:55)
[2020-09-27] MEDS: traMADol HCl 50 MG TAB PO PRN (17:58)
[2020-09-27] MEDS ORDERED: Docusate 100 MG CAP PO PRN (19:53)
[2020-09-27] MEDS ORDERED: Senokot 8.6 MG TAB PO PRN (20:27)
[2020-09-27] MEDS: ALPRAZolam 0.25 MG TAB PO PRN (22:01)
[2020-09-28] MEDS: Labetalol HCl 100 MG/20 ML VIAL SLOW IVP PRN (00:31)
[2020-09-28] MEDS: Acetaminophen 325 MG TAB PO PRN (07:09)
[2020-09-28] MEDS: Sevelamer Carbonate 800 MG TAB PO SCH ×3 (07:09→16:09)
--- NOTE | 2020-09-28 08:39 | PRG ---
DATE OF SERVICE: 09/28/2020 SUBJECTIVE: Ms. Branch is a 54-year-old female, who has ESRD and was admitted for shortness of breath secondary to COPD exacerbation. She is doing better with her shortness of breath. She continues to be undergoing dialysis. She is tolerating the current dialysis treatment. We will attempt between 2 and 3 L of fluid removal as tolerated by the patient. No other complaints. OBJECTIVE: VITAL SIGNS: Blood pressure 179/80, heart rate 76, respiratory rate 16, temperature 97.9, O2 saturation 94%. GENERAL: The patient is awake, alert, comfortable, not in distress. SKIN: Adequate turgor. HEENT: Pinkish conjunctivae. Anicteric sclerae. No neck mass. No carotid bruits. No JVD. CHEST: No deformities. LUNGS: Clear. Decreased breath sounds. HEART: Normal sinus rhythm. No murmurs. No gallops. No rubs. ABDOMEN: Globular, soft, and nontender. No masses. EXTREMITIES: No edema. No deformities. MEDICATIONS: September 28, 2020, were reviewed. LABORATORY DATA: September 28, 2020, none done. September 27, 2020, BUN is 47, creatinine 5.44, potassium 5.2. Hemoglobin 11.1. ASSESSMENT AND PLAN: 1. Chronic anemia - currently on weekly Epogen. Continue supportive care. 2. Shortness of breath - secondary to chronic obstructive pulmonary disease exacerbation, clinically improving. 3. End-stage renal disease, stable. We will continue current Thursday, Thursday, and Thursday hemodialysis. Attempt between 2 and 3 L of fluid removal as tolerated. Job ID: [id number]
--- NOTE | 2020-09-28 11:08 | PDOC.HOSPP ---
- Subjective Encounter Date: 09/28/20 Encounter Time: 10:30 Subjective: Patient seen in the hemodialysis area. She slept okay last night. Her oxygen came off the nurse she was not aware of it but still able to sleep feeling much happier that she can do without oxygen as needed. sHe is ambulating in the room. sHe is concerned that she may not be able to get a ride with her daughter today as daughter has to work. - Objective Vital Signs & Weight: Vital Signs (12 hours) Temp Pulse Resp BP BP Pulse Ox 09/28/20 08:16 63 17 09/28/20 07:00 97.9 F 76 16 179/80 H 94 L 09/28/20 05:03 95 09/28/20 04:35 97.8 F 75 18 177/77 H 96 09/28/20 01:07 162/70 H 09/28/20 00:31 78 196/84 H 09/28/20 00:28 97.8 F 78 16 196/84 H 97 Weight Admit Weight 106 lb 14.787 oz Weight 106 lb 14.787 oz Most Recent Monitor Data Heart Rate from ECG 90 NIBP 186/70 NIBP BP-Mean 108 Respiration from ECG 22 SpO2 93 I&O: 09/27/20 09/28/20 09/29/20 06:59 06:59 06:59 Intake Total 990 1510 Output Total 1 Balance 990 1509 Result Diagrams: 09/27/20 04:11 09/27/20 04:11 Hospitalist ROS - Medication Medications: Active Medications Generic Name Dose Route Start Last Admin Trade Name Freq PRN Reason Stop Dose Admin Acetaminophen 650 mg 09/24/20 09:42 09/28/20 07:09 Acetaminophen 325 Mg Tab PO 650 mg Q4H PRN Administration Headache/Fever/Mild Pain (1-3) Albuterol/Ipratropium 3 ml 09/24/20 10:30 09/28/20 10:20 Ipratropium/Albuterol Sulfate 3 Ml Neb NEB Not Given [id number] PAT Alprazolam 0.25 mg 09/25/20 00:17 09/27/20 22:01 Alprazolam 0.25 Mg Tab PO 0.25 mg TIDPRN PRN Administration Anxiety Amlodipine Besylate 10 mg 09/25/20 09:00 09/27/20 20:21 Amlodipine 10 Mg Tab PO 10 mg BID PAT Administration Docusate Sodium 100 mg 09/27/20 19:53 09/27/20 20:21 Docusate 100 Mg Cap PO 100 mg BIDPRN PRN Administration Constipation Epoetin Alden-epbx 7,500 unit 09/24/20 17:00 09/24/20 17:47 Epoetin Alden-Epbx (Esrd) 4,000 Unit/Ml Vial SC 7,500 unit Q7D PAT Administration Heparin Sodium (Porcine) 5,000 units 09/24/20 15:00 09/27/20 20:21 Heparin 5,000 Units/Ml Vial SC 5,000 units TID PAT Administration Hydralazine HCl 100 mg 09/25/20 09:00 09/27/20 20:21 Hydralazine 25 Mg Tab PO 100 mg TID PAT Administration Levofloxacin 250 mg/ Device 50 mls @ 100 mls/hr 09/27/20 08:00 09/27/20 08:53 IVPB 50 mls Q2D@0800 PAT Administration Labetalol HCl 10 mg 09/24/20 12:28 09/28/20 00:31 Labetalol Hcl 100 Mg/20 Ml Vial SLOW IVP 10 mg Q4H PRN Administration SBP Greater Than 180 Losartan Potassium 25 mg 09/25/20 21:00 09/27/20 20:21 Losartan 25 Mg Tab PO 25 mg HS PAT Administration Losartan Potassium 50 mg 09/25/20 09:00 09/27/20 08:57 Losartan 25 Mg Tab PO 50 mg DAILY PAT Administration Metoprolol Tartrate 50 mg 09/27/20 09:00 09/27/20 20:21 Metoprolol Tartrate 50 Mg Tab PO 50 mg BID PAT Administration Prednisone 40 mg 09/25/20 09:00 09/27/20 08:55 Prednisone 20 Mg Tab PO 40 mg DAILY PAT Administration Sevelamer Carbonate 2,400 mg 09/27/20 12:00 09/28/20 07:09 Sevelamer Carbonate 800 Mg Tab PO 2,400 mg TID-WM PAT Administration Sodium Chloride 10 ml 09/24/20 09:42 09/25/20 05:18 Flush - Normal Saline 10 Ml Syringe IVF 10 ml PRN PRN Administration Saline Flush Tramadol HCl 50 mg 09/25/20 00:17 09/27/20 17:58 Tramadol Hcl 50 Mg Tab PO 50 mg BIDPRN PRN Administration Moderate Pain (4-6) - Exam General Appearance: NAD, awake alert General - other findings: Getting hemodialysis Eye: PERRL ENT: normocephalic atraumatic Neck: supple Heart: RRR Respiratory: CTAB, normal chest expansion Gastrointestinal: soft, normal bowel sounds Neurological: no focal deficits Psychiatric: A&O x 3 Hosp A/P - Plan Acute COPD exacerbation 54-year-old female with possible history of severe COPD on 2.5 L nasal cannula at home, end-stage renal disease on dialysis who presents with COPD exacerbation. Patient in acute respiratory distress on my exam, with significant work of breathing and accessory muscle use. Patient on 4 L with O2 sat of 88%. Respiratory therapy called to initiate patient on BiPAP. Patient received Solu-Medrol, DuoNeb, Levaquin in emergency room. Will admit patient to IMCU for closer monitoring. -Off BiPAP -On Levaquin and prednisone Acute respiratory failure with hypercapnia Patient in acute respiratory failure secondary to acute COPD exacerbation with hypercapnia requiring BiPAP. We will continue to monitor patient closely in the IMCU. And treat her COPD exacerbation as above. Patient does not meet sirs criteria, however will check blood cultures. - Covid negative Hyperkalemia -Due to end-stage renal disease -If there is no change in the EKG including T wave abnormalities or chest pain ,then we do not treat the hyperkalemia on a dialysis patient -Continue with the scheduled dialysis Elevated troponin Patient's troponin mildly elevated to 0.047. Patient denies any chest pain. Likely secondary to chronic kidney disease. EKG with no ST elevation or depression. We will continue to monitor patient for symptoms. End-stage renal disease End-stage renal disease on Thursday dialysis. -Dr. Alvarado will be following with us Hypertension History of hypertension on home amlodipine, hydralazine, losartan. We will continue these as inpatient, and monitor patient's blood pressure. Anemia of chronic disease Anemia of chronic disease secondary to end-stage renal disease. H/H 9.2/29.4. We will continue to monitor. DVT prophylaxis with SQ heparin This is her second admission in the last 3 months. - quit smoking for some time and restarted back. Last smoking is roughly 3 months ago. Physical therapy evaluation and possible discharge to home in 1 to 2 days with home health as needed. sHe is concerned that she may not be able to get a ride with her daughter today as daughter has to work.
[2020-09-28] MEDS: Losartan 25 MG TAB PO SCH ×2 (12:33→21:43)
[2020-09-28] MEDS: hydrALAZINE 25 MG TAB PO SCH ×3 (12:33→21:42)
[2020-09-28] MEDS: Metoprolol Tartrate 50 MG TAB PO SCH ×2 (12:34→21:43)
[2020-09-28] MEDS: predniSONE 20 MG TAB PO SCH (12:34)
[2020-09-28] MEDS: Amlodipine 10 MG TAB PO SCH ×2 (12:34→21:42)
[2020-09-28] MEDS: Heparin 5,000 UNITS/ML VIAL SC SCH ×3 (12:35→21:42)
[2020-09-28] MEDS ORDERED: diphenhydrAMINE 25 MG CAP PO PRN (17:09)
[2020-09-28] MEDS ORDERED: Calcium Carbonate 500 MG ChewTAB PO PRN (20:31)
[2020-09-28] MEDS: ALPRAZolam 0.25 MG TAB PO PRN (21:43)
[2020-09-28] MEDS: traMADol HCl 50 MG TAB PO PRN (21:43)
[2020-09-29] MEDS: Labetalol HCl 100 MG/20 ML VIAL SLOW IVP PRN (00:06)
[2020-09-29] MEDS ORDERED: hydrALAZINE 25 MG TAB PO SCH (01:45)
[2020-09-29] MEDS: Amlodipine 10 MG TAB PO SCH (04:08)
[2020-09-29 05:03] VITALS: TEMP 98.5
[2020-09-29] MEDS ORDERED: Metoprolol Tartrate 5 MG/5 ML VIAL IVP SCH (06:15)
[2020-09-29] MEDS: Sevelamer Carbonate 800 MG TAB PO SCH (08:00)
[2020-09-29 08:05] VITALS: BP 177/74
[2020-09-29] MEDS: Heparin 5,000 UNITS/ML VIAL SC SCH (08:43)
[2020-09-29] MEDS: hydrALAZINE 25 MG TAB PO SCH (08:43)
[2020-09-29] MEDS: Losartan 25 MG TAB PO SCH (08:44)
[2020-09-29] MEDS: Metoprolol Tartrate 50 MG TAB PO SCH (08:45)
[2020-09-29] MEDS: predniSONE 20 MG TAB PO SCH (08:45)
[2020-09-29] MEDS ORDERED: Amlodipine 10 MG TAB PO SCH (09:15)
--- NOTE | 2020-09-29 09:43 | PRG ---
DATE OF SERVICE: 09/29/2020 SUBJECTIVE: Ms. Branch is a 54-year-old female with ESRD-on maintenance hemodialysis and initially admitted for COPD exacerbation. Breathing is much improved. She is tolerating her hemodialysis regimen. No new complaints today. OBJECTIVE: VITAL SIGNS: Blood pressure 177/74, heart rate 71, respiratory rate 20, O2 saturation 95%, temperature 98.5. GENERAL: The patient is awake, alert, comfortable, not in overt distress. SKIN: Adequate turgor. HEENT: Pinkish conjunctivae. Anicteric sclerae. No neck mass. No carotid bruits. No JVD. CHEST: No deformities. LUNGS: Clear breath sounds. No wheezing. No crackles. HEART: Normal sinus rhythm. No murmur. No gallops. No rubs. ABDOMEN: Globular, soft, nontender. No masses. EXTREMITIES: No edema. No deformities. MEDICATIONS: Medications of September 29, 2020, was reviewed. LABORATORY DATA: Laboratories of September 27, 2020; hemoglobin 11.6. Potassium 5.2, BUN 47, creatinine 5.44. ASSESSMENT AND PLAN: 1. Shortness of breath-multifactorial etiology. COPD with some mild CHF. Maxing out fluid removal with dialysis. 2. Anemia-continue weekly Epogen regimen with this patient. She is doing better with regard to anemia. 3. ESRD, stable. No indication for any emergent hemodialysis today. She did undergo hemodialysis yesterday and tolerated said treatment. However, due to clotting of the blood lines, treatment was shortened. 4. Agree with current management. Job ID: [id number]
--- NOTE | 2020-09-29 12:22 | PDOC.DS.DS ---
Provider - Provider Date of Admission: 09/24/20 08:01 Admitting Provider: Ajay Lambert MD Primary Care Physician: Chavo Johnson DO Course - Hospital Course Hospital Course: 54-year-old female with a history of COPD oxygen dependent chronic respiratory failure presented with a COPD exacerbation. Acute COPD exacerbation 54-year-old female with possible history of severe COPD on 2.5 L nasal cannula at home, end-stage renal disease on dialysis who presents with COPD exacerbation. Patient in acute respiratory distress on my exam, with significant work of breathing and accessory muscle use. Patient on 4 L with O2 sat of 88%. Respiratory therapy called to initiate patient on BiPAP. Patient received Solu-Medrol, DuoNeb, Levaquin in emergency room. Will admit patient to IMCU for closer monitoring. -Off BiPAP -On Levaquin and prednisone Acute respiratory failure with hypercapnia Covid negative Hyperkalemia -Due to end-stage renal disease -If there is no change in the EKG including T wave abnormalities or chest pain ,then we do not treat the hyperkalemia on a dialysis patient -Continue with the scheduled dialysis Elevated troponin Patient's troponin mildly elevated to 0.047. Patient denies any chest pain. Likely secondary to chronic kidney disease. EKG with no ST elevation or depression. We will continue to monitor patient for symptoms. End-stage renal disease End-stage renal disease on Thursday dialysis. -Dr. Alvarado will be following with us Hypertension History of hypertension on home amlodipine, hydralazine, losartan. She is also being dialyzed on Thursday. Anemia of chronic disease Anemia of chronic disease secondary to end-stage renal disease. H/H 9.2/29.4. Patient is clinically stable today and she will be discharged with the Levaquin to complete 4 more doses IV every other day along with prednisone. She will continue with her routine dialysis on Thursday. PCP follow-up in 1 week. Charge time over 30 minutes - Labs Lab Results: 09/27/20 04:11 09/27/20 04:11 Microbiology - Entire Visit 09/24/20 08:29 Venous blood - Right Hand Blood Culture - Final NO GROWTH IN 5 DAYS 09/24/20 08:05 Venous blood - Right Arm Blood Culture - Final NO GROWTH IN 5 DAYS - Physical Exam Vitals: Vital Signs (12 hours) Temp Pulse Resp BP BP Pulse Ox 09/29/20 08:03 98.5 F 71 20 177/74 H 95 09/29/20 06:48 65 13 09/29/20 06:20 177/73 H 09/29/20 04:08 72 186/78 H 09/29/20 04:00 98.5 F 72 14 98 09/29/20 01:52 74 186/78 H 09/29/20 00:51 75 18 94 L Weight Admit Weight 106 lb 14.787 oz Weight 106 lb 14.787 oz Most Recent Monitor Data Heart Rate from ECG 90 NIBP 186/70 NIBP BP-Mean 108 Respiration from ECG 22 SpO2 93 Physical Exam: The patient was seen and examined on the day of discharge. she is doing well this morning. Her blood pressure is not adequately controlled. Plan - Discharge Medications Prescriptions: Levofloxacin [Levaquin] 250 mg PO DAILY 8 Days #4 tab Metoprolol Tartrate [Lopressor] 50 mg PO BID 30 Days #60 tab predniSONE [Prednisone] 40 mg PO DAILY 5 Days #5 tablet Home Medications: Medication Instructions Recorded Confirmed Type Doxazosin [Cardura] 4 mg PO HS 12/14/19 09/24/20 History Sevelamer Carbonate [Renvela] 2,400 mg PO TID-WM 12/14/19 09/24/20 History hydrALAZINE HCl 100 mg PO TID 12/14/19 09/24/20 History Gabapentin 400 mg PO HS 01/16/20 09/24/20 History Fluticasone Propionate [Flonase 2 spray EA NARE BID 02/11/20 09/24/20 History Nasal Upper Tract] Omeprazole 40 mg PO DAILY 02/11/20 09/24/20 History traMADol HCl [Tramadol HCl] 50 mg PO BID PRN 02/11/20 09/24/20 History Albuterol Sulfate [Ventolin HFA] 2 puff INH Q6HR PRN 05/25/20 09/24/20 History Budesonide-Formoterol [Symbicort 1 puff INH BID 05/25/20 09/24/20 History 160-4.5] ALPRAZolam [Xanax] 0.25 mg PO TID PRN 06/12/20 09/24/20 History Amlodipine [Norvasc] 10 mg PO BID #60 tab 06/15/20 09/24/20 Rx Losartan [Cozaar] 25 mg PO HS 09/24/20 09/24/20 History Losartan [Cozaar] 50 mg PO DAILY 09/24/20 09/24/20 History Levofloxacin [Levaquin] 250 mg PO DAILY 8 Days #4 tab 09/29/20 Rx Metoprolol Tartrate [Lopressor] 50 mg PO BID 30 Days #60 tab 09/29/20 Rx predniSONE [Prednisone] 40 mg PO DAILY 5 Days #5 tablet 09/29/20 Rx Allergies: ceftriaxone Allergy (Verified 05/24/20 23:30) from esd report clonidine Allergy (Verified 05/24/20 23:30) Penicillins Allergy (Verified 05/24/20 23:30) - Discharge Instructions Activity:: Activity as Tolerated Nourishment:: Regular Diet - Follow up Plan Referrals: Chavo Johnson DO [Primary Care Provider] - 7 Days (Please call and schedule a follow up appointment.) Disposition: HOME Quality - Care Measures CORE MEASURES:: N/A
[2020-09-30] MEDS ORDERED: Amlodipine 10 MG TAB PO SCH (09:00)
--- NOTE | 2020-10-02 10:28 | PQF ---
CLINICAL DOCUMENTATION CLARIFICATION FORM: Dear : Juan Barnes Date / Time: 10/02/2020 Please exercise your independent, professional judgment in responding to the clarification form. Clinical indicators are provided on the bottom of this form for your review Please check appropriate box(es): HEART FAILURE: A. ACUITY [ ] Acute [ ] Acute on Chronic [ ] Chronic B. TYPE: [ ] Systolic / HFrEF [ ] Diastolic / HFpEF [ ] Combined Systolic / Diastolic [ ] Hypertensive Heart and Kidney disease [ ] Hypertensive Heart Disease [ ] Hypertensive Kidney Disease [ ] Other diagnosis (Please specify if any) [ x] Unable to determine In addition, please specify: Present on Admission (POA): [ ] Yes [ ] No [ ] Unable to determine Physician Signature: Date/Time: For continuity of documentation, please document condition throughout progress notes and discharge summary. Thank You. To be completed by CDI/Coding staff for physician review: Present Clinical Indicators - Signs / Symptoms / Labs Results and Location in Medical Record [ ] Ejection Fraction = % [x] Dyspnea, Hypoxia ED provider report on 09/24 [x] She was found to have COPD Exacerbation and mild CHF Progress notes on 09/25 [x] Elevated BNP 849.1 H Laboratory on 09/24 [ ] JVD [x] Orthopnea / SOB / dyspnea ED provider report on 09/24 [ ] Pleural effusion / pulmonary edema [ ] CXR results [ ] Arrhythmia--tachycardia Present Risk Factors Results and Location in Medical Record [ ] History of CAD/ischemic heart disease [x] CKD Hypertension H&P on 09/24 [ ] History of AK Present Treatments Results and Location in Medical Record [ ] Administration of OTILIA / ARB / BB [ ] Cardiac monitoring / telemetry/ECHO [x] Apresoline 10 mg IV Medication on 09/24 [ ] Oxygen [ ] AICD [ ] Cardiology Consult CDS/Skiagrapher Signature: AAS Phone #: Date/Time: 10/02/2020 This is a permanent part of the Medical Record MTDD
--- NOTE | 2020-10-13 13:09 | EKG ---
Test Reason : Blood Pressure : / mmHG Vent. Rate : 090 BPM Atrial Rate : 090 BPM P-R Int : 148 ms QRS Dur : 076 ms QT Int : 356 ms P-R-T Axes : 000 144 167 degrees QTc Int : 435 ms Normal sinus rhythm Left posterior fascicular block Cannot rule out Anterior infarct , age undetermined Abnormal ECG Confirmed by DM SOMERS ([id number]), department editor DAGMAR BRADFORD ([id number]) on 10/13/2020 1:09:39 PM Referred By: Confirmed By:DM SOMERS
== END 2020-09-29 11:13 | disposition home health service (06) | DRG 189 ==
LOC: ERS 05:12 → ERHOLD 08:01 → IMCU/EMU 18:45 → 2NO 09-25 12:44
PROVIDERS: ADMIT Internal Medicine Nephrology; ATTEND Internal Medicine
PROC: 5A1D70Z Performance of Urinary Filtration, Intermittent, Less than 6 Hours Per Day (ICD-10-PCS; principal; 2020-09-24)
PROC: 5A1D70Z Performance of Urinary Filtration, Intermittent, Less than 6 Hours Per Day (ICD-10-PCS; 2020-09-26)
PROC: 5A1D70Z Performance of Urinary Filtration, Intermittent, Less than 6 Hours Per Day (ICD-10-PCS; 2020-09-28)
DX: J96.22 Acute and chronic respiratory failure with hypercapnia (principal); N18.6 End stage renal disease; J44.1 Chronic obstructive pulmonary disease with (acute) exacerbation; I13.2 Hypertensive heart and chronic kidney disease with heart failure and with stage 5 chronic kidney disease, or end stage renal disease; E87.5 Hyperkalemia; R77.8 Other specified abnormalities of plasma proteins; F41.9 Anxiety disorder, unspecified; F32.9 Major depressive disorder, single episode, unspecified; D63.1 Anemia in chronic kidney disease; E83.39 Other disorders of phosphorus metabolism; Z90.710 Acquired absence of both cervix and uterus; Z98.51 Tubal ligation status; Z87.891 Personal history of nicotine dependence; Z88.0 Allergy status to penicillin; Z88.1 Allergy status to other antibiotic agents; Z79.899 Other long term (current) drug therapy; Z99.2 Dependence on renal dialysis; Z99.81 Dependence on supplemental oxygen; Z20.828 Contact with and (suspected) exposure to other viral communicable diseases; I50.9 Heart failure, unspecified
CPT/HCPCS: 36415; 71045; 80048; 80053; 82553; 82805; 83605; 83735; 83880; 84484; 85025; 87040; 90935; 93005; 94640; 94660; 96365; 96366; 96375; G0257; J1644; J1956; J2001; J2930; J3490; J7512; J7620; Q0163; Q5105; U0002

== ENCOUNTER 2020-10-14 18:53 | Inpatient (IN) | payer MEDICARE, OTHER ==
--- NOTE | 2020-10-14 19:27 | RAD ---
Portable frontal chest radiograph: 10/14/2020 COMPARISON: 09/24/2020 HISTORY: Shortness of breath, COPD FINDINGS: Increased linear interstitial density noted bilaterally with pulmonary hyperinflation and p rominent upper lobe emphysematous change. There is extensive interstitial and alveolar opacity in the perihilar regions and both lung bases. These findings are similar when compared to the prior exam . There is stable enlargement of the cardiac silhouette. IMPRESSION: Stable interstitial and alveolar opacity within the mid and lower lung zones. Findings ma y signify edema and/or pneumonia. Stable severe emphysema. No significant interval change.
[2020-10-14 19:34] LABS: #Basophils 0.1 thou/uL (0.0-0.2); #Eosinphils 0.2 thou/uL (0.0-0.7); #Lymphocytes 1.3 thou/uL (1.20-3.40); #Monocytes 0.8 thou/uL (0.11-0.59); %Basophils 0.6 % (0.0-1.0); %Lymphocytes 12.9 % (21.0-51.0); %Monocytes 7.2 % (0.0-10.0); %Neutrophils 77.3 % (42.0-75.0); Hemoglobin 8.2 g/dL (12.0-16.0); Mean Corpuscular HGB CONC 31.9 g/dL (32.0-36.0); Mean Corpuscular Hemoglobin 30.6 pg (27.0-31.0); Mean Corpuscular Volume 95.9 fL (78.0-98.0); Mean Platelet Volume 6.8 fL (7.4-10.4); Platelet Count 182 thou/uL (130-400); RBC Distribution Width 18.4 % (11.5-14.5); Red Blood Cell (RBC) Count 2.68 mill/uL (4.20-5.40); White Blood Cell (WBC) Count 10.3 thou/uL (4.8-10.8)
[2020-10-14] MEDS ORDERED: Dexamethasone 10 MG/ML VIAL ONE (19:34)
[2020-10-14] MEDS ORDERED: manNITOL 20% 0 ML ONE (19:35)
[2020-10-14] MEDS ORDERED: Cefepime 2 GM VIAL ONE (19:35)
[2020-10-14] MEDS ORDERED: Vancomycin 1 GM/200 ML BAG ONE (19:35)
[2020-10-14] MEDS ORDERED: Magnesium 2 GM/50 ML BAG (IN WATER) ONE (19:36)
[2020-10-14 19:58] LABS: ALT (SGPT) 13 U/L (8-55); AST (SGOT) 13 U/L (5-34); Albumin 3.4 g/dL (3.5-5.0); Alkaline Phosphatase 76 U/L (40-110); Anion Gap 22 mmol/L (10-20); BUN (Urea Nitrogen) 56 mg/dL (9.8-20.1); Bilirubin, Total 0.6 mg/dL (0.2-1.2); Calc. Creatinine Clearance 0 mL/min (70-130); Calcium 8.4 mg/dL (7.8-10.44); Carbon Dioxide 24 mmol/L (22-29); Chloride 101 mmol/L (98-107); Estimated GFR-MDRD 4; Globulin 2.5 g/dL (2.4-3.5); Glucose 99 mg/dL (70-105); Potassium 4.7 mmol/L (3.5-5.1); Protein, Total 5.9 g/dL (6.0-8.3); Sodium 142 mmol/L (136-145)
[2020-10-14 20:15] LABS: CKMB 2.2 ng/mL (0-6.6)
[2020-10-14 21:12] LABS: SARS-CoV-2 NAA Rapid Test Not Detected (NotDetected)
[2020-10-14] MEDS ORDERED: Guaifenesin DM 100-10/5 ML UDCUP PO PRN (21:36)
[2020-10-14] MEDS ORDERED: HYDROcodone/Acetaminophen 5/325 mg Tablet PO PRN ×2 (21:36)
[2020-10-14] MEDS ORDERED: Ondansetron PF 4 MG/2 ML Vial IVP PRN (21:36)
[2020-10-14] MEDS ORDERED: Ondansetron ODT 4 MG TAB PO PRN (21:36)
[2020-10-14] MEDS ORDERED: Acetaminophen 650 MG Suppository PR PRN (21:36)
--- NOTE | 2020-10-14 21:41 | PDOC.HHP ---
Hospitalist HPI - History of Present Illness dyspnea History of Present Illness: Case of an 55y/o female with pmhx of copd with emphysema on 2l of 02 at home, brain aneurysm, kidney and gi mass under surveillance, esrd on h/d and htn who comes to hospital due to dyspnea. patient refers she was on her usual state of health until 1 day ago when she started severe sob. she states she used her home 02 and increased it to 4l but her cici where in the 70s, she also tried some home nebulizer w/o improvement of her symptoms for which she decided to come to hospital for evaluation. of note patient with recent hospitalization recently for same symptoms. At ED patient was diagnosed with copd exacerbation and h ospitalist was called for further evaluation and management. 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 - Exam General Appearance: NAD, awake alert Eye: PERRL, anicteric sclera ENT: normocephalic atraumatic, no oropharyngeal lesions, moist mucosa Neck: supple, symmetric, no JVD, no thyromegaly Heart: RRR, no murmur, no gallops, no rubs Respiratory: tachypneic Respiratory - other findings: decreased lung sound b/l Gastrointestinal: soft, non-tender, non-distended, normal bowel sounds Extremities: no cyanosis, no clubbing, no edema Skin: normal turgor, no lesions, no rashes Neurological: cranial nerve grossly intact, normal sensation to touch, no weakness Musculoskeletal: normal tone, normal strength, no muscle wasting Psychiatric: normal affect, normal behavior, A&O x 3 Hospitalist Results - Labs Result Diagrams: 10/14/20 19:25 10/14/20 19:25 Lab results: WBC 10.3 thou/uL (4.8-10.8) 10/14/20 19:25 Hgb 8.2 g/dL (12.0-16.0) L 10/14/20 19:25 Hct 25.7 % (36.0-47.0) L 10/14/20 19:25 MCV 95.9 fL (78.0-98.0) 10/14/20 19:25 Plt Count 182 thou/uL (130-400) 10/14/20 19:25 Neutrophils % 77.3 % (42.0-75.0) H 10/14/20 19:25 Sodium 142 mmol/L (136-145) 10/14/20 19:25 Potassium 4.7 mmol/L (3.5-5.1) 10/14/20:25 Chloride 101 mmol/L (98-107) 10/14/20:25 Carbon Dioxide 24 mmol/L (22-29) 10/14/20 19:25 BUN 56 mg/dL (9.8-20.1) H 10/14/20 19:25 Creatinine 9.88 mg/dL (0.6-1.1) H 10/14/20:25 Glucose 99 mg/dL (70-105) 10/14/20 19:25 Calcium 8.4 mg/dL (7.8-10.44) 10/14/20:25 Total Bilirubin 0.6 mg/dL (0.2-1.2) 10/14/20 19:25 AST 13 U/L (5-34) 10/14/20 19:25 ALT 13 U/L (8-55) 10/14/20 19:25 Alkaline Phosphatase 76 U/L (40-110) 10/14/20 19:25 CK-MB (CK-2) 2.2 ng/mL (0-6.6) 10/14/20 19:25 Troponin I 0.049 ng/mL (< 0.028) H 10/14/20 19:25 B-Natriuretic Peptide 1411.3 pg/mL (0-100) H 10/14/20 19:25 Serum Total Protein 5.9 g/dL (6.0-8.3) L 10/14/20 19:25 Albumin 3.4 g/dL (3.5-5.0) L 10/14/20 19:25 Hospitalist H&P A/P - Problem (1) Hypertension Code(s): I10 - ESSENTIAL (PRIMARY) HYPERTENSION Status: Acute (2) Acute on chronic respiratory failure with hypoxia Code(s): J96.21 - ACUTE AND CHRONIC RESPIRATORY FAILURE WITH HYPOXIA Status: Acute (3) COPD exacerbation Code(s): J44.1 - CHRONIC OBSTRUCTIVE PULMONARY DISEASE W (ACUTE) EXACERBATION Status: Acute (4) ESRD (end stage renal disease) on dialysis Code(s): N18.6 - END STAGE RENAL DISEASE; Z99.2 - DEPENDENCE ON RENAL DIALYSIS Status: Chronic (5) Fluid overload Code(s): E87.70 - FLUID OVERLOAD, UNSPECIFIED Status: Resolved - Plan Plan: 55y/o female with the stated pmhx who presents with copd exacerbation copd exacerbation - iv steroids, wean as tolerated - recent hospitalization tx w azithromycin + given z pack as out pt. - will start levaquin + vancomycin - will order mrsa swap, adjust abx as needed - o2 supplemetation - duo nebs esrd on hd/ fluid overload - cxr consistent w vascular congestion - elevated bnp - will consult nephrology for h/d, fluid removal htn - continue home meds
[2020-10-14] MEDS ORDERED: Vancomycin HCl 750 MG in Sodium Chloride 0.9% 250 ML 250 ML IVPB SCH (22:45)
[2020-10-14] MEDS ORDERED: HOLD VANCOMYCIN FOR LEVEL >20 FS SCH (22:45)
[2020-10-14] MEDS ORDERED: Vancomycin 1 GM in Premix Bag 1 BAG IVPB SCH (22:45)
[2020-10-14] MEDS ORDERED: Vancomycin HCl 250 MG in Sodium Chloride 0.9% 100 ML IVPB SCH (22:45)
[2020-10-14] MEDS ORDERED: Vancomycin HCl 500 MG in Sodium Chloride 0.9% 100 ML IVPB SCH (22:45)
[2020-10-14 23:00] VITALS: BMI 18.6
[2020-10-14 23:46] LABS: Troponin I 0.046 ng/mL (< 0.028)
[2020-10-15] MEDS: methylPREDNISolone Sod Succ 40 MG VIAL IVP SCH ×4 (00:09→17:38)
[2020-10-15 01:55] LABS: Troponin I 0.037 ng/mL (< 0.028)
[2020-10-15 05:23] LABS: ALT (SGPT) 12 U/L (8-55); AST (SGOT) 11 U/L (5-34); Albumin 3.5 g/dL (3.5-5.0); Alkaline Phosphatase 86 U/L (40-110); Anion Gap 21 mmol/L (10-20); BUN (Urea Nitrogen) 62 mg/dL (9.8-20.1); Bilirubin, Total 0.5 mg/dL (0.2-1.2); Calc. Creatinine Clearance 5 mL/min (70-130); Calcium 8.9 mg/dL (7.8-10.44); Carbon Dioxide 24 mmol/L (22-29); Chloride 101 mmol/L (98-107); Estimated GFR-MDRD 4; Globulin 3.3 g/dL (2.4-3.5); Glucose 168 mg/dL (70-105); Magnesium 2.9 mg/dL (1.6-2.6); Potassium 5.4 mmol/L (3.5-5.1); Protein, Total 6.8 g/dL (6.0-8.3); Sodium 141 mmol/L (136-145)
[2020-10-15 06:02] LABS: Band 7 % (5-11); Hemoglobin 9.1 g/dL (12.0-16.0); Lymphocytes 2 % (21-51); MDiff Complete? YES; Mean Corpuscular HGB CONC 30.3 g/dL (32.0-36.0); Mean Corpuscular Hemoglobin 28.7 pg (27.0-31.0); Mean Corpuscular Volume 94.8 fL (78.0-98.0); Monocytes 2 % (0-10); Neutrophil 89 % (42-75); Platelet Count 198 thou/uL (130-400); RBC Distribution Width 18.3 % (11.5-14.5); Red Blood Cell (RBC) Count 3.15 mill/uL (4.20-5.40); White Blood Cell (WBC) Count 9.2 thou/uL (4.8-10.8)
[2020-10-15] MEDS: Acetaminophen 325 MG TAB PO PRN ×2 (06:59→13:59)
[2020-10-15] MEDS ORDERED: Loperamide HCl 2 MG CAP PO PRN (08:00)
[2020-10-15] MEDS ORDERED: hydrALAZINE 20 MG/ML VIAL SLOW IVP PRN (08:00)
[2020-10-15] MEDS ORDERED: Benzonatate 100 MG CAP PO PRN (08:00)
[2020-10-15] MEDS ORDERED: Sodium Chloride 0.65% Nasal 44 ML BOT EA NARE PRN (08:00)
[2020-10-15] MEDS ORDERED: Calcium Carbonate 500 MG ChewTAB PO PRN (08:00)
[2020-10-15] MEDS ORDERED: Bisacodyl 5 MG TAB PO PRN (08:00)
[2020-10-15] MEDS ORDERED: Cepastat Lozenges 1 LOZ PO PRN (08:00)
[2020-10-15] MEDS ORDERED: Loratadine 10 MG TAB PO PRN (08:00)
[2020-10-15] MEDS ORDERED: Senokot S 8.6-50 MG TAB PO PRN (08:00)
[2020-10-15] MEDS ORDERED: Non-Formulary Item 1 EACH (Albuterol Sulfate [Ventolin Hfa] 8 GM Hfa.Aer.Ad) INH PRN (08:02)
[2020-10-15] MEDS ORDERED: Epoetin (ESRD) 20,000 UNITS/ML SC SCH (08:45)
[2020-10-15] MEDS ORDERED: PROVENTIL INHALER 6.7 G (200 INHALATIONS) INH PRN (08:55)
[2020-10-15] MEDS ORDERED: Fluticasone Propionate Nasal Spray 16 gm Bottle NASAL SCH (09:00)
[2020-10-15] MEDS ORDERED: Non-Formulary Item 1 EACH (Hydralazine Hcl [Hydralazine Hcl] 100 MG Tablet) PO SCH (09:00)
[2020-10-15] MEDS ORDERED: Enoxaparin Sodium 30 MG/0.3 ML SYRINGE SC SCH (09:00)
[2020-10-15] MEDS ORDERED: Non-Formulary Item 1 EACH (Budesonide-Formoterol [Symbicort 160-4.5] 160 MG/4.5 MG Aer) INH SCH (09:00)
[2020-10-15] MEDS: Amlodipine 10 MG TAB PO SCH (09:13)
[2020-10-15] MEDS: Metoprolol Tartrate 50 MG TAB PO SCH ×2 (09:13→21:25)
[2020-10-15] MEDS: ALPRAZolam 0.25 MG TAB PO SCH (09:13)
[2020-10-15] MEDS: Heparin 5,000 UNITS/ML VIAL SC SCH ×2 (09:13→21:23)
[2020-10-15] MEDS: Saccharomyces boulardii 250 MG CAP PO SCH (09:13)
[2020-10-15] MEDS: Losartan 25 MG TAB PO SCH ×2 (09:14→21:25)
[2020-10-15] MEDS: hydrALAZINE 25 MG TAB PO SCH ×3 (09:14→21:24)
[2020-10-15] MEDS: Fluticasone Propionate Nasal Spray 16 gm Bottle NASAL SCH ×2 (09:15→21:22)
--- NOTE | 2020-10-15 10:10 | CON ---
DATE OF CONSULTATION: 10/15/2020 HISTORY OF PRESENT ILLNESS: Ms. Branch is a 55-year-old female with ESRD--currently on maintenance hemodialysis and admitted for COPD exacerbation. Breathing this morning is slightly improved when compared yesterday. We are following her up for maintenance hemodialysis. I have scheduled her for her regular dialysis today. REVIEW OF SYSTEMS: Positive for shortness of breath. No chest pain. No syncopal episode. Positive for cough. No fever or chills. No abdominal pain. No syncopal episode. No occasional headache. No nausea, no vomiting, no dysuria. No urinary frequency. No hematochezia. No melena. MEDICATIONS: The patient is currently on the following medications: 1. Tramadol 50 mg p.o. b.i.d. p.r.n. 2. Status post vancomycin. 3. Zolpidem 5 mg at bedtime p.r.n. 4. Zofran 4 mg p.r.n. 5. Protonix 40 mg daily. 6. Metoprolol tartrate 50 mg b.i.d. 7. Methylprednisolone 40 mg IV q.6. 8. Losartan 25 mg at bedtime. 9. Levaquin 500 mg IV every other day. 10. Heparin 5000 units subcu q.12. 11. Doxazosin 4 mg at bedtime. PAST MEDICAL HISTORY: 1. Hypertension. 2. ESRD from hypertensive nephropathy. 3. COPD/emphysema. PAST SURGICAL HISTORY: Status post hysterectomy, status post cuffed dialysis catheter placement, status post AV fistula placement, status post cardiac cath. SOCIAL HISTORY: The patient lives in [place]. . Used to be a heavy smoker, but currently denies any smoking. No IV drug abuse. Status post blood transfusion. Several children. 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 FAMILY HISTORY: No family history of ESRD. ALLERGIES: CEFTRIAXONE, CLONIDINE?, PENICILLIN. TRAUMA: None. IMMUNIZATIONS: Up to date. HOSPITALIZATIONS: Please see past medical history. PHYSICAL EXAMINATION: VITAL SIGNS: Blood pressure is noted at 202/86--before BP medications. Heart rate 98, respiratory rate 20, O2 saturation 98% on 5 L, temperature 96.6. GENERAL: The patient is awake, standing comfortable not in overt distress. SKIN: Adequate turgor. HEENT: Slightly pale conjunctivae. Anicteric sclerae. No neck mass. No carotid bruits. No JVD. CHEST: No deformities. LUNGS: Decreased breath sounds. HEART: Normal sinus rhythm. No murmurs, gallops, or rubs. ABDOMEN: Globular, soft, nontender. No masses. EXTREMITIES: No edema. No deformities. NEUROLOGICAL: Moving all extremities. No tremors. No asterixis. No ataxia. Oriented to 3 spheres. LABORATORY DATA: October 15, 2020; white count 9.2, hemoglobin 9.1. Sodium 141, potassium 5.4, chloride 101, carbon dioxide 24, BUN 62, creatinine 10.17, glucose 168, calcium 8.9, magnesium 2.9, albumin 3.5. Chest x-ray shows minimal fluid with emphysematous changes noted. ASSESSMENT AND PLAN: 1. Shortness of breath--secondary to chronic obstructive pulmonary disease exacerbation. Currently on steroids and IV antibiotics. Continue supportive care. 2. End-stage renal disease. The patient also has a mild hyperkalemia. I have scheduled her for her regular hemodialysis today. The plan is dialysis with fluid removal as tolerated. 3. Anemia. Resume Epogen. 4. Hyperphosphatemia. Resume back Renvela. Job ID: [id number]
[2020-10-15] MEDS ORDERED: EPOETIN ALFA-EPBX (ESRD) 4,000 UNIT/ML VIAL SC SCH (12:00)
--- NOTE | 2020-10-15 13:14 | PDOC.HOSPP ---
- Subjective Encounter Date: 10/15/20 Encounter Time: 11:00 Subjective: Patient seen and examined bedside today, patient is short of breath, patient is wheezing, patient seen in dialysis room, - Objective Vital Signs & Weight: Vital Signs (12 hours) Temp Pulse Resp BP Pulse Ox 10/15/20 09:14 90 10/15/20 09:13 90 10/15/20 08:00 96.6 F L 90 20 202/86 H 98 10/15/20 05:36 93 L 10/15/20 04:00 97.2 F L 90 19 173/75 H 93 L 10/15/20 01:32 17 98 Weight Admit Weight 111 lb 12.8 oz Weight 111 lb 12.8 oz I&O: 10/14/20 10/15/20 10/16/20 06:59 06:59 06:59 Intake Total 480 Balance 480 Result Diagrams: 10/15/20 04:40 10/15/20 04:40 Radiology Reviewed by me: Yes EKG Reviewed by me: Yes Hospitalist ROS - Review of Systems Constitutional: reports: weakness ENT: denies: ear pain, ear discharge, nose pain, nose discharge, nose congestion, mouth pain, mouth swelling, throat pain, throat swelling, other Respiratory: reports: cough, shortness of breath, SOB with excertion, wheezing. denies: dry, hemoptysis, pleuritic pain, sputum, other Cardiovascular: denies: chest pain, palpitations, orthopnea, paroxysmal noc. dyspnea, edema, light headedness, other Gastrointestinal: denies: nausea, vomiting, abdominal pain, diarrhea, constipation, melena, hematochezia, other Genitourinary: denies: dysuria, frequency, incontinence, hematuria, retention, other Musculoskeletal: denies: neck pain, shoulder pain, arm pain, back pain, hand pain, leg pain, foot pain, other - Medication Medications: Active Medications Generic Name Dose Route Start Last Admin Trade Name Freq PRN Reason Stop Dose Admin Acetaminophen 650 mg 10/14/20 21:36 10/15/20 06:59 Acetaminophen 325 Mg Tab PO 650 mg Q4H PRN Administration Headache/Fever/Mild Pain (1-3) Albuterol/Ipratropium 3 ml 10/15/20 10:30 10/15/20 10:51 Ipratropium/Albuterol Sulfate 3 Ml Neb NEB 3 ml [id number] PAT Administration Alprazolam 0.5 mg 10/15/20 09:00 10/15/20 09:13 Alprazolam 0.25 Mg Tab PO 0.5 mg DAILY PAT Administration Amlodipine Besylate 10 mg 10/15/20 09:00 10/15/20 09:13 Amlodipine 10 Mg Tab PO 10 mg DAILY PAT Administration Fluticasone Propionate 0 gm 10/15/20 09:00 10/15/20 09:15 Fluticasone Propionate Nasal Swoope 16 Gm Bottle NASAL Not Given BID PAT Heparin Sodium (Porcine) 5,000 units 10/15/20 09:00 10/15/20 09:13 Heparin 5,000 Units/Ml Vial SC 5,000 units Q12HR PAT Administration Hydralazine HCl 100 mg 10/15/20 09:00 10/15/20 09:14 Hydralazine 25 Mg Tab PO 100 mg TID PAT Administration Losartan Potassium 50 mg 10/15/20 09:00 10/15/20 09:14 Losartan 25 Mg Tab PO 50 mg DAILY PAT Administration Methylprednisolone Sodium Succinate 40 mg 10/14/20 23:59 10/15/20 04:41 Methylprednisolone Sod Succ 40 Mg Vial IVP 40 mg Q6HR PAT Administration Metoprolol Tartrate 50 mg 10/15/20 09:00 10/15/20 09:13 Metoprolol Tartrate 50 Mg Tab PO 50 mg BID PAT Administration Pantoprazole Sodium 40 mg 10/15/20 09:00 10/15/20 09:14 Pantoprazole 40 Mg Tab PO 40 mg DAILY PAT Administration Saccharomyces Boulardii 250 mg 10/15/20 09:00 10/15/20 09:13 Saccharomyces Boulardii 250 Mg Cap PO 250 mg DAILY PAT Administration - Exam General Appearance: NAD, awake alert Eye: PERRL, anicteric sclera ENT: normocephalic atraumatic, no oropharyngeal lesions Neck: supple, symmetric, no JVD, no thyromegaly Heart: RRR, no murmur, no gallops, no rubs Respiratory: tachypneic, wheezes Gastrointestinal: soft, non-tender, non-distended, normal bowel sounds Extremities: no cyanosis, no clubbing, no edema Skin: normal turgor, no lesions Neurological: no focal deficits Musculoskeletal: normal tone, normal strength Psychiatric: normal affect, normal behavior Hosp A/P (1) Acute on chronic diastolic (congestive) heart failure Code(s): I50.33 - ACUTE ON CHRONIC DIASTOLIC (CONGESTIVE) HEART FAILURE Status: Acute (2) Acute on chronic respiratory failure with hypoxia Code(s): J96.21 - ACUTE AND CHRONIC RESPIRATORY FAILURE WITH HYPOXIA Status: Acute (3) COPD exacerbation Code(s): J44.1 - CHRONIC OBSTRUCTIVE PULMONARY DISEASE W (ACUTE) EXACERBATION Status: Acute (4) ESRD (end stage renal disease) on dialysis Code(s): N18.6 - END STAGE RENAL DISEASE; Z99.2 - DEPENDENCE ON RENAL DIALYSIS Status: Chronic (5) Anemia of renal disease Code(s): N18.9 - CHRONIC KIDNEY DISEASE, UNSPECIFIED; D63.1 - ANEMIA IN CHRONIC KIDNEY DISEASE Status: Chronic (6) Secondary hyperparathyroidism (of renal origin) Code(s): N25.81 - SECONDARY HYPERPARATHYROIDISM OF RENAL ORIGIN Status: Chronic (7) Anxiety and depression Code(s): F41.9 - ANXIETY DISORDER, UNSPECIFIED; F32.9 - MAJOR DEPRESSIVE DISORDER, SINGLE EPISODE, UNSPECIFIED Status: Chronic - Plan old records reviewed/req, continue antibiotics, respiratory therapy Continue Solu-Medrol Her home medication list reconciled Continue current antibiotic therapy Nephrology consulted for hemodialysis We will repeat labs tomorrow Medication reviewed and continue provide symptomatic and supportive care
[2020-10-15] MEDS: Sevelamer Carbonate 800 MG TAB PO SCH ×2 (14:00→17:37)
[2020-10-15] MEDS: traMADol HCl 50 MG TAB PO PRN (18:11)
[2020-10-15] MEDS: Mometasone 200 MCG/Formoterol 5 MCG 120 PUFF INHALER INH SCH (18:23)
[2020-10-15] MEDS: Doxazosin 2 MG TAB PO SCH (21:22)
[2020-10-15] MEDS: Gabapentin 400 MG CAP PO SCH (21:23)
[2020-10-15] MEDS: Zolpidem Tartrate 5 MG TAB PO PRN (21:29)
[2020-10-16] MEDS: methylPREDNISolone Sod Succ 40 MG VIAL IVP SCH ×4 (00:13→17:23)
[2020-10-16 02:45] LABS: #Basophils 0.1 thou/uL (0.0-0.2); #Lymphocytes 0.7 thou/uL (1.20-3.40); #Monocytes 0.4 thou/uL (0.11-0.59); #Neutrophils 11.6 thou/uL (1.40-6.50); %Basophils 0.4 % (0.0-1.0); %Eosinophils 0.2 % (0.0-10.0); %Lymphocytes 5.6 % (21.0-51.0); %Monocytes 3.3 % (0.0-10.0); %Neutrophils 90.5 % (42.0-75.0); Hemoglobin 8.5 g/dL (12.0-16.0); Mean Corpuscular HGB CONC 31.4 g/dL (32.0-36.0); Mean Corpuscular Volume 95.7 fL (78.0-98.0); Mean Platelet Volume 6.9 fL (7.4-10.4); Platelet Count 225 thou/uL (130-400); RBC Distribution Width 17.9 % (11.5-14.5); Red Blood Cell (RBC) Count 2.83 mill/uL (4.20-5.40); White Blood Cell (WBC) Count 12.8 thou/uL (4.8-10.8)
[2020-10-16 03:08] LABS: Anion Gap 18 mmol/L (10-20); BUN (Urea Nitrogen) 45 mg/dL (9.8-20.1); Calc. Creatinine Clearance 8 mL/min (70-130); Calcium 9.2 mg/dL (7.8-10.44); Carbon Dioxide 26 mmol/L (22-29); Chloride 100 mmol/L (98-107); Estimated GFR-MDRD 7; Glucose 126 mg/dL (70-105); Magnesium 2.1 mg/dL (1.6-2.6); Phosphorus 5.1 mg/dL (2.3-4.7); Potassium 4.3 mmol/L (3.5-5.1); Sodium 140 mmol/L (136-145)
[2020-10-16] MEDS ORDERED: Metoprolol Tartrate 50 MG TAB PO SCH (05:15)
[2020-10-16] MEDS: Mometasone 200 MCG/Formoterol 5 MCG 120 PUFF INHALER INH SCH ×2 (06:35→18:21)
--- NOTE | 2020-10-16 08:04 | PRG ---
DATE OF SERVICE: 10/16/2020 SUBJECTIVE: Ms. Branch is a 55-year-old female with ESRD - on maintenance hemodialysis, and admitted for COPD exacerbation. She has been started on neb treatment, antibiotics, and steroids. This morning, breathing is a little better, although she complains of some occasional wheezing. OBJECTIVE: VITAL SIGNS: Blood pressure is 183/77, heart rate 84, respiratory rate 20, O2 saturation 87% on 4 L. GENERAL: The patient is awake, supine, comfortable, not in overt distress. SKIN: Adequate turgor. HEENT: Slightly pale conjunctivae. Anicteric sclerae. No neck mass. No carotid bruits. No JVD. CHEST: No deformities. LUNGS: Decreased breath sounds. Occasional wheezing. HEART: Normal sinus rhythm. No murmurs. No gallops. No rubs. ABDOMEN: Globular, soft, and nontender. No masses. EXTREMITIES: No edema. No deformities. MEDICATIONS: October 16, 2020, were reviewed. LABORATORY DATA: October 16, 2020; white count 12.8, hemoglobin 8.5. Sodium 140, potassium 4.3, chloride 100, carbon dioxide 26, BUN 45, creatinine 6.01, calcium 9.2, glucose 126, magnesium 2.1, and phosphorus 5.1. ASSESSMENT AND PLAN: 1. Chronic obstructive pulmonary disease exacerbation. Clinically improving. Continue supportive care. Currently, on steroids and neb treatment. 2. End-stage renal disease, stable. We will continue current Thursday, Thursday, and Thursday hemodialysis. The patient underwent hemodialysis yesterday, we removed 3 L. Continue supportive care. Continue fluid removal as tolerated. 3. Anemia, continuing weekly Epogen. Job ID: [id number]
[2020-10-16] MEDS: hydrALAZINE 25 MG TAB PO SCH ×3 (08:24→20:28)
[2020-10-16] MEDS: Sevelamer Carbonate 800 MG TAB PO SCH ×3 (08:25→17:10)
[2020-10-16] MEDS: Metoprolol Tartrate 50 MG TAB PO SCH ×2 (08:25→20:30)
[2020-10-16] MEDS: Saccharomyces boulardii 250 MG CAP PO SCH (08:26)
[2020-10-16] MEDS: Amlodipine 10 MG TAB PO SCH (08:26)
[2020-10-16] MEDS: Losartan 25 MG TAB PO SCH ×2 (08:26→20:29)
[2020-10-16] MEDS: ALPRAZolam 0.25 MG TAB PO SCH (08:26)
[2020-10-16] MEDS: Heparin 5,000 UNITS/ML VIAL SC SCH ×2 (08:28→20:30)
[2020-10-16] MEDS: Fluticasone Propionate Nasal Spray 16 gm Bottle NASAL SCH ×2 (08:40→23:52)
--- NOTE | 2020-10-16 13:51 | PDOC.HOSPP ---
- Subjective Encounter Date: 10/16/20 Encounter Time: 11:05 Subjective: Patient seen and examined bedside today, patient is doing relatively better than yesterday, less short of breath, less wheezing, - Objective Vital Signs & Weight: Vital Signs (12 hours) Temp Pulse Resp BP BP Pulse Ox 10/16/20 11:14 98.4 F 84 18 175/74 H 92 L 10/16/20 10:55 71 16 91 L 10/16/20 08:26 87 204/82 H 10/16/20 08:24 87 204/82 H 10/16/20 07:43 99.0 F 87 16 204/82 H 89 L 10/16/20 06:38 84 20 87 L 10/16/20 06:35 84 20 87 L 10/16/20 04:08 98.4 F 90 20 183/77 H 94 L 10/16/20 02:52 16 Weight Admit Weight 111 lb 12.8 oz Weight 111 lb 12.8 oz I&O: 10/15/20 10/16/20 10/17/20 06:59 06:59 06:59 Intake Total 1320 Balance 1320 Result Diagrams: 10/16/20 02:35 10/16/20 02:35 EKG Reviewed by me: Yes Hospitalist ROS - Review of Systems ENT: denies: ear pain, ear discharge, nose pain, nose discharge, nose conge stion, mouth pain, mouth swelling, throat pain, throat swelling, other Respiratory: reports: cough, shortness of breath, SOB with excertion, wheezing. denies: dry, hemoptysis, pleuritic pain, sputum, other Cardiovascular: denies: chest pain, palpitations, orthopnea, paroxysmal noc. dyspnea, edema, light headedness, other Gastrointestinal: denies: nausea, vomiting, abdominal pain, diarrhea, constipation, melena, hematochezia, other Genitourinary: denies: dysuria, frequency, incontinence, hematuria, retention, other Musculoskeletal: denies: neck pain, shoulder pain, arm pain, back pain, hand pain, leg pain, foot pain, other - Medication Medications: Active Medications Generic Name Dose Route Start Last Admin Trade Name Freq PRN Reason Stop Dose Admin Acetaminophen 650 mg 10/14/20 21:36 10/15/20 13:59 Acetaminophen 325 Mg Tab PO 650 mg Q4H PRN Administration Headache/Fever/Mild Pain (1-3) Hydrocodone Bitart/Acetaminophen 1 tab 10/14/20 21:36 10/16/20 00:22 Hydrocodone/Acetaminophen 5/325 Mg Tablet PO 1 tab Q4H PRN Administration Moderate Pain (4-6) Albuterol/Ipratropium 3 ml 10/15/20 10:30 10/16/20 10:55 Ipratropium/Albuterol Sulfate 3 Ml Neb NEB 3 ml [id number] PAT Administration Alprazolam 0.5 mg 10/15/20 09:00 10/16/20 08:26 Alprazolam 0.25 Mg Tab PO 0.5 mg DAILY PAT Administration Amlodipine Besylate 10 mg 10/15/20 09:00 10/16/20 08:26 Amlodipine 10 Mg Tab PO 10 mg DAILY PAT Administration Doxazosin Mesylate 4 mg 10/15/20 21:00 10/15/20 21:22 Doxazosin 2 Mg Tab PO 4 mg HS PAT Administration Epoetin Adlen-epbx 7,500 unit 10/15/20 12:00 10/15/20 14:05 Epoetin Alden-Epbx (Esrd) 4,000 Unit/Ml Vial SC 7,500 unit Q7D PAT Administration Fluticasone Propionate 0 gm 10/15/20 09:00 10/16/20 08:40 Fluticasone Propionate Nasal [place] 16 Gm Bottle NASAL Not Given BID PAT Gabapentin 400 mg 10/15/20 21:00 10/15/20 21:23 Gabapentin 400 Mg Cap PO 400 mg HS PAT Administration Guaifenesin/Dextromethorphan 15 ml 10/14/20 21:36 10/16/20 08:39 Guaifenesin Dm 100-10/5 Ml Udcup PO 15 ml Q4H PRN Administration Cough Heparin Sodium (Porcine) 5,000 units 10/15/20 09:00 10/16/20 08:28 Heparin 5,000 Units/Ml Vial SC 5,000 units Q12HR PAT Administration Hydralazine HCl 100 mg 10/15/20 09:00 10/16/20 08:24 Hydralazine 25 Mg Tab PO 100 mg TID PAT Administration Losartan Potassium 25 mg 10/15/20 21:00 10/15/20 21:25 Losartan 25 Mg Tab PO 25 mg HS PAT Administration Losartan Potassium 50 mg 10/15/20 09:00 10/16/20 08:26 Losartan 25 Mg Tab PO 50 mg DAILY PAT Administration Methylprednisolone Sodium Succinate 40 mg 10/14/20 23:59 10/16/20 11:14 Methylprednisolone Sod Succ 40 Mg Vial IVP 40 mg Q6HR PAT Administration Metoprolol Tartrate 50 mg 10/15/20 09:00 10/16/20 08:25 Metoprolol Tartrate 50 Mg Tab PO 50 mg BID PAT Administration Mometasone Furoate/Formoterol Fumar 1 puff 10/15/20 18:30 10/16/20 06:35 Mometasone 200 Mcg/Formoterol 5 Mcg 120 Puff Inhaler INH 1 puff BID-RT PAT Administration Pantoprazole Sodium 40 mg 10/15/20 09:00 10/16/20 08:27 Pantoprazole 40 Mg Tab PO 40 mg DAILY PAT Administration Saccharomyces Boulardii 250 mg 10/15/20 09:00 10/16/20 08:26 Saccharomyces Boulardii 250 Mg Cap PO 250 mg DAILY PAT Administration Sevelamer Carbonate 2,400 mg 10/15/20 12:00 10/16/20 11:13 Sevelamer Carbonate 800 Mg Tab PO 2,400 mg TID-WM PAT Administration Tramadol HCl 50 mg 10/15/20 08:02 10/15/20 18:11 Tramadol Hcl 50 Mg Tab PO 50 mg BID PRN Administration Pain Zolpidem Tartrate 5 mg 10/15/20 08:00 10/15/20 21:29 Zolpidem Tartrate 5 Mg Tab PO 5 mg HSPRN PRN Administration Insomnia - Exam General Appearance: NAD, awake alert Eye: PERRL, anicteric sclera ENT: normocephalic atraumatic, no oropharyngeal lesions Neck: symmetric, no JVD, no thyromegaly Heart: RRR, no murmur, no gallops, no rubs Respiratory: no rales, no tachypnea, wheezes Gastrointestinal: soft, non-tender, non-distended, normal bowel sounds Extremities: no edema Skin: normal turgor, no lesions Neurological: no focal deficits Musculoskeletal: normal tone, normal strength Psychiatric: normal affect, normal behavior Hosp A/P (1) Acute on chronic diastolic (congestive) heart failure Code(s): I50.33 - ACUTE ON CHRONIC DIASTOLIC (CONGESTIVE) HEART FAILURE Status: Acute (2) Acute on chronic respiratory failure with hypoxia Code(s): J96.21 - ACUTE AND CHRONIC RESPIRATORY FAILURE WITH HYPOXIA Status: Acute (3) COPD exacerbation Code(s): J44.1 - CHRONIC OBSTRUCTIVE PULMONARY DISEASE W (ACUTE) EXACERBATION Status: Acute (4) ESRD (end stage renal disease) on dialysis Code(s): N18.6 - END STAGE RENAL DISEASE; Z99.2 - DEPENDENCE ON RENAL DIALYSIS Status: Chronic (5) Anemia of renal disease Code(s): N18.9 - CHRONIC KIDNEY DISEASE, UNSPECIFIED; D63.1 - ANEMIA IN CHRONIC KIDNEY DISEASE Status: Chronic (6) Secondary hyperparathyroidism (of renal origin) Code(s): N25.81 - SECONDARY HYPERPARATHYROIDISM OF RENAL ORIGIN Status: Chronic (7) Anxiety and depression Code(s): F41.9 - ANXIETY DISORDER, UNSPECIFIED; F32.9 - MAJOR DEPRESSIVE DISORDER, SINGLE EPISODE, UNSPECIFIED Status: Chronic - Plan old records reviewed/req, continue antibiotics, respiratory therapy, DVT proph w/heparin Continue Solu-Medrol, DuoNeb, Dulera, empiric antibiotic, will discontinue vancomycin Currently she is on optimal medical therapy for her COPD Hemodialysis as per nephrology Patient is not up to her baseline level yet, she may need another day or 2 for her baseline status We will repeat labs tomorrow Medication reviewed and continue provide symptomatic and supportive care
[2020-10-16] MEDS: Doxazosin 2 MG TAB PO SCH (20:27)
[2020-10-16] MEDS: Gabapentin 400 MG CAP PO SCH (20:28)
[2020-10-16] MEDS: traMADol HCl 50 MG TAB PO PRN (21:09)
[2020-10-17] MEDS: methylPREDNISolone Sod Succ 40 MG VIAL IVP SCH ×4 (00:12→18:33)
[2020-10-17] MEDS: Zolpidem Tartrate 5 MG TAB PO PRN (00:16)
[2020-10-17] MEDS: Mometasone 200 MCG/Formoterol 5 MCG 120 PUFF INHALER INH SCH ×2 (06:42→19:00)
[2020-10-17] MEDS: Fluticasone Propionate Nasal Spray 16 gm Bottle NASAL SCH (08:33)
[2020-10-17] MEDS: Sevelamer Carbonate 800 MG TAB PO SCH ×3 (08:35→17:42)
[2020-10-17] MEDS: Losartan 25 MG TAB PO SCH (08:35)
[2020-10-17] MEDS: ALPRAZolam 0.25 MG TAB PO SCH (08:35)
[2020-10-17] MEDS: hydrALAZINE 25 MG TAB PO SCH ×2 (08:35→13:58)
[2020-10-17] MEDS: Acetaminophen 325 MG TAB PO PRN ×2 (08:36→13:58)
--- NOTE | 2020-10-17 08:36 | PRG ---
DATE OF SERVICE: 10/17/2020 SUBJECTIVE: Ms. Branch is a 55-year-old female with ESRD-maintenance hemodialysis and was admitted for COPD exacerbation. Her shortness of breath has much improved with steroids and antibiotics. She voices no new complaints today. She is desiring to go home today. OBJECTIVE: VITAL SIGNS: Blood pressure is 183/74, heart rate 85, respiratory rate 20, temperature 97.4, O2 saturation 92%. GENERAL: The patient is noted to be awake, alert, comfortable, not in distress. SKIN: Adequate turgor. HEENT: She has slightly pale conjunctivae. Anicteric sclerae. NECK: No neck mass. No carotid bruits. No JVD. CHEST: No deformities. LUNGS: Clear breath sounds. No wheezing. No crackles. HEART: Normal sinus rhythm. No murmurs, gallops, or rubs. ABDOMEN: Globular, soft, nontender. No masses. EXTREMITIES: No edema. No deformities. MEDICATIONS: On October 17, 2020, were reviewed. LABORATORY DATA: On October 16, 2020; white count 12.8, hemoglobin 8.5. Sodium 140, potassium 4.3, chloride 100, carbon dioxide 26, BUN 45, creatinine 6.01, calcium 9.2, phosphorus 5.1. ASSESSMENT AND PLAN: 1. Chronic obstructive pulmonary disease exacerbation, much improved. Continue supportive care. 2. End-stage renal disease, stable. We will continue current Thursday, Thursday, and Thursday hemodialysis. The patient has been scheduled for dialysis this morning. Fluid removal as tolerated by the patient. 3. Anemia. We are continuing currently current Epogen regimen with this patient. 4. We will be rechecking CBC, basic metabolic in a.m. if the patient is still here. Job ID: [id number]
[2020-10-17] MEDS: Metoprolol Tartrate 50 MG TAB PO SCH (08:37)
[2020-10-17] MEDS: Heparin 5,000 UNITS/ML VIAL SC SCH (08:37)
[2020-10-17] MEDS: Saccharomyces boulardii 250 MG CAP PO SCH (08:37)
[2020-10-17] MEDS: Amlodipine 10 MG TAB PO SCH (08:37)
--- NOTE | 2020-10-17 14:04 | PDOC.DS.DS ---
Provider - Provider Date of Admission: 10/14/20 21:39 Date of Discharge: 10/17/20 Admitting Provider: Jaron Sands Consultations: Nephrology (Dr. Alvarado) Primary Care Physician: Chavo Johnson DO Course - Hospital Course Hospital Course: Discharge diagnosis: 1. Acute on chronic hypoxic respiratory failure 2. COPD exacerbation 3. Volume overload 4. Hyperkalemia Hospital course: Patient is a pleasant 55-year-old lady who was admitted to the hospital on October 14, 2020 for acute on chronic hypoxic respiratory failure secondary to COPD exacerbation and volume overload. She was seen by nephrology service for maintenance dialysis. She improved with oxygen, steroids, bronchodilators and antibiotics. She is being discharged home in a stable condition. Resuscitation Status: 10/14/20 21:36 Resuscitation Status Routine Resuscitation Status: FULL: Full Resuscitation - Labs Lab Results: 10/16/20 02:35 10/16/20 02:35 Abnormal Lab Results - Last 48 hrs 10/16/20 02:35: BUN 45 H, Creatinine 6.01 H, Phosphorus 5.1 H 10/16/20 02:35: WBC 12.8 H, RBC 2.83 L, Hgb 8.5 L, Hct 27.1 L, MCHC 31.4 L, RDW 17.9 H, MPV 6.9 L, Neutrophils % 90.5 H, Lymphocytes % 5.6 L, Neutrophils # 11.6 H, Lymphocytes # 0.7 L Microbiology - Entire Visit 10/15/20 04:25 Nasal swab MRSA Screen - Final Negative--No MRSA Colonization - Physical Exam Vitals: Vital Signs (12 hours) Temp Pulse Resp BP BP Pulse Ox 10/17/20 12:23 96.9 F L 83 16 184/77 H 94 L 10/17/20 10:19 75 16 92 L 10/17/20 08:37 85 183/74 H 10/17/20 08:35 85 183/74 H 10/17/20 07:44 97.4 F L 85 20 183/74 H 92 L 10/17/20 07:10 92 L 10/17/20 06:45 92 L 10/17/20 06:44 82 16 92 L 10/17/20 06:42 87 20 92 L 10/17/20 04:00 98.1 F 85 18 179/77 H 95 10/17/20 02:13 16 Weight Admit Weight 111 lb 12.8 oz Weight 111 lb 12.8 oz Physical Exam: The patient was seen and examined on the day of discharge. Patient denies chest pain or shortness of breath. Vital signs are stable. S1 and S2 are heard. Lungs are clear to auscultation bilaterally. Problem - Time spent with Patient (mins): 20 Plan - Discharge Medications Prescriptions: Saccharomyces boulardii [Florastor] 250 mg PO DAILY #6 cap Levofloxacin 500 mg PO DAILY #6 tablet predniSONE 20 mg PO ASDIR #16 tab Home Medications: Medication Instructions Recorded Confirmed Type Doxazosin [Cardura] 4 mg PO HS 12/14/19 10/15/20 History Sevelamer Carbonate [Renvela] 2,400 mg PO TID-WM 12/14/19 10/15/20 History hydrALAZINE HCl 100 mg PO TID 12/14/19 10/15/20 History Gabapentin 400 mg PO HS 01/16/20 10/15/20 History Fluticasone Propionate [Flonase 2 spray EA NARE BID 02/11/20 10/15/20 History Nasal [place]] Omeprazole 40 mg PO DAILY 02/11/20 10/15/20 History traMADol HCl [Tramadol HCl] 50 mg PO BID PRN 02/11/20 10/15/20 History Albuterol Sulfate [Ventolin HFA] 2 puff INH Q6HR PRN 05/25/20 10/15/20 History Budesonide-Formoterol [Symbicort 1 puff INH BID 05/25/20 10/15/20 History 160-4.5] ALPRAZolam [Xanax] 0.5 mg PO DAILY 06/12/20 10/15/20 History Amlodipine [Norvasc] 10 mg PO BID #60 tab 06/15/20 10/15/20 Rx Losartan [Cozaar] 25 mg PO HS 09/24/20 10/15/20 History Losartan [Cozaar] 50 mg PO DAILY 09/24/20 10/15/20 History Metoprolol Tartrate [Lopressor] 50 mg PO BID 30 Days #60 tab 09/29/20 10/15/20 Rx Levofloxacin 500 mg PO DAILY #6 tablet 10/17/20 Rx Saccharomyces boulardii [Florastor] 250 mg PO DAILY #6 cap 10/17/20 Rx predniSONE 20 mg PO ASDIR #16 tab 10/17/20 Rx Allergies: ceftriaxone Allergy (Verified 10/14/20 23:04) from esd report clonidine Allergy (Verified 10/14/20 23:04) Penicillins Allergy (Verified 10/14/20 23:04) - Discharge Instructions Activity:: Activity as Tolerated Nourishment:: Heart Healthy Diet - Follow up Plan Referrals: Chavo Johnson DO [Primary Care Provider] - 3 Days Disposition: HOME Quality - Care Measures CORE MEASURES:: N/A
[2020-10-17 18:25] VITALS: BP 170/65; TEMP 97.5
== END 2020-10-17 18:50 | disposition home or self-care (01) | DRG 291 ==
LOC: ERS 18:53 → 2SE 21:39
PROVIDERS: ADMIT Internal Medicine; ATTEND Internal Medicine
PROC: 5A1D70Z Performance of Urinary Filtration, Intermittent, Less than 6 Hours Per Day (ICD-10-PCS; principal; 2020-10-15)
DX: I13.2 Hypertensive heart and chronic kidney disease with heart failure and with stage 5 chronic kidney disease, or end stage renal disease (principal); N18.6 End stage renal disease; J96.21 Acute and chronic respiratory failure with hypoxia; I50.33 Acute on chronic diastolic (congestive) heart failure; J44.1 Chronic obstructive pulmonary disease with (acute) exacerbation; N25.81 Secondary hyperparathyroidism of renal origin; Z20.828 Contact with and (suspected) exposure to other viral communicable diseases; F41.9 Anxiety disorder, unspecified; F32.9 Major depressive disorder, single episode, unspecified; E83.39 Other disorders of phosphorus metabolism; D63.1 Anemia in chronic kidney disease; E87.5 Hyperkalemia; Z99.2 Dependence on renal dialysis; Z90.710 Acquired absence of both cervix and uterus; Z98.51 Tubal ligation status; Z87.891 Personal history of nicotine dependence; Z88.9 Allergy status to unspecified drugs, medicaments and biological substances
CPT/HCPCS: 36415; 71045; 80048; 80053; 82553; 83735; 83880; 84100; 84484; 85007; 85025; 85027; 85379; 87081; 93005; 94640; 96365; 96366; 96367; 96368; J0692; J1100; J1644; J1650; J1956; J2920; J3370; J3475; J7620; J7799; Q5105; U0002

== ENCOUNTER 2020-11-26 04:38 | Inpatient (IN) | payer MEDICARE, MEDICAID ==
[2020-11-26 05:05] LABS: #Eosinphils 0.1 thou/uL (0.0-0.7); #Lymphocytes 0.8 thou/uL (1.20-3.40); #Monocytes 0.6 thou/uL (0.11-0.59); #Neutrophils 13.9 thou/uL (1.40-6.50); %Basophils 0.1 % (0.0-1.0); %Eosinophils 0.7 % (0.0-10.0); %Lymphocytes 5.3 % (21.0-51.0); %Neutrophils 89.8 % (42.0-75.0); Hemoglobin 9.4 g/dL (12.0-16.0); Mean Corpuscular HGB CONC 30.6 g/dL (32.0-36.0); Mean Corpuscular Hemoglobin 30.4 pg (27.0-31.0); Mean Corpuscular Volume 99.2 fL (78.0-98.0); Mean Platelet Volume 7.6 fL (7.4-10.4); Platelet Count 134 thou/uL (130-400); RBC Distribution Width 17.1 % (11.5-14.5); Red Blood Cell (RBC) Count 3.08 mill/uL (4.20-5.40); White Blood Cell (WBC) Count 15.5 thou/uL (4.8-10.8)
[2020-11-26 05:25] LABS: ALT (SGPT) 10 U/L (8-55); AST (SGOT) 9 U/L (5-34); Albumin 3.5 g/dL (3.5-5.0); Alkaline Phosphatase 66 U/L (40-110); Anion Gap 21 mmol/L (10-20); BUN (Urea Nitrogen) 69 mg/dL (9.8-20.1); Bilirubin, Total 0.8 mg/dL (0.2-1.2); Calc. Creatinine Clearance 0 mL/min (70-130); Calcium 8.7 mg/dL (7.8-10.44); Carbon Dioxide 26 mmol/L (22-29); Chloride 102 mmol/L (98-107); Globulin 2.6 g/dL (2.4-3.5); Glucose 156 mg/dL (70-105); Potassium 5.3 mmol/L (3.5-5.1); Protein, Total 6.1 g/dL (6.0-8.3); Sodium 144 mmol/L (136-145)
[2020-11-26] MEDS ORDERED: Levofloxacin 500 mg/D5W 100 ml Premix Bag ONE (05:39)
[2020-11-26] MEDS ORDERED: methylPREDNISolone Sod Succ/PF 125 MG/2 ML VIAL ONE (05:39)
[2020-11-26 05:46] LABS: CKMB 3.8 ng/mL (0-6.6)
[2020-11-26 06:36] LABS: SARS-CoV-2 NAA Rapid Test Not Detected (NotDetected)
[2020-11-26] MEDS ORDERED: Ondansetron ODT 4 MG TAB PO PRN (07:23)
[2020-11-26] MEDS ORDERED: Acetaminophen 325 MG TAB PO PRN (07:23)
[2020-11-26] MEDS ORDERED: Senokot S 8.6-50 MG TAB PO PRN (07:23)
[2020-11-26] MEDS ORDERED: Bisacodyl 5 MG TAB PO PRN (07:23)
[2020-11-26] MEDS ORDERED: Ondansetron PF 4 MG/2 ML Vial IVP PRN (07:23)
[2020-11-26] MEDS ORDERED: Guaifenesin DM 100-10/5 ML UDCUP PO PRN (07:23)
[2020-11-26] MEDS ORDERED: Benzonatate 100 MG CAP PO PRN (07:23)
[2020-11-26] MEDS ORDERED: Calcium Carbonate 500 MG ChewTAB PO PRN (07:23)
[2020-11-26] MEDS ORDERED: Aspirin 325 MG TAB PO SCH (07:30)
[2020-11-26 08:54] LABS: Troponin I 0.113 ng/mL (< 0.028)
[2020-11-26] MEDS ORDERED: Famotidine/PF 20 mg/2ml Vial SLOW IVP SCH (09:00)
[2020-11-26] MEDS ORDERED: Famotidine 20 MG TAB PO SCH (09:00)
--- NOTE | 2020-11-26 09:06 | RAD ---
PORTABLE CHEST: Date: 11/26/2020 HISTORY: Fever and shortness of breath. COMPARISON: 10/14/2020 exam. FINDINGS: Heart size is slightly enlarged. Severe COPD changes are noted. The bibasilar lung changes are stable as compared to that previous exam. Also unchanged from the 05/24/2020 study. IMPRESSION: Stable overall appearance to the chest. The bibasilar opacities could be entirely chronic in nature. It is possible this is a pulmonary edema pattern superimposed on severe COPD changes. Follow-up chest film would be suggested for assessment. POS: OFF
--- NOTE | 2020-11-26 09:06 | HP ---
PRIMARY CARE PHYSICIAN: Dr. Chavo Johnson. CHIEF COMPLAINT: Shortness of breath and fever. HISTORY OF PRESENT ILLNESS: The patient is a 55-year-old female with a past medical history significant for COPD (on 3 L nasal cannula at home); ESRD (Thursday, Thursday, and Thursday), followed by Dr. Alvarado; hypertension; and GERD, who presents to the emergency department via EMS for the above complaint. The patient reports having general malaise yesterday, so much so that she did not feel up to going shopping with family members. That same evening, the patient noted she felt short of breath, stating "it was hard to breathe." She checked her oxygen saturation and realized it was 74% on her usual 3 L nasal cannula at home. She noticed that she was working really hard to breathe. She felt chills, so her checked her temperature, which she reports was 101.3 Fahrenheit. She reports chronic nonproductive cough. She denies wheezing. She has been using her nebulizer 1 to 2 times per day. She denies any known sick contacts. No COVID contacts. No loss of smell or taste. She denies any chest pain, heart palpitations, or lightheadedness. No swelling to her lower extremities. No history of DVT/PE. She denies any abdominal pain, nausea, vomiting, or diarrhea. She makes good urine and denies any dysuria or hematuria. She did not feel up to going to her dialysis appointment this morning; therefore, she called EMS and was brought to the emergency department for further evaluation. In the emergency department, the patient was found to be febrile, temperature 100.8; hypertensive, blood pressure 160/52; tachycardic, heart rate 95; tachypneic, respirations 22; hypoxic, 93% on 3 L nasal cannula. EKG, normal sinus rhythm. Chest x-ray appears fluid volume overload with possible pneumonia. Troponin 0.100, CK-MB 3.8 with a BNP of 1367. WBC is 15.5, lactic acid 1.2. SARs and influenza testing negative. Potassium 5.3. The patient was given Solu-Medrol and Levaquin, and Dr. Alvarado was consulted for maintenance hemodialysis. PAST MEDICAL HISTORY: 1. End-stage renal disease; Thursday, Thursday, and Thursday; followed by Dr. Alvarado. 2. COPD, on 3 L nasal cannula at home. 3. Hypertension. 4. Brain aneurysm. 5. Intestinal mass. PAST SURGICAL HISTORY: 1. Left upper extremity fistula. 2. Eye surgery. 3. . 4. Tubal. 5. Hysterectomy. SOCIAL HISTORY: The patient lives with her family at home. She quit smoking approximately 3 to 4 months ago. She has no history of illicit drug use or heavy alcohol intake. She is retired, on disability. She ambulates with a roller walker and recently purchased a new electric chair. FAMILY HISTORY: Negative for diabetes. Negative for kidney disease. Contributory for heart disease. ALLERGIES: TO, 1. ROCEPHIN. 2. CLONIDINE. 3. PENICILLINS. HOME MEDICATIONS: 1. Metoprolol tartrate 50 mg p.o. b.i.d. 2. Losartan 25 mg p.o. at bedtime and 50 mg p.o. daily. 3. Amlodipine 10 mg b.i.d. 4. Doxazosin 4 mg p.o. at bedtime. 5. Hydralazine 100 mg p.o. t.i.d. 6. Omeprazole 40 mg p.o. daily. 7. Gabapentin 400 mg p.o. at bedtime. 8. Renvela 2400 mg t.i.d. with meals. 9. Flonase 2 sprays per naris b.i.d. 10. Albuterol HFA inhaler two puffs inhalation q.6 p.r.n. shortness of breath. 11. Symbicort one puff inhalation b.i.d. 12. Xanax 0.5 mg p.o. daily. REVIEW OF SYSTEMS: All review of systems are negative unless otherwise stated in HPI. PHYSICAL EXAMINATION: VITAL SIGNS: Temperature 100.8, blood pressure 169/56, pulse 91, respirations 22, and saturations 90% on 4 L nasal cannula. CONSTITUTIONAL: The patient is hypertensive, mildly tachycardic, mildly tachypneic, and mildly hypoxic with increased work of breathing. Nontoxic in appearance, mildly uncomfortable. HEAD: Atraumatic and normocephalic. EYES: PERRLA. Extraocular muscles are intact. Sclerae nonicteric. ENT: Oropharynx is clear. Uvula is midline. Tacky mucous membranes. No oral lesions. NECK: Full range of motion. No cervical spinous tenderness. No cervical adenopathy. RESPIRATORY/CHEST: She is tachypneic, increased work of breathing. She is diminished in her lower lobes with rales, no wheezing appreciated. CARDIOVASCULAR: S1 and S2 appreciated. No murmurs, rubs, or gallops. ABDOMEN: Abdomen is soft, nontender, distended. Active bowel sounds. No guarding, no rigidity. No rebound tenderness. Negative Rovsing sign. Negative Sheehan sign. BACK: Full range of motion. No central spinous tenderness. No CVA tenderness. UPPER EXTREMITIES: Show full range of motion, normal strength, sensation intact. Palpable radial pulses. Left upper extremity has an AV fistula. LOWER EXTREMITIES: Full range of motion, normal strength, sensation intact. Palpable pedal pulses. No swelling. NEUROLOGIC: She is A and O x4. No focal motor deficits. PSYCHIATRIC: Denies suicidal or homicidal ideation. A and O x4. DIAGNOSTICS AND LABORATORY DATA: Influenza A and B are negative. SARs negative. Sodium 144, potassium 5.3, chloride 102, carbon dioxide 26, anion gap 21, BUN 69, creatinine 9.99, GFR 4, glucose 156, lactic acid 1.2, calcium 8.7, bilirubin 0.8, AST 9, ALT 10, alkaline phosphatase 66, troponin 0.1, CK-MB 3.8, BNP 1376.2, albumin 3.5. WBC 5.5, hemoglobin 9.4, hematocrit 30.6, and platelets 134. Chest x-ray pending reading, however, looks consistent with fluid volume overload along with possibly pneumonia. IMPRESSION: 1. Acute on chronic respiratory failure. 2. Chronic obstructive pulmonary disease exacerbation. 3. Sepsis. 4. End-stage renal disease. 5. Anemia, chronic. 6. Hypertension. 7. Chronic obstructive pulmonary disease, chronic. PLAN: A 55-year-old female with past medical history of COPD, end-stage renal disease, and hypertension, presents for increasing shortness of breath and fever. We will admit the patient to medical floor, inpatient status. Expected length of stay greater than two midnights. Upon examination, the patient was in mild respiratory distress, unable to speak in complete sentences with increased work of breathing. Likely COPD exacerbation with superimposed pneumonia. We will continue Levaquin, Solu-Medrol, DuoNebs, and add p.r.n. antitussives. Blood culture is pending. The patient has a mildly elevated troponin, so we will trend troponins and give full dose aspirin. There were no EKG changes showing ischemia, therefore, likely secondary to problems 1 and 2. In terms of her end-stage renal disease, ER MD consulted Dr. Alvarado for maintenance dialysis, which her normal schedule is Thursday, Thursday, and Thursday. The patient appears to be chronically anemic, which appears stable with a hemoglobin of 9.4 and hematocrit of 30.6. We will continue to monitor. In terms of the patient's hypertension, it is chronic, the patient takes metoprolol, losartan, amlodipine, doxazosin, and hydralazine at home. We will restart home medications. In terms of the patient's COPD, she is on 3 L nasal cannula at home and appears noncompliant with her daily maintenance medications. She states that her yarn twister is Dr. Campos, whom she has not seen for some time. We will restart her home dose of Symbicort, Flonase, and Xanax. Lovenox for deep venous thrombosis prophylaxis. Omeprazole for gastrointestinal prophylaxis. Code status is full code. Discussed the case with Dr. Bryant, attending physician. Job ID: [id number] [id number]
[2020-11-26] MEDS: Sevelamer Carbonate 800 MG TAB PO SCH ×3 (09:37→18:00)
[2020-11-26] MEDS: ALPRAZolam 0.25 MG TAB PO SCH (09:37)
[2020-11-26] MEDS: Saccharomyces boulardii 250 MG CAP PO SCH ×2 (09:37→20:23)
[2020-11-26] MEDS: Metoprolol Tartrate 50 MG TAB PO SCH ×2 (09:38→20:23)
[2020-11-26] MEDS: Amlodipine 10 MG TAB PO SCH ×2 (09:38→20:23)
[2020-11-26] MEDS: hydrALAZINE 25 MG TAB PO SCH ×3 (09:38→20:22)
[2020-11-26] MEDS: Losartan 25 MG TAB PO SCH ×2 (09:39→20:23)
[2020-11-26] MEDS: Fluticasone Propionate Nasal Spray 16 gm Bottle NASAL SCH ×2 (09:40→21:00)
--- NOTE | 2020-11-26 10:17 | PRG ---
DATE OF SERVICE: 11/26/2020 SUBJECTIVE: Ms. Branch is a 55-year-old female with ESRD - on maintenance hemodialysis, who was admitted for fever and shortness of breath. She has COPD exacerbation with a possible pneumonia. Currently, on IV antibiotics. We are being consulted for her maintenance hemodialysis. I have scheduled the patient this afternoon for hemodialysis and fluid removal. PHYSICAL EXAMINATION: VITAL SIGNS: Blood pressure is 170/65, heart rate 84, respiratory rate 17, temperature 97.5, O2 saturation 91% on 4 L. GENERAL: The patient is noted to be awake, comfortable, not in overt distress. SKIN: Adequate turgor. HEENT: She has pinkish conjunctivae. Anicteric sclerae. No neck mass. No carotid bruits. No JVD. CHEST: No deformities. LUNGS: Decreased breath sounds. HEART: Normal sinus rhythm. No murmurs, no gallops, no rubs. ABDOMEN: Globular, soft, nontender. No masses. EXTREMITIES: No edema. No deformities. MEDICATIONS: Of November 26, 2020, reviewed. LABORATORY DATA: Laboratories of November 26, 2020: White count 15.5, hemoglobin 9.4. Sodium 144, potassium 5.3, chloride 102, carbon dioxide 26, BUN 69, creatinine 9.99, glucose 156, calcium 8.7. AST 9, ALT 10. Troponin-I 0.113. Chest x-ray of November 26, 2020, shows increased lung markings with ? infiltrates. Chronic COPD changes noted. ASSESSMENT AND PLAN: 1. Chronic obstructive pulmonary disease exacerbation, on empiric antibiotics and steroids. Continue q.6 neb treatment. 2. End-stage renal disease, stable. We will continue current hemodialysis regimen. Again, fluid removal only as tolerated by the patient. Case discussed at length with the dialysis nurses. Continue Thursday, Thursday, Thursday schedule. Job ID: [id number]
[2020-11-26 12:21] LABS: Troponin I 0.075 ng/mL (< 0.028)
[2020-11-26] MEDS: methylPREDNISolone Sod Succ 40 MG VIAL IVP SCH ×2 (14:33→18:29)
[2020-11-26] MEDS: Heparin 5,000 UNITS/ML VIAL SC SCH ×3 (18:02→20:25)
[2020-11-26] MEDS: Doxazosin 2 MG TAB PO SCH (20:23)
[2020-11-26] MEDS: Gabapentin 400 MG CAP PO SCH (20:24)
[2020-11-26] MEDS: traMADol HCl 50 MG TAB PO PRN (20:24)
[2020-11-26] MEDS: Mometasone 200 MCG/Formoterol 5 MCG 120 PUFF INHALER INH SCH (22:08)
[2020-11-27] MEDS: methylPREDNISolone Sod Succ 40 MG VIAL IVP SCH ×4 (01:00→16:57)
[2020-11-27 06:40] LABS: #Lymphocytes 0.3 thou/uL (1.20-3.40); #Monocytes 0.1 thou/uL (0.11-0.59); #Neutrophils 7.4 thou/uL (1.40-6.50); %Eosinophils 0.4 % (0.0-10.0); %Lymphocytes 4.2 % (21.0-51.0); %Monocytes 1.3 % (0.0-10.0); %Neutrophils 94.2 % (42.0-75.0); Hemoglobin 9.8 g/dL (12.0-16.0); Mean Corpuscular HGB CONC 31.5 g/dL (32.0-36.0); Mean Corpuscular Hemoglobin 31.1 pg (27.0-31.0); Mean Corpuscular Volume 98.7 fL (78.0-98.0); Mean Platelet Volume 7.6 fL (7.4-10.4); Platelet Count 135 thou/uL (130-400); RBC Distribution Width 16.4 % (11.5-14.5); Red Blood Cell (RBC) Count 3.16 mill/uL (4.20-5.40); White Blood Cell (WBC) Count 7.8 thou/uL (4.8-10.8)
[2020-11-27 07:02] LABS: Anion Gap 19 mmol/L (10-20); BUN (Urea Nitrogen) 47 mg/dL (9.8-20.1); Calc. Creatinine Clearance 10 mL/min (70-130); Calcium 8.8 mg/dL (7.8-10.44); Carbon Dioxide 27 mmol/L (22-29); Cardiac Risk 2.5 (Less than 4.5); Chloride 100 mmol/L (98-107); Cholesterol 276 mg/dl (< 200 Desired); Glucose 146 mg/dL (70-105); HDL Cholesterol 110 mg/dL (>60 Neg Risk); LDL Cholesterol, Calculated 146 mg/dL; Potassium 4.8 mmol/L (3.5-5.1); Sodium 141 mmol/L (136-145); Triglycerides 100 mg/dL (Less than 150)
[2020-11-27] MEDS: Aspirin Chewable 81 MG TAB PO SCH (08:14)
[2020-11-27] MEDS: Losartan 25 MG TAB PO SCH ×2 (08:14→20:39)
[2020-11-27] MEDS: Sevelamer Carbonate 800 MG TAB PO SCH ×3 (08:15→18:33)
[2020-11-27] MEDS: Amlodipine 10 MG TAB PO SCH ×2 (08:15→20:38)
[2020-11-27] MEDS: hydrALAZINE 25 MG TAB PO SCH ×3 (08:15→20:39)
[2020-11-27] MEDS: Saccharomyces boulardii 250 MG CAP PO SCH ×2 (08:16→20:38)
[2020-11-27] MEDS: Metoprolol Tartrate 50 MG TAB PO SCH ×2 (08:16→20:40)
[2020-11-27] MEDS: ALPRAZolam 0.25 MG TAB PO SCH (08:16)
[2020-11-27] MEDS: Fluticasone Propionate Nasal Spray 16 gm Bottle NASAL SCH ×2 (08:17→20:40)
[2020-11-27] MEDS: Mometasone 200 MCG/Formoterol 5 MCG 120 PUFF INHALER INH SCH ×2 (08:20→22:00)
[2020-11-27] MEDS: Heparin 5,000 UNITS/ML VIAL SC SCH ×3 (11:30→20:40)
--- NOTE | 2020-11-27 14:58 | PDOC.HOSPP ---
- Subjective Encounter Date: 11/27/20 Encounter Time: 14:56 Subjective: Patient reports having trouble sleeping due to not getting her Ambien. She continues to have some shortness of breath when she exerts herself but she was able to shower on her own. States her breathing has improved from when she first came in. She expressed concern over frequent admissions for COPD exacerbation. Reports that she usually begins to get ill again 10 to 12 days after discharge. Told by her primary care physician that she may need chronic steroids/antibiotics. She is requesting to see Dr. Felipe to discuss further because her PCP does not feel comfortable making that decision. She has been trying to see her pulmonoligist at [facility] but states she was last seen by Dr. Felipe and would like to be seen by him again. - Objective Vital Signs & Weight: Vital Signs (12 hours) Temp Pulse Resp BP BP BP Pulse Ox 11/27/20 14:42 80 22 H 92 L 11/27/20 12:15 97.5 F L 70 18 154/55 H 91 L 11/27/20 08:22 73 18 91 L 11/27/20 08:20 78 16 91 L 11/27/20 08:11 97.8 F 78 16 173/68 H 94 L 11/27/20 04:00 98.6 F 80 20 182/75 H 96 Weight Weight 138 lb 0.15 oz I&O: 11/26/20 11/27/20 11/28/20 06:59 06:59 06:59 Intake Total 800 Output Total 3500 Balance -2700 Result Diagrams: 11/27/20 06:21 11/27/20 06:21 Hospitalist ROS - Review of Systems Constitutional: reports: malaise (improving). denies: fever, chills, sweats, weakness, other Eyes: denies: pain, vision change, conjunctivae inflammation, eyelid inflammation, redness, other ENT: denies: ear pain, ear discharge, nose pain, nose discharge, nose congestion, mouth pain, mouth swelling, throat pain, throat swelling, other Respiratory: reports: shortness of breath. denies: cough, dry, hemoptysis, SOB with excertion, pleuritic pain, sputum, wheezing, other Cardiovascular: denies: chest pain, palpitations, orthopnea, paroxysmal noc. dyspnea, edema, light headedness, other Gastrointestinal: denies: nausea, vomiting, abdominal pain, diarrhea, constipation, melena, hematochezia, other Genitourinary: denies: dysuria, frequency, incontinence, hematuria, retention, other Musculoskeletal: denies: neck pain, shoulder pain, arm pain, back pain, hand pain, leg pain, foot pain, other Skin: denies: rash, lesions, reggie, bruising, other Neurological: denies: weakness, numbness, incoordination, change in speech, confusion, seizures, other - Medication Medications: Active Medications Generic Name Dose Route Start Last Admin Trade Name Freq PRN Reason Stop Dose Admin Albuterol/Ipratropium 3 ml 11/26/20 13:00 11/27/20 14:42 Ipratropium/Albuterol Sulfate 3 Ml Neb NEB 3 ml [id number] PAT Administration Albuterol/Ipratropium 3 ml 11/26/20 13:00 11/27/20 12:24 Ipratropium/Albuterol Sulfate 3 Ml Neb IPPB Not Given [id number] PAT Amlodipine Besylate 10 mg 11/26/20 09:00 11/27/20 08:15 Amlodipine 10 Mg Tab PO 10 mg BID PAT Administration Aspirin 81 mg 11/27/20 09:00 11/27/20 08:14 Aspirin Chewable 81 Mg Tab PO 81 mg DAILY PAT Administration Doxazosin Mesylate 4 mg 11/26/20 21:00 11/26/20 20:23 Doxazosin 2 Mg Tab PO 4 mg HS PAT Administration Fluticasone Propionate 16 gm 11/26/20 09:00 11/27/20 08:17 Fluticasone Propionate Nasal [place] 16 Gm Bottle NASAL 2 spr BID PAT Administration Gabapentin 400 mg 11/26/20 21:00 11/26/20 20:24 Gabapentin 400 Mg Cap PO 400 mg HS PAT Administration Heparin Sodium (Porcine) 5,000 units 11/26/20 09:00 11/27/20 11:30 Heparin 5,000 Units/Ml Vial SC 5,000 units TID PAT Administration Hydralazine HCl 100 mg 11/26/20 09:00 11/27/20 08:15 Hydralazine 25 Mg Tab PO 100 mg TID PAT Administration Levofloxacin 750 mg/ Device 150 mls @ 100 mls/hr 11/27/20 06:00 11/27/20 05:11 IVPB 150 mls Q24HR PAT Administration Losartan Potassium 25 mg 11/26/20 21:00 11/26/20 20:23 Losartan 25 Mg Tab PO 25 mg HS PAT Administration Losartan Potassium 50 mg 11/26/20 09:00 11/27/20 08:14 Losartan 25 Mg Tab PO 50 mg DAILY PAT Administration Methylprednisolone Sodium Succinate 40 mg 11/26/20 12:00 11/27/20 12:33 Methylprednisolone Sod Succ 40 Mg Vial IVP 40 mg Q6HR PAT Administration Metoprolol Tartrate 50 mg 11/26/20 09:00 11/27/20 08:16 Metoprolol Tartrate 50 Mg Tab PO 50 mg BID PAT Administration Mometasone Furoate/Formoterol Fumar 2 puff 11/26/20 18:30 11/27/20 08:20 Mometasone 200 Mcg/Formoterol 5 Mcg 120 Puff Inhaler INH 2 puff BID-RT PAT Administration Pantoprazole Sodium 40 mg 11/26/20 09:00 11/27/20 08:16 Pantoprazole 40 Mg Tab PO 40 mg DAILY PAT Administration Saccharomyces Boulardii 250 mg 11/26/20 09:00 11/27/20 08:16 Saccharomyces Boulardii 250 Mg Cap PO 250 mg BID PAT Administration Sevelamer Carbonate 2,400 mg 11/26/20 08:00 11/27/20 12:30 Sevelamer Carbonate 800 Mg Tab PO 2,400 mg TID-WM PAT Administration Sodium Chloride 10 ml 11/26/20 07:20 11/27/20 12:35 Flush - Normal Saline 10 Ml Syringe IVF 10 ml PRN PRN Administration Saline Flush Tramadol HCl 50 mg 11/26/20 07:30 11/26/20 20:24 Tramadol Hcl 50 Mg Tab PO 50 mg BID PRN Administration Mild Pain (1-3) - Exam General Appearance: NAD, awake alert Eye: PERRL, anicteric sclera ENT: normocephalic atraumatic, no oropharyngeal lesions Neck: supple, no lymphadenopathy Heart: RRR, normal peripheral pulses Respiratory: CTAB, no wheezes, no rales, no ronchi, normal chest expansion Gastrointestinal: soft, non-tender, non-distended, normal bowel sounds Extremities: no cyanosis, no clubbing, no edema Hosp A/P (1) COPD exacerbation Code(s): J44.1 - CHRONIC OBSTRUCTIVE PULMONARY DISEASE W (ACUTE) EXACERBATION Status: Acute (2) Hypertension Code(s): I10 - ESSENTIAL (PRIMARY) HYPERTENSION Status: Chronic (3) ESRD (end stage renal disease) on dialysis Code(s): N18.6 - END STAGE RENAL DISEASE; Z99.2 - DEPENDENCE ON RENAL DIALYSIS Status: Chronic (4) Insomnia Code(s): G47.00 - INSOMNIA, UNSPECIFIED Status: Chronic - Plan Continue IV antibiotics and steroids Continue nebs Monitor O2 sats Consult placed to Dr. Felipe per patient request regarding plans to start chronic abx/steroids at discharge ESRD on HD, getting fluid removed as tolerated as per Dr. Alvarado Monitor BP, home meds have been restarted Xanax and Ambien have been restarted GI prophylaxis with Famotidine DVT Prophylaxis: Currently on Lovenox CODE STATUS: FULL
[2020-11-27] MEDS: ALPRAZolam 0.5 MG TAB PO SCH (16:57)
--- NOTE | 2020-11-27 18:22 | CON ---
DATE OF CONSULTATION: HISTORY OF PRESENT ILLNESS: Yolanda Branch is a 55-year-old female with end-stage renal failure, COPD, tobacco abuse, presented with a temperature 101.3 last night, fever, chills, and cough. Her x-ray shows cardiomegaly, cephalization, questionable right-sided infiltrate. She is sitting on the side of the bed in no distress. PAST MEDICAL HISTORY: COPD, smoking, renal failure, brain aneurysm, hypertension. PREVIOUS SURGERIES: Dialysis access, , hysterectomy, tubal ligation, eye surgery, apparently quit smoking. HOME MEDICINE: Apparently includes 1. Flonase spray. 2. Symbicort twice a day. 3. Cozaar 50. 4. Gabapentin. 5. Albuterol inhaler. REVIEW OF SYSTEMS: Otherwise, 10 point negative. PHYSICAL EXAMINATION: VITAL SIGNS: Temperature 97, pulse rate 20, saturations 90% on 3 L, blood pressure 154/55. CHEST: No wheezing, no crackles. CARDIAC: Normal S1, S2. No gallop. ABDOMEN: No masses. LABORATORY DATA: White count 7000, H and H are 9 and 30, platelet count is normal. Creatinine 5.8. Serology for virus was negative. IMPRESSION: COPD exacerbation. I do not see an obvious pneumonia though opacity in the base of the lung appears to be chronic. Fluid overload. I may empirically put on some oral antibiotics because of febrile illness. Otherwise, there is no change in the medication, aggressive dialysis. Disposition as per Nephrology. Consultation note, 70 minutes, 50% direct patient care. Job ID: [id number]
[2020-11-27] MEDS: Doxycycline 100 MG CAP PO SCH (20:37)
[2020-11-27] MEDS: Gabapentin 400 MG CAP PO SCH (20:38)
[2020-11-27] MEDS: Doxazosin 2 MG TAB PO SCH (20:41)
[2020-11-27] MEDS ORDERED: Zolpidem Tartrate 5 MG TAB PO SCH (21:15)
[2020-11-28] MEDS: methylPREDNISolone Sod Succ 40 MG VIAL IVP SCH ×2 (01:00→06:05)
[2020-11-28 06:34] LABS: #Lymphocytes 0.4 thou/uL (1.20-3.40); #Monocytes 0.3 thou/uL (0.11-0.59); #Neutrophils 14.6 thou/uL (1.40-6.50); %Eosinophils 0.2 % (0.0-10.0); %Lymphocytes 2.6 % (21.0-51.0); %Monocytes 1.6 % (0.0-10.0); %Neutrophils 95.6 % (42.0-75.0); Hemoglobin 10.6 g/dL (12.0-16.0); Mean Corpuscular Hemoglobin 31.6 pg (27.0-31.0); Mean Corpuscular Volume 98.8 fL (78.0-98.0); Mean Platelet Volume 7.8 fL (7.4-10.4); Platelet Count 144 thou/uL (130-400); RBC Distribution Width 16.5 % (11.5-14.5); Red Blood Cell (RBC) Count 3.36 mill/uL (4.20-5.40); White Blood Cell (WBC) Count 15.3 thou/uL (4.8-10.8)
[2020-11-28 06:57] LABS: Lactic Acid 1.4 mmol/L (0.5-2.2)
[2020-11-28 07:02] LABS: Anion Gap 22 mmol/L (10-20); BUN (Urea Nitrogen) 84 mg/dL (9.8-20.1); Calc. Creatinine Clearance 8 mL/min (70-130); Calcium 8.7 mg/dL (7.8-10.44); Carbon Dioxide 24 mmol/L (22-29); Chloride 98 mmol/L (98-107); Glucose 110 mg/dL (70-105); Magnesium 2.2 mg/dL (1.6-2.6); Potassium 4.6 mmol/L (3.5-5.1); Sodium 139 mmol/L (136-145)
[2020-11-28] MEDS: Sevelamer Carbonate 800 MG TAB PO SCH ×3 (09:30→16:21)
[2020-11-28] MEDS: Amlodipine 10 MG TAB PO SCH ×2 (09:30→20:17)
[2020-11-28] MEDS: hydrALAZINE 25 MG TAB PO SCH ×3 (09:30→20:14)
--- NOTE | 2020-11-28 10:05 | PRG ---
DATE OF SERVICE: 11/28/2020 SUBJECTIVE: Ms. Branch is a 55-year-old female with ESRD and was admitted for pneumonia/fever. She is currently on IV antibiotics. She denies any fever. No chest pain or shortness of breath. She is undergoing hemodialysis. We are attempting 3 L fluid removal today. OBJECTIVE: VITAL SIGNS: Blood pressure 167/60, heart rate 66, respiratory rate 16, temperature 97.6, O2 saturation 95%. GENERAL: Awake, alert, comfortable, not in distress. SKIN: Adequate turgor. HEENT: She has a pinkish conjunctivae. Anicteric sclerae. No neck mass. No carotid bruits. No JVD. CHEST: No deformities. LUNGS: Clear breath sounds. HEART: Normal sinus rhythm. No murmurs, no gallops, no rubs. ABDOMEN: Globular, soft, nontender. No masses. EXTREMITIES: No edema. No deformities. MEDICATIONS: Medications of November 28, 2020 was reviewed. LABORATORY DATA: Laboratories of November 28, 2020; white count 15.3, hemoglobin 10.6. Sodium 139, potassium 4.6, chloride 98, carbon dioxide 24, BUN 84, creatinine 7.75, glucose 110, calcium 8.7, magnesium 2.2. C-reactive protein is 4.32. ASSESSMENT/PLAN: 1. End-stage renal disease, stable. Continue current Thursday, Thursday, and Thursday hemodialysis. 3 L fluid removal as tolerated by the patient. We will observe BP to see if she will tolerate this. 2. Pneumonia/fever-clinically improving on IV antibiotics. 3. Agree with current management. Recheck CBC and basic metabolic profile in a.m. Job ID: [id number]
--- NOTE | 2020-11-28 11:08 | PRG ---
DATE OF SERVICE: 11/28/2020 SUBJECTIVE: Yolanda Branch this morning, she is being dialyzed. No distress. OBJECTIVE: VITAL SIGNS: Her sats are adequate at 95% 1 L, respiratory rate of 16 pulse 60, blood pressure 166/60. CHEST: No wheezing. No crackles. CARDIAC: Normal S1, S2. ABDOMEN: No masses. LABORATORY DATA: Pertinent for creatinine . ASSESSMENT: Chronic renal failure, respiratory failure, chronic obstructive pulmonary disease. PLAN: Pulmonary jon, she is at baseline. Disposition as per Nephrology. She can probably switch over to oral antibiotics. Job ID: [id number]
[2020-11-28] MEDS ORDERED: cloNIDine 0.1 MG TAB PO SCH (12:45)
[2020-11-28] MEDS: Heparin 5,000 UNITS/ML VIAL SC SCH ×3 (13:11→20:15)
[2020-11-28] MEDS: Saccharomyces boulardii 250 MG CAP PO SCH ×2 (13:45→20:14)
[2020-11-28] MEDS: Fluticasone Propionate Nasal Spray 16 gm Bottle NASAL SCH ×2 (13:48→20:15)
[2020-11-28] MEDS: Aspirin Chewable 81 MG TAB PO SCH (13:48)
[2020-11-28] MEDS: Losartan 25 MG TAB PO SCH ×2 (13:50→20:14)
[2020-11-28] MEDS: Mometasone 200 MCG/Formoterol 5 MCG 120 PUFF INHALER INH SCH ×2 (13:51→19:20)
[2020-11-28] MEDS: Metoprolol Tartrate 50 MG TAB PO SCH ×2 (13:51→20:14)
[2020-11-28] MEDS: Doxycycline 100 MG CAP PO SCH ×2 (14:10→20:58)
[2020-11-28] MEDS: ALPRAZolam 0.5 MG TAB PO SCH (16:20)
--- NOTE | 2020-11-28 16:47 | PDOC.HOSPP ---
- Subjective Encounter Date: 11/28/20 Encounter Time: 16:44 Subjective: Patient states she was bothered this morning due to not receiving her antihypertensives prior to dialysis. States her blood pressure increases with dialysis which is why she was told previously to take her BP meds as normal rather than holding it. She states RN attempted to give Clonidine which she is allergic to. Reports BP meds were eventually given once she came up to her room. She had a migraine due to the elevated BP and since receiving her meds it has settled. At the moment she feels well. Denies any other issues or complaints. No n/v. Denies any pain. Not feeling short of breath at present. - Objective Vital Signs & Weight: Vital Signs (12 hours) Temp Pulse Resp BP BP BP Pulse Ox 11/28/20 15:30 98.6 F 85 16 164/56 H 94 L 11/28/20 13:43 66 182/62 H 11/28/20 12:00 97.6 F 88 19 182/62 H 96 11/28/20 09:30 66 11/28/20 08:00 97.6 F 66 16 167/60 H 99 Weight Weight 138 lb 0.15 oz I&O: 11/27/20 11/28/20 11/29/20 06:59 06:59 06:59 Intake Total 800 500 Output Total 3500 Balance -2700 500 Result Diagrams: 11/28/20 06:11 11/28/20 06:11 Hospitalist ROS - Medication Medications: Active Medications Generic Name Dose Route Start Last Admin Trade Name Freq PRN Reason Stop Dose Admin Acetaminophen 650 mg 11/26/20 07:23 11/28/20 14:08 Acetaminophen 325 Mg Tab PO 650 mg Q4H PRN Administration Headache/Fever/Mild Pain (1-3) Albuterol/Ipratropium 3 ml 11/26/20 13:00 11/28/20 15:36 Ipratropium/Albuterol Sulfate 3 Ml Neb NEB 3 ml [id number] PAT Administration Albuterol/Ipratropium 3 ml 11/26/20 13:00 11/28/20 15:49 Ipratropium/Albuterol Sulfate 3 Ml Neb IPPB Not Given [id number] PAT Alprazolam 0.5 mg 11/27/20 17:00 11/28/20 16:20 Alprazolam 0.5 Mg Tab PO 0.5 mg 1700 PAT Administration Amlodipine Besylate 10 mg 11/26/20 09:00 11/28/20 09:30 Amlodipine 10 Mg Tab PO Not Given BID PAT Aspirin 81 mg 11/27/20 09:00 11/28/20 13:48 Aspirin Chewable 81 Mg Tab PO 81 mg DAILY PAT Administration Doxazosin Mesylate 4 mg 11/26/20 21:00 11/27/20 20:41 Doxazosin 2 Mg Tab PO 4 mg HS PAT Administration Doxycycline Hyclate 100 mg 11/27/20 21:00 11/28/20 14:10 Doxycycline 100 Mg Cap PO 12/04/20 21:01 100 mg BID PAT Administration Fluticasone Propionate 16 gm 11/26/20 09:00 11/28/20 13:48 Fluticasone Propionate Nasal [place] 16 Gm Bottle NASAL Not Given BID PAT Gabapentin 400 mg 11/26/20 21:00 11/27/20 20:38 Gabapentin 400 Mg Cap PO 400 mg HS PAT Administration Heparin Sodium (Porcine) 5,000 units 11/26/20 09:00 11/28/20 16:21 Heparin 5,000 Units/Ml Vial SC 5,000 units TID PAT Administration Hydralazine HCl 100 mg 11/26/20 09:00 11/28/20 13:43 Hydralazine 25 Mg Tab PO 100 mg TID PAT Administration Losartan Potassium 25 mg 11/26/20 21:00 11/27/20 20:39 Losartan 25 Mg Tab PO 25 mg HS PAT Administration Losartan Potassium 50 mg 11/26/20 09:00 11/28/20 13:50 Losartan 25 Mg Tab PO 50 mg DAILY PAT Administration Metoprolol Tartrate 50 mg 11/26/20 09:00 11/28/20 13:51 Metoprolol Tartrate 50 Mg Tab PO Not Given BID PAT Mometasone Furoate/Formoterol Fumar 2 puff 11/26/20 18:30 11/28/20 13:51 Mometasone 200 Mcg/Formoterol 5 Mcg 120 Puff Inhaler INH Not Given BID-RT PAT Pantoprazole Sodium 40 mg 11/26/20 09:00 11/28/20 13:46 Pantoprazole 40 Mg Tab PO 40 mg DAILY PAT Administration Saccharomyces Boulardii 250 mg 11/26/20 09:00 11/28/20 13:45 Saccharomyces Boulardii 250 Mg Cap PO 250 mg BID PAT Administration Sevelamer Carbonate 2,400 mg 11/26/20 08:00 11/28/20 16:21 Sevelamer Carbonate 800 Mg Tab PO 2,400 mg TID-WM PAT Administration Sodium Chloride 10 ml 11/26/20 07:20 11/27/20 17:00 Flush - Normal Saline 10 Ml Syringe IVF 10 ml PRN PRN Administration Saline Flush Tramadol HCl 50 mg 11/26/20 07:30 11/26/20 20:24 Tramadol Hcl 50 Mg Tab PO 50 mg BID PRN Administration Mild Pain (1-3) - Exam General Appearance: NAD, awake alert Eye: PERRL, anicteric sclera ENT: normocephalic atraumatic, no oropharyngeal lesions Neck: supple, no lymphadenopathy Heart: RRR, no murmur, no gallops, normal peripheral pulses Respiratory: CTAB, no wheezes, no rales, no ronchi, normal chest expansion, no tachypnea Gastrointestinal: soft, non-tender, non-distended, normal bowel sounds, no guarding, no rigidity Extremities: no edema Skin: normal turgor, no lesions, no rashes Neurological: cranial nerve grossly intact, normal sensation to touch Musculoskeletal: normal tone, normal strength, no muscle wasting Psychiatric: normal affect, normal behavior, A&O x 3 Hosp A/P (1) COPD exacerbation Code(s): J44.1 - CHRONIC OBSTRUCTIVE PULMONARY DISEASE W (ACUTE) EXACERBATION Status: Acute (2) Hypertension Code(s): I10 - ESSENTIAL (PRIMARY) HYPERTENSION Status: Chronic (3) ESRD (end stage renal disease) on dialysis Code(s): N18.6 - END STAGE RENAL DISEASE; Z99.2 - DEPENDENCE ON RENAL DIALYSIS Status: Chronic (4) Insomnia Code(s): G47.00 - INSOMNIA, UNSPECIFIED Status: Chronic - Plan Per Dr. Felipe antibiotics switched to PO States she was told she would be seen by Dr. Singh in the AM ESRD on HD, as per Dr. Alvarado Monitor BP, home meds have been restarted Xanax and Ambien have been restarted GI prophylaxis with Famotidine DVT Prophylaxis: Currently on Lovenox CODE STATUS: FULL Possible discharge tmrw if cleared by Pulmonary and Nephrology teams.
[2020-11-28] MEDS: traMADol HCl 50 MG TAB PO PRN (17:08)
[2020-11-28] MEDS: Gabapentin 400 MG CAP PO SCH (20:15)
[2020-11-28] MEDS: Doxazosin 2 MG TAB PO SCH (20:16)
[2020-11-28] MEDS ORDERED: Zolpidem Tartrate 5 MG TAB PO SCH (21:00)
[2020-11-29 06:52] LABS: #Eosinphils 0.1 thou/uL (0.0-0.7); #Lymphocytes 1.4 thou/uL (1.20-3.40); #Monocytes 0.9 thou/uL (0.11-0.59); #Neutrophils 10.4 thou/uL (1.40-6.50); %Basophils 0.3 % (0.0-1.0); %Eosinophils 0.4 % (0.0-10.0); %Lymphocytes 11.1 % (21.0-51.0); %Monocytes 6.8 % (0.0-10.0); %Neutrophils 81.5 % (42.0-75.0); Hemoglobin 10.6 g/dL (12.0-16.0); Mean Corpuscular HGB CONC 28.9 g/dL (32.0-36.0); Mean Corpuscular Hemoglobin 28.2 pg (27.0-31.0); Mean Corpuscular Volume 97.6 fL (78.0-98.0); Platelet Count 173 thou/uL (130-400); RBC Distribution Width 16.5 % (11.5-14.5); Red Blood Cell (RBC) Count 3.76 mill/uL (4.20-5.40); White Blood Cell (WBC) Count 12.7 thou/uL (4.8-10.8)
[2020-11-29 06:54] LABS: Anion Gap 20 mmol/L (10-20); BUN (Urea Nitrogen) 63 mg/dL (9.8-20.1); Calc. Creatinine Clearance 11 mL/min (70-130); Calcium 8.8 mg/dL (7.8-10.44); Carbon Dioxide 25 mmol/L (22-29); Chloride 98 mmol/L (98-107); Glucose 72 mg/dL (70-105); Potassium 4.1 mmol/L (3.5-5.1); Sodium 139 mmol/L (136-145)
[2020-11-29] MEDS ORDERED: predniSONE 20 MG TAB PO SCH (08:00)
[2020-11-29] MEDS: Mometasone 200 MCG/Formoterol 5 MCG 120 PUFF INHALER INH SCH (08:28)
[2020-11-29] MEDS: hydrALAZINE 25 MG TAB PO SCH (08:42)
[2020-11-29] MEDS: Doxycycline 100 MG CAP PO SCH (08:44)
[2020-11-29] MEDS: Aspirin Chewable 81 MG TAB PO SCH (08:44)
[2020-11-29] MEDS: Saccharomyces boulardii 250 MG CAP PO SCH (08:44)
[2020-11-29] MEDS: Sevelamer Carbonate 800 MG TAB PO SCH (08:44)
[2020-11-29] MEDS: Amlodipine 10 MG TAB PO SCH (08:45)
[2020-11-29] MEDS: Fluticasone Propionate Nasal Spray 16 gm Bottle NASAL SCH (08:45)
[2020-11-29] MEDS: Losartan 25 MG TAB PO SCH (08:45)
[2020-11-29] MEDS: Heparin 5,000 UNITS/ML VIAL SC SCH (08:45)
[2020-11-29] MEDS: Metoprolol Tartrate 50 MG TAB PO SCH (08:46)
[2020-11-29 10:33] LABS: MDiff Complete? YES; Polychromasia SLIGHT = 2-3 cells (100X) (0-2/hpf)
--- NOTE | 2020-11-29 11:13 | PRG ---
DATE OF SERVICE: SUBJECTIVE: Yolanda Branch is a 55-year-old female doing better today post dialysis. OBJECTIVE: VITAL SIGNS: Temperature 98, pulse 70, blood pressure 140/55, sats on 4 L are 94%. CHEST: No wheezing. No crackles. CARDIAC: Normal S1, S2. No gallops. ASSESSMENT: Chronic renal failure, chronic obstructive pulmonary disease exacerbation, bronchitis. PLAN: She can be discharged home on 5 days antibiotics, 1 week of steroids, low-flow O2. [facility] medicine is Symbicort inhaler. Job ID: [id number]
--- NOTE | 2020-11-29 11:44 | PDOC.DS.DS ---
Provider - Provider Date of Admission: 11/26/20 08:41 Date of Discharge: 11/29/20 Admitting Provider: Teo Bryant MD Consultations: Nephrology (Dr. Alvarado), Pulmonary (Dr. Felipe) Primary Care Physician: Chavo Johnson DO Course - Hospital Course Hospital Course: Discharge diagnoses: 1. Pneumonia 2. Acute on chronic hypoxic respiratory failure 3. Dyslipidemia 4. COVID-19 PCR test negative 5. Influenza test negative 6. COPD exacerbation Hospital course: Patient is a pleasant 55-year-old lady who was admitted to the hospital on November 26, 2019 for community-acquired pneumonia. She was seen by nephrology service for maintenance hemodialysis and by pulmonology service for pneumonia and COPD exacerbation. She improved with oxygen, steroids, bronchodilators and antibiotics. She is being discharged home in a stable condition. Fasting lipid profile showed triglycerides 100, cholesterol 276, LDL cholesterol 146 and HDL cholesterol 110. She is advised to follow-up with her primary care provider for management of dyslipidemia. Many thanks for allowing me to participate in your patient's care. Please feel free to contact me with any questions or concerns. Discharge destination: Home Total amount of time spent coordinating this discharge: 32 minutes. Resuscitation Status: 11/26/20 07:23 Resuscitation Status Routine Co-Sign Provider: Resuscitation Status: FULL: Full Resuscitation Discussed with: patient - Labs Lab Results: 11/29/20 05:31 11/29/20 05:31 Abnormal Lab Results - Last 48 hrs 11/28/20 06:11: Anion Gap 22 H, BUN 84 H, Creatinine 7.75 H 11/28/20 06:11: WBC 15.3 H, RBC 3.36 L, Hgb 10.6 L, Hct 33.2 L, MCV 98.8 H, MCH 31.6 H, RDW 16.5 H, Neutrophils % 95.6 H, Lymphocytes % 2.6 L, Neutrophils # 14.6 H, Lymphocytes # 0.4 L 11/28/20 06:11: C-Reactive Protein 4.32 H 11/29/20 05:31: BUN 63 H, Creatinine 5.37 H 11/29/20 05:31: WBC 12.7 H, RBC 3.76 L, Hgb 10.6 L, MCHC 28.9 L, RDW 16.5 H, Neutrophils % 81.5 H, Lymphocytes % 11.1 L, Neutrophils # 10.4 H, Monocytes # 0.9 H Microbiology - Entire Visit 11/26/20 05:14 Venous blood - Left Hand Blood Culture - Preliminary NO GROWTH AT 48 HOURS 11/26/20 05:14 Venous blood - Right Arm Blood Culture - Preliminary NO GROWTH AT 48 HOURS - Physical Exam Vitals: Vital Signs (12 hours) Temp Pulse Resp BP BP Pulse Ox 11/29/20 08:42 70 142/55 H 11/29/20 08:28 67 16 94 L 11/29/20 08:00 94 L 11/29/20 07:58 98.6 F 64 17 148/57 H 98 11/29/20 07:21 161/53 H 11/29/20 06:00 73 96 11/29/20 01:20 78 95 11/29/20 00:31 79 14 96 Weight Weight 138 lb 0.15 oz Physical Exam: The patient was seen and examined on the day of discharge. Patient denies chest pain or shortness of breath. Vital signs are stable. S1 and S2 are heard. Lungs are clear to auscultation bilaterally. Plan - Discharge Medications Prescriptions: Levofloxacin [Levaquin] 250 mg PO 0600 #5 tab predniSONE 20 mg PO QAM- #7 tab Doxycycline [Vibramycin] 100 mg PO BID #10 cap Home Medications: Medication Instructions Recorded Confirmed Type Doxazosin [Cardura] 4 mg PO HS 12/14/19 11/27/20 History Sevelamer Carbonate [Renvela] 2,400 mg PO TID-WM 12/14/19 11/27/20 History hydrALAZINE HCl 100 mg PO TID 12/14/19 11/27/20 History Gabapentin 400 mg PO HS 01/16/20 11/27/20 History Fluticasone Propionate [Flonase 2 spray EA NARE BID 02/11/20 11/27/20 History Nasal [place]] Omeprazole 40 mg PO DAILY 02/11/20 11/27/20 History traMADol HCl [Tramadol HCl] 50 mg PO BID PRN 02/11/20 11/27/20 History Albuterol Sulfate [Ventolin HFA] 2 puff INH Q6HR PRN 05/25/20 11/27/20 History Budesonide-Formoterol [Symbicort 1 puff INH BID 05/25/20 11/27/20 History 160-4.5] ALPRAZolam [Xanax] 0.5 mg PO 1700 06/12/20 11/27/20 History Amlodipine [Norvasc] 10 mg PO BID #60 tab 06/15/20 11/27/20 Rx Losartan [Cozaar] 25 mg PO HS 09/24/20 11/27/20 History Losartan [Cozaar] 50 mg PO DAILY 09/24/20 11/27/20 History Metoprolol Tartrate [Lopressor] 50 mg PO BID 30 Days #60 tab 09/29/20 11/27/20 Rx Saccharomyces boulardii [Florastor] 250 mg PO DAILY #6 cap 10/17/20 11/27/20 Rx Sevelamer Carbonate [Renvela] 1,600 mg PO BID 11/27/20 11/27/20 History Zolpidem Tartrate [Ambien] 5 mg PO HS 11/27/20 11/27/20 History Doxycycline [Vibramycin] 100 mg PO BID #10 cap 11/29/20 Rx Levofloxacin [Levaquin] 250 mg PO 0600 #5 tab 11/29/20 Rx predniSONE 20 mg PO QAM-WM #7 tab 11/29/20 Rx Allergies: ceftriaxone Allergy (Verified 10/14/20 23:04) from esd report clonidine Allergy (Verified 10/14/20 23:04) Penicillins Allergy (Verified 10/14/20 23:04) - Follow up Plan Referrals: Chavo Johnson DO [Primary Care Provider] - 7 Days Ajay Alvarado MD [Active] - (FOR DIALYSIS ) Disposition: HOME Quality - Care Measures CORE MEASURES:: N/A
[2020-11-29 15:20] VITALS: BP 152/58; TEMP 97.9
== END 2020-11-29 14:53 | disposition home or self-care (01) | DRG 871 ==
LOC: ERS 04:38 → T4-B 08:41
PROVIDERS: ADMIT Student in an Organized Health Care Education/Training Program; ATTEND Internal Medicine
PROC: 5A1D70Z Performance of Urinary Filtration, Intermittent, Less than 6 Hours Per Day (ICD-10-PCS; principal; 2020-11-26)
PROC: 5A1D70Z Performance of Urinary Filtration, Intermittent, Less than 6 Hours Per Day (ICD-10-PCS; 2020-11-28)
DX: A41.9 Sepsis, unspecified organism (principal); N18.6 End stage renal disease; J96.21 Acute and chronic respiratory failure with hypoxia; J44.1 Chronic obstructive pulmonary disease with (acute) exacerbation; J44.0 Chronic obstructive pulmonary disease with (acute) lower respiratory infection; F41.9 Anxiety disorder, unspecified; F32.9 Major depressive disorder, single episode, unspecified; K21.9 Gastro-esophageal reflux disease without esophagitis; G47.00 Insomnia, unspecified; J40 Bronchitis, not specified as acute or chronic; Z20.822 Contact with and (suspected) exposure to COVID-19; E78.5 Hyperlipidemia, unspecified; Z98.51 Tubal ligation status; Z88.0 Allergy status to penicillin; Z87.891 Personal history of nicotine dependence; Z88.1 Allergy status to other antibiotic agents; Z88.8 Allergy status to other drugs, medicaments and biological substances; Z99.2 Dependence on renal dialysis; Z90.710 Acquired absence of both cervix and uterus; Z99.81 Dependence on supplemental oxygen; Z79.899 Other long term (current) drug therapy
CPT/HCPCS: 0240U; 36415; 71045; 80048; 80053; 80061; 82553; 83605; 83735; 83880; 84443; 84484; 85025; 86140; 87040; 90935; 93005; 94640; 94760; 96365; 96375; G0257; J1644; J1956; J2920; J2930; J7512; J7620

== ENCOUNTER 2020-12-08 14:42 | Inpatient (IN) | payer MEDICARE, MEDICAID ==
[2020-12-08] MEDS ORDERED: Vancomycin 1 GM/200 ML BAG ONE (15:36)
[2020-12-08] MEDS ORDERED: Dexamethasone 4 mg/ml Vial ONE (15:36)
[2020-12-08 15:56] LABS: Hemoglobin 9.9 g/dL (12.0-16.0); Mean Corpuscular HGB CONC 31.6 g/dL (32.0-36.0); Mean Corpuscular Hemoglobin 31.4 pg (27.0-31.0); Mean Corpuscular Volume 99.2 fL (78.0-98.0); Mean Platelet Volume 7.3 fL (7.4-10.4); Platelet Count 144 thou/uL (130-400); RBC Distribution Width 17.1 % (11.5-14.5); Red Blood Cell (RBC) Count 3.17 mill/uL (4.20-5.40); White Blood Cell (WBC) Count 6.4 thou/uL (4.8-10.8)
[2020-12-08 16:13] LABS: ALT (SGPT) 19 U/L (8-55); AST (SGOT) 23 U/L (5-34); Albumin 3.5 g/dL (3.5-5.0); Alkaline Phosphatase 66 U/L (40-110); Anion Gap 22 mmol/L (10-20); BUN (Urea Nitrogen) 49 mg/dL (9.8-20.1); Bilirubin, Total 0.5 mg/dL (0.2-1.2); CRP (Inflammatory) 6.78 mg/dL (= or < 0.5); Calc. Creatinine Clearance 0 mL/min (70-130); Calcium 7.2 mg/dL (7.8-10.44); Carbon Dioxide 28 mmol/L (22-29); Chloride 95 mmol/L (98-107); Globulin 2.9 g/dL (2.4-3.5); Glucose 93 mg/dL (70-105); Potassium 4.9 mmol/L (3.5-5.1); Protein, Total 6.4 g/dL (6.0-8.3); Sodium 140 mmol/L (136-145)
[2020-12-08 16:14] LABS: Anisocytosis SLIGHT = 6-15 cells (100X) (0-5/hpf); Band 39 % (5-11); Eosinophils 1 % (0-10); Hypochromia SLIGHT = 6-15 cells (100X) (0-5/hpf); Lymphocytes 10 % (21-51); MDiff Complete? YES; Macrocytosis SLIGHT = 6-15 cells (100X) (0-5/hpf); Monocytes 2 % (0-10); Neutrophil 44 % (42-75); Platelet Morphology Comment Appears Adequate; Polychromasia SLIGHT = 2-3 cells (100X) (0-2/hpf); Reactive Lymphocytes 4 % (0-10)
--- NOTE | 2020-12-08 16:14 | RAD ---
XR Chest 1 View Portable HISTORY: Fever. Exposed to COVID19 COMPARISON: 11/26/2020 FINDINGS: The heart is enlarged. Changes of COPD are again seen. The patchy interstitial and alveolar opacities in the mid and lower lung cassidy are again seen and essentially stable. No pneumothoraces or pleural effusions are noted. IMPRESSION: Stable exam.
[2020-12-08 16:36] LABS: CKMB 1.2 ng/mL (0-6.6)
[2020-12-08 17:06] LABS: SARS-CoV-2 NAA Rapid Test DETECTED (NotDetected)
[2020-12-08] MEDS ORDERED: Acetaminophen 650 MG Suppository PR PRN (17:35)
--- NOTE | 2020-12-08 18:24 | PDOC.HHP ---
Hospitalist HPI - History of Present Illness ED Course: ADMISSION DATE: 12/08/2020 TIME OF ASSESSMENT:1700 PRIMARY CARE PHYSICIAN:Chavo Johnsoninterior design instructor COMPLAINT: Fever and shortness of breath HPI: This is a 55-year-old woman who presents to the emergency department today with complaints of shortness of breath and after noting a fever that began yesterday evening. The patient states she noticed she was feeling unwell yesterday after completing dialysis. He was recently discharged from the [facility] on 11/29/2020 following a 3-day admission during which she was treated for pneumonia/COPD exacerbation. Covid testing done at the time of admission was negative. She states she was discharged home on antibiotics which she completed yesterday. Reports having exposure to her son-in-law who tested positive for Covid on Thursday. She became concerned this morning when she had difficulty with her breathing and and noted her sats were low (in the 70s) despite her usual 3 L of O2 by nasal cannula. Though it improved once she reapplied her CPAP that she uses at night she opted to come in for further work-up repeat testing. Her sats at initial presentation were 93% on 3 L and patient states that usually at home her sats are 89 to 90% on 3 L. Denies any changes with her chronic cough and has not noted any hemoptysis. She was febrile yesterday evening as well as this morning and in the ER her temp has spiked to 102.1. Reports having issues with persistent diarrhea since last night which actually cause her to have an episode of incontinence while she was sleeping overnight. This prompted her to use adult pads and she denies any further episodes of incontinence however the diarrhea has persisted throughout the morning. Denies noting any blood in her stool but she does have some blood when she wipes which she states is due to irritation of the skin tag on her buttocks. Denies any urinary symptoms. Reports feeling nauseated but denies any vomiting. Has not had any chest pain or palpitations. No lower leg swelling or edema. All other review of systems are negative. ED COURSE: In the emergency department she had an EKG done which showed a normal sinus rhythm with a heart rate of 85. No ST changes or T wave abnormalities. Given an elevated temp and 2.1 the patient underwent blood cultures. Also had a chest x-ray done which demonstrated stable examination when compared to x-ray done during her most recent hospitalization on 11/26/2020. She was noted to have an enlarged heart with COPD changes present as well as patchy interstitial and alveolar opacities in the mid and lower lung cassidy that appear to be stable. Started on IV antibiotics with Levaquin and vancomycin. Also given tomograms of dexamethasone IV and received 500 mL with normal saline. The emergency department she has been satting 96% on 3 L of O2 by nasal cannula. Testing was positive. Laboratory studies notable for a white count of 6.4, hemoglobin 9.9, hematocrit 31.1, platelets 144, neutrophils 44%, bands 39%. Gas of normal. CK-MB 1.2. CRP 6.79. BUN 49, creatinine 7.70, anion gap 22, GFR 5, glucose 93. LFTs normal. Elevated troponin of 0.100. PAST MEDICAL HISTORY: 1. COPD on chronic O2 at 3 L by nasal cannula 2. Frequent admissions for COPD exacerbations 3. Hypertension 4. End-stage renal disease on dialysis Thursday 5. History of brain aneurysm 6. History of colon mass 7. Chronic tobacco use 8. Anxiety 9. Depression PAST SURGICAL HISTORY: 1. Eye surgery 2. Dialysis shunt to left arm 3. 4. Hysterectomy 5. Tubal ligation SOCIAL HISTORY: Patient lives at home with her family. She uses a rolling walker for assistance with ambulation. Denies any alcohol consumption and states she quit smoking 3 months ago and denies drug use. FAMILY HISTORY: Family history of heart disease. ALLERGIES: Rocephin, penicillin, clonidine CURRENT MEDICATIONS: 1. Doxazosin 4 mg p.o. at bedtime 2. Renvela 2400 mg p.o. 3 times daily 3. Hydralazine 100 mg p.o. 3 times daily 4. Gabapentin 400 mg p.o. at bedtime 5. Flonase 2 sprays twice daily 6. Omeprazole 40 mg p.o. daily 7. Tramadol 50 mg p.o. twice daily as needed 8. Ventolin 2 puffs inhaled every 6 hours as needed 9. Symbicort 1 puff twice daily 10. Xanax 0.5 mg p.o. at 5 PM daily 11. Norvasc 10 mg p.o. twice daily 12. Cozaar 50 mg p.o. every morning and 25 mg p.o. at bedtime 13. Lopressor 50 mg p.o. twice daily 14. Florastor 250 mg p.o. daily 15. Ambien 5 mg p.o. at bedtime 16. Doxycycline 100 mg p.o. twice daily x 5 days, completed 12/07/2020 17. Levaquin 250 mg p.o. daily x5 days, completed 12/07/2020 18. Prednisone 10 mg p.o. 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 - Exam General Appearance: NAD, awake alert General - other findings: VS: Temp 101.5, HR 84, BP 167/69, RR 26, O2 sat 96% on 3 L, pain 0/10 Eye: PERRL, anicteric sclera ENT: normocephalic atraumatic, no oropharyngeal lesions, moist mucosa Neck: supple, no lymphadenopathy Heart: RRR, normal peripheral pulses Respiratory: CTAB, no wheezes, normal chest expansion Respiratory - other findings: diminished at the bilat bases, becomes sob when speaking in long sentences Gastrointestinal: soft, non-tender, non-distended, normal bowel sounds, no guarding, no rigidity Extremities: no edema Skin: no lesions, no rashes, tenting Neurological: cranial nerve grossly intact, normal sensation to touch, no weakness Musculoskeletal: normal tone, normal strength, no muscle wasting Psychiatric: normal affect, normal behavior, A&O x 3 Hospitalist Results - Labs Result Diagrams: 12/08/20 15:21 12/08/20 15:21 Lab results: WBC 6.4 thou/uL (4.8-10.8) 12/08/20 15: Hgb 9.9 g/dL (12.0-16.0) L 12/08/20 15: Hct 31.4 % (36.0-47.0) L 12/08/20 15:21 MCV 99.2 fL (78.0-98.0) H 12/08/20 15:21 Plt Count 144 thou/uL (130-400) 12/08/20 15:21 Band Neuts % (Manual) 39 % (5-11) H 12/08/20 15:21 ESR Westergren 24 mm/hr (Less than 30) 12/08/20 15:21 Sodium 140 mmol/L (136-145) 12/08/20 15:21 Potassium 4.9 mmol/L (3.5-5.1) 12/08/20 15:21 Chloride 95 mmol/L (98-107) L 12/08/20 15:21 Carbon Dioxide 28 mmol/L (22-29) 12/08/20 15:21 BUN 49 mg/dL (9.8-20.1) H 12/08/20 15:21 Creatinine 7.70 mg/dL (0.6-1.1) H 12/08/20 15:21 Glucose 93 mg/dL (70-105) 12/08/20 15:21 Lactic Acid 1.5 mmol/L (0.5-2.2) 12/08/20 15:21 Calcium 7.2 mg/dL (7.8-10.44) L 12/08/20 15:21 Total Bilirubin 0.5 mg/dL (0.2-1.2) 12/08/20 15:21 AST 23 U/L (5-34) 12/08/20 15:21 ALT 19 U/L (8-55) 12/08/20 15:21 Alkaline Phosphatase 66 U/L (40-110) 12/08/20 15:21 CK-MB (CK-2) 1.2 ng/mL (0-6.6) 12/08/20 15:21 Troponin I 0.100 ng/mL (< 0.028) H 12/08/20 15:21 C-Reactive Protein 6.78 mg/dL (= or < 0.5) H 12/08/20 15:21 Serum Total Protein 6.4 g/dL (6.0-8.3) 12/08/20 15:21 Albumin 3.5 g/dL (3.5-5.0) 12/08/20 15:21 - Radiology Interpretation Chest x-ray Status: report reviewed by nc Hospitalist H&P A/P - Problem (1) COVID-19 virus detected Code(s): U07.1 - COVID-19 Status: Acute (2) Diarrhea Code(s): R19.7 - DIARRHEA, UNSPECIFIED Status: Acute (3) On home O2 Code(s): Z99.81 - DEPENDENCE ON SUPPLEMENTAL OXYGEN Status: Acute (4) Acute on chronic respiratory failure with hypoxia Code(s): J96.21 - ACUTE AND CHRONIC RESPIRATORY FAILURE WITH HYPOXIA Status: Acute (5) COPD exacerbation Code(s): J44.1 - CHRONIC OBSTRUCTIVE PULMONARY DISEASE W (ACUTE) EXACERBATION Status: Acute (6) Anxiety and depression Code(s): F41.9 - ANXIETY DISORDER, UNSPECIFIED; F32.9 - MAJOR DEPRESSIVE DISORDER, SINGLE EPISODE, UNSPECIFIED Status: Chronic (7) ESRD (end stage renal disease) on dialysis Code(s): N18.6 - END STAGE RENAL DISEASE; Z99.2 - DEPENDENCE ON RENAL DIALYSIS Status: Chronic (8) Hypertension Code(s): I10 - ESSENTIAL (PRIMARY) HYPERTENSION Status: Chronic - Plan Plan: Acute respiratory failure with hypoxia - sats of 70s% at home on 3L by NC, improved to 93% on 3L by NC here. CXR stable Continuous O2 sat monitoring Continue to trend troponins IV antibiotics given in ED ([facility] Levcherie[facility]) Continue steroids Consult placed to Dr. Felipe, her loan associate Consult placed to Dr. Oscar in light of COVID +, COPD exacerbation +/- c. diff and ESRD Albuterol inhalers PRN CPAP at bedtime, patient knows settings ESRD on HD Consult placed to Nephrology as well, under the care of Dr. Alvarado (Dialysis M,W,F) Monitor renal function Avoid nephrotoxic meds Diarrhea Stool studies including c. diff Check Mg+, monitor lytes Continue Florastor Hypertension Monitor BP Resume home meds once verified Anxiety/Depression Chronic and stable Resume home meds once verified DVT Prophylaxis with Heparin GI Prophylaxis with Famotidine CODE STATUS FULL
[2020-12-08] MEDS ORDERED: Albuterol Sulfate 2.5 mg/3 ml Neb NEB PRN (18:25)
[2020-12-08] MEDS ORDERED: Albuterol 200 PUFF (6.7GM INHALER) INH PRN (18:45)
[2020-12-08] MEDS ORDERED: Dexamethasone 4 mg/ml Vial SLOW IVP SCH (18:45)
[2020-12-08 20:30] LABS: Anion Gap 24 mmol/L (10-20); BUN (Urea Nitrogen) 52 mg/dL (9.8-20.1); Calc. Creatinine Clearance 0 mL/min (70-130); Carbon Dioxide 21 mmol/L (22-29); Chloride 97 mmol/L (98-107); Glucose 94 mg/dL (70-105); Magnesium 1.7 mg/dL (1.6-2.6); Potassium 5.4 mmol/L (3.5-5.1); Sodium 137 mmol/L (136-145)
[2020-12-08 20:53] LABS: CKMB 1.2 ng/mL (0-6.6)
[2020-12-08] MEDS ORDERED: Famotidine/PF 20 mg/2ml Vial SLOW IVP SCH (21:00)
[2020-12-08 21:48] VITALS: BMI 17.7
[2020-12-09 00:25] LABS: CKMB 1.2 ng/mL (0-6.6)
[2020-12-09 06:07] LABS: #Lymphocytes 0.9 thou/uL (1.20-3.40); #Monocytes 0.2 thou/uL (0.11-0.59); #Neutrophils 4.8 thou/uL (1.40-6.50); %Basophils 0.2 % (0.0-1.0); %Eosinophils 0.5 % (0.0-10.0); %Lymphocytes 14.5 % (21.0-51.0); %Monocytes 3.1 % (0.0-10.0); %Neutrophils 81.7 % (42.0-75.0); Hemoglobin 9.4 g/dL (12.0-16.0); Mean Corpuscular HGB CONC 32.3 g/dL (32.0-36.0); Mean Corpuscular Hemoglobin 31.2 pg (27.0-31.0); Mean Corpuscular Volume 96.6 fL (78.0-98.0); Mean Platelet Volume 7.2 fL (7.4-10.4); Platelet Count 130 thou/uL (130-400); RBC Distribution Width 16.8 % (11.5-14.5); Red Blood Cell (RBC) Count 3.02 mill/uL (4.20-5.40); White Blood Cell (WBC) Count 5.9 thou/uL (4.8-10.8)
[2020-12-09 06:22] LABS: Lactic Acid 0.6 mmol/L (0.5-2.2)
[2020-12-09 06:26] LABS: Anion Gap 23 mmol/L (10-20); BUN (Urea Nitrogen) 60 mg/dL (9.8-20.1); Calc. Creatinine Clearance 6 mL/min (70-130); Calcium 7.1 mg/dL (7.8-10.44); Carbon Dioxide 22 mmol/L (22-29); Chloride 97 mmol/L (98-107); Glucose 70 mg/dL (70-105); Potassium 5.2 mmol/L (3.5-5.1); Sodium 137 mmol/L (136-145)
[2020-12-09] MEDS: Dexamethasone 4 mg/ml Vial SLOW IVP SCH (08:04)
[2020-12-09] MEDS: Saccharomyces boulardii 250 MG CAP PO SCH (08:05)
[2020-12-09] MEDS ORDERED: Albuterol 200 PUFF (6.7GM INHALER) INH PRN (11:08)
[2020-12-09] MEDS ORDERED: hydrALAZINE 20 MG/ML VIAL SLOW IVP PRN (13:00)
[2020-12-09] MEDS ORDERED: Metoprolol Tartrate 50 MG TAB PO SCH (13:00)
[2020-12-09] MEDS ORDERED: Amlodipine 10 MG TAB PO SCH (13:00)
[2020-12-09] MEDS: Sevelamer Carbonate 800 MG TAB PO SCH ×2 (13:03→18:03)
[2020-12-09] MEDS: hydrALAZINE 25 MG TAB PO SCH ×2 (15:14→21:21)
[2020-12-09] MEDS: Amlodipine 10 MG TAB PO SCH ×2 (15:14→21:21)
--- NOTE | 2020-12-09 17:18 | CON ---
DATE OF CONSULTATION: 12/09/2020 REASON FOR CONSULTATION: COVID-19 pneumonia. HISTORY OF PRESENT ILLNESS: The patient is a 55-year-old female, who is followed by Dr. Felipe in the office. She presented to the emergency room with complaints of shortness of breath and chest congestion. She was exposed to COVID about a week ago. She is on oxygen at home on 3 L nasal cannula, but was desatting down into the 70s. She did have a spike up to 102.1. Currently, she feels okay and has no complaints. PAST MEDICAL HISTORY: 1. Severe COPD, requiring home O2. 2. Hypertension. 3. End-stage renal disease, requiring three times weekly dialysis. 4. Brain aneurysm. 5. Colon mass. 6. Anxiety. 7. Depression. PAST SURGICAL HISTORY: 1. Eye surgery. 2. Dialysis shunt in the left arm. 3. . 4. Hysterectomy. 5. Tubal ligation. SOCIAL HISTORY: Quit smoking about 3 months ago. Does not consume alcohol. Does not use illicit drug. ALLERGIES: ROCEPHIN, PENICILLIN, AND CLONIDINE. MEDICATIONS: Prior to admission; 1. Doxazosin. 2. Renvela. 3. Hydralazine. 4. Gabapentin. 5. Flonase. 6. Omeprazole. 7. Tramadol. 8. Ventolin. 9. Symbicort. 10. Xanax. 11. Norvasc. 12. Cozaar. 13. Lopressor. 14. Florastor. 15. Ambien. 16. Doxycycline. 17. Levaquin. 18. Prednisone. REVIEW OF SYSTEMS: Otherwise negative. PHYSICAL EXAMINATION: VITAL SIGNS: Temperature 97.8 with a T-max of a 100.3 since admission, pulse 84, respirations 20, O2 sat 95% on 3 L, blood pressure 207/84. GENERAL: She is an elderly female, who appears much older than her stated age. HEENT: Unremarkable. NECK: No adenopathy or JVD. LUNGS: Clear without rhonchi or wheezing. CARDIAC: S1 and S2, regular. ABDOMEN: Soft and nontender. EXTREMITIES: No edema. DIAGNOSTIC STUDIES: X-ray was reviewed, shows chronic interstitial changes at the bases, which does not look much different from her baseline exam last summer. LABORATORY DATA: COVID test positive. White blood cell count 5.9, hematocrit 29.3, and platelet count 130. Sodium 137, potassium 5.2, chloride 97, CO2 of 22, BUN 60, creatinine 8.6, glucose 70. C-reactive protein is 7.2. ASSESSMENT: 1. COVID infection/pneumonia. 2. Underlying chronic obstructive pulmonary disease. 3. End-stage renal disease. RECOMMENDATION: 1. I reviewed the orders. Agree with IV steroids. In addition, I would anticoagulate the patient with heparin. 2. Formoterol/albuterol for breathing treatments. 3. Supplemental oxygen as needed. Job ID: [id number]
[2020-12-09] MEDS: Vancomycin HCl 25 MG/ML Oral PO SCH ×2 (18:04→23:59)
[2020-12-09] MEDS: Mometasone 200 MCG/Formoterol 5 MCG 120 PUFF INHALER INH SCH (18:05)
--- NOTE | 2020-12-09 20:15 | CON ---
DATE OF CONSULTATION: 12/09/2020 REASON: Diarrhea and COVID positive test in the setting of chronic obstructive lung disease. HISTORY OF PRESENT ILLNESS: A 55-year-old who has a history of hypertension, end-stage renal disease, likely due to arteriosclerosis associated with chronic smoking and hypertension as well as advanced COPD, which requires home O2 administration, who was admitted at the beginning of November with respiratory symptoms and abnormal chest x-ray. At that time, her COVID PCR test was negative. She was treated for community-acquired pneumonia as well as corticosteroids. She improved and was sent home on levofloxacin. The patient finished her levofloxacin course and then two days later developed fever, worsening dyspnea, diarrhea. The fever was not documented, was just subjective. The diarrhea was remarkable for its foul odor. She has some chills. No headaches. No visual symptoms. No chest pain. No sputum production. No genitourinary symptoms. No bleeding. MEDICAL HISTORY: Advanced emphysema, COPD, home O2 requiring, end-stage renal disease, probably from arteriosclerosis, chronic smoking, hypertension, brain aneurysm. She has end-stage renal disease, on hemodialysis through an AV fistula, left upper extremity. PAST SURGICAL HISTORY: Includes hysterectomy, , tubal ligation. SOCIAL HISTORY: She quit smoking three months ago reportedly. . Lives with who smokes himself and apparently had febrile illness about a week or two ago, did not go to get checked. Does not drink alcoholic beverages. ALLERGIES: CEFTRIAXONE, CEPHALEXIN, CLONIDINE, PENICILLINS. CURRENT MEDICATIONS: 1. Inhaler. 2. Norvasc. 3. Decadron. 4. Cardura. 5. Lopressor. 6. Formoterol. 7. Mometasone. 8. Protonix. 9. Florastor. 10. Renvela. FAMILY HISTORY: Noncontributory except for 's illness, which could represent SARS-CoV-2 infection, but he did not get tested. PHYSICAL EXAMINATION: VITAL SIGNS: T-max 100.3, blood pressure 207/84, pulse 84, respirations 18-19, O2 saturation 95, 3 L. GENERAL: Does not appear in distress at the moment and oriented. SKIN: Peripheral IV access AV fistula, which is functional. She does not have much of urine output. No lymphadenopathy. HEENT: Ocular movements conjugate. Numerous missing teeth. Oral mucosa is normal. NECK: Supple. Some jugular vein distention. LUNGS: Symmetric air entry. Fairly clear breath sounds. HEART: S1, S2 regular rate without murmurs. ABDOMEN: Soft with moderate distention. Bowel sounds are quite a bit increased. There is mild to moderate tenderness, which is diffuse. No bladder distention. No ascites. No organomegaly. EXTREMITIES: No joint inflammatory activity. Pulses 1+ in dorsalis pedis. No edema. Moves extremities equally. NEUROLOGIC: Awake and oriented, follows commands. LABORATORY STUDIES: White cell count 6.4 and 5.9, hemoglobin 9.4, MCV 96, platelets 130, 81% neutrophils. D-dimer 1.62. Sodium 137, creatinine 8.62, and liver profile normal. Albumin 3.5. CRP 6.78 and now 7.19. SARS-CoV-2 PCR detected on December 08. Chest x-ray from December 08 from admission with cardiomegaly, COPD changes, patchy interstitial alveolar opacities, right mid and lower lung cassidy. Again, essentially unchanged. ASSESSMENT: 1. Chronic obstructive pulmonary disease with home O2 requirement. 2. Chronic smoking up till three months ago. 3. Arteriosclerosis with end-stage renal disease, on hemodialysis through an AV fistula. 4. Recent admission for respiratory symptoms and abnormal chest x-ray treated as community-acquired pneumonia following a negative SARS-CoV-2 PCR test. 5. Diarrhea and persistence of respiratory symptoms. DISCUSSION: Differential diagnosis includes SARS-CoV-2 infection with pneumonitis since the beginning of November as the more likely scenario. This is in the face of a false negative SARS-CoV-2 PCR. We will go ahead and check the antibody to see if that fits the profile. In that case, the antibody would be expected to be positive, and now, the diarrhea is most likely C difficile associated with antimicrobials used for treatment of a presumed bacterial pneumonia, which I believe is more likely to be due to the viral infection. I do not think she is eligible for remdesivir, I believe this infection is older than 14 days. Job ID: [id number]
[2020-12-09] MEDS: Fluticasone Propionate Nasal Spray 16 gm Bottle NASAL SCH (21:19)
[2020-12-09] MEDS: Doxazosin 2 MG TAB PO SCH (21:19)
[2020-12-09] MEDS: Heparin 5,000 UNITS/ML VIAL SC SCH (21:20)
[2020-12-09] MEDS: Gabapentin 400 MG CAP PO SCH (21:20)
[2020-12-09] MEDS: Metoprolol Tartrate 50 MG TAB PO SCH (21:21)
[2020-12-10] MEDS: Vancomycin HCl 25 MG/ML Oral PO SCH ×4 (04:13→23:41)
[2020-12-10] MEDS: traMADol HCl 50 MG TAB PO PRN ×2 (04:18→20:44)
[2020-12-10] MEDS: Acetaminophen 325 MG TAB PO PRN ×3 (04:18→20:44)
[2020-12-10] MEDS: Mometasone 200 MCG/Formoterol 5 MCG 120 PUFF INHALER INH SCH ×2 (05:20→17:40)
[2020-12-10 06:30] LABS: #Eosinphils 0.1 thou/uL (0.0-0.7); #Monocytes 0.2 thou/uL (0.11-0.59); #Neutrophils 4.8 thou/uL (1.40-6.50); %Basophils 0.3 % (0.0-1.0); %Eosinophils 1.3 % (0.0-10.0); %Lymphocytes 16.5 % (21.0-51.0); %Monocytes 3.6 % (0.0-10.0); %Neutrophils 78.3 % (42.0-75.0); Hemoglobin 9.6 g/dL (12.0-16.0); Mean Corpuscular HGB CONC 32.3 g/dL (32.0-36.0); Mean Corpuscular Hemoglobin 30.9 pg (27.0-31.0); Mean Corpuscular Volume 95.8 fL (78.0-98.0); Mean Platelet Volume 7.8 fL (7.4-10.4); Platelet Count 145 thou/uL (130-400); RBC Distribution Width 16.7 % (11.5-14.5); Red Blood Cell (RBC) Count 3.09 mill/uL (4.20-5.40); White Blood Cell (WBC) Count 6.1 thou/uL (4.8-10.8)
[2020-12-10 06:46] LABS: ALT (SGPT) 14 U/L (8-55); AST (SGOT) 18 U/L (5-34); Albumin 3.3 g/dL (3.5-5.0); Alkaline Phosphatase 56 U/L (40-110); Anion Gap 21 mmol/L (10-20); BUN (Urea Nitrogen) 35 mg/dL (9.8-20.1); Bilirubin, Total 0.6 mg/dL (0.2-1.2); Calc. Creatinine Clearance 8 mL/min (70-130); Carbon Dioxide 26 mmol/L (22-29); Chloride 96 mmol/L (98-107); Globulin 2.8 g/dL (2.4-3.5); Glucose 73 mg/dL (70-105); Potassium 4.2 mmol/L (3.5-5.1); Protein, Total 6.1 g/dL (6.0-8.3); Sodium 139 mmol/L (136-145)
[2020-12-10] MEDS: Saccharomyces boulardii 250 MG CAP PO SCH (07:56)
[2020-12-10] MEDS: Sevelamer Carbonate 800 MG TAB PO SCH ×4 (07:56→17:59)
[2020-12-10] MEDS: hydrALAZINE 25 MG TAB PO SCH ×3 (07:56→20:01)
[2020-12-10] MEDS: Metoprolol Tartrate 50 MG TAB PO SCH ×2 (07:57→20:01)
[2020-12-10] MEDS: Heparin 5,000 UNITS/ML VIAL SC SCH ×2 (07:57→20:01)
[2020-12-10] MEDS: Dexamethasone 4 mg/ml Vial SLOW IVP SCH (07:57)
[2020-12-10] MEDS: Amlodipine 10 MG TAB PO SCH (07:57)
[2020-12-10] MEDS: Fluticasone Propionate Nasal Spray 16 gm Bottle NASAL SCH ×2 (07:57→20:02)
[2020-12-10] MEDS ORDERED: Epoetin (ESRD) 20,000 UNITS/ML SC SCH (09:30)
--- NOTE | 2020-12-10 09:41 | PRG ---
DATE OF SERVICE: 12/10/2020 SUBJECTIVE: Ms. Branch is a 55-year-old female with ESRD-currently on maintenance hemodialysis. She was admitted for a ?of pneumonia. She had a COVID-19 test, which was positive. Please note that the patient did receive her first dose of COVID-19 vaccinations several days ago. Currently, ID is evaluating her and we will check her if she may be positive for antibody. She has mentioned that the SARS-CoV-2 PCR may either be false-positive and/or false-negative. We are being consulted, so we can follow this patient for maintenance hemodialysis. I have scheduled her for dialysis this afternoon. The patient voices no other complaints. She tells me she is feeling better. OBJECTIVE: VITAL SIGNS: Blood pressure is 136/56, heart rate 67, respiratory rate 22, temperature 98, O2 saturation 100%. GENERAL: The patient is awake, comfortable, not in distress. SKIN: Adequate turgor. HEENT: Slightly pale conjunctivae. Anicteric sclerae. NECK: No neck mass. No carotid bruits. No JVD. CHEST: No deformities. LUNGS: Decreased breath sounds. HEART: Normal sinus rhythm. No murmur. No gallops. No rubs. ABDOMEN: Globular, soft, nontender. No masses. EXTREMITIES: No edema. No deformities. MEDICATIONS: Medications of December 10, 2020 was reviewed. LABORATORY DATA: On December 10, 2020, white count 6.1, hemoglobin 9.6. Sodium 139, potassium 4.2, chloride 96, carbon dioxide 26, BUN 35, creatinine 6.02, AST is 18, ALT is 14, albumin 3.3. COVID-19 PCR detected on December 08, 2020. Chest x-ray of December 08, 2020, stable exam. There are findings of patchy interstitial alveolar opacities-chronic in nature. ASSESSMENT AND PLAN: 1. Shortness of breath-this could be from chronic obstructive pulmonary disease exacerbation. Less likely from COVID-19 pneumonia. 2. End-stage renal disease, stable. We will continue current Thursday, Thursday, and Thursday dialysis regimen. Fluid removal as tolerated by the patient. 3. COVID-19 positive test-ID following and re-evaluating the patient. 4. Anemia. Restart back weekly Epogen with the patient. Job ID: [id number]
--- NOTE | 2020-12-10 10:51 | PRG ---
DATE OF SERVICE: 12/10/2020 SUBJECTIVE: Yolanda Branch is a 55-year-old female with end-stage COPD, readmitted to the hospital at this time with hart positive status. OBJECTIVE: VITAL SIGNS: Temperature 98, pulse 67, respiratory rate 22, she is on CPAP with saturations 100%, blood pressure . CHEST: No wheezing. No crackles. CARDIAC: Normal S1 and S2. LABORATORY DATA: Creatinine is 6, BUN is 35. White count 6000. ASSESSMENT: Hart positive pneumonia, respiratory failure, chronic obstructive pulmonary disease. PLAN: Try and downsize from CPAP to nasal O2 . Otherwise, continue dialysis. Continue supportive care. Continue antibiotics. Job ID: [id number]
[2020-12-10] MEDS: EPOETIN ALFA-EPBX (ESRD) 4,000 UNIT/ML VIAL SC SCH (13:23)
--- NOTE | 2020-12-10 13:45 | PDOC.HOSPP ---
- Subjective Encounter Date: 12/09/20 Encounter Time: 16:00 Subjective: Patient seen and examined for respiratory failure/COVID-19 pneumonia/diarrhea. - Objective Vital Signs & Weight: Vital Signs (12 hours) Temp Pulse Resp BP Pulse Ox 12/10/20 13:30 99.7 F H 69 16 121/49 L 92 L 12/10/20 08:00 98.0 F 67 22 H 136/56 L 100 Weight Admit Weight 110 lb Weight 110 lb 0.171 oz Result Diagrams: 12/10/20 05:56 12/10/20 05:56 Radiology Reviewed by me: Yes (Chest x-rayreviewed) Hospitalist ROS - Review of Systems Cardiovascular: denies: chest pain, palpitations, orthopnea, paroxysmal noc. dyspnea, edema, light headedness, other Gastrointestinal: reports: diarrhea. denies: nausea, vomiting, abdominal pain, constipation, melena, hematochezia, other - Medication Medications: Active Medications Generic Name Dose Route Start Last Admin Trade Name Freq PRN Reason Stop Dose Admin Acetaminophen 650 mg 12/08/20 17:35 12/10/20 04:18 Acetaminophen 325 Mg Tab PO 650 mg Q4H PRN Administration Headache/Fever/Mild Pain (1-3) Amlodipine Besylate 10 mg 12/09/20 21:00 12/10/20 07:57 Amlodipine 10 Mg Tab PO 10 mg BID PAT Administration Dexamethasone 6 mg 12/09/20 09:00 12/10/20 07:57 Dexamethasone 4 Mg/Ml Vial SLOW IVP 6 mg DAILY PAT Administration Doxazosin Mesylate 4 mg 12/09/20 21:00 12/09/20 21:19 Doxazosin 2 Mg Tab PO 4 mg HS PAT Administration Epoetin Alden-epbx 7,500 unit 12/10/20 12:00 12/10/20 13:23 Epoetin Alden-Epbx (Esrd) 4,000 Unit/Ml Vial SC 7,500 unit Q7D PAT Administration Fluticasone Propionate 0 gm 12/09/20 21:00 12/10/20 07:57 Fluticasone Propionate Nasal [place] 16 Gm Bottle NASAL 2 spray BID PAT Administration Gabapentin 400 mg 12/09/20 21:00 12/09/20 21:20 Gabapentin 400 Mg Cap PO 400 mg HS PAT Administration Heparin Sodium (Porcine) 5,000 units 12/09/20 21:00 12/10/20 07:57 Heparin 5,000 Units/Ml Vial SC 5,000 units BID PAT Administration Hydralazine HCl 100 mg 12/09/20 15:00 12/10/20 07:56 Hydralazine 25 Mg Tab PO 100 mg TID PAT Administration Metoprolol Tartrate 50 mg 12/09/20 21:00 12/10/20 07:57 Metoprolol Tartrate 50 Mg Tab PO 50 mg BID PAT Administration Mometasone Furoate/Formoterol Fumar 2 puff 12/09/20 18:30 12/10/20 05:20 Mometasone 200 Mcg/Formoterol 5 Mcg 120 Puff Inhaler INH Not Given BID-RT PAT Pantoprazole Sodium 40 mg 12/09/20 21:00 12/09/20 21:21 Pantoprazole 40 Mg Tab PO 40 mg HS PAT Administration Saccharomyces Boulardii 250 mg 12/09/20 09:00 12/10/20 07:56 Saccharomyces Boulardii 250 Mg Cap PO 250 mg DAILY PAT Administration Sevelamer Carbonate 2,400 mg 12/09/20 12:00 12/10/20 11:28 Sevelamer Carbonate 800 Mg Tab PO Not Given TID-WM PAT Sodium Chloride 10 ml 12/08/20 17:35 12/10/20 07:57 Flush - Normal Saline 10 Ml Syringe IVF 10 ml Q12HR PRN Administration Saline Flush Tramadol HCl 50 mg 12/09/20 10:14 12/10/20 04:18 Tramadol Hcl 50 Mg Tab PO 50 mg BIDPRN PRN Administration Mild Pain (1-3) Vancomycin HCl 125 mg 12/09/20 18:00 12/10/20 13:22 Vancomycin Hcl 25 Mg/Ml Oral PO 125 mg Q6HR PAT Administration - Exam General Appearance: ill appearing Heart: RRR, no gallops Respiratory: rhonchi, tachypneic Gastrointestinal: soft, non-distended, no guarding, no rigidity Extremities: no cyanosis, no clubbing Neurological: no new deficit Hosp A/P - Plan DVT proph w/SCDs Acute on chronic hypoxic respiratory failure due to COPD exacerbation COVID-19 pneumoniaPOA Diarrhearule out infectious etiology End-stage renal disease on hemodialysis with hyperkalemia Hypertension Anxiety COPD with chronic respiratory failure on 3 L O2 nasal cannula History of brain aneurysm Former smoker Physical deconditioning Plan: Continue O2 supplementation. Continue NIPPV nightly. Continue empiric antibiotics. Hemodialysis per nephrology. C. difficile antigen positivetoxin negative. Resume amlodipine, doxazosin, Flonase, gabapentin, hydralazine, metoprolol, Symbicort and Renvela. Restart as needed tramadol. A.m. labs. Continue other medications as above. Renal diet
[2020-12-10 17:47] LABS: SARS-CoV-2 IgG Ab Non-Reactive (NonReactive); SARS-CoV-2 IgG Index 0.22 S/CO (< 1.40)
[2020-12-10] MEDS: Doxazosin 2 MG TAB PO SCH (20:00)
[2020-12-10] MEDS: Gabapentin 400 MG CAP PO SCH (20:01)
--- NOTE | 2020-12-10 22:15 | PDOC.HOSPP ---
- Subjective Encounter Date: 12/10/20 Encounter Time: 15:30 Subjective: Patient seen and examined for respiratory failure. Shortness of breath improving. Denies any wheezing. Mild productive cough. - Objective Vital Signs & Weight: Vital Signs (12 hours) Temp Pulse Resp BP Pulse Ox 12/10/20 20:01 68 12/10/20 20:00 98.9 F 67 20 166/55 H 94 L 12/10/20 16:35 98.9 F 12/10/20 15:43 101.9 F H 12/10/20 15:40 101.9 F H 68 20 116/56 L 92 L 12/10/20 13:30 99.7 F H 69 16 121/49 L 92 L Weight Admit Weight 110 lb Weight 110 lb 0.171 oz I&O: 12/09/20 12/10/20 12/11/20 06:59 06:59 06:59 Intake Total 610 Balance 610 Result Diagrams: 12/10/20 05:56 12/10/20 05:56 Additional Labs: Abnormal Lab Results - Last 48 hrs 12/08/20 23:33: Troponin I 0.110 H 12/09/20 05:57: Potassium 5.2 H, Chloride 97 L, Anion Gap 23 H, BUN 60 H, Creatinine 8.62 H, Calcium 7.1 L 12/09/20 05:57: RBC 3.02 L, Hgb 9.4 L, Hct 29.2 L, MCH 31.2 H, RDW 16.8 H, MPV 7.2 L, Neutrophils % 81.7 H, Lymphocytes % 14.5 L, Lymphocytes # 0.9 L 12/09/20 05:57: C-Reactive Protein 7.19 H 12/09/20 05:57: D-Dimer 1.62 H 12/10/20 05:56: Chloride 96 L, Anion Gap 21 H, BUN 35 H, Creatinine 6.02 H, Albumin 3.3 L 12/10/20 05:56: RBC 3.09 L, Hgb 9.6 L, Hct 29.6 L, RDW 16.7 H, Neutrophils % 78.3 H, Lymphocytes % 16.5 L, Lymphocytes # 1.0 L Microbiology - Entire Visit 12/08/20 20:45 Stool Stool Culture - Final 12/08/20 20:45 Stool Escherichia coli 0157 Culture - Final 12/08/20 15:43 Venous blood - Right Hand Blood Culture - Preliminary NO GROWTH AT 48 HOURS 12/08/20 15:21 Venous blood - Right Arm Blood Culture - Preliminary NO GROWTH AT 48 HOURS 12/08/20 20:45 Stool - Pending C. difficile GDH Antigen & Toxins - Final 12/08/20 20:45 Stool - Pending Clostridioides difficile Toxins A&B (PCR) - Final 12/08/20 20:45 Stool Stool Lactoferrin - Final 12/08/20 20:45 Stool Campylobacter Antigen Assay - Final 12/08/20 20:45 Stool Shiga Toxin Test - Final Radiology Reviewed by me: Yes (Chest x-ray reviewed) Hospitalist ROS - Review of Systems Cardiovascular: denies: chest pain, palpitations, orthopnea, paroxysmal noc. dyspnea, edema, light headedness, other Gastrointestinal: denies: nausea, vomiting, abdominal pain, diarrhea, constipation, melena, hematochezia, other - Medication Medications: Active Medications Generic Name Dose Route Start Last Admin Trade Name Freq PRN Reason Stop Dose Admin Acetaminophen 650 mg 12/08/20 17:35 12/10/20 20:44 Acetaminophen 325 Mg Tab PO 650 mg Q4H PRN Administration Headache/Fever/Mild Pain (1-3) Amlodipine Besylate 10 mg 12/09/20 21:00 12/10/20 07:57 Amlodipine 10 Mg Tab PO 10 mg BID PAT Administration Dexamethasone 6 mg 12/09/20 09:00 12/10/20 07:57 Dexamethasone 4 Mg/Ml Vial SLOW IVP 6 mg DAILY PAT Administration Doxazosin Mesylate 4 mg 12/09/20 21:00 12/10/20 20:00 Doxazosin 2 Mg Tab PO 4 mg HS PAT Administration Epoetin Alden-epbx 7,500 unit 12/10/20 12:00 12/10/20 13:23 Epoetin Alden-Epbx (Esrd) 4,000 Unit/Ml Vial SC 7,500 unit Q7D PAT Administration Fluticasone Propionate 0 gm 12/09/20 21:00 12/10/20 20:02 Fluticasone Propionate Nasal [place] 16 Gm Bottle NASAL 2 spray BID PAT Administration Gabapentin 400 mg 12/09/20 21:00 12/10/20 20:01 Gabapentin 400 Mg Cap PO 400 mg HS PAT Administration Heparin Sodium (Porcine) 5,000 units 12/09/20 21:00 12/10/20 20:01 Heparin 5,000 Units/Ml Vial SC 5,000 units BID PAT Administration Hydralazine HCl 100 mg 12/09/20 15:00 12/10/20 20:01 Hydralazine 25 Mg Tab PO 100 mg TID PAT Administration Metoprolol Tartrate 50 mg 12/09/20 21:00 12/10/20 20:01 Metoprolol Tartrate 50 Mg Tab PO 50 mg BID PAT Administration Mometasone Furoate/Formoterol Fumar 2 puff 12/09/20 18:30 12/10/20 17:40 Mometasone 200 Mcg/Formoterol 5 Mcg 120 Puff Inhaler INH 2 puff BID-RT PAT Administration Pantoprazole Sodium 40 mg 12/09/20 21:00 12/10/20 20:00 Pantoprazole 40 Mg Tab PO 40 mg HS PAT Administration Saccharomyces Boulardii 250 mg 12/09/20 09:00 12/10/20 07:56 Saccharomyces Boulardii 250 Mg Cap PO 250 mg DAILY PAT Administration Sevelamer Carbonate 2,400 mg 12/09/20 12:00 12/10/20 17:59 Sevelamer Carbonate 800 Mg Tab PO Not Given TID-WM PAT Sodium Chloride 10 ml 12/08/20 17:35 12/10/20 07:57 Flush - Normal Saline 10 Ml Syringe IVF 10 ml Q12HR PRN Administration Saline Flush Tramadol HCl 50 mg 12/09/20 10:14 12/10/20 20:44 Tramadol Hcl 50 Mg Tab PO 50 mg BIDPRN PRN Administration Mild Pain (1-3) Vancomycin HCl 125 mg 12/09/20 18:00 12/10/20 17:40 Vancomycin Hcl 25 Mg/Ml Oral PO 125 mg Q6HR PAT Administration - Exam General Appearance: awake alert Neck: supple, no JVD Heart: no gallops, no rubs Respiratory: no wheezes, rales, rhonchi Gastrointestinal: non-tender, non-distended, no guarding Extremities: no cyanosis Musculoskeletal: generalized weakness Psychiatric: A&O x 3 Hosp A/P - Plan DVT proph w/lovenox, DVT proph w/SCDs Acute on chronic hypoxic respiratory failure COPD exacerbation COVID-19 pneumonia Clostridium difficile colitisPOA End-stage renal disease on hemodialysis with hyperkalemia Hypertension Anxiety COPD with chronic respiratory failure on 3 L O2 nasal cannula History of brain aneurysm Former smoker Physical deconditioning Plan: T-max of 101.9 earlier today. Bandemia has resolved. COVID antibody was 0.22 continue oral vancomycin for C. difficile. Continue dexamethasone with bron chodilators. Continue Protonix, metoprolol, gabapentin and other medications as above. Check inflammatory markers in a.m. Dialysis per nephrology. Continue other medications as above. 12/09 Continue O2 supplementation. Continue NIPPV nightly. Continue empiric antibiotics. Hemodialysis per nephrology. C. difficile antigen positivetoxin negative. Resume amlodipine, doxazosin, Flonase, gabapentin, hydralazine, metoprolol, Symbicort and Renvela. Restart as needed tramadol. A.m. labs. Co ntinue other medications as above. Renal diet
[2020-12-11] MEDS: Vancomycin HCl 25 MG/ML Oral PO SCH ×3 (05:49→17:07)
[2020-12-11] MEDS: Mometasone 200 MCG/Formoterol 5 MCG 120 PUFF INHALER INH SCH ×2 (05:49→17:36)
[2020-12-11 06:53] LABS: #Eosinphils 0.1 thou/uL (0.0-0.7); #Lymphocytes 0.8 thou/uL (1.20-3.40); #Monocytes 0.3 thou/uL (0.11-0.59); %Basophils 0.3 % (0.0-1.0); %Eosinophils 1.2 % (0.0-10.0); %Lymphocytes 19.6 % (21.0-51.0); %Monocytes 7.2 % (0.0-10.0); %Neutrophils 71.7 % (42.0-75.0); Mean Corpuscular HGB CONC 31.7 g/dL (32.0-36.0); Mean Corpuscular Hemoglobin 30.8 pg (27.0-31.0); Mean Corpuscular Volume 97.1 fL (78.0-98.0); Mean Platelet Volume 7.8 fL (7.4-10.4); Platelet Count 153 thou/uL (130-400); RBC Distribution Width 16.6 % (11.5-14.5); Red Blood Cell (RBC) Count 3.25 mill/uL (4.20-5.40); White Blood Cell (WBC) Count 4.2 thou/uL (4.8-10.8)
[2020-12-11 07:13] LABS: ALT (SGPT) 12 U/L (8-55); AST (SGOT) 14 U/L (5-34); Albumin 3.5 g/dL (3.5-5.0); Alkaline Phosphatase 57 U/L (40-110); Anion Gap 18 mmol/L (10-20); BUN (Urea Nitrogen) 29 mg/dL (9.8-20.1); Bilirubin, Total 0.5 mg/dL (0.2-1.2); Calc. Creatinine Clearance 9 mL/min (70-130); Calcium 8.5 mg/dL (7.8-10.44); Carbon Dioxide 28 mmol/L (22-29); Chloride 97 mmol/L (98-107); Globulin 2.8 g/dL (2.4-3.5); Glucose 77 mg/dL (70-105); Protein, Total 6.3 g/dL (6.0-8.3); Sodium 139 mmol/L (136-145)
[2020-12-11] MEDS: Sevelamer Carbonate 800 MG TAB PO SCH ×3 (08:08→17:07)
[2020-12-11] MEDS: Dexamethasone 4 mg/ml Vial SLOW IVP SCH (08:08)
[2020-12-11] MEDS: Saccharomyces boulardii 250 MG CAP PO SCH (08:08)
[2020-12-11] MEDS: Metoprolol Tartrate 50 MG TAB PO SCH ×2 (08:08→20:24)
[2020-12-11] MEDS: Amlodipine 10 MG TAB PO SCH ×3 (08:08→20:24)
[2020-12-11] MEDS: hydrALAZINE 25 MG TAB PO SCH ×4 (08:08→20:24)
[2020-12-11] MEDS: Heparin 5,000 UNITS/ML VIAL SC SCH ×2 (08:09→20:25)
[2020-12-11] MEDS: Fluticasone Propionate Nasal Spray 16 gm Bottle NASAL SCH ×2 (08:09→20:25)
--- NOTE | 2020-12-11 11:53 | PRG ---
DATE OF SERVICE: 12/11/2020 OBJECTIVE: VITAL SIGNS: This morning, she has temperature 98, pulse , respirations 20, sats are 92% on 3 L, blood pressure 140/52. CHEST: No wheezing, no crackles. CARDIAC: Normal S1, S2. No gallops. ABDOMEN: Soft. IMPRESSION: Respiratory failure, chronic obstructive pulmonary disease, smoker. PLAN: Pulmonary jon, she can probably switch over to p.o. prednisone. She is on Vanco for C diff. DISPOSITION: Home at any time. Job ID: [id number]
[2020-12-11] MEDS ORDERED: Sodium Chloride 0.9% 500 ML IV SCH (12:15)
--- NOTE | 2020-12-11 20:06 | PDOC.HOSPP ---
- Subjective Encounter Date: 12/11/20 Encounter Time: 12:00 Subjective: Patient seen and examined for respiratory failure. Shortness of breath improving. Denies any new complaints. - Objective Vital Signs & Weight: Vital Signs (12 hours) Temp Pulse Resp BP Pulse Ox 12/11/20 17:10 98.8 F 69 18 159/58 H 92 L 12/11/20 14:15 160/58 H 12/11/20 12:00 99.2 F 65 20 173/51 H 92 L 12/11/20 08:25 92 L Weight Admit Weight 110 lb Weight 110 lb 0.171 oz I&O: 12/10/20 12/11/20 12/12/20 06:59 06:59 06:59 Intake Total 610 1000 Balance 610 1000 Result Diagrams: 12/11/20 06:26 12/11/20 06:26 Hospitalist ROS - Review of Systems Cardiovascular: denies: chest pain, palpitations, orthopnea, paroxysmal noc. dyspnea, edema, light headedness, other Gastrointestinal: denies: nausea, vomiting, abdominal pain, diarrhea, constipation, melena, hematochezia, other - Medication Medications: Active Medications Generic Name Dose Route Start Last Admin Trade Name Freq PRN Reason Stop Dose Admin Acetaminophen 650 mg 12/08/20 17:35 12/10/20 20:44 Acetaminophen 325 Mg Tab PO 650 mg Q4H PRN Administration Headache/Fever/Mild Pain (1-3) Amlodipine Besylate 10 mg 12/09/20 21:00 12/11/20 08:24 Amlodipine 10 Mg Tab PO Not Given BID PAT Doxazosin Mesylate 4 mg 12/09/20 21:00 12/10/20 20:00 Doxazosin 2 Mg Tab PO 4 mg HS PAT Administration Epoetin Alden-epbx 7,500 unit 12/10/20 12:00 12/10/20 13:23 Epoetin Alden-Epbx (Esrd) 4,000 Unit/Ml Vial SC 7,500 unit Q7D PAT Administration Fluticasone Propionate 0 gm 12/09/20 21:00 12/11/20 08:09 Fluticasone Propionate Nasal [place] 16 Gm Bottle NASAL 2 spray BID PAT Administration Gabapentin 400 mg 12/09/20 21:00 12/10/20 20:01 Gabapentin 400 Mg Cap PO 400 mg HS PAT Administration Heparin Sodium (Porcine) 5,000 units 12/09/20 21:00 12/11/20 08:09 Heparin 5,000 Units/Ml Vial SC 5,000 units BID PAT Administration Hydralazine HCl 100 mg 12/09/20 15:00 12/11/20 14:06 Hydralazine 25 Mg Tab PO 100 mg TID PAT Administration Hydralazine HCl 10 mg 12/09/20 13:00 12/11/20 12:37 Hydralazine 20 Mg/Ml Vial SLOW IVP 10 mg Q4H PRN Administration SBP GREATER THAN 160 Metoprolol Tartrate 50 mg 12/09/20 21:00 12/11/20 08:08 Metoprolol Tartrate 50 Mg Tab PO 50 mg BID PAT Administration Mometasone Furoate/Formoterol Fumar 2 puff 12/09/20 18:30 12/11/20 17:36 Mometasone 200 Mcg/Formoterol 5 Mcg 120 Puff Inhaler INH 2 puff BID-RT PAT Administration Pantoprazole Sodium 40 mg 12/09/20 21:00 12/10/20 20:00 Pantoprazole 40 Mg Tab PO 40 mg HS PAT Administration Saccharomyces Boulardii 250 mg 12/09/20 09:00 12/11/20 08:08 Saccharomyces Boulardii 250 Mg Cap PO 250 mg DAILY PAT Administration Sevelamer Carbonate 2,400 mg 12/09/20 12:00 12/11/20 17:07 Sevelamer Carbonate 800 Mg Tab PO 2,400 mg TID-WM PAT Administration Sodium Chloride 10 ml 12/08/20 17:35 12/11/20 08:08 Flush - Normal Saline 10 Ml Syringe IVF 10 ml Q12HR PRN Administration Saline Flush Tramadol HCl 50 mg 12/09/20 10:14 12/10/20 20:44 Tramadol Hcl 50 Mg Tab PO 50 mg BIDPRN PRN Administration Mild Pain (1-3) Vancomycin HCl 125 mg 12/09/20 18:00 12/11/20 17:07 Vancomycin Hcl 25 Mg/Ml Oral PO 125 mg Q6HR PAT Administration - Exam General Appearance: awake alert Heart: RRR, no gallops Respiratory: rales, rhonchi Gastrointestinal: soft, non-distended, normal bowel sounds Extremities: no cyanosis Neurological: no new deficit Hosp A/P - Plan DVT proph w/heparin, DVT proph w/SCDs Acute on chronic hypoxic respiratory failure COPD exacerbation COVID-19 pneumonia Clostridium difficile colitis End-stage renal disease on hemodialysis with hyperkalemia Hypertension Anxiety COPD with chronic respiratory failure on 3 L O2 nasal cannula History of brain aneurysm Former smoker Physical deconditioning Plan: Patient appears stable on 3 L nasal cannula. Please note that patient is on 3 L nasal cannula at home. She has been cleared by pulmonary for discharge. However due to COVID-19 she will not be able to go to her routine dialysis center. Case discussed with Dr. Alvarado who recommended dialysis in a.m. as inpatient. Patient and her daughter was advised to contact the dialysis unit to make arrangements for Thursday dialysis. Will continue oral vancomycin for C. difficile. Continue other medications as above. Patient is probably stable and is comfortable with the plan of care 12/10 T-max of 101.9 earlier today. Bandemia has resolved. COVID antibody was 0.22. Continue oral vancomycin for C. difficile. Continue dexamethasone with bronchodilators. Continue Protonix, metoprolol, gabapentin and other medications as above. Check inflammatory markers in a.m. Dialysis per nephrology. Continue other medications as above. 12/09 Continue O2 supplementation. Continue NIPPV nightly. Continue empiric antibiotics. Hemodialysis per nephrology. C. difficile antigen positivetoxin negative. Resume amlodipine, doxazosin, Flonase, gabapentin, hydralazine, metoprolol, Symbicort and Renvela. Restart as needed tramadol. A.m. labs. Continue other medications as above. Renal diet
[2020-12-11] MEDS: Gabapentin 400 MG CAP PO SCH (20:23)
[2020-12-11] MEDS: Doxazosin 2 MG TAB PO SCH (20:25)
[2020-12-12] MEDS: Vancomycin HCl 25 MG/ML Oral PO SCH ×5 (00:10→23:50)
[2020-12-12] MEDS: Mometasone 200 MCG/Formoterol 5 MCG 120 PUFF INHALER INH SCH ×2 (05:57→17:19)
[2020-12-12] MEDS: Sevelamer Carbonate 800 MG TAB PO SCH ×3 (09:13→16:21)
[2020-12-12] MEDS: predniSONE 20 MG TAB PO SCH (09:14)
[2020-12-12] MEDS: Amlodipine 10 MG TAB PO SCH ×2 (09:14→20:03)
[2020-12-12] MEDS: Saccharomyces boulardii 250 MG CAP PO SCH (09:14)
[2020-12-12] MEDS: hydrALAZINE 25 MG TAB PO SCH ×3 (09:14→21:15)
[2020-12-12] MEDS: Metoprolol Tartrate 50 MG TAB PO SCH ×2 (09:14→20:03)
[2020-12-12] MEDS: Fluticasone Propionate Nasal Spray 16 gm Bottle NASAL SCH ×2 (09:15→20:03)
[2020-12-12] MEDS: Heparin 5,000 UNITS/ML VIAL SC SCH ×2 (09:15→20:04)
--- NOTE | 2020-12-12 09:46 | PRG ---
DATE OF SERVICE: 12/12/2020 SUBJECTIVE: Ms. Branch is a 55-year-old female with ESRD and currently on maintenance hemodialysis. She is complaining of cramping with dialysis. I have decided to remove only 2 L of fluid per patient's request. I did advise her how to manage herself if she cramps at home. We will do a 2-hour hemodialysis today. The patient has COVID-19 and for that reason will be transferred to the outpatient dialysis in [place]. Arrangements have been made. No new complaints today. No chest pain or shortness of breath. No cramping. OBJECTIVE: VITAL SIGNS: Blood pressure 153/55, heart rate 66, respiratory rate 20, temperature 98.2, O2 saturation 97%. GENERAL: The patient is awake, comfortable, not in distress. SKIN: Adequate turgor. HEENT: She has pinkish conjunctivae. Anicteric sclerae. No neck mass. No carotid bruits. No JVD. CHEST: No deformities. LUNGS: Decreased breath sounds. HEART: Normal sinus rhythm. No murmur, gallops, or rubs. ABDOMEN: Globular, soft, nontender. No masses. EXTREMITIES: No edema. No deformities. MEDICATIONS: Medications of December 12, 2020, reviewed. LABORATORY DATA: December 11, 2020, white count 4.2, hemoglobin 10. Sodium 139, potassium 4, chloride 97, carbon dioxide 28, BUN 29, creatinine 5.3, glucose 77, AST 14, ALT 12, ferritin 4484. C-reactive protein 3.9. ASSESSMENT AND PLAN: 1. End-stage renal disease - we will do a 2-hour hemodialysis with only 1.5 L fluid removal or as tolerated by the patient. 2. Cramping episode. We will decrease fluid removal with this patient. Consider upping her estimated dry weight. 3. COVID-19 pneumonia - stable on dexamethasone. The patient to be discharged. She is noted to be clinically stable. 4. Agree with current management. Job ID: [id number] [facility]
--- NOTE | 2020-12-12 10:07 | PRG ---
DATE OF SERVICE: 12/12/2020 SUBJECTIVE: This morning, she is doing better. OBJECTIVE: VITAL SIGNS: Temperature 98, pulse 66, sats 97% on nasal O2, blood pressure . CHEST: No wheezing. No crackles. CARDIAC: Normal S1, S2. No gallops. ABDOMEN: Soft. ASSESSMENT: 1. Alfonso positive pneumonia. 2. Respiratory failure. 3. Chronic obstructive pulmonary disease. She looks better. She can be discharged home any time. Job ID: [id number]
[2020-12-12] MEDS: Acetaminophen 325 MG TAB PO PRN ×2 (13:57→17:19)
--- NOTE | 2020-12-12 18:05 | RAD ---
PORTABLE CHEST: 12/12/20 HISTORY: COVID exposure. Shortness of breath and fever. Heart size is enlarged. There is severe emphysematous lung changes seen. Bibasilar infiltrative appea ring lung changes are again noted. Changes in the left base has improved with decreased obscuration t o the left heart border. IMPRESSION: Improving infiltrate in the left base. Severe chronic lung change. Stable changes within the right kel ng base. POS: OFF
--- NOTE | 2020-12-12 18:38 | PDOC.HOSPP ---
- Subjective Encounter Date: 12/12/20 Encounter Time: 14:00 Subjective: Patient seen and examined for respiratory failure. Shortness of breath on minimal exertion. Feels generally weak and fatigued. Hemodialysis today. - Objective Vital Signs & Weight: Vital Signs (12 hours) Temp Pulse Resp BP Pulse Ox 12/12/20 17:06 98.1 F 12/12/20 15:11 70 12/12/20 14:27 100.7 F H 12/12/20 13:57 102.3 F H 12/12/20 12:00 98.8 F 70 20 152/81 H 91 L 12/12/20 09:14 66 12/12/20 08:00 97 12/12/20 07:35 98.2 F 66 20 153/55 H 97 Weight Admit Weight 110 lb Weight 110 lb 0.171 oz I&O: 12/11/20 12/12/20 12/13/20 06:59 06:59 06:59 Intake Total 610 1000 Balance 610 1000 Result Diagrams: 12/11/20 06:26 12/11/20 06:26 Additional Labs: Accuchecks 12/12/20 13:52 POC Glucose 106 H Radiology Reviewed by me: Yes (Chest x-raypneumonia) Hospitalist ROS - Review of Systems Cardiovascular: denies: chest pain, palpitations, orthopnea, paroxysmal noc. dyspnea, edema, light headedness, other Gastrointestinal: denies: nausea, vomiting, abdominal pain, diarrhea, constipation, melena, hematochezia, other - Medication Medications: Active Medications Generic Name Dose Route Start Last Admin Trade Name Freq PRN Reason Stop Dose Admin Acetaminophen 650 mg 12/08/20 17:35 12/12/20 17:19 Acetaminophen 325 Mg Tab PO 650 mg Q4H PRN Administration Headache/Fever/Mild Pain (1-3) Amlodipine Besylate 10 mg 12/09/20 21:00 12/12/20 09:14 Amlodipine 10 Mg Tab PO 10 mg BID PAT Administration Doxazosin Mesylate 4 mg 12/09/20 21:00 12/11/20 20:25 Doxazosin 2 Mg Tab PO 4 mg HS PAT Administration Epoetin Alden-epbx 7,500 unit 12/10/20 12:00 12/10/20 13:23 Epoetin Alden-Epbx (Esrd) 4,000 Unit/Ml Vial SC 7,500 unit Q7D PAT Administration Fluticasone Propionate 0 gm 12/09/20 21:00 12/12/20 09:15 Fluticasone Propionate Nasal [place] 16 Gm Bottle NASAL 2 spray BID PAT Administration Gabapentin 400 mg 12/09/20 21:00 12/11/20 20:23 Gabapentin 400 Mg Cap PO 400 mg HS PAT Administration Heparin Sodium (Porcine) 5,000 units 12/09/20 21:00 12/12/20 09:15 Heparin 5,000 Units/Ml Vial SC 5,000 units BID PAT Administration Hydralazine HCl 100 mg 12/09/20 15:00 12/12/20 15:11 Hydralazine 25 Mg Tab PO 100 mg TID PAT Administration Hydralazine HCl 10 mg 12/09/20 13:00 12/11/20 12:37 Hydralazine 20 Mg/Ml Vial SLOW IVP 10 mg Q4H PRN Administration SBP GREATER THAN 160 Metoprolol Tartrate 50 mg 12/09/20 21:00 12/12/20 09:14 Metoprolol Tartrate 50 Mg Tab PO 50 mg BID PAT Administration Mometasone Furoate/Formoterol Fumar 2 puff 12/09/20 18:30 12/12/20 17:19 Mometasone 200 Mcg/Formoterol 5 Mcg 120 Puff Inhaler INH 2 puff BID-RT PAT Administration Pantoprazole Sodium 40 mg 12/09/20 21:00 12/11/20 20:24 Pantoprazole 40 Mg Tab PO 40 mg HS PAT Administration Prednisone 20 mg 12/12/20 08:00 12/12/20 09:14 Prednisone 20 Mg Tab PO 20 mg QAM-WM PAT Administration Saccharomyces Boulardii 250 mg 12/09/20 09:00 12/12/20 09:14 Saccharomyces Boulardii 250 Mg Cap PO 250 mg DAILY PAT Administration Sevelamer Carbonate 2,400 mg 12/09/20 12:00 12/12/20 16:21 Sevelamer Carbonate 800 Mg Tab PO 2,400 mg TID-WM PAT Administration Sodium Chloride 10 ml 12/08/20 17:35 12/11/20 08:08 Flush - Normal Saline 10 Ml Syringe IVF 10 ml Q12HR PRN Administration Saline Flush Tramadol HCl 50 mg 12/09/20 10:14 12/10/20 20:44 Tramadol Hcl 50 Mg Tab PO 50 mg BIDPRN PRN Administration Mild Pain (1-3) Vancomycin HCl 125 mg 12/09/20 18:00 12/12/20 17:22 Vancomycin Hcl 25 Mg/Ml Oral PO 125 mg Q6HR PAT Administration - Exam General Appearance: awake alert, ill appearing Neck: supple Heart: RRR, no gallops Respiratory: no wheezes, rales, rhonchi Gastrointestinal: soft, non-tender, normal bowel sounds Extremities: no cyanosis Neurological: no new deficit Musculoskeletal: generalized weakness Psychiatric: A&O x 3 Hosp A/P - Plan DVT proph w/SCDs Acute on chronic hypoxic respiratory failure COPD exacerbation COVID-19 pneumonia Clostridium difficile colitis End-stage renal disease on hemodialysis with hyperkalemia Hypertension Anxiety COPD with chronic respiratory failure on 3 L O2 nasal cannula History of brain aneurysm Former smoker Physical deconditioning Plan: Patient has a temperature of 102.3. Feels generally weak and fatigued. No new O2 requirement compared to her baseline 3 L nasal cannula. Repeat chest x-ray reviewed. Will continue steroids with the let us. Will add incentive spirometer. Recheck labs in a.m. including inflammatory markers. Continue other medications as above 12/11 Patient appears stable on 3 L nasal cannula. Please note that patient is on 3 L nasal cannula at home. She has been cleared by pulmonary for discharge. However due to COVID-19 she will not be able to go to her routine dialysis center. Case discussed with Dr. Alvarado who recommended dialysis in a.m. as inpatient. Patient and her daughter was advised to contact the dialysis unit to make arrangements for Thursday dialysis. Will continue oral vancomycin for C. difficile. Continue other medications as above. Patient is probably stable and is comfortable with the plan of care 12/10 T-max of 101.9 earlier today. Bandemia has resolved. COVID antibody was 0.22. Continue oral vancomycin for C. difficile. Continue dexamethasone with br onchodilators. Continue Protonix, metoprolol, gabapentin and other medications as above. Check inflammatory markers in a.m. Dialysis per nephrology. Continue other medications as above. 12/09 Continue O2 supplementation. Continue NIPPV nightly. Continue empiric antibiotics. Hemodialysis per nephrology. C. difficile antigen positivetoxin negative. Resume amlodipine, doxazosin, Flonase, gabapentin, hydralazine, metoprolol, Symbicort and Renvela. Restart as needed tramadol. A.m. labs. Continue other medications as above. Renal diet
[2020-12-12] MEDS: Doxazosin 2 MG TAB PO SCH (20:02)
[2020-12-12] MEDS: Gabapentin 400 MG CAP PO SCH (20:02)
[2020-12-13] MEDS: Vancomycin HCl 25 MG/ML Oral PO SCH ×4 (05:52→23:21)
[2020-12-13] MEDS: Mometasone 200 MCG/Formoterol 5 MCG 120 PUFF INHALER INH SCH ×2 (05:53→20:36)
[2020-12-13 06:30] LABS: #Eosinphils 0.1 thou/uL (0.0-0.7); #Lymphocytes 0.9 thou/uL (1.20-3.40); #Monocytes 0.3 thou/uL (0.11-0.59); #Neutrophils 1.9 thou/uL (1.40-6.50); %Basophils 0.5 % (0.0-1.0); %Lymphocytes 28.3 % (21.0-51.0); %Monocytes 9.4 % (0.0-10.0); %Neutrophils 59.9 % (42.0-75.0); Hemoglobin 9.9 g/dL (12.0-16.0); Mean Corpuscular HGB CONC 31.5 g/dL (32.0-36.0); Mean Corpuscular Volume 95.4 fL (78.0-98.0); Mean Platelet Volume 7.3 fL (7.4-10.4); Platelet Count 205 thou/uL (130-400); RBC Distribution Width 16.6 % (11.5-14.5); White Blood Cell (WBC) Count 3.2 thou/uL (4.8-10.8)
[2020-12-13 06:48] LABS: ALT (SGPT) 9 U/L (8-55); AST (SGOT) 13 U/L (5-34); Albumin 3.3 g/dL (3.5-5.0); Alkaline Phosphatase 51 U/L (40-110); Anion Gap 16 mmol/L (10-20); BUN (Urea Nitrogen) 35 mg/dL (9.8-20.1); Bilirubin, Total 0.4 mg/dL (0.2-1.2); CRP (Inflammatory) 3.39 mg/dL (= or < 0.5); Calc. Creatinine Clearance 8 mL/min (70-130); Carbon Dioxide 29 mmol/L (22-29); Chloride 97 mmol/L (98-107); Globulin 2.7 g/dL (2.4-3.5); Glucose 82 mg/dL (70-105); Potassium 3.4 mmol/L (3.5-5.1); Sodium 139 mmol/L (136-145)
[2020-12-13] MEDS: Saccharomyces boulardii 250 MG CAP PO SCH (09:41)
[2020-12-13] MEDS: Fluticasone Propionate Nasal Spray 16 gm Bottle NASAL SCH ×2 (09:42→20:39)
[2020-12-13] MEDS: Heparin 5,000 UNITS/ML VIAL SC SCH ×2 (09:42→20:41)
[2020-12-13] MEDS: Amlodipine 10 MG TAB PO SCH ×2 (09:43→20:39)
[2020-12-13] MEDS: predniSONE 20 MG TAB PO SCH (09:43)
[2020-12-13] MEDS: hydrALAZINE 25 MG TAB PO SCH ×3 (09:43→20:40)
[2020-12-13] MEDS: Metoprolol Tartrate 50 MG TAB PO SCH ×2 (09:43→20:40)
[2020-12-13] MEDS: Sevelamer Carbonate 800 MG TAB PO SCH ×3 (09:43→18:13)
--- NOTE | 2020-12-13 09:56 | PRG ---
DATE OF SERVICE: 12/13/2020 SUBJECTIVE: Ms. Branch is a 55-year-old female, followed up for her ESRD and maintenance hemodialysis. She underwent a 2-hour hemodialysis yesterday. She was supposed to be discharged yesterday, but developed fever and shortness of breath. Chest x-ray was done, which showed improving infiltrate. No overt evidence of CHF, but she has this chronic lung changes suggestive of severe COPD. Due to her changed schedule, she will be dialyzed for 3 hours today. She will then go to the [facility] due to her COVID-19 status. Her dialysis day now is Thursday, , Thursday. This morning, she is feeling a little better. OBJECTIVE: VITAL SIGNS: Blood pressure is 145/56, heart rate 59, respiratory rate 16, temperature 99.3, and O2 saturation 100%. GENERAL: The patient is awake, comfortable, not in overt distress. SKIN: Adequate turgor. HEENT: She has slightly pale conjunctivae. Anicteric sclerae. No neck mass. No carotid bruits. No JVD. CHEST: No deformities. LUNGS: Decreased breath sounds. HEART: Normal sinus rhythm. No murmur. No gallops. No rubs. ABDOMEN: Globular, soft, nontender. No masses. EXTREMITIES: No edema. No deformities. MEDICATIONS: Of December 13, 2020, reviewed. LABORATORY DATA: Laboratories of December 13, 2020: White count 3.2, hemoglobin 9.9. Sodium 139, potassium 3.4, chloride 97, carbon dioxide 29, BUN 35, creatinine 6.29, glucose 82, calcium 8, AST 13, ALT 9, ferritin 3827, albumin 3.3. Chest x-ray of December 12, 2020; improving infiltrate on the left base, severe chronic lung changes. ASSESSMENT AND PLAN: 1. End-stage renal disease, we will schedule for 3-hour hemodialysis with fluid removal with this patient. We will attempt only 2 L fluid removal due to the previous cramping episode. 2. COVID-19 pneumonia, clinically improving. However, she had a fever yesterday. The left lower lobe lung infiltrate is actually improving. 3. Anemia. Continuing weekly Epogen. P.r.n. blood transfusion for hemoglobin of less than 7. Job ID: [id number]
--- NOTE | 2020-12-13 18:52 | PRG ---
DATE OF SERVICE: 12/13/2020 SUBJECTIVE: Ms. Branch still with dyspnea, had hemodialysis yesterday. No chest pain. No abdominal pain. No diarrhea. OBJECTIVE: VITAL SIGNS: T-max 99.3, she was 102.3 yesterday at 1:00 p.m. and she had been on nasal cannula, kind of going back and forth between CPAP and nasal cannula, saturating 100%. LUNGS: With faint basilar crackles. HEART: S1 and S2. Regular rate. ABDOMEN: Soft, not distended. EXTREMITIES: No joint inflammatory activity. LABORATORY DATA: White cell count 3.2, hemoglobin 9.9, platelets 205 with normal differential. D-dimer 1.58. Ferritin is at 3800. C-reactive protein down from 6.78 to 3.39. She had a repeat chest x-ray, which showed improving infiltrates, left base. ASSESSMENT AND DISCUSSION: Chronic obstructive pulmonary disease with home O2 requirement; chronic smoking up to 3 months ago; end-stage renal disease probably from arterial sclerosis, on hemodialysis with AV fistula; recent admission for respiratory symptoms; abnormal chest x-ray, probably SARS-CoV2 from that time, although was a false negative PCR test most likely and now she comes in with positive SARS-CoV2. She is still early in the course of illness. Her antibody levels are not yet above threshold, so this is the first 10 days, which she raises the risk of subsequent deterioration in the ensuing days. Job ID: [id number]
[2020-12-13] MEDS: Doxazosin 2 MG TAB PO SCH (20:39)
[2020-12-13] MEDS: Gabapentin 400 MG CAP PO SCH (20:54)
--- NOTE | 2020-12-13 22:13 | PDOC.HOSPP ---
- Subjective Encounter Date: 12/13/20 Encounter Time: 12:30 Subjective: Patient seen and examined for respiratory failure. Shortness of breath improving. Afebrile today. Cough with some production. No nausea or vomiting. - Objective Vital Signs & Weight: Vital Signs (12 hours) Temp Pulse Resp BP BP Pulse Ox 12/13/20 21:11 97.8 F 66 18 151/54 H 100 12/13/20 16:00 98.4 F 64 126/51 L Weight Admit Weight 110 lb Weight 110 lb 0.171 oz I&O: 12/12/20 12/13/20 12/14/20 06:59 06:59 06:59 Intake Total 1000 640 Balance 1000 640 Result Diagrams: 12/13/20 05:51 12/13/20 05:51 Hospitalist ROS - Review of Systems Cardiovascular: denies: chest pain, palpitations, orthopnea, paroxysmal noc. dyspnea, edema, light headedness, other Gastrointestinal: denies: nausea, vomiting, abdominal pain, diarrhea, constipation, melena, hematochezia, other Genitourinary: denies: dysuria, frequency, incontinence, hematuria, retention, other - Medication Medications: Active Medications Generic Name Dose Route Start Last Admin Trade Name Freq PRN Reason Stop Dose Admin Acetaminophen 650 mg 12/08/20 17:35 12/12/20 17:19 Acetaminophen 325 Mg Tab PO 650 mg Q4H PRN Administration Headache/Fever/Mild Pain (1-3) Amlodipine Besylate 10 mg 12/09/20 21:00 12/13/20 20:39 Amlodipine 10 Mg Tab PO 10 mg BID PAT Administration Doxazosin Mesylate 4 mg 12/09/20 21:00 12/13/20 20:39 Doxazosin 2 Mg Tab PO 4 mg HS PAT Administration Epoetin Alden-epbx 7,500 unit 12/10/20 12:00 12/10/20 13:23 Epoetin Alden-Epbx (Esrd) 4,000 Unit/Ml Vial SC 7,500 unit Q7D PAT Administration Fluticasone Propionate 0 gm 12/09/20 21:00 12/13/20 20:39 Fluticasone Propionate Nasal [place] 16 Gm Bottle NASAL 2 spray BID PAT Administration Gabapentin 400 mg 12/09/20 21:00 12/13/20 20:54 Gabapentin 400 Mg Cap PO 400 mg HS PAT Administration Heparin Sodium (Porcine) 5,000 units 12/09/20 21:00 12/13/20 20:41 Heparin 5,000 Units/Ml Vial SC 5,000 units BID PAT Administration Hydralazine HCl 100 mg 12/09/20 15:00 12/13/20 20:40 Hydralazine 25 Mg Tab PO 100 mg TID PAT Administration Hydralazine HCl 10 mg 12/09/20 13:00 12/11/20 12:37 Hydralazine 20 Mg/Ml Vial SLOW IVP 10 mg Q4H PRN Administration SBP GREATER THAN 160 Metoprolol Tartrate 50 mg 12/09/20 21:00 12/13/20 20:40 Metoprolol Tartrate 50 Mg Tab PO 50 mg BID PAT Administration Mometasone Furoate/Formoterol Fumar 2 puff 12/09/20 18:30 12/13/20 20:36 Mometasone 200 Mcg/Formoterol 5 Mcg 120 Puff Inhaler INH 2 puff BID-RT PAT Administration Pantoprazole Sodium 40 mg 12/09/20 21:00 12/13/20 20:40 Pantoprazole 40 Mg Tab PO 40 mg HS PAT Administration Prednisone 20 mg 12/12/20 08:00 12/13/20 09:43 Prednisone 20 Mg Tab PO 20 mg QAM-WM PAT Administration Saccharomyces Boulardii 250 mg 12/09/20 09:00 12/13/20 09:41 Saccharomyces Boulardii 250 Mg Cap PO 250 mg DAILY PAT Administration Sevelamer Carbonate 2,400 mg 12/09/20 12:00 12/13/20 18:13 Sevelamer Carbonate 800 Mg Tab PO 2,400 mg TID-WM PAT Administration Sodium Chloride 10 ml 12/08/20 17:35 12/11/20 08:08 Flush - Normal Saline 10 Ml Syringe IVF 10 ml Q12HR PRN Administration Saline Flush Tramadol HCl 50 mg 12/09/20 10:14 12/10/20 20:44 Tramadol Hcl 50 Mg Tab PO 50 mg BIDPRN PRN Administration Mild Pain (1-3) Vancomycin HCl 125 mg 12/09/20 18:00 12/13/20 18:13 Vancomycin Hcl 25 Mg/Ml Oral PO 125 mg Q6HR PAT Administration - Exam General Appearance: awake alert Neck: supple, no JVD Heart: RRR, no gallops Respiratory: no wheezes, rales, rhonchi, tachypneic Gastrointestinal: soft, non-tender, normal bowel sounds Extremities: no cyanosis Hosp A/P - Plan DVT proph w/SCDs Acute on chronic hypoxic respiratory failure COPD exacerbation COVID-19 pneumonia Clostridium difficile colitis End-stage renal disease on hemodialysis with hyperkalemia Hypertension Anxiety COPD with chronic respiratory failure on 3 L O2 nasal cannula History of brain aneurysm Former smoker Physical deconditioning Plan: Afebrile today. Markers slowly improving. Continue oral vancomycin. Case discussed with infectious disease. Patient is still early in the course of illness. She is at high risk of subsequent deterioration due to history of COPD and chronic respite of failure. Will continue close monitoring. Continue dialysis per nephrology. Continue prednisone with bronchodilator. Continue other medications as above. 12/12 Patient has a temperature of 102.3. Feels generally weak and fatigued. No new O2 requirement compared to her baseline 3 L nasal cannula. Repeat chest x-ray reviewed. Will continue steroids with the let us. Will add incentive spirometer. Recheck labs in a.m. including inflammatory markers. Continue other medications as above 12/11 Patient appears stable on 3 L nasal cannula. Please note that patient is on 3 L nasal cannula at home. She has been cleared by pulmonary for discharge. However due to COVID-19 she will not be able to go to her routine dialysis center. Case discussed with Dr. Alvarado who recommended dialysis in a.m. as inpatient. Patient and her daughter was advised to contact the dialysis unit to make arrangements for Thursday dialysis. Will continue oral vancomycin for C. difficile. Continue other medications as above. Patient is probably stable and is comfortable with the plan of care 12/10 T-max of 101.9 earlier today. Bandemia has resolved. COVID antibody was 0.22. Continue oral vancomycin for C. difficile. Continue dexamethasone with bronchodilators. Continue Protonix, metoprolol, gabapentin and other medications as above. Check inflammatory markers in a.m. Dialysis per nephrology. Continue other medications as above. 12/09 Continue O2 supplementation. Continue NIPPV nightly. Continue empiric antibiotics. Hemodialysis per nephrology. C. difficile antigen positivetoxin negative. Resume amlodipine, doxazosin, Flonase, gabapentin, hydralazine, metoprolol, Symbicort and Renvela. Restart as needed tramadol. A.m. labs. Continue other medications as above. Renal diet
[2020-12-13] MEDS ORDERED: Zolpidem Tartrate 5 MG TAB PO SCH (23:00)
[2020-12-13] MEDS: traMADol HCl 50 MG TAB PO PRN (23:22)
[2020-12-14] MEDS: Vancomycin HCl 25 MG/ML Oral PO SCH ×4 (05:57→23:01)
[2020-12-14] MEDS: Mometasone 200 MCG/Formoterol 5 MCG 120 PUFF INHALER INH SCH ×2 (05:58→17:43)
[2020-12-14 06:42] LABS: #Lymphocytes 1.1 thou/uL (1.20-3.40); #Monocytes 0.3 thou/uL (0.11-0.59); %Basophils 0.1 % (0.0-1.0); %Lymphocytes 24.7 % (21.0-51.0); %Monocytes 7.5 % (0.0-10.0); %Neutrophils 66.7 % (42.0-75.0); Hemoglobin 10.3 g/dL (12.0-16.0); Mean Corpuscular HGB CONC 31.8 g/dL (32.0-36.0); Mean Corpuscular Hemoglobin 30.6 pg (27.0-31.0); Mean Corpuscular Volume 96.2 fL (78.0-98.0); Mean Platelet Volume 7.2 fL (7.4-10.4); Platelet Count 235 thou/uL (130-400); RBC Distribution Width 16.7 % (11.5-14.5); Red Blood Cell (RBC) Count 3.36 mill/uL (4.20-5.40); White Blood Cell (WBC) Count 4.5 thou/uL (4.8-10.8)
[2020-12-14 07:04] LABS: ALT (SGPT) 11 U/L (8-55); AST (SGOT) 15 U/L (5-34); Albumin 3.2 g/dL (3.5-5.0); Alkaline Phosphatase 52 U/L (40-110); Anion Gap 17 mmol/L (10-20); BUN (Urea Nitrogen) 33 mg/dL (9.8-20.1); Bilirubin, Total 0.3 mg/dL (0.2-1.2); Calc. Creatinine Clearance 9 mL/min (70-130); Calcium 8.4 mg/dL (7.8-10.44); Carbon Dioxide 29 mmol/L (22-29); Chloride 98 mmol/L (98-107); Globulin 2.9 g/dL (2.4-3.5); Glucose 74 mg/dL (70-105); Potassium 3.8 mmol/L (3.5-5.1); Protein, Total 6.1 g/dL (6.0-8.3); Sodium 140 mmol/L (136-145)
[2020-12-14] MEDS: Saccharomyces boulardii 250 MG CAP PO SCH (09:07)
[2020-12-14] MEDS: Sevelamer Carbonate 800 MG TAB PO SCH ×3 (09:07→17:42)
[2020-12-14] MEDS: hydrALAZINE 25 MG TAB PO SCH ×3 (09:07→20:15)
[2020-12-14] MEDS: Heparin 5,000 UNITS/ML VIAL SC SCH ×2 (09:07→20:16)
[2020-12-14] MEDS: Metoprolol Tartrate 50 MG TAB PO SCH ×2 (09:08→20:15)
[2020-12-14] MEDS: Amlodipine 10 MG TAB PO SCH ×2 (09:08→20:15)
[2020-12-14] MEDS: Fluticasone Propionate Nasal Spray 16 gm Bottle NASAL SCH ×2 (09:08→20:16)
[2020-12-14] MEDS: predniSONE 20 MG TAB PO SCH (09:08)
--- NOTE | 2020-12-14 10:20 | PRG ---
DATE OF SERVICE: 12/14/2020 SUBJECTIVE: This morning, she is on the telephone talking without any problems. Nasal O2, temperature 98, , blood pressure 150/53. OBJECTIVE: CHEST: No wheezing, no crackles. CARDIAC: Normal S1, S2. LABORATORY DATA: Unremarkable. Blood cultures negative. IMPRESSION: 1. respiratory failure. 2. Clostridium difficile colitis. 3. Continue low-dose prednisone, taper down over 2 weeks. DISPOSITION: As per primary care physician. Job ID: [id number]
--- NOTE | 2020-12-14 19:19 | PDOC.HOSPP ---
- Subjective Encounter Date: 12/14/20 Encounter Time: 15:00 Subjective: Patient seen and examined for COVID-19 pneumonia with respiratory failure. No significant change in shortness of breath. Denies any fever or chills. - Objective Vital Signs & Weight: Vital Signs (12 hours) BP Pulse Ox Pulse Ox Pulse Ox 12/14/20 15:00 108/44 L 12/14/20 14:24 98 98 12/14/20 08:00 100 Weight Admit Weight 110 lb Weight 110 lb 0.171 oz I&O: 12/13/20 12/14/20 12/15/20 06:59 06:59 06:59 Intake Total 990 680 Balance 990 680 Result Diagrams: 12/14/20 05:56 12/14/20 05:56 Additional Labs: Abnormal Lab Results - Last 48 hrs 12/13/20 05:51: Potassium 3.4 L, Chloride 97 L, BUN 35 H, Creatinine 6.29 H, C- Reactive Protein 3.39 H, Albumin 3.3 L 12/13/20 05:51: Ferritin 3827.44 H 12/13/20 05:51: WBC 3.2 L, RBC 3.30 L, Hgb 9.9 L, Hct 31.4 L, MCHC 31.5 L, RDW 16.6 H, MPV 7.3 L, Lymphocytes # 0.9 L 12/13/20 05:51: D-Dimer 1.58 H 12/14/20 05:56: BUN 33 H, Creatinine 5.38 H, Albumin 3.2 L, Albumin/Globulin Ratio 1.1 L 12/14/20 05:56: WBC 4.5 L, RBC 3.36 L, Hgb 10.3 L, Hct 32.3 L, MCHC 31.8 L, RDW 16.7 H, MPV 7.2 L, Lymphocytes # 1.1 L Microbiology - Entire Visit 12/08/20 15:43 Venous blood - Right Hand Blood Culture - Final NO GROWTH IN 5 DAYS 12/08/20 15:21 Venous blood - Right Arm Blood Culture - Final NO GROWTH IN 5 DAYS 12/08/20 20:45 Stool Stool Culture - Final 12/08/20 20:45 Stool Escherichia coli 0157 Culture - Final 12/08/20 20:45 Stool - Pending C. difficile GDH Antigen & Toxins - Final 12/08/20 20:45 Stool - Pending Clostridioides difficile Toxins A&B (PCR) - Final 12/08/20 20:45 Stool Stool Lactoferrin - Final 12/08/20 20:45 Stool Campylobacter Antigen Assay - Final 12/08/20 20:45 Stool Shiga Toxin Test - Final Hospitalist ROS - Review of Systems Cardiovascular: denies: chest pain, palpitations, orthopnea, paroxysmal noc. dyspnea, edema, light headedness, other Gastrointestinal: denies: nausea, vomiting, abdominal pain, diarrhea, co nstipation, melena, hematochezia, other - Medication Medications: Active Medications Generic Name Dose Route Start Last Admin Trade Name Freq PRN Reason Stop Dose Admin Acetaminophen 650 mg 12/08/20 17:35 12/12/20 17:19 Acetaminophen 325 Mg Tab PO 650 mg Q4H PRN Administration Headache/Fever/Mild Pain (1-3) Amlodipine Besylate 10 mg 12/09/20 21:00 12/14/20 09:08 Amlodipine 10 Mg Tab PO 10 mg BID PAT Administration Doxazosin Mesylate 4 mg 12/09/20 21:00 12/13/20 20:39 Doxazosin 2 Mg Tab PO 4 mg HS PAT Administration Epoetin Alden-epbx 7,500 unit 12/10/20 12:00 12/10/20 13:23 Epoetin Alden-Epbx (Esrd) 4,000 Unit/Ml Vial SC 7,500 unit Q7D PAT Administration Fluticasone Propionate 0 gm 12/09/20 21:00 12/14/20 09:08 Fluticasone Propionate Nasal [place] 16 Gm Bottle NASAL 2 spray BID PAT Administration Gabapentin 400 mg 12/09/20 21:00 12/13/20 20:54 Gabapentin 400 Mg Cap PO 400 mg HS PAT Administration Heparin Sodium (Porcine) 5,000 units 12/09/20 21:00 12/14/20 09:07 Heparin 5,000 Units/Ml Vial SC 5,000 units BID PAT Administration Hydralazine HCl 100 mg 12/09/20 15:00 12/14/20 15:13 Hydralazine 25 Mg Tab PO Not Given TID PAT Hydralazine HCl 10 mg 12/09/20 13:00 12/11/20 12:37 Hydralazine 20 Mg/Ml Vial SLOW IVP 10 mg Q4H PRN Administration SBP GREATER THAN 160 Metoprolol Tartrate 50 mg 12/09/20 21:00 12/14/20 09:08 Metoprolol Tartrate 50 Mg Tab PO 50 mg BID PAT Administration Mometasone Furoate/Formoterol Fumar 2 puff 12/09/20 18:30 12/14/20 17:43 Mometasone 200 Mcg/Formoterol 5 Mcg 120 Puff Inhaler INH 2 puff BID-RT PAT Administration Pantoprazole Sodium 40 mg 12/09/20 21:00 12/13/20 20:40 Pantoprazole 40 Mg Tab PO 40 mg HS PAT Administration Prednisone 20 mg 12/12/20 08:00 12/14/20 09:08 Prednisone 20 Mg Tab PO 20 mg QAM-WM PAT Administration Saccharomyces Boulardii 250 mg 12/09/20 09:00 12/14/20 09:07 Saccharomyces Boulardii 250 Mg Cap PO 250 mg DAILY PAT Administration Sevelamer Carbonate 2,400 mg 12/09/20 12:00 12/14/20 17:42 Sevelamer Carbonate 800 Mg Tab PO 2,400 mg TID-WM PAT Administration Sodium Chloride 10 ml 12/08/20 17:35 12/11/20 08:08 Flush - Normal Saline 10 Ml Syringe IVF 10 ml Q12HR PRN Administration Saline Flush Tramadol HCl 50 mg 12/09/20 10:14 12/13/20 23:22 Tramadol Hcl 50 Mg Tab PO 50 mg BIDPRN PRN Administration Mild Pain (1-3) Vancomycin HCl 125 mg 12/09/20 18:00 12/14/20 17:42 Vancomycin Hcl 25 Mg/Ml Oral PO 125 mg Q6HR PAT Administration - Exam General Appearance: awake alert Neck: supple, no JVD Heart: RRR, no gallops Respiratory: no wheezes, rales, rhonchi Gastrointestinal: soft, non-distended, normal bowel sounds, no guarding, no rigidity Extremities: no cyanosis Neurological: no new deficit Hosp A/P - Plan DVT proph w/SCDs Acute on chronic hypoxic respiratory failure COPD exacerbation COVID-19 pneumonia Clostridium difficile colitis End-stage renal disease on hemodialysis with hyperkalemia Hypertension Anxiety COPD with chronic respiratory failure on 3 L O2 nasal cannula History of brain aneurysm Former smoker Physical deconditioning Plan: Continue O2 supplementation. Continue to monitor inflammatory markers. Will continue p.o. vancomycin. Will also continue prednisone. Continue other antihypertensive as above. A.m. labs. Not stable for discharge. 12/13 Afebrile today. Markers slowly improving. Continue oral vancomycin. Case discussed with infectious disease. Patient is still early in the course of illness. She is at high risk of subsequent deterioration due to history of COPD and chronic respiratory failure. Will continue close monitoring. Continue dialysis per nephrology. Continue prednisone with bronchodilator. Continue other medications as above. 12/12 Patient has a temperature of 102.3. Feels generally weak and fatigued. No new O2 requirement compared to her baseline 3 L nasal cannula. Repeat chest x-ray reviewed. Will continue steroids with the let us. Will add incentive spirome ter. Recheck labs in a.m. including inflammatory markers. Continue other medications as above 12/11 Patient appears stable on 3 L nasal cannula. Please note that patient is on 3 L nasal cannula at home. She has been cleared by pulmonary for discharge. However due to COVID-19 she will not be able to go to her routine dialysis center. Case discussed with Dr. Alvarado who recommended dialysis in a.m. as inpatient. Patient and her daughter was advised to contact the dialysis unit to make arrangements for Thursday dialysis. Will continue oral vancomycin for C. difficile. Continue other medications as above. Patient is probably stable and is comfortable with the plan of care 12/10 T-max of 101.9 earlier today. Bandemia has resolved. COVID antibody was 0.22. Continue oral vancomycin for C. difficile. Continue dexamethasone with bronchodilators. Continue Protonix, metoprolol, gabapentin and other medications as above. Check inflammatory markers in a.m. Dialysis per nephrology. Continue other medications as above. 12/09 Continue O2 supplementation. Continue NIPPV nightly. Continue empiric antibiotics. Hemodialysis per nephrology. C. difficile antigen positivetoxin negative. Resume amlodipine, doxazosin, Flonase, gabapentin, hydralazine, metoprolol, Symbicort and Renvela. Restart as needed tramadol. A.m. labs. Continue other medications as above. Renal diet
[2020-12-14] MEDS: Doxazosin 2 MG TAB PO SCH (20:15)
[2020-12-14] MEDS: Gabapentin 400 MG CAP PO SCH (20:15)
[2020-12-14] MEDS ORDERED: Temazepam 15 MG CAP PO PRN (20:42)
[2020-12-14] MEDS: Zolpidem Tartrate 5 MG TAB PO SCH (23:01)
[2020-12-15] MEDS: Vancomycin HCl 25 MG/ML Oral PO SCH ×4 (06:38→23:47)
[2020-12-15] MEDS: Mometasone 200 MCG/Formoterol 5 MCG 120 PUFF INHALER INH SCH ×2 (06:39→16:37)
[2020-12-15 07:46] LABS: #Lymphocytes 1.1 thou/uL (1.20-3.40); #Monocytes 0.5 thou/uL (0.11-0.59); %Basophils 0.3 % (0.0-1.0); %Eosinophils 0.7 % (0.0-10.0); %Lymphocytes 24.6 % (21.0-51.0); %Monocytes 10.7 % (0.0-10.0); %Neutrophils 63.6 % (42.0-75.0); Hemoglobin 10.2 g/dL (12.0-16.0); Mean Corpuscular HGB CONC 31.7 g/dL (32.0-36.0); Mean Corpuscular Hemoglobin 30.2 pg (27.0-31.0); Mean Corpuscular Volume 95.2 fL (78.0-98.0); Mean Platelet Volume 6.9 fL (7.4-10.4); Platelet Count 280 thou/uL (130-400); RBC Distribution Width 16.9 % (11.5-14.5); Red Blood Cell (RBC) Count 3.37 mill/uL (4.20-5.40); White Blood Cell (WBC) Count 4.6 thou/uL (4.8-10.8)
[2020-12-15 07:54] LABS: ALT (SGPT) 11 U/L (8-55); AST (SGOT) 11 U/L (5-34); Albumin 3.2 g/dL (3.5-5.0); Alkaline Phosphatase 53 U/L (40-110); Anion Gap 21 mmol/L (10-20); BUN (Urea Nitrogen) 56 mg/dL (9.8-20.1); Bilirubin, Total 0.3 mg/dL (0.2-1.2); CRP (Inflammatory) 1.94 mg/dL (= or < 0.5); Calc. Creatinine Clearance 6 mL/min (70-130); Calcium 8.4 mg/dL (7.8-10.44); Carbon Dioxide 24 mmol/L (22-29); Chloride 98 mmol/L (98-107); Globulin 2.8 g/dL (2.4-3.5); Glucose 78 mg/dL (70-105); Potassium 3.8 mmol/L (3.5-5.1); Sodium 139 mmol/L (136-145)
[2020-12-15] MEDS: predniSONE 20 MG TAB PO SCH (08:36)
[2020-12-15] MEDS: hydrALAZINE 25 MG TAB PO SCH ×3 (08:37→23:54)
[2020-12-15] MEDS: Sevelamer Carbonate 800 MG TAB PO SCH ×3 (08:37→16:28)
[2020-12-15] MEDS: Amlodipine 10 MG TAB PO SCH ×2 (08:37→23:54)
[2020-12-15] MEDS: Saccharomyces boulardii 250 MG CAP PO SCH (08:38)
[2020-12-15] MEDS: Metoprolol Tartrate 50 MG TAB PO SCH ×2 (08:38→23:54)
[2020-12-15] MEDS: Fluticasone Propionate Nasal Spray 16 gm Bottle NASAL SCH ×2 (08:38→20:52)
[2020-12-15] MEDS: Heparin 5,000 UNITS/ML VIAL SC SCH ×2 (08:38→20:53)
[2020-12-15] MEDS: Acetaminophen 325 MG TAB PO PRN (16:36)
--- NOTE | 2020-12-15 18:33 | PDOC.HOSPP ---
- Subjective Encounter Date: 12/15/20 Encounter Time: 12:30 Subjective: Patient seen and examined for respiratory failure. Denies any new complaints. Shortness of breath unchanged. No nausea, vomiting or chest pain - Objective Vital Signs & Weight: Vital Signs (12 hours) Temp Pulse Resp BP BP Pulse Ox 12/15/20 16:28 66 147/53 H 12/15/20 08:37 66 147/53 H 12/15/20 08:00 97 12/15/20 07:09 98.1 F 66 20 147/53 H 97 Weight Admit Weight 110 lb Weight 110 lb 0.171 oz I&O: 12/14/20 12/15/20 12/16/20 06:59 06:59 06:59 Intake Total 990 680 Balance 990 680 Result Diagrams: 12/15/20 06:39 12/15/20 06:39 Additional Labs: Abnormal Lab Results - Last 48 hrs 12/14/20 05:56: BUN 33 H, Creatinine 5.38 H, Albumin 3.2 L, Albumin/Globulin Ratio 1.1 L 12/14/20 05:56: WBC 4.5 L, RBC 3.36 L, Hgb 10.3 L, Hct 32.3 L, MCHC 31.8 L, RDW 16.7 H, MPV 7.2 L, Lymphocytes # 1.1 L 12/15/20 06:39: Anion Gap 21 H, BUN 56 H, Creatinine 8.07 H, C-Reactive Protein 1.94 H, Albumin 3.2 L, Albumin/Globulin Ratio 1.1 L 12/15/20 06:39: Ferritin 2943.64 H 12/15/20 06:39: WBC 4.6 L, RBC 3.37 L, Hgb 10.2 L, Hct 32.1 L, MCHC 31.7 L, RDW 16.9 H, MPV 6.9 L, Monocytes % 10.7 H, Lymphocytes # 1.1 L 12/15/20 06:39: D-Dimer 1.61 H Microbiology - Entire Visit 12/08/20 15:43 Venous blood - Right Hand Blood Culture - Final NO GROWTH IN 5 DAYS 12/08/20 15:21 Venous blood - Right Arm Blood Culture - Final NO GROWTH IN 5 DAYS 12/08/20 20:45 Stool Stool Culture - Final 12/08/20 20:45 Stool Escherichia coli 0157 Culture - Final 12/08/20 20:45 Stool - Pending C. difficile GDH Antigen & Toxins - Final 12/08/20 20:45 Stool - Pending Clostridioides difficile Toxins A&B (PCR) - Final 12/08/20 20:45 Stool Stool Lactoferrin - Final 12/08/20 20:45 Stool Campylobacter Antigen Assay - Final 12/08/20 20:45 Stool Shiga Toxin Test - Final Hospitalist ROS - Review of Systems Cardiovascular: denies: chest pain, palpitations, orthopnea, paroxysmal noc. dyspnea, edema, light headedness, other Gastrointestinal: denies: nausea, vomiting, abdominal pain, diarrhea, constipati on, melena, hematochezia, other - Medication Medications: Active Medications Generic Name Dose Route Start Last Admin Trade Name Freq PRN Reason Stop Dose Admin Acetaminophen 650 mg 12/08/20 17:35 12/15/20 16:36 Acetaminophen 325 Mg Tab PO 650 mg Q4H PRN Administration Headache/Fever/Mild Pain (1-3) Amlodipine Besylate 10 mg 12/09/20 21:00 12/15/20 08:37 Amlodipine 10 Mg Tab PO 10 mg BID PAT Administration Doxazosin Mesylate 4 mg 12/09/20 21:00 12/14/20 20:15 Doxazosin 2 Mg Tab PO 4 mg HS PAT Administration Epoetin Alden-epbx 7,500 unit 12/10/20 12:00 12/10/20 13:23 Epoetin Alden-Epbx (Esrd) 4,000 Unit/Ml Vial SC 7,500 unit Q7D PAT Administration Fluticasone Propionate 0 gm 12/09/20 21:00 12/15/20 08:38 Fluticasone Propionate Nasal [place] 16 Gm Bottle NASAL 2 spray BID PAT Administration Gabapentin 400 mg 12/09/20 21:00 12/14/20 20:15 Gabapentin 400 Mg Cap PO 400 mg HS PAT Administration Heparin Sodium (Porcine) 5,000 units 12/09/20 21:00 12/15/20 08:38 Heparin 5,000 Units/Ml Vial SC 5,000 units BID PAT Administration Hydralazine HCl 100 mg 12/09/20 15:00 12/15/20 16:28 Hydralazine 25 Mg Tab PO 100 mg TID PAT Administration Hydralazine HCl 10 mg 12/09/20 13:00 12/11/20 12:37 Hydralazine 20 Mg/Ml Vial SLOW IVP 10 mg Q4H PRN Administration SBP GREATER THAN 160 Metoprolol Tartrate 50 mg 12/09/20 21:00 12/15/20 08:38 Metoprolol Tartrate 50 Mg Tab PO 50 mg BID PAT Administration Mometasone Furoate/Formoterol Fumar 2 puff 12/09/20 18:30 12/15/20 16:37 Mometasone 200 Mcg/Formoterol 5 Mcg 120 Puff Inhaler INH 2 puff BID-RT PAT Administration Pantoprazole Sodium 40 mg 12/09/20 21:00 12/14/20 20:16 Pantoprazole 40 Mg Tab PO 40 mg HS PAT Administration Prednisone 20 mg 12/12/20 08:00 12/15/20 08:36 Prednisone 20 Mg Tab PO 20 mg QAM-WM PAT Administration Saccharomyces Boulardii 250 mg 12/09/20 09:00 12/15/20 08:38 Saccharomyces Boulardii 250 Mg Cap PO 250 mg DAILY PAT Administration Sevelamer Carbonate 2,400 mg 12/09/20 12:00 12/15/20 16:28 Sevelamer Carbonate 800 Mg Tab PO 2,400 mg TID-WM PAT Administration Sodium Chloride 10 ml 12/08/20 17:35 12/11/20 08:08 Flush - Normal Saline 10 Ml Syringe IVF 10 ml Q12HR PRN Administration Saline Flush Tramadol HCl 50 mg 12/09/20 10:14 12/13/20 23:22 Tramadol Hcl 50 Mg Tab PO 50 mg BIDPRN PRN Administration Mild Pain (1-3) Vancomycin HCl 125 mg 12/09/20 18:00 12/15/20 16:28 Vancomycin Hcl 25 Mg/Ml Oral PO 125 mg Q6HR PAT Administration Zolpidem Tartrate 5 mg 12/14/20 21:00 12/14/20 23:01 Zolpidem Tartrate 5 Mg Tab PO 5 mg HS PAT Administration - Exam General Appearance: awake alert Neck: supple, no JVD Heart: RRR, no gallops Respiratory: no wheezes, rales, rhonchi Gastrointestinal: soft, normal bowel sounds, no guarding, no rigidity Extremities: no cyanosis, no clubbing Neurological: no new deficit Musculoskeletal: generalized weakness Psychiatric: normal affect, A&O x 3 Hosp A/P - Plan DVT proph w/SCDs Acute on chronic hypoxic respiratory failure COPD exacerbation COVID-19 pneumonia Clostridium difficile colitis End-stage renal disease on hemodialysis with hyperkalemia Hypertension Anxiety COPD with chronic respiratory failure on 3 L O2 nasal cannula History of brain aneurysm Former smoker Physical deconditioning Plan: Patient stable on 3 L oxygen nasal cannula. Inflammatory markers downtrending. Continue prednisone taper with bronchodilators. Continue oral vancomycin for C. difficile. Continue other medications as above. Continue to monitor inflammatory markers. 12/14 Continue O2 supplementation. Continue to monitor inflammatory markers. Will continue p.o. vancomycin. Will also continue prednisone. Continue other antihypertensive as above. A.m. labs. Not stable for discharge. 12/13 Afebrile today. Markers slowly improving. Continue oral vancomycin. Case discussed with infectious disease. Patient is still early in the course of illness. She is at high risk of subsequent deterioration due to history of COPD and chronic respiratory failure. Will continue close monitoring. Continue dialysis per nephrology. Continue prednisone with bronchodilator. Continue other medications as above. 12/12 Patient has a temperature of 102.3. Feels generally weak and fatigued. No new O2 requirement compared to her baseline 3 L nasal cannula. Repeat chest x-ray reviewed. Will continue steroids with the let us. Will add incentive spirometer. Recheck labs in a.m. including inflammatory markers. Continue other medications as above 12/11 Patient appears stable on 3 L nasal cannula. Please note that patient is on 3 L nasal cannula at home. She has been cleared by pulmonary for discharge. However due to COVID-19 she will not be able to go to her routine dialysis center. Case discussed with Dr. Alvarado who recommended dialysis in a.m. as inpatient. Patient and her daughter was advised to contact the dialysis unit to make arrangements for Thursday dialysis. Will continue oral vancomycin for C. difficile. Continue other medications as above. Patient is probably stable and is comfortable with the plan of care 12/10 T-max of 101.9 earlier today. Bandemia has resolved. COVID antibody was 0.22. Continue oral vancomycin for C. difficile. Continue dexamethasone with bronchodilators. Continue Protonix, metoprolol, gabapentin and other medications as above. Check inflammatory markers in a.m. Dialysis per neph rology. Continue other medications as above. 12/09 Continue O2 supplementation. Continue NIPPV nightly. Continue empiric antibiotics. Hemodialysis per nephrology. C. difficile antigen positivetoxin negative. Resume amlodipine, doxazosin, Flonase, gabapentin, hydralazine, metoprolol, Symbicort and Renvela. Restart as needed tramadol. A.m. labs. Continue other medications as above. Renal diet
[2020-12-15] MEDS: traMADol HCl 50 MG TAB PO PRN (20:50)
[2020-12-15] MEDS: Zolpidem Tartrate 5 MG TAB PO SCH (20:51)
[2020-12-15] MEDS: Gabapentin 400 MG CAP PO SCH (20:52)
[2020-12-15] MEDS: Doxazosin 2 MG TAB PO SCH (23:54)
[2020-12-16] MEDS: Vancomycin HCl 25 MG/ML Oral PO SCH ×4 (04:58→23:47)
[2020-12-16] MEDS: Mometasone 200 MCG/Formoterol 5 MCG 120 PUFF INHALER INH SCH ×2 (04:58→16:11)
[2020-12-16] MEDS: Amlodipine 10 MG TAB PO SCH ×2 (08:01→20:59)
[2020-12-16] MEDS: Heparin 5,000 UNITS/ML VIAL SC SCH ×2 (08:02→21:01)
[2020-12-16] MEDS: Sevelamer Carbonate 800 MG TAB PO SCH ×3 (08:02→16:10)
[2020-12-16] MEDS: predniSONE 20 MG TAB PO SCH (08:02)
[2020-12-16] MEDS: Fluticasone Propionate Nasal Spray 16 gm Bottle NASAL SCH ×2 (08:02→21:01)
[2020-12-16] MEDS: Metoprolol Tartrate 50 MG TAB PO SCH ×2 (08:02→20:59)
[2020-12-16] MEDS: hydrALAZINE 25 MG TAB PO SCH ×3 (08:03→21:00)
[2020-12-16] MEDS: Saccharomyces boulardii 250 MG CAP PO SCH (08:03)
--- NOTE | 2020-12-16 12:16 | PRG ---
DATE OF SERVICE: 12/16/2020 SUBJECTIVE: Ms. Branch is a 55-year-old female, followed up for her ESRD on maintenance hemodialysis. She did undergo hemodialysis yesterday without any difficulty. At least 2 L of fluid was removed. She voices no new complaints today. She denies any chest pain or any worsening shortness of breath. Please note, she recently was diagnosed with COVID-19 pneumonia. OBJECTIVE: VITAL SIGNS: Blood pressure is noted at 163/65, heart rate 70, respiratory rate 18, temperature 98.1, O2 saturation 94%. GENERAL: Awake, supine comfortable, not in distress. SKIN: Adequate turgor. HEENT: She has slightly pale conjunctivae. Anicteric sclerae. NECK: No neck mass. No carotid bruits. No JVD. CHEST: No deformities. LUNGS: Decreased breath sounds. HEART: Normal sinus rhythm. No murmurs, gallops, or rubs. ABDOMEN: Globular, soft, nontender. No masses. EXTREMITIES: No edema, no deformities. MEDICATIONS: December 16, 2020, reviewed. LABORATORY DATA: December 15, 2020, white count 4.6, hemoglobin 10.2. Sodium 139, potassium 3.8, chloride 98, carbon dioxide 24, BUN 56, creatinine 8.07, glucose 78, ferritin 2943. LFT normal. ASSESSMENT AND PLAN: 1. End-stage renal disease-stable continuing 3 times a week hemodialysis regimen-Thursday, , Thursday. Tolerating said treatment. Fluid removal as tolerated. 2. Anemia. Continuing weekly Epogen with the patient. 3. COVID-19 pneumonia. Continue supportive care. Job ID: [id number]
--- NOTE | 2020-12-16 18:26 | PDOC.HOSPP ---
- Subjective Encounter Date: 12/16/20 Encounter Time: 11:30 Subjective: Patient seen and examined for respiratory failure due to COVID-19 pneumonia. Denies any new complaints. Denies any worsening of shortness of breath. - Objective Vital Signs & Weight: Vital Signs (12 hours) Temp Pulse Resp BP Pulse Ox 12/16/20 16:10 70 12/16/20 08:48 94 L 12/16/20 08:03 70 12/16/20 08:01 70 12/16/20 08:00 94 L 12/16/20 07:21 98.1 F 70 18 163/65 H 94 L Weight Admit Weight 110 lb Weight 110 lb 0.171 oz I&O: 12/15/20 12/16/20 12/17/20 06:59 06:59 06:59 Intake Total 680 600 Balance 680 600 Result Diagrams: 12/15/20 06:39 12/15/20 06:39 Hospitalist ROS - Review of Systems Cardiovascular: denies: chest pain, palpitations, orthopnea, paroxysmal noc. dyspnea, edema, light headedness, other Gastrointestinal: denies: nausea, vomiting, abdominal pain, diarrhea, constipation, melena, hematochezia, other - Medication Medications: Active Medications Generic Name Dose Route Start Last Admin Trade Name Freq PRN Reason Stop Dose Admin Acetaminophen 650 mg 12/08/20 17:35 12/15/20 16:36 Acetaminophen 325 Mg Tab PO 650 mg Q4H PRN Administration Headache/Fever/Mild Pain (1-3) Amlodipine Besylate 10 mg 12/09/20 21:00 12/16/20 08:01 Amlodipine 10 Mg Tab PO 10 mg BID PAT Administration Doxazosin Mesylate 4 mg 12/09/20 21:00 12/15/20 23:54 Doxazosin 2 Mg Tab PO 4 mg HS PAT Administration Epoetin [place]-epbx 7,500 unit 12/10/20 12:00 12/10/20 13:23 Epoetin [place]-Epbx (Esrd) 4,000 Unit/Ml Vial SC 7,500 unit Q7D PAT Administration Fluticasone Propionate 0 gm 12/09/20 21:00 12/16/20 08:02 Fluticasone Propionate Nasal [place] 16 Gm Bottle NASAL 2 spray BID PAT Administration Gabapentin 400 mg 12/09/20 21:00 12/15/20 20:52 Gabapentin 400 Mg Cap PO 400 mg HS PAT Administration Heparin Sodium (Porcine) 5,000 units 12/09/20 21:00 12/16/20 08:02 Heparin 5,000 Units/Ml Vial SC 5,000 units BID PAT Administration Hydralazine HCl 100 mg 12/09/20 15:00 12/16/20 16:10 Hydralazine 25 Mg Tab PO 100 mg TID PAT Administration Hydralazine HCl 10 mg 12/09/20 13:00 12/11/20 12:37 Hydralazine 20 Mg/Ml Vial SLOW IVP 10 mg Q4H PRN Administration SBP GREATER THAN 160 Metoprolol Tartrate 50 mg 12/09/20 21:00 12/16/20 08:02 Metoprolol Tartrate 50 Mg Tab PO 50 mg BID PAT Administration Mometasone Furoate/Formoterol Fumar 2 puff 12/09/20 18:30 12/16/20 16:11 Mometasone 200 Mcg/Formoterol 5 Mcg 120 Puff Inhaler INH 2 puff BID-RT PAT Administration Pantoprazole Sodium 40 mg 12/09/20 21:00 12/15/20 20:51 Pantoprazole 40 Mg Tab PO 40 mg HS PAT Administration Prednisone 20 mg 12/12/20 08:00 12/16/20 08:02 Prednisone 20 Mg Tab PO 20 mg QAM-WM PAT Administration Saccharomyces Boulardii 250 mg 12/09/20 09:00 12/16/20 08:03 Saccharomyces Boulardii 250 Mg Cap PO 250 mg DAILY PAT Administration Sevelamer Carbonate 2,400 mg 12/09/20 12:00 12/16/20 16:10 Sevelamer Carbonate 800 Mg Tab PO 2,400 mg TID-WM PAT Administration Sodium Chloride 10 ml 12/08/20 17:35 12/11/20 08:08 Flush - Normal Saline 10 Ml Syringe IVF 10 ml Q12HR PRN Administration Saline Flush Tramadol HCl 50 mg 12/09/20 10:14 12/15/20 20:50 Tramadol Hcl 50 Mg Tab PO 50 mg BIDPRN PRN Administration Mild Pain (1-3) Vancomycin HCl 125 mg 12/09/20 18:00 12/16/20 16:10 Vancomycin Hcl 25 Mg/Ml Oral PO 125 mg Q6HR PAT Administration Zolpidem Tartrate 5 mg 12/14/20 21:00 12/15/20 20:51 Zolpidem Tartrate 5 Mg Tab PO 5 mg HS PAT Administration - Exam General Appearance: awake alert Heart: RRR, no gallops Respiratory: no wheezes, rales, rhonchi Gastrointestinal: soft, non-distended Extremities: no cyanosis Neurological: no new deficit Musculoskeletal: generalized weakness Hosp A/P - Plan DVT proph w/SCDs Acute on chronic hypoxic respiratory failure COPD exacerbation COVID-19 pneumonia Clostridium difficile colitis End-stage renal disease on hemodialysis with hyperkalemia Hypertension Anxiety COPD with chronic respiratory failure on 3 L O2 nasal cannula History of brain aneurysm Former smoker Physical deconditioning Plan: Continue O2 supplementation with bronchodilators. Continue NIPPV nightly. Continue prednisone taper per pulmonary. Continue oral vancomycin for C. difficile infection. Dialysis per nephrology. Continue other medications as above. DC home once cleared by ID. Monitor inflammatory markers. 12/15 Patient stable on 3 L oxygen nasal cannula. Inflammatory markers downtrending. Continue prednisone taper with bronchodilators. Continue oral vancomycin for C. difficile. Continue other medications as above. Continue to monitor inflamm atory markers. 12/14 Continue O2 supplementation. Continue to monitor inflammatory markers. Will continue p.o. vancomycin. Will also continue prednisone. Continue other antihypertensive as above. A.m. labs. Not stable for discharge. 12/13 Afebrile today. Markers slowly improving. Continue oral vancomycin. Case discussed with infectious disease. Patient is still early in the course of i llness. She is at high risk of subsequent deterioration due to history of COPD and chronic respiratory failure. Will continue close monitoring. Continue dialysis per nephrology. Continue prednisone with bronchodilator. Continue other medications as above. 12/12 Patient has a temperature of 102.3. Feels generally weak and fatigued. No new O2 requirement compared to her baseline 3 L nasal cannula. Repeat chest x-ray reviewed. Will continue steroids with the let us. Will add incentive spi rometer. Recheck labs in a.m. including inflammatory markers. Continue other medications as above 12/11 Patient appears stable on 3 L nasal cannula. Please note that patient is on 3 L nasal cannula at home. She has been cleared by pulmonary for discharge. However due to COVID-19 she will not be able to go to her routine dialysis center. Case discussed with Dr. Alvarado who recommended dialysis in a.m. as inpatient. Patient and her daughter was advised to contact the dialysis unit to make arrangements for Thursday dialysis. Will continue oral vancomycin for C. difficile. Continue other medications as above. Patient is probably stable and is comfortable with the plan of care 12/10 T-max of 101.9 earlier today. Bandemia has resolved. COVID antibody was 0.22. Continue oral vancomycin for C. difficile. Continue dexamethasone with bronchodilators. Continue Protonix, metoprolol, gabapentin and other medications as above. Check inflammatory markers in a.m. Dialysis per nephrology. Continue other medications as above. 12/09 Continue O2 supplementation. Continue NIPPV nightly. Continue empiric antibiotics. Hemodialysis per nephrology. C. difficile antigen positivetoxin negative. Resume amlodipine, doxazosin, Flonase, gabapentin, hydralazine, metoprolol, Symbicort and Renvela. Restart as needed tramadol. A.m. labs. Continue other medications as above. Renal diet
[2020-12-16] MEDS: Doxazosin 2 MG TAB PO SCH (20:59)
[2020-12-16] MEDS: Gabapentin 400 MG CAP PO SCH (20:59)
[2020-12-16] MEDS: traMADol HCl 50 MG TAB PO PRN (21:00)
[2020-12-16] MEDS: Zolpidem Tartrate 5 MG TAB PO SCH (21:00)
[2020-12-17] MEDS: Vancomycin HCl 25 MG/ML Oral PO SCH ×3 (05:31→17:22)
[2020-12-17] MEDS: Mometasone 200 MCG/Formoterol 5 MCG 120 PUFF INHALER INH SCH (05:31)
[2020-12-17 07:23] LABS: Anion Gap 21 mmol/L (10-20); BUN (Urea Nitrogen) 61 mg/dL (9.8-20.1); Calc. Creatinine Clearance 6 mL/min (70-130); Calcium 8.4 mg/dL (7.8-10.44); Carbon Dioxide 25 mmol/L (22-29); Chloride 97 mmol/L (98-107); Glucose 85 mg/dL (70-105); Potassium 3.6 mmol/L (3.5-5.1); Sodium 139 mmol/L (136-145)
[2020-12-17] MEDS: Heparin 5,000 UNITS/ML VIAL SC SCH (09:02)
[2020-12-17] MEDS: Saccharomyces boulardii 250 MG CAP PO SCH (09:02)
[2020-12-17] MEDS: Sevelamer Carbonate 800 MG TAB PO SCH ×3 (09:02→17:23)
[2020-12-17] MEDS: predniSONE 20 MG TAB PO SCH (09:02)
[2020-12-17] MEDS: Metoprolol Tartrate 50 MG TAB PO SCH (09:03)
[2020-12-17] MEDS: Fluticasone Propionate Nasal Spray 16 gm Bottle NASAL SCH (09:05)
[2020-12-17] MEDS: Amlodipine 10 MG TAB PO SCH (09:09)
[2020-12-17] MEDS: hydrALAZINE 25 MG TAB PO SCH ×2 (09:09→15:17)
[2020-12-17] MEDS: EPOETIN ALFA-EPBX (ESRD) 4,000 UNIT/ML VIAL SC SCH (12:38)
--- NOTE | 2020-12-17 13:15 | PRG ---
DATE OF SERVICE: 12/17/2020 SUBJECTIVE: Ms. Branch is laying on her left lateral decubitus. She has a sleeping pill earlier today and is kind of sleepy, but she is eating very well, has a normal sense of smell, is coughing a kind of whitish sputum. No chest pain. No abdominal pain. No diarrhea. OBJECTIVE: VITAL SIGNS: Afebrile. She had 102 on December 12, has not had again, BP 120/45, heart rate 64, breathing 20 times a minute, O2 ranged from 93 to 98. She is at 2 L nasal cannula. LUNGS: With very sparsely scattered inspiratory crackles. No wheezing. CARDIAC: S1, S2 regular rate. ABDOMEN: Soft, not distended. EXTREMITIES: Moves extremities equally. No edema. NEUROLOGIC: Awake, oriented, follows commands. LABORATORY DATA: Sodium 139, creatinine 7.72. Ferritin 2900. CRP 0.7. ASSESSMENT AND DISCUSSION: 1. Chronic obstructive pulmonary disease with home oxygen requirement. 2. Chronic smoking up to 3 months before. 3. End-stage renal disease from arterial sclerosis, on hemodialysis with arteriovenous fistula. 4. Recent admission for respiratory symptoms, abnormal chest x-ray with a likely false-negative PCR test initially, now with a 2nd positive PCR test. This is the end of the second week and the CRP is down to pretty much normal levels and I think it is reasonable to consider discharge planning at this point finishing off a course of Decadron. Job ID: [id number]
--- NOTE | 2020-12-17 17:39 | PRG ---
DATE OF SERVICE: 12/17/2020 Ms. Branch is a 55-year-old female with ESRD - on maintenance hemodialysis and admitted for COVID-19 pneumonia. Her test was initially positive back on December 08, 2020. She has been seen in ID. She has been cleared to be discharged. She should have at least reached 10 days by December 18, 2020. She will be going back to her regular dialysis unit this coming Thursday, December 19, 2020. No new complaints today. Still with cough which is chronic in nature. No fever or chills. No worsening shortness of breath. OBJECTIVE: VITAL SIGNS: Blood pressure 129/45, heart rate 64, respiratory rate 20, temperature 98.3, O2 saturation 93%. GENERAL: The patient is noted to be awake, alert, comfortable, not in overt distress. SKIN: Adequate turgor. HEENT: Has pinkish conjunctivae. Anicteric sclerae. No neck mass. No carotid bruits. No JVD. CHEST: No deformities. LUNGS: Clear breath sounds. HEART: Normal sinus rhythm. No murmur. No gallops. No rubs. ABDOMEN: Globular. Soft, nontender. No masses. EXTREMITIES: No edema, no deformities. MEDICATIONS: Medications of December 17, 2020 reviewed. LABORATORY DATA: December 15, 2020, white count 4.6, hemoglobin 10.2. December 17, 2020, sodium 139, potassium 3.6, chloride 97, carbon dioxide 25, BUN 61, creatinine 7.72, calcium 8.4. C-reactive protein 0.7. Ferritin . ASSESSMENT AND PLAN: 1. COVID-19 pneumonia, clinically improving. Serological markers are also improving. Continue supportive care. 2. End-stage renal disease, stable, tolerating current hemodialysis regimen. Attempting about 2 L fluid removal as tolerated by the patient. 3. Chronic anemia, on weekly Epogen. 4. Agree with current management - plan to be discharged, and she will report back to her regular dialysis unit two days from now. Job ID: [id number]
[2020-12-17 19:23] VITALS: BP 122/58; TEMP 98
--- NOTE | 2020-12-17 19:42 | PDOC.DS.DS ---
Provider - Provider Date of Admission: 12/08/20 15:45 Date of Discharge: 12/17/20 Admitting Provider: Jefferson Barclay MD Consultations: Infectious Disease, Nephrology, Pulmonary Primary Care Physician: Chavo Johnson DO Course - Hospital Course Hospital Course: Patient is a 55-year-old female with end-stage renal disease on hemodialysis, COPD with chronic hypoxic respiratory failure on home oxygen presented to the hospital on 12/08 with fever along with shortness of breath. Her temperature in the ER was 101.5 with O2 saturation of 90 percent on 3 L nasal cannula. A workup was consistent with acute hypoxic respiratory failure due to COVID 19 p neumonia as well as COPD exacerbation. She was started on bronchodilators, steroids along with empiric antibiotics. She also had diarrhea on admission which was due to C. difficile infection. The toxins were however negative. Patient was evaluated by multiple consultants during this hospital stay including pulmonary, infectious disease and nephrology. She has shown good and gradual improvement. Her inflammatory markers have gradually improved. Case was discussed with infectious disease who agrees that patient appears stable for discharge. She will continue steroid taper per pulmonary as outpatient. She was placed on oral vancomycin for C. difficile which she will complete as outpatient. Final diagnosis: Acute on chronic hypoxic respiratory failure COPD exacerbation COVID-19 pneumonia Clostridium difficile colitis End-stage renal disease on hemodialysis with hyperkalemia Hypertension Anxiety COPD with chronic respiratory failure on 3 L O2 nasal cannula History of brain aneurysm Former smoker Physical deconditioning Resuscitation Status: 12/08/20 17:35 Resuscitation Status Routine Co-Sign Provider: Resuscitation Status: FULL: Full Resuscitation - Labs Lab Results: 12/15/20 06:39 12/17/20 06:34 Abnormal Lab Results - Last 48 hrs 12/17/20 06:34: Chloride 97 L, Anion Gap 21 H, BUN 61 H, Creatinine 7.72 H, C- Reactive Protein 0.70 H Microbiology - Entire Visit 12/08/20 15:43 Venous blood - Right Hand Blood Culture - Final NO GROWTH IN 5 DAYS 12/08/20 15:21 Venous blood - Right Arm Blood Culture - Final NO GROWTH IN 5 DAYS 12/08/20 20:45 Stool Stool Culture - Final 12/08/20 20:45 Stool Escherichia coli 0157 Culture - Final 12/08/20 20:45 Stool - Pending C. difficile GDH Antigen & Toxins - Final 12/08/20 20:45 Stool - Pending Clostridioides difficile Toxins A&B (PCR) - F inal 12/08/20 20:45 Stool Stool Lactoferrin - Final 12/08/20 20:45 Stool Campylobacter Antigen Assay - Final 12/08/20 20:45 Stool Shiga Toxin Test - Final - Physical Exam Vitals: Vital Signs (12 hours) Temp Pulse Resp BP BP BP Pulse Ox 12/17/20 19:00 98.0 F 60 18 122/58 L 94 L 12/17/20 11:57 98.3 F 64 20 129/45 L 93 L 12/17/20 09:17 98 12/17/20 09:09 67 150/58 H Weight Admit Weight 110 lb Weight 110 lb 0.171 oz Physical Exam: The patient was seen and examined on the day of discharge. Plan - Discharge Medications Prescriptions: Vancomycin HCl 125 mg PO Q6HR #40 capsule predniSONE 20 mg PO ASDIR #9 tab Home Medications: Medication Instructions Recorded Confirmed Type Doxazosin [Cardura] 4 mg PO HS 12/14/19 12/08/20 History Sevelamer Carbonate [Renvela] 2,400 mg PO TID-WM 12/14/19 12/08/20 History hydrALAZINE HCl 100 mg PO TID 12/14/19 12/08/20 History Gabapentin 400 mg PO HS 01/16/20 12/08/20 History Fluticasone Propionate [Flonase 2 spray EA NARE BID 02/11/20 12/08/20 History Nasal [place]] Omeprazole 40 mg PO DAILY 02/11/20 12/08/20 History traMADol HCl [Tramadol HCl] 50 mg PO BID PRN 02/11/20 12/08/20 History Albuterol Sulfate [Ventolin HFA] 2 puff INH Q6HR PRN 05/25/20 12/08/20 History Budesonide-Formoterol [Symbicort 1 puff INH BID 05/25/20 12/08/20 History 160-4.5] ALPRAZolam [Xanax] 0.5 mg PO 1700 06/12/20 12/08/20 History Amlodipine [Norvasc] 10 mg PO BID #60 tab 06/15/20 12/08/20 Rx Losartan [Cozaar] 25 mg PO HS 09/24/20 12/08/20 History Losartan [Cozaar] 50 mg PO DAILY 09/24/20 12/08/20 History Metoprolol Tartrate [Lopressor] 50 mg PO BID 30 Days #60 tab 09/29/20 12/08/20 Rx Sevelamer Carbonate [Renvela] 1,600 mg PO BID 11/27/20 12/08/20 History Zolpidem Tartrate [Ambien] 5 mg PO HS 11/27/20 12/08/20 History Vancomycin HCl 125 mg PO Q6HR #40 capsule 12/12/20 Rx predniSONE 20 mg PO ASDIR #9 tab 12/12/20 Rx Allergies: ceftriaxone Allergy (Verified 10/14/20 23:04) from esd report clonidine Allergy (Verified 10/14/20 23:04) Penicillins Allergy (Verified 10/14/20 23:04) - Discharge Instructions Discharge Instructions:: STOP oral Vancomycin after 5 days YOUR PRESCRIPTIONS WERE SENT TO: [facility] [address], [place] [address] - Follow up Plan Referrals: Chavo Johnson DO [Primary Care Provider] - 3 Days Chandana Oscar MD [Active] - 14 Days Jayson Singh MD [Active] - 14 Days Ajay Alvarado MD [Active] - 3 Days Disposition: HOME Quality - Care Measures CORE MEASURES:: N/A
== END 2020-12-17 19:24 | disposition home or self-care (01) | DRG 177 ==
LOC: ERS 14:42 → T4-A 15:45
PROVIDERS: ADMIT Internal Medicine; ATTEND Internal Medicine
PROC: 5A09357 Assistance with Respiratory Ventilation, Less than 24 Consecutive Hours, Continuous Positive Airway Pressure (ICD-10-PCS; principal; 2020-12-08)
PROC: 8E0ZXY6 Isolation (ICD-10-PCS; 2020-12-08)
PROC: 5A1D70Z Performance of Urinary Filtration, Intermittent, Less than 6 Hours Per Day (ICD-10-PCS; 2020-12-08)
DX: U07.1 COVID-19 (principal); J96.21 Acute and chronic respiratory failure with hypoxia; J12.82 Pneumonia due to coronavirus disease 2019; N18.6 End stage renal disease; A04.72 Enterocolitis due to Clostridium difficile, not specified as recurrent; I12.0 Hypertensive chronic kidney disease with stage 5 chronic kidney disease or end stage renal disease; J43.9 Emphysema, unspecified; F32.9 Major depressive disorder, single episode, unspecified; E87.5 Hyperkalemia; F41.9 Anxiety disorder, unspecified; D63.1 Anemia in chronic kidney disease; I70.1 Atherosclerosis of renal artery; R25.2 Cramp and spasm; Z87.891 Personal history of nicotine dependence; Z99.2 Dependence on renal dialysis; Z99.81 Dependence on supplemental oxygen; Z98.51 Tubal ligation status; Z90.710 Acquired absence of both cervix and uterus; Z88.1 Allergy status to other antibiotic agents; Z88.0 Allergy status to penicillin; Z88.8 Allergy status to other drugs, medicaments and biological substances; Z79.899 Other long term (current) drug therapy; Z79.52 Long term (current) use of systemic steroids; Z79.51 Long term (current) use of inhaled steroids; Z87.01 Personal history of pneumonia (recurrent)
CPT/HCPCS: 0240U; 36415; 36416; 71045; 80048; 80053; 82553; 82728; 83605; 83630; 83735; 84484; 85025; 85379; 85652; 86140; 86769; 87040; 87045; 87046; 87081; 87324; 87427; 87449; 87493; 90935; 93005; 94660; 94760; 96365; 96367; 96375; G0257; J0360; J1100; J1644; J1956; J3370; J7512; Q5105; S0028

== ENCOUNTER 2021-05-06 04:21 | Inpatient (IN) | payer MEDICARE, MEDICAID ==
[2021-05-06] MEDS ORDERED: Lorazepam 2 MG/ML VIAL ONE ×2 (04:26→06:13)
[2021-05-06] MEDS ORDERED: Fentanyl CADD 100 ML IV SCH ×2 (05:00→11:30)
[2021-05-06 05:07] LABS: Hemoglobin 10.5 g/dL (12.0-16.0); Mean Corpuscular HGB CONC 30.6 g/dL (32.0-36.0); Mean Corpuscular Hemoglobin 29.8 pg (27.0-31.0); Mean Corpuscular Volume 97.2 fL (78.0-98.0); Mean Platelet Volume 7.9 fL (7.4-10.4); Platelet Count 239 thou/uL (130-400); Red Blood Cell (RBC) Count 3.54 mill/uL (4.20-5.40); White Blood Cell (WBC) Count 26.3 thou/uL (4.8-10.8)
[2021-05-06 05:24] LABS: ALT (SGPT) 13 U/L (8-55); AST (SGOT) 13 U/L (5-34); Albumin 4.1 g/dL (3.5-5.0); Alkaline Phosphatase 79 U/L (40-110); Anion Gap 25 mmol/L (10-20); BUN (Urea Nitrogen) 64 mg/dL (9.8-20.1); Calc. Creatinine Clearance 0 mL/min (70-130); Carbon Dioxide 21 mmol/L (22-29); Chloride 102 mmol/L (98-107); Globulin 3.4 g/dL (2.4-3.5); Glucose 131 mg/dL (70-105); Potassium 5.6 mmol/L (3.5-5.1); Protein, Total 7.5 g/dL (6.0-8.3); Sodium 142 mmol/L (136-145)
[2021-05-06 05:25] LABS: Lymphocytes 24 % (21-51); MDiff Complete? YES; Monocytes 4 % (0-10); Neutrophil 72 % (42-75); Platelet Morphology Comment Appears Adequate
[2021-05-06 05:27] LABS: Actual Bicarbonate (HCO3a) 23.9 mEq/L (22-28); Analyzer IN Cardio ER; Base Excess (BEa) -4.3 mEq/L (-2.0 to +3.0); CO2 Tension 59.7 mmHg (35.0-45.0); Calcium, Ionized (arterial) 1.12 mmol/L (1.12-1.30); Carboxyhemoglobin (COHb) 0.9 gm% (0.0-3.0); Hemoglobin (Hb) 11.1 g/dL (12.0-16.0); O2 Tension (PaO2), arterial 72.3 mmHg (80.0-100.0)
[2021-05-06 05:28] LABS: Puncture Site RRA; pH, Arterial 7.22 (7.35-7.45)
[2021-05-06 05:29] LABS: ALV-art Gradient 423.475 mmHg (0-20)
[2021-05-06 05:54] LABS: CKMB 2.9 ng/mL (0-6.6)
[2021-05-06] MEDS ORDERED: Ondansetron PF 4 MG/2 ML Vial IVP PRN (06:37)
[2021-05-06] MEDS ORDERED: Bacteriostatic Water 30 ML VIAL FS PRN (06:45)
[2021-05-06 06:54] LABS: Bilirubin Negative (Negative); Blood, Urine Negative (Negative); Glucose, Urine (Dipstick) 100 mg/dL (Negative); Ketone, Urine Negative (Negative); Leukocyte Negative (Negative); Nitrite Negative (Negative); Protein, Urine (Dipstick) > or equal to 300 mg/dL (Neg-Trace); Specific Gravity, Urine 1.015 (1.005-1.030); Urobilinogen 0.2 mg/dL (Less than 2)
[2021-05-06 07:03] LABS: Clarity Hazy (Clear)
[2021-05-06] MEDS ORDERED: PROPOFOL 20 ML ONE (07:40)
[2021-05-06] MEDS ORDERED: LEVOFLOXACIN IVPB PRN (08:24)
[2021-05-06] MEDS ORDERED: VANCOMYCIN IVPB PRN (08:24)
[2021-05-06] MEDS ORDERED: Rocuronium Bromide 10 MG/ML (10ML VIAL) ONE (08:32)
[2021-05-06] MEDS ORDERED: niCARdipine 25 MG in Sodium Chloride 0.9% 250 ML 250 ML IVPB SCH (08:45)
[2021-05-06] MEDS: Famotidine 20 MG TAB PO SCH (08:53)
[2021-05-06] MEDS: Heparin 5,000 UNITS/ML VIAL SC SCH ×3 (08:53→20:57)
[2021-05-06] MEDS: niCARdipine 50 MG in Sodium Chloride 0.9% 250 ML 230 ML IV SCH (09:20)
[2021-05-06] MEDS ORDERED: Vancomycin Sliding Scale 1 EACH FS ONE (09:45)
[2021-05-06] MEDS ORDERED: HOLD VANCOMYCIN FOR LEVEL >20 FS SCH (09:45)
[2021-05-06] MEDS ORDERED: Vancomycin 1 GM in Premix Bag 1 BAG IVPB SCH ×2 (09:45→10:15)
[2021-05-06] MEDS ORDERED: Vancomycin HCl 500 MG in Sodium Chloride 0.9% 100 ML IVPB SCH (09:45)
[2021-05-06] MEDS ORDERED: Vancomycin HCl 750 MG in Sodium Chloride 0.9% 250 ML 250 ML IVPB SCH (09:45)
[2021-05-06] MEDS ORDERED: Vancomycin HCl 250 MG in Sodium Chloride 0.9% 100 ML IVPB SCH (09:45)
[2021-05-06 11:02] LABS: HBSAg Index 0.49 S/CO (0-0.99); Hep B Surf Ag Non-Reactive S/CO (NonReactive)
[2021-05-06 11:13] LABS: Bilirubin Negative (Negative); Blood, Urine Negative (Negative); Glucose, Urine (Dipstick) 250 mg/dL (Negative); Ketone, Urine Negative (Negative); Leukocyte Negative (Negative); Nitrite Negative (Negative); Protein, Urine (Dipstick) > or equal to 300 mg/dL (Neg-Trace); Specific Gravity, Urine 1.015 (1.005-1.030); Urobilinogen 0.2 mg/dL (Less than 2); pH, Urine 8.5 (5.0-9.0)
[2021-05-06 11:19] LABS: Clarity Clear (Clear)
[2021-05-06 11:29] LABS: Bacteria/HPF None Seen HPF (None Seen); RBC/HPF 0-3 HPF (0-3); Squamous Epithelial None Seen HPF (0-3); WBC/HPF 0-3 HPF (0-3)
[2021-05-06] MEDS ORDERED: Propofol BOLUS 1,000 MG/100 ML VIAL IV PRN (11:30)
[2021-05-06] MEDS ORDERED: Lorazepam 2 MG/ML VIAL SLOW IVP PRN (11:30)
[2021-05-06] MEDS ORDERED: Morphine 2 MG/ML VIAL SLOW IVP PRN (11:30)
[2021-05-06] MEDS ORDERED: Fentanyl BOLUS 250 ML IVPB PRN (11:30)
[2021-05-06 11:32] LABS: Urine Culture Reflex No No
[2021-05-06] MEDS ORDERED: methylPREDNISolone Sod Succ 40 MG VIAL IVP SCH (12:00)
[2021-05-06] MEDS: Propofol 1,000 MG/100 ML VIAL IV PRN ×3 (12:30→23:28)
[2021-05-06] MEDS: methylPREDNISolone Sod Succ 40 MG VIAL IVP SCH ×3 (12:31→23:19)
[2021-05-06 14:01] LABS: SARS-CoV-2 NAA Rapid Test DETECTED (NotDetected)
[2021-05-06] MEDS ORDERED: Fentanyl CADD 0 ML ONE (17:16)
[2021-05-07 03:58] LABS: #Lymphocytes 0.5 thou/uL (1.20-3.40); #Monocytes 0.5 thou/uL (0.11-0.59); #Neutrophils 9.3 thou/uL (1.40-6.50); %Eosinophils 0.2 % (0.0-10.0); %Lymphocytes 4.4 % (21.0-51.0); %Neutrophils 90.4 % (42.0-75.0); Hemoglobin 10.1 g/dL (12.0-16.0); Mean Corpuscular HGB CONC 32.9 g/dL (32.0-36.0); Mean Corpuscular Hemoglobin 30.8 pg (27.0-31.0); Mean Corpuscular Volume 93.7 fL (78.0-98.0); Mean Platelet Volume 7.9 fL (7.4-10.4); Platelet Count 223 thou/uL (130-400); RBC Distribution Width 17.9 % (11.5-14.5); Red Blood Cell (RBC) Count 3.28 mill/uL (4.20-5.40); White Blood Cell (WBC) Count 10.3 thou/uL (4.8-10.8)
[2021-05-07 04:06] LABS: Anion Gap 24 mmol/L (10-20); BUN (Urea Nitrogen) 38 mg/dL (9.8-20.1); Calc. Creatinine Clearance 8 mL/min (70-130); Calcium 9.9 mg/dL (7.8-10.44); Carbon Dioxide 29 mmol/L (22-29); Chloride 96 mmol/L (98-107); Glucose 115 mg/dL (70-105); Potassium 4.4 mmol/L (3.5-5.1); Sodium 145 mmol/L (136-145)
[2021-05-07] MEDS: methylPREDNISolone Sod Succ 40 MG VIAL IVP SCH ×3 (05:10→17:08)
[2021-05-07] MEDS: Propofol 1,000 MG/100 ML VIAL IV PRN (05:48)
[2021-05-07 07:04] LABS: Actual Bicarbonate (HCO3a) 31.4 mEq/L (22-28); Base Excess (BEa) 9.5 mEq/L (-2.0 to +3.0); CO2 Tension 32.3 mmHg (35.0-45.0); Calcium, Ionized (arterial) 1.05 mmol/L (1.12-1.30); Hemoglobin (Hb) 10.3 g/dL (12.0-16.0); O2 Tension (PaO2), arterial 89.5 mmHg (80.0-100.0); Potassium - ABG Lab 4.36 mmol/L (3.70-5.30)
[2021-05-07 07:06] LABS: ALV-art Gradient 226.625 mmHg (0-20); Puncture Site RRA; pH, Arterial 7.61 (7.35-7.45)
[2021-05-07] MEDS: Famotidine 20 MG TAB PO SCH (09:17)
[2021-05-07] MEDS: Heparin 5,000 UNITS/ML VIAL SC SCH ×3 (09:18→20:13)
[2021-05-07] MEDS: niCARdipine 50 MG in Sodium Chloride 0.9% 250 ML 230 ML IV SCH ×2 (10:05→16:11)
[2021-05-07] MEDS ORDERED: DC Sedation Protocol FS ONE (12:23)
[2021-05-07] MEDS: hydrALAZINE 25 MG TAB PO SCH ×2 (14:57→20:13)
[2021-05-07] MEDS: Acetaminophen 325 MG TAB PO PRN (16:00)
[2021-05-07] MEDS: Doxazosin 2 MG TAB PO SCH (20:11)
[2021-05-07] MEDS: Gabapentin 400 MG CAP PO SCH (20:12)
[2021-05-07] MEDS: Metoprolol Tartrate 50 MG TAB PO SCH (20:15)
[2021-05-07] MEDS: Losartan 25 MG TAB PO SCH (20:15)
[2021-05-07] MEDS ORDERED: Amlodipine 10 MG TAB PO SCH (21:00)
[2021-05-08] MEDS: methylPREDNISolone Sod Succ 40 MG VIAL IVP SCH ×4 (00:14→20:47)
[2021-05-08] MEDS ORDERED: Melatonin 3 MG TAB PO SCH (00:30)
[2021-05-08] MEDS: niCARdipine 50 MG in Sodium Chloride 0.9% 250 ML 230 ML IV SCH (05:25)
[2021-05-08 06:47] LABS: #Lymphocytes 0.7 thou/uL (1.20-3.40); #Monocytes 0.2 thou/uL (0.11-0.59); #Neutrophils 7.7 thou/uL (1.40-6.50); %Basophils 0.1 % (0.0-1.0); %Eosinophils 0.1 % (0.0-10.0); %Lymphocytes 8.3 % (21.0-51.0); %Monocytes 2.8 % (0.0-10.0); %Neutrophils 88.7 % (42.0-75.0); Hemoglobin 11.7 g/dL (12.0-16.0); Mean Corpuscular HGB CONC 31.5 g/dL (32.0-36.0); Mean Corpuscular Hemoglobin 29.9 pg (27.0-31.0); Mean Corpuscular Volume 94.9 fL (78.0-98.0); Mean Platelet Volume 7.8 fL (7.4-10.4); Platelet Count 220 thou/uL (130-400); Red Blood Cell (RBC) Count 3.93 mill/uL (4.20-5.40); White Blood Cell (WBC) Count 8.7 thou/uL (4.8-10.8)
[2021-05-08 07:06] LABS: Anion Gap 21 mmol/L (10-20); BUN (Urea Nitrogen) 55 mg/dL (9.8-20.1); Calc. Creatinine Clearance 7 mL/min (70-130); Calcium 9.5 mg/dL (7.8-10.44); Carbon Dioxide 28 mmol/L (22-29); Chloride 93 mmol/L (98-107); Glucose 128 mg/dL (70-105); Potassium 5.2 mmol/L (3.5-5.1); Sodium 137 mmol/L (136-145)
[2021-05-08] MEDS: Acetaminophen 325 MG TAB PO PRN (10:01)
[2021-05-08] MEDS: Famotidine 20 MG TAB PO SCH (11:03)
[2021-05-08] MEDS: Heparin 5,000 UNITS/ML VIAL SC SCH ×3 (11:03→20:47)
[2021-05-08] MEDS: Metoprolol Tartrate 50 MG TAB PO SCH ×2 (11:03→20:48)
[2021-05-08] MEDS: Amlodipine 10 MG TAB PO SCH (11:03)
[2021-05-08 12:24] VITALS: BMI 21.5
[2021-05-08] MEDS: hydrALAZINE 25 MG TAB PO SCH ×3 (14:59→20:47)
[2021-05-08] MEDS: Gabapentin 400 MG CAP PO SCH (20:48)
[2021-05-08] MEDS: Doxazosin 2 MG TAB PO SCH (20:48)
[2021-05-08] MEDS: Losartan 25 MG TAB PO SCH (20:48)
[2021-05-08] MEDS: Melatonin 3 MG TAB PO PRN (22:25)
[2021-05-09 03:25] LABS: #Lymphocytes 0.3 thou/uL (1.20-3.40); #Monocytes 0.6 thou/uL (0.11-0.59); #Neutrophils 7.2 thou/uL (1.40-6.50); %Eosinophils 0.1 % (0.0-10.0); %Lymphocytes 4.1 % (21.0-51.0); %Monocytes 7.3 % (0.0-10.0); %Neutrophils 88.5 % (42.0-75.0); Hemoglobin 11.7 g/dL (12.0-16.0); Mean Corpuscular HGB CONC 32.4 g/dL (32.0-36.0); Mean Corpuscular Hemoglobin 30.7 pg (27.0-31.0); Mean Corpuscular Volume 94.8 fL (78.0-98.0); Mean Platelet Volume 7.6 fL (7.4-10.4); Platelet Count 232 thou/uL (130-400); RBC Distribution Width 17.4 % (11.5-14.5); Red Blood Cell (RBC) Count 3.82 mill/uL (4.20-5.40); White Blood Cell (WBC) Count 8.1 thou/uL (4.8-10.8)
[2021-05-09 03:51] LABS: Anion Gap 22 mmol/L (10-20); BUN (Urea Nitrogen) 52 mg/dL (9.8-20.1); Calc. Creatinine Clearance 10 mL/min (70-130); Calcium 9.6 mg/dL (7.8-10.44); Carbon Dioxide 24 mmol/L (22-29); Chloride 95 mmol/L (98-107); Glucose 136 mg/dL (70-105); Potassium 4.4 mmol/L (3.5-5.1); Sodium 137 mmol/L (136-145)
[2021-05-09] MEDS: methylPREDNISolone Sod Succ 40 MG VIAL IVP SCH (08:55)
[2021-05-09] MEDS: hydrALAZINE 25 MG TAB PO SCH ×3 (08:56→21:03)
[2021-05-09] MEDS: Metoprolol Tartrate 50 MG TAB PO SCH ×2 (08:56→21:04)
[2021-05-09] MEDS: Famotidine 20 MG TAB PO SCH (08:56)
[2021-05-09] MEDS: Amlodipine 10 MG TAB PO SCH (08:56)
[2021-05-09] MEDS: Heparin 5,000 UNITS/ML VIAL SC SCH ×3 (08:57→21:04)
[2021-05-09] MEDS: Losartan 25 MG TAB PO SCH (21:04)
[2021-05-09] MEDS: Melatonin 3 MG TAB PO PRN (21:04)
[2021-05-09] MEDS: Gabapentin 400 MG CAP PO SCH (21:04)
[2021-05-09] MEDS: Doxazosin 2 MG TAB PO SCH (21:33)
[2021-05-10 06:02] LABS: #Eosinphils 0.1 thou/uL (0.0-0.7); #Lymphocytes 1.6 thou/uL (1.20-3.40); #Neutrophils 6.1 thou/uL (1.40-6.50); %Eosinophils 1.5 % (0.0-10.0); %Lymphocytes 18.1 % (21.0-51.0); %Neutrophils 69.4 % (42.0-75.0); Hemoglobin 11.6 g/dL (12.0-16.0); Mean Corpuscular HGB CONC 31.6 g/dL (32.0-36.0); Mean Corpuscular Hemoglobin 29.7 pg (27.0-31.0); Mean Corpuscular Volume 94.1 fL (78.0-98.0); Mean Platelet Volume 7.8 fL (7.4-10.4); Platelet Count 243 thou/uL (130-400); RBC Distribution Width 17.3 % (11.5-14.5); White Blood Cell (WBC) Count 8.8 thou/uL (4.8-10.8)
[2021-05-10 06:38] LABS: Anion Gap 22 mmol/L (10-20); BUN (Urea Nitrogen) 99 mg/dL (9.8-20.1); Calc. Creatinine Clearance 6 mL/min (70-130); Calcium 9.2 mg/dL (7.8-10.44); Carbon Dioxide 25 mmol/L (22-29); Chloride 94 mmol/L (98-107); Glucose 82 mg/dL (70-105); Potassium 4.8 mmol/L (3.5-5.1); Sodium 136 mmol/L (136-145)
[2021-05-10] MEDS ORDERED: predniSONE 20 MG TAB PO SCH (08:00)
[2021-05-10 08:10] VITALS: BP 130/60; TEMP 98.9
[2021-05-10] MEDS: Heparin 5,000 UNITS/ML VIAL SC SCH ×2 (08:57→15:18)
[2021-05-10] MEDS: Famotidine 20 MG TAB PO SCH (08:57)
[2021-05-10] MEDS: Amlodipine 10 MG TAB PO SCH (08:57)
[2021-05-10] MEDS: Metoprolol Tartrate 50 MG TAB PO SCH (08:58)
[2021-05-10] MEDS: hydrALAZINE 25 MG TAB PO SCH ×2 (08:58→15:18)
== END 2021-05-10 19:15 | disposition home health service (06) | DRG 208 ==
LOC: SUATTDRO 04:21 → ERS 04:21 → CCU 04:26 → IMCU/EMU 05-08 19:30 → T4-A 05-09 19:47
PROVIDERS: ADMIT Internal Medicine; ATTEND Internal Medicine
PROC: 5A1945Z Respiratory Ventilation, 24-96 Consecutive Hours (ICD-10-PCS; principal; 2021-05-06)
PROC: 0BH17EZ Insertion of Endotracheal Airway into Trachea, Via Natural or Artificial Opening (ICD-10-PCS; 2021-05-06)
PROC: 8E0ZXY6 Isolation (ICD-10-PCS; 2021-05-06)
PROC: 5A1D70Z Performance of Urinary Filtration, Intermittent, Less than 6 Hours Per Day (ICD-10-PCS; 2021-05-07)
PROC: 5A0945A Assistance with Respiratory Ventilation, 24-96 Consecutive Hours, High Flow/Velocity Cannula (ICD-10-PCS; 2021-05-07)
DX: J43.9 Emphysema, unspecified (principal); J96.21 Acute and chronic respiratory failure with hypoxia; I50.33 Acute on chronic diastolic (congestive) heart failure; N18.6 End stage renal disease; J96.22 Acute and chronic respiratory failure with hypercapnia; I13.2 Hypertensive heart and chronic kidney disease with heart failure and with stage 5 chronic kidney disease, or end stage renal disease; F41.9 Anxiety disorder, unspecified; F32.9 Major depressive disorder, single episode, unspecified; I16.0 Hypertensive urgency; D63.1 Anemia in chronic kidney disease; E87.5 Hyperkalemia; R77.8 Other specified abnormalities of plasma proteins; Z88.1 Allergy status to other antibiotic agents; Z88.8 Allergy status to other drugs, medicaments and biological substances; Z99.2 Dependence on renal dialysis; Z99.81 Dependence on supplemental oxygen; Z88.0 Allergy status to penicillin; Z98.51 Tubal ligation status; Z90.710 Acquired absence of both cervix and uterus; Z87.891 Personal history of nicotine dependence; Z86.16 Personal history of COVID-19; Z87.01 Personal history of pneumonia (recurrent); Z79.899 Other long term (current) drug therapy; Z79.52 Long term (current) use of systemic steroids; Z78.1 Physical restraint status
CPT/HCPCS: 31500; 36415; 36600; 51702; 71045; 80048; 80053; 81003; 81015; 82553; 82805; 83605; 83880; 84484; 85025; 87040; 87340; 93005; 94002; 94003; 94640; 96365; 96366; 96375; 96376; 99292; J1644; J1956; J2060; J2704; J2920; J3010; J3370; J7050; J7512; J7620; U0002; U0005

== ENCOUNTER 2021-05-16 07:33 | Inpatient (IN) | payer MEDICARE, MEDICAID ==
[2021-05-16] MEDS ORDERED: Vancomycin 1 GM/200 ML BAG ONE (08:31)
[2021-05-16] MEDS ORDERED: Acetaminophen 500 MG TAB ONE (08:31)
[2021-05-16 08:38] LABS: Hemoglobin 8.3 g/dL (12.0-16.0); Mean Corpuscular HGB CONC 31.2 g/dL (32.0-36.0); Mean Corpuscular Hemoglobin 29.1 pg (27.0-31.0); Mean Corpuscular Volume 93.5 fL (78.0-98.0); Mean Platelet Volume 7.6 fL (7.4-10.4); Platelet Count 274 thou/uL (130-400); RBC Distribution Width 17.5 % (11.5-14.5); Red Blood Cell (RBC) Count 2.86 mill/uL (4.20-5.40); White Blood Cell (WBC) Count 14.5 thou/uL (4.8-10.8)
[2021-05-16 08:45] LABS: ALT (SGPT) 10 U/L (8-55); AST (SGOT) 11 U/L (5-34); Albumin 3.8 g/dL (3.5-5.0); Alkaline Phosphatase 68 U/L (40-110); Anion Gap 22 mmol/L (10-20); BUN (Urea Nitrogen) 98 mg/dL (9.8-20.1); CK (CPK) 46 U/L (29-168); Calc. Creatinine Clearance 0 mL/min (70-130); Calcium 9.3 mg/dL (7.8-10.44); Carbon Dioxide 26 mmol/L (22-29); Chloride 93 mmol/L (98-107); Glucose 131 mg/dL (70-105); Potassium 5.2 mmol/L (3.5-5.1); Protein, Total 6.8 g/dL (6.0-8.3); Sodium 136 mmol/L (136-145)
[2021-05-16 08:55] LABS: Band 6 % (5-11); Lymphocytes 12 % (21-51); MDiff Complete? YES; Monocytes 7 % (0-10); Neutrophil 74 % (42-75); Platelet Morphology Comment Appears Adequate; Polychromasia SLIGHT = 2-3 cells (100X) (0-2/hpf)
[2021-05-16] MEDS ORDERED: Aspirin Chewable 81 MG TAB ONE (09:08)
[2021-05-16 09:14] LABS: CKMB 1.3 ng/mL (0-6.6)
[2021-05-16] MEDS ORDERED: Piperacillin/Tazobactam 4.5 GM in Sodium Chloride 0.9% 100 ML IVPB SCH (09:15)
[2021-05-16] MEDS ORDERED: Bisacodyl 10 MG SUPP PR PRN (09:38)
[2021-05-16] MEDS ORDERED: Nitroglycerin 0.4 MG TAB (25 Tab Bottle) SL PRN (09:38)
[2021-05-16] MEDS ORDERED: Acetaminophen 325 MG TAB PO PRN (09:38)
[2021-05-16] MEDS ORDERED: Morphine 2 MG/ML VIAL SLOW IVP PRN (09:38)
[2021-05-16] MEDS ORDERED: Senokot S 8.6-50 MG TAB PO PRN (09:38)
[2021-05-16] MEDS ORDERED: Bisacodyl 5 MG TAB PO PRN (09:38)
[2021-05-16] MEDS ORDERED: Acetaminophen 650 MG Suppository PR PRN (09:38)
[2021-05-16] MEDS ORDERED: Albuterol Sulfate 2.5 mg/3 ml Neb EZPAP PRN (09:43)
[2021-05-16] MEDS ORDERED: Calcium Gluconate 4.6 MEQ in Sodium Chloride 0.9% 100 ML IVPB SCH (09:43)
[2021-05-16] MEDS ORDERED: Aspirin Chewable 81 MG TAB PO SCH (09:45)
[2021-05-16 09:46] LABS: SARS-CoV-2 NAA Rapid Test Not Detected (NotDetected)
[2021-05-16] MEDS ORDERED: traMADol HCl 50 MG TAB ONE (10:03)
[2021-05-16] MEDS ORDERED: Vancomycin 1 GM in Premix Bag 1 BAG IVPB SCH ×2 (10:30→20:00)
[2021-05-16 11:24] LABS: Anion Gap 20 mmol/L (10-20); BUN (Urea Nitrogen) 97 mg/dL (9.8-20.1); Calc. Creatinine Clearance 0 mL/min (70-130); Calcium 8.5 mg/dL (7.8-10.44); Carbon Dioxide 26 mmol/L (22-29); Chloride 94 mmol/L (98-107); Glucose 100 mg/dL (70-105); Potassium 5.2 mmol/L (3.5-5.1); Sodium 135 mmol/L (136-145)
[2021-05-16] MEDS ORDERED: EPOETIN ALFA-EPBX (ESRD) 4,000 UNIT/ML VIAL SC SCH (12:00)
[2021-05-16 12:25] LABS: Troponin I 0.465 ng/mL (< 0.028)
[2021-05-16 16:00] LABS: Critical Call Chem Troponin I RESULT DECREASING; Troponin I 0.435 ng/mL (< 0.028)
[2021-05-16 16:05] LABS: Actual Bicarbonate (HCO3a) 30.4 mEq/L (22-28); Analyzer IN Cardio ER; Base Excess (BEa) 6.7 mEq/L (-2.0 to +3.0); CO2 Tension 40.2 mmHg (35.0-45.0); Hemoglobin (Hb) 8.4 g/dL (12.0-16.0); Potassium - ABG Lab 3.92 mmol/L (3.70-5.30)
[2021-05-16 16:06] LABS: O2 Tension (PaO2), arterial 43.5 mmHg (80.0-100.0); Puncture Site RRA
[2021-05-16] MEDS ORDERED: methylPREDNISolone Sod Succ 40 MG VIAL ONE (16:36)
[2021-05-16] MEDS: methylPREDNISolone Sod Succ/PF 125 MG/2 ML VIAL IVP SCH ×2 (16:45→21:10)
[2021-05-16 17:20] LABS: Bilirubin Negative (Negative); Blood, Urine Trace (Negative); Clarity Turbid (Clear); Glucose, Urine (Dipstick) 100 mg/dL (Negative); Ketone, Urine Negative (Negative); Leukocyte 75 Leu/uL (Negative); Nitrite Negative (Negative); Protein, Urine (Dipstick) 600 mg/dL (Neg-Trace); Specific Gravity, Urine 1.013 (1.002-1.036); Urobilinogen Normal mg/dL (Less than 2); Yeast-Budding 1+ HPF (None Seen)
[2021-05-16 17:35] LABS: Bacteria/HPF 2+ HPF (None Seen)
[2021-05-16 19:34] VITALS: BMI 29.8
[2021-05-16] MEDS ORDERED: Ondansetron PF 4 MG/2 ML Vial IVP PRN (19:45)
[2021-05-16] MEDS ORDERED: Ondansetron ODT 4 MG TAB SL PRN (19:45)
[2021-05-16] MEDS ORDERED: Vancomycin HCl 1.25 GM in Sodium Chloride 0.9% 250 ML 250 ML IVPB SCH (20:00)
[2021-05-16] MEDS ORDERED: Vancomycin HCl 500 MG in Sodium Chloride 0.9% 100 ML IVPB SCH (20:00)
[2021-05-16] MEDS ORDERED: Vancomycin HCl 750 MG in Sodium Chloride 0.9% 250 ML 250 ML IVPB SCH (20:00)
[2021-05-16] MEDS ORDERED: Vancomycin Sliding Scale 1 EACH FS ONE (20:00)
[2021-05-16] MEDS ORDERED: HOLD VANCOMYCIN FOR LEVEL >20 FS SCH (20:00)
[2021-05-16] MEDS: Sevelamer Carbonate 800 MG TAB PO SCH (20:02)
[2021-05-17] MEDS: methylPREDNISolone Sod Succ/PF 125 MG/2 ML VIAL IVP SCH (00:36)
[2021-05-17 04:45] LABS: #Eosinphils 0.1 thou/uL (0.0-0.7); #Lymphocytes 0.2 thou/uL (1.20-3.40); #Monocytes 0.1 thou/uL (0.11-0.59); #Neutrophils 8.8 thou/uL (1.40-6.50); %Basophils 0.2 % (0.0-1.0); %Eosinophils 0.7 % (0.0-10.0); %Lymphocytes 2.1 % (21.0-51.0); %Monocytes 1.3 % (0.0-10.0); %Neutrophils 95.7 % (42.0-75.0); Hemoglobin 9.5 g/dL (12.0-16.0); Mean Corpuscular HGB CONC 32.1 g/dL (32.0-36.0); Mean Corpuscular Hemoglobin 30.2 pg (27.0-31.0); Mean Corpuscular Volume 93.9 fL (78.0-98.0); Mean Platelet Volume 7.4 fL (7.4-10.4); Platelet Count 260 thou/uL (130-400); RBC Distribution Width 17.2 % (11.5-14.5); Red Blood Cell (RBC) Count 3.14 mill/uL (4.20-5.40); White Blood Cell (WBC) Count 9.2 thou/uL (4.8-10.8)
[2021-05-17 05:25] LABS: Anion Gap 17 mmol/L (10-20); BUN (Urea Nitrogen) 33 mg/dL (9.8-20.1); Calc. Creatinine Clearance 13 mL/min (70-130); Carbon Dioxide 30 mmol/L (22-29); Cardiac Risk 3.1 (Less than 4.5); Chloride 95 mmol/L (98-107); Cholesterol 251 mg/dl (< 200 Desired); Glucose 157 mg/dL (70-105); HDL Cholesterol 80 mg/dL (>60 Neg Risk); LDL Cholesterol, Calculated 152 mg/dL; Potassium 5.1 mmol/L (3.5-5.1); Sodium 137 mmol/L (136-145); Triglycerides 96 mg/dL (Less than 150)
[2021-05-17] MEDS ORDERED: Labetalol HCl 100 MG/20 ML VIAL SLOW IVP PRN (05:46)
[2021-05-17] MEDS: methylPREDNISolone Sod Succ 40 MG VIAL IVP SCH ×4 (06:04→23:28)
[2021-05-17] MEDS: hydrALAZINE 20 MG/ML VIAL SLOW IVP PRN (06:04)
[2021-05-17 08:10] LABS: Vancomycin, Random 13.5 ug/mL (See Comment)
[2021-05-17] MEDS ORDERED: Piperacillin/Tazobactam 3.375 GM in Sodium Chloride 0.9% 100 ML IVPB SCH ×2 (08:30→12:00)
[2021-05-17] MEDS ORDERED: Non-Formulary Item 1 EACH (Hydralazine Hcl [Hydralazine Hcl] 100 MG Tablet) PO SCH (09:00)
[2021-05-17 09:02] LABS: CKMB 1.4 ng/mL (0-6.6)
[2021-05-17] MEDS: Metoprolol Tartrate 50 MG TAB PO SCH ×2 (09:31→20:34)
[2021-05-17] MEDS: hydrALAZINE 25 MG TAB PO SCH ×3 (09:31→20:33)
[2021-05-17] MEDS: Guaifenesin DM 100-10/5 ML UDCUP PO PRN (10:37)
[2021-05-17 12:03] LABS: CKMB 1.2 ng/mL (0-6.6)
[2021-05-17] MEDS: Sevelamer Carbonate 800 MG TAB PO SCH ×3 (13:06→17:06)
[2021-05-17] MEDS: Piperacillin/Tazobactam 3.375 GM in Sodium Chloride 0.9% 100 ML IVPB SCH (20:33)
[2021-05-18] MEDS: hydrALAZINE 20 MG/ML VIAL SLOW IVP PRN (05:42)
[2021-05-18] MEDS: methylPREDNISolone Sod Succ 40 MG VIAL IVP SCH ×3 (05:51→18:12)
[2021-05-18] MEDS ORDERED: traMADol HCl 50 MG TAB PO SCH (06:15)
[2021-05-18] MEDS: hydrALAZINE 25 MG TAB PO SCH ×3 (09:15→20:11)
[2021-05-18] MEDS: Sevelamer Carbonate 800 MG TAB PO SCH ×3 (09:15→18:11)
[2021-05-18] MEDS: Metoprolol Tartrate 50 MG TAB PO SCH ×2 (09:16→20:12)
[2021-05-18] MEDS: Piperacillin/Tazobactam 3.375 GM in Sodium Chloride 0.9% 100 ML IVPB SCH ×2 (09:17→20:47)
[2021-05-18] MEDS: Guaifenesin DM 100-10/5 ML UDCUP PO PRN (09:17)
[2021-05-18] MEDS ORDERED: ALPRAZolam 0.25 MG TAB PO PRN (15:06)
[2021-05-18] MEDS ORDERED: traMADol HCl 50 MG TAB PO PRN (15:06)
[2021-05-18] MEDS: Mometasone 200 MCG/Formoterol 5 MCG 120 PUFF INHALER INH SCH (18:20)
[2021-05-18] MEDS: Doxazosin 2 MG TAB PO SCH (20:10)
[2021-05-18] MEDS: Gabapentin 400 MG CAP PO SCH (20:12)
[2021-05-18] MEDS: Melatonin 3 MG TAB PO PRN (20:48)
[2021-05-19] MEDS: methylPREDNISolone Sod Succ 40 MG VIAL IVP SCH ×4 (01:00→16:30)
[2021-05-19 04:56] LABS: #Lymphocytes 0.5 thou/uL (1.20-3.40); #Monocytes 0.3 thou/uL (0.11-0.59); #Neutrophils 14.1 thou/uL (1.40-6.50); %Eosinophils 0.3 % (0.0-10.0); %Lymphocytes 3.3 % (21.0-51.0); %Monocytes 1.8 % (0.0-10.0); %Neutrophils 94.7 % (42.0-75.0); Hemoglobin 10.3 g/dL (12.0-16.0); Mean Corpuscular HGB CONC 32.5 g/dL (32.0-36.0); Mean Corpuscular Hemoglobin 30.3 pg (27.0-31.0); Mean Corpuscular Volume 93.3 fL (78.0-98.0); Platelet Count 301 thou/uL (130-400); RBC Distribution Width 17.3 % (11.5-14.5); Red Blood Cell (RBC) Count 3.41 mill/uL (4.20-5.40); White Blood Cell (WBC) Count 14.9 thou/uL (4.8-10.8)
[2021-05-19 05:14] LABS: Anion Gap 22 mmol/L (10-20); BUN (Urea Nitrogen) 62 mg/dL (9.8-20.1); Calc. Creatinine Clearance 7 mL/min (70-130); Calcium 9.9 mg/dL (7.8-10.44); Carbon Dioxide 25 mmol/L (22-29); Chloride 95 mmol/L (98-107); Glucose 133 mg/dL (70-105); Magnesium 2.4 mg/dL (1.6-2.6); Potassium 4.2 mmol/L (3.5-5.1); Sodium 138 mmol/L (136-145)
[2021-05-19] MEDS: hydrALAZINE 20 MG/ML VIAL SLOW IVP PRN (05:42)
[2021-05-19] MEDS: Mometasone 200 MCG/Formoterol 5 MCG 120 PUFF INHALER INH SCH ×2 (06:50→19:10)
[2021-05-19] MEDS: hydrALAZINE 25 MG TAB PO SCH ×3 (08:40→20:37)
[2021-05-19] MEDS: Metoprolol Tartrate 50 MG TAB PO SCH ×2 (08:40→20:38)
[2021-05-19] MEDS: Sevelamer Carbonate 800 MG TAB PO SCH ×3 (08:40→16:30)
[2021-05-19] MEDS: Piperacillin/Tazobactam 3.375 GM in Sodium Chloride 0.9% 100 ML IVPB SCH ×2 (09:17→22:33)
[2021-05-19] MEDS: Gabapentin 400 MG CAP PO SCH (20:37)
[2021-05-19] MEDS: Doxazosin 2 MG TAB PO SCH (20:38)
[2021-05-19] MEDS: Melatonin 3 MG TAB PO PRN (22:30)
[2021-05-20] MEDS: methylPREDNISolone Sod Succ 40 MG VIAL IVP SCH ×3 (00:02→12:23)
[2021-05-20 05:00] LABS: #Eosinphils 0.1 thou/uL (0.0-0.7); #Lymphocytes 0.4 thou/uL (1.20-3.40); #Monocytes 0.5 thou/uL (0.11-0.59); #Neutrophils 13.1 thou/uL (1.40-6.50); %Eosinophils 0.6 % (0.0-10.0); %Lymphocytes 2.8 % (21.0-51.0); %Monocytes 3.7 % (0.0-10.0); Hemoglobin 10.1 g/dL (12.0-16.0); Mean Corpuscular HGB CONC 32.4 g/dL (32.0-36.0); Mean Corpuscular Hemoglobin 30.2 pg (27.0-31.0); Mean Corpuscular Volume 93.3 fL (78.0-98.0); Mean Platelet Volume 7.2 fL (7.4-10.4); Platelet Count 299 thou/uL (130-400); RBC Distribution Width 17.1 % (11.5-14.5); Red Blood Cell (RBC) Count 3.33 mill/uL (4.20-5.40); White Blood Cell (WBC) Count 14.1 thou/uL (4.8-10.8)
[2021-05-20 05:21] LABS: Anion Gap 27 mmol/L (10-20); BUN (Urea Nitrogen) 87 mg/dL (9.8-20.1); Calc. Creatinine Clearance 5 mL/min (70-130); Calcium 9.4 mg/dL (7.8-10.44); Carbon Dioxide 18 mmol/L (22-29); Chloride 97 mmol/L (98-107); Glucose 128 mg/dL (70-105); Potassium 4.5 mmol/L (3.5-5.1); Sodium 137 mmol/L (136-145)
[2021-05-20] MEDS: Mometasone 200 MCG/Formoterol 5 MCG 120 PUFF INHALER INH SCH (07:07)
[2021-05-20] MEDS: Sevelamer Carbonate 800 MG TAB PO SCH ×3 (12:20→17:32)
[2021-05-20] MEDS: Metoprolol Tartrate 50 MG TAB PO SCH (12:21)
[2021-05-20] MEDS: hydrALAZINE 25 MG TAB PO SCH ×2 (12:21→14:54)
[2021-05-20] MEDS ORDERED: Albuterol Sulfate 2.5 mg/3 ml Neb NEB PRN (12:32)
[2021-05-20] MEDS: Piperacillin/Tazobactam 3.375 GM in Sodium Chloride 0.9% 100 ML IVPB SCH (14:53)
[2021-05-20 15:09] VITALS: TEMP 98.2
[2021-05-20 16:23] VITALS: BP 148/77
[2021-05-20] MEDS ORDERED: Losartan 25 MG TAB PO SCH (21:00)
[2021-05-21] MEDS ORDERED: Losartan 25 MG TAB PO SCH (09:00)
== END 2021-05-20 17:24 | disposition home or self-care (01) | DRG 871 ==
LOC: ERS 07:33 → ERHOLD 09:37 → 2NO 19:21
PROVIDERS: ADMIT Internal Medicine; ATTEND Physician Assistant
PROC: 5A1D70Z Performance of Urinary Filtration, Intermittent, Less than 6 Hours Per Day (ICD-10-PCS; principal; 2021-05-16)
DX: A41.9 Sepsis, unspecified organism (principal); J96.21 Acute and chronic respiratory failure with hypoxia; Z20.822 Contact with and (suspected) exposure to COVID-19; J18.9 Pneumonia, unspecified organism; N18.6 End stage renal disease; I21.A1 Myocardial infarction type 2; I47.2 Ventricular tachycardia; I13.2 Hypertensive heart and chronic kidney disease with heart failure and with stage 5 chronic kidney disease, or end stage renal disease; J43.9 Emphysema, unspecified; E87.5 Hyperkalemia; E78.5 Hyperlipidemia, unspecified; F41.9 Anxiety disorder, unspecified; F32.9 Major depressive disorder, single episode, unspecified; I50.9 Heart failure, unspecified; D63.1 Anemia in chronic kidney disease; Z99.2 Dependence on renal dialysis; Z99.81 Dependence on supplemental oxygen; Z87.891 Personal history of nicotine dependence; Z98.51 Tubal ligation status; Z90.710 Acquired absence of both cervix and uterus; Z86.16 Personal history of COVID-19; Z88.1 Allergy status to other antibiotic agents; Z88.0 Allergy status to penicillin; Z88.8 Allergy status to other drugs, medicaments and biological substances
CPT/HCPCS: 0240U; 36415; 36600; 71045; 80048; 80053; 80061; 80202; 81003; 81015; 82550; 82553; 82805; 83605; 83735; 83880; 84484; 85025; 87040; 87086; 90935; 93005; 93306; 93798; 94760; 96365; 96367; G0257; J0360; J2001; J2543; J2920; J2930; J3370; J3490; J7050; J7620

== ENCOUNTER 2021-08-19 09:06 | Inpatient (IN) | payer MEDICARE, MEDICAID ==
[2021-08-19 09:36] LABS: Actual Bicarbonate (HCO3a) 24.1 mEq/L (22-28); Analyzer IN Cardio ER; Base Excess (BEa) -0.5 mEq/L (-2.0 to +3.0); CO2 Tension 39.2 mmHg (35.0-45.0); Calcium, Ionized (arterial) 1.24 mmol/L (1.12-1.30); Carboxyhemoglobin (COHb) 1.2 gm% (0.0-3.0); Hemoglobin (Hb) 9.9 g/dL (12.0-16.0); Potassium - ABG Lab 5.54 mmol/L (3.70-5.30); pH, Arterial 7.41 (7.35-7.45)
[2021-08-19 09:37] LABS: O2 Tension (PaO2), arterial 59.1 mmHg (80.0-100.0); Puncture Site LBA
[2021-08-19 10:04] LABS: #Eosinphils 0.1 thou/uL (0.0-0.7); #Lymphocytes 1.6 thou/uL (1.20-3.40); #Monocytes 0.5 thou/uL (0.11-0.59); #Neutrophils 8.5 thou/uL (1.40-6.50); %Basophils 0.4 % (0.0-1.0); %Eosinophils 0.7 % (0.0-10.0); %Lymphocytes 14.9 % (21.0-51.0); %Monocytes 4.4 % (0.0-10.0); %Neutrophils 79.7 % (42.0-75.0); Hemoglobin 9.8 g/dL (12.0-16.0); Mean Corpuscular HGB CONC 31.8 g/dL (32.0-36.0); Mean Corpuscular Volume 94.5 fL (78.0-98.0); Mean Platelet Volume 6.7 fL (7.4-10.4); Platelet Count 343 thou/uL (130-400); RBC Distribution Width 16.3 % (11.5-14.5); Red Blood Cell (RBC) Count 3.26 mill/uL (4.20-5.40); White Blood Cell (WBC) Count 10.7 thou/uL (4.8-10.8)
[2021-08-19 10:49] LABS: ALT (SGPT) 11 U/L (8-55); AST (SGOT) 11 U/L (5-34); Albumin 3.9 g/dL (3.5-5.0); Alkaline Phosphatase 84 U/L (40-110); Anion Gap 24 mmol/L (10-20); BUN (Urea Nitrogen) 64 mg/dL (9.8-20.1); Bilirubin, Total 0.7 mg/dL (0.2-1.2); Calc. Creatinine Clearance 0 mL/min (70-130); Calcium 10.7 mg/dL (7.8-10.44); Carbon Dioxide 26 mmol/L (22-29); Chloride 95 mmol/L (98-107); Globulin 2.9 g/dL (2.4-3.5); Glucose 92 mg/dL (70-105); Potassium 5.9 mmol/L (3.5-5.1); Protein, Total 6.8 g/dL (6.0-8.3); Sodium 139 mmol/L (136-145)
[2021-08-19] MEDS ORDERED: ALPRAZolam 0.25 MG TAB PO PRN (11:05)
[2021-08-19] MEDS ORDERED: traMADol HCl 50 MG TAB PO PRN (11:05)
[2021-08-19] MEDS ORDERED: Nitroglycerin 0.4 MG TAB (25 Tab Bottle) SL PRN (11:23)
[2021-08-19] MEDS ORDERED: EPOETIN ALFA-EPBX (ESRD) 4,000 UNIT/ML VIAL SC SCH ×2 (11:30→13:00)
[2021-08-19] MEDS ORDERED: hydrALAZINE 20 MG/ML VIAL SLOW IVP SCH (11:30)
[2021-08-19] MEDS ORDERED: methylPREDNISolone Sod Succ 40 MG VIAL IVP SCH ×2 (11:45→12:15)
[2021-08-19] MEDS ORDERED: Albuterol Sulfate 2.5 mg/3 ml Neb NEB PRN (12:00)
[2021-08-19] MEDS ORDERED: Furosemide 100 MG/10 ML VIAL SLOW IVP SCH (12:00)
[2021-08-19] MEDS ORDERED: hydrALAZINE 20 MG/ML VIAL ONE (12:02)
[2021-08-19] MEDS ORDERED: Bacteriostatic Water 30 ML VIAL FS PRN (12:15)
[2021-08-19] MEDS ORDERED: Ondansetron PF 4 MG/2 ML Vial ONE (12:28)
[2021-08-19] MEDS ORDERED: Furosemide 40 MG/4 ML VIAL ONE (12:28)
[2021-08-19] MEDS ORDERED: Nitroglycerin 2% Ointment 1 INCH/1 GM Packet ONE (12:28)
[2021-08-19 13:07] LABS: Bacteria/HPF None Seen HPF (None Seen); Bilirubin Negative (Negative); Blood, Urine Negative (Negative); Clarity Turbid (Clear); Glucose, Urine (Dipstick) 100 mg/dL (Negative); Ketone, Urine Negative (Negative); Leukocyte Negative Leu/uL (Negative); Nitrite Negative (Negative); Protein, Urine (Dipstick) 300 mg/dL (Neg-Trace); RBC/HPF 0-3 HPF (0-3); Specific Gravity, Urine 1.012 (1.002-1.036); Urobilinogen Normal mg/dL (Less than 2); WBC/HPF 0-3 HPF (0-3)
[2021-08-19 13:35] LABS: SARS-CoV-2 NAA Rapid Test Not Detected (NotDetected)
[2021-08-19] MEDS ORDERED: Metoprolol Tartrate 50 MG TAB ONE ×2 (16:12→21:45)
[2021-08-19] MEDS ORDERED: hydrALAZINE 25 MG TAB ONE ×5 (16:12→22:05)
[2021-08-19] MEDS: Heparin 5,000 UNITS/ML VIAL SC SCH ×2 (16:23→22:13)
[2021-08-19] MEDS: Losartan 25 MG TAB PO SCH ×2 (16:23→22:41)
[2021-08-19] MEDS: Sevelamer Carbonate 800 MG TAB PO SCH ×2 (16:23→18:19)
[2021-08-19] MEDS: NIFEdipine XL 90 MG TAB PO SCH (16:23)
[2021-08-19] MEDS: Metoprolol Tartrate 50 MG TAB PO SCH ×2 (16:23→22:00)
[2021-08-19] MEDS: hydrALAZINE 25 MG TAB PO SCH ×2 (16:24→22:12)
[2021-08-19] MEDS ORDERED: methylPREDNISolone Sod Succ 40 MG VIAL ONE (16:28)
[2021-08-19 16:36] LABS: CKMB 4.3 ng/mL (0-6.6)
[2021-08-19] MEDS ORDERED: Epoetin (ESRD) 20,000 UNITS/ML SC SCH (16:45)
[2021-08-19] MEDS ORDERED: Zolpidem Tartrate 5 MG TAB ONE ×2 (21:44→21:51)
[2021-08-19] MEDS ORDERED: traZODone HCl 50 MG TAB ONE (21:51)
[2021-08-19] MEDS: traZODone HCl 50 MG TAB PO SCH (21:59)
[2021-08-19] MEDS: Zolpidem Tartrate 5 MG TAB PO SCH (22:00)
[2021-08-19] MEDS: Doxazosin 2 MG TAB PO SCH (22:14)
[2021-08-20] MEDS: HYDROcodone/Acetaminophen 7.5/325 mg Tablet PO PRN (00:51)
[2021-08-20] MEDS ORDERED: Hydrocodone-Acetamin 15 ML UDCUP ONE (01:52)
[2021-08-20] MEDS ORDERED: hydrALAZINE 20 MG/ML VIAL ONE (06:17)
[2021-08-20] MEDS ORDERED: hydrALAZINE 20 MG/ML VIAL SLOW IVP PRN (06:22)
[2021-08-20] MEDS: Mometasone 200 MCG/Formoterol 5 MCG 120 PUFF INHALER INH SCH ×5 (08:00→19:01)
[2021-08-20] MEDS ORDERED: Metoprolol Tartrate 50 MG TAB ONE (08:50)
[2021-08-20] MEDS: hydrALAZINE 25 MG TAB PO SCH ×3 (09:17→20:59)
[2021-08-20] MEDS: Heparin 5,000 UNITS/ML VIAL SC SCH ×3 (09:17→20:59)
[2021-08-20] MEDS: Sevelamer Carbonate 800 MG TAB PO SCH ×2 (09:17→19:35)
[2021-08-20] MEDS: Metoprolol Tartrate 50 MG TAB PO SCH ×2 (09:18→21:00)
[2021-08-20] MEDS: Losartan 25 MG TAB PO SCH ×2 (09:18→21:00)
[2021-08-20] MEDS: NIFEdipine XL 90 MG TAB PO SCH (09:18)
[2021-08-20] MEDS ORDERED: ALPRAZolam 0.25 MG TAB ONE (10:39)
[2021-08-20 13:48] LABS: #Eosinphils 0.1 thou/uL (0.0-0.7); #Monocytes 0.6 thou/uL (0.11-0.59); #Neutrophils 8.3 thou/uL (1.40-6.50); %Basophils 0.3 % (0.0-1.0); %Eosinophils 0.7 % (0.0-10.0); %Lymphocytes 10.4 % (21.0-51.0); %Monocytes 6.2 % (0.0-10.0); %Neutrophils 82.4 % (42.0-75.0); Hemoglobin 9.5 g/dL (12.0-16.0); Mean Corpuscular HGB CONC 31.9 g/dL (32.0-36.0); Mean Corpuscular Hemoglobin 30.1 pg (27.0-31.0); Mean Corpuscular Volume 94.4 fL (78.0-98.0); Mean Platelet Volume 6.7 fL (7.4-10.4); Platelet Count 298 thou/uL (130-400); RBC Distribution Width 16.1 % (11.5-14.5); Red Blood Cell (RBC) Count 3.16 mill/uL (4.20-5.40)
[2021-08-20] MEDS ORDERED: Levofloxacin 500 mg/D5W 100 ml Premix Bag ONE (16:53)
[2021-08-20] MEDS ORDERED: methylPREDNISolone Sod Succ/PF 125 MG/2 ML VIAL ONE (16:53)
[2021-08-20] MEDS: methylPREDNISolone Sod Succ 40 MG VIAL IVP SCH ×2 (17:02→20:59)
[2021-08-20 17:13] LABS: Anion Gap 14 mmol/L (10-20); BUN (Urea Nitrogen) 9 mg/dL (9.8-20.1); Calc. Creatinine Clearance 21 mL/min (70-130); Calcium 10.5 mg/dL (7.8-10.44); Carbon Dioxide 31 mmol/L (22-29); Chloride 97 mmol/L (98-107); Glucose 87 mg/dL (70-105); Potassium 3.2 mmol/L (3.5-5.1); Sodium 139 mmol/L (136-145)
[2021-08-20] MEDS: Atorvastatin Calcium 40 MG TAB PO SCH (20:59)
[2021-08-20] MEDS: Doxazosin 2 MG TAB PO SCH (20:59)
[2021-08-20] MEDS: traZODone HCl 50 MG TAB PO SCH (21:01)
[2021-08-20] MEDS: Zolpidem Tartrate 5 MG TAB PO SCH (21:01)
[2021-08-21] MEDS: methylPREDNISolone Sod Succ 40 MG VIAL IVP SCH ×2 (00:38→06:16)
[2021-08-21 06:20] LABS: Anion Gap 17 mmol/L (10-20); BUN (Urea Nitrogen) 32 mg/dL (9.8-20.1); Calc. Creatinine Clearance 10 mL/min (70-130); Calcium 10.9 mg/dL (7.8-10.44); Carbon Dioxide 27 mmol/L (22-29); Chloride 98 mmol/L (98-107); Glucose 147 mg/dL (70-105); Potassium 4.1 mmol/L (3.5-5.1); Sodium 138 mmol/L (136-145)
[2021-08-21] MEDS: Mometasone 200 MCG/Formoterol 5 MCG 120 PUFF INHALER INH SCH ×2 (07:50→18:59)
[2021-08-21 08:50] VITALS: BMI 16.7
[2021-08-21] MEDS: Sevelamer Carbonate 800 MG TAB PO SCH ×3 (12:35→16:54)
[2021-08-21] MEDS: Heparin 5,000 UNITS/ML VIAL SC SCH ×3 (12:35→22:04)
[2021-08-21] MEDS: NIFEdipine XL 90 MG TAB PO SCH (12:36)
[2021-08-21] MEDS: hydrALAZINE 25 MG TAB PO SCH ×3 (12:36→22:04)
[2021-08-21] MEDS: Metoprolol Tartrate 50 MG TAB PO SCH ×2 (12:37→22:05)
[2021-08-21] MEDS: Losartan 25 MG TAB PO SCH (12:37)
[2021-08-21] MEDS: HYDROcodone/Acetaminophen 7.5/325 mg Tablet PO PRN (15:26)
[2021-08-21] MEDS: Atorvastatin Calcium 40 MG TAB PO SCH (22:04)
[2021-08-21] MEDS: Doxazosin 2 MG TAB PO SCH (22:04)
[2021-08-21] MEDS: traZODone HCl 50 MG TAB PO SCH (22:05)
[2021-08-21] MEDS: Zolpidem Tartrate 5 MG TAB PO SCH (22:06)
[2021-08-22 05:05] LABS: #Eosinphils 0.1 thou/uL (0.0-0.7); #Monocytes 0.9 thou/uL (0.11-0.59); #Neutrophils 6.2 thou/uL (1.40-6.50); %Basophils 0.3 % (0.0-1.0); %Eosinophils 1.1 % (0.0-10.0); %Lymphocytes 21.6 % (21.0-51.0); %Monocytes 9.7 % (0.0-10.0); %Neutrophils 67.4 % (42.0-75.0); Mean Corpuscular HGB CONC 30.8 g/dL (32.0-36.0); Mean Corpuscular Hemoglobin 29.2 pg (27.0-31.0); Mean Corpuscular Volume 94.9 fL (78.0-98.0); Mean Platelet Volume 7.1 fL (7.4-10.4); Platelet Count 387 thou/uL (130-400); RBC Distribution Width 16.1 % (11.5-14.5); White Blood Cell (WBC) Count 9.3 thou/uL (4.8-10.8)
[2021-08-22 05:26] LABS: Anion Gap 17 mmol/L (10-20); BUN (Urea Nitrogen) 36 mg/dL (9.8-20.1); Calc. Creatinine Clearance 10 mL/min (70-130); Calcium 11.2 mg/dL (7.8-10.44); Carbon Dioxide 27 mmol/L (22-29); Chloride 96 mmol/L (98-107); Glucose 92 mg/dL (70-105); Potassium 3.7 mmol/L (3.5-5.1); Sodium 136 mmol/L (136-145)
[2021-08-22] MEDS ORDERED: predniSONE 20 MG TAB PO SCH (08:00)
[2021-08-22 08:14] VITALS: BP 131/62; TEMP 97.4
[2021-08-22] MEDS: NIFEdipine XL 90 MG TAB PO SCH (09:47)
[2021-08-22] MEDS: hydrALAZINE 25 MG TAB PO SCH (09:47)
[2021-08-22] MEDS: Metoprolol Tartrate 50 MG TAB PO SCH (09:47)
[2021-08-22] MEDS: Heparin 5,000 UNITS/ML VIAL SC SCH (09:48)
[2021-08-22] MEDS: Losartan 25 MG TAB PO SCH (09:48)
[2021-08-22] MEDS: Sevelamer Carbonate 800 MG TAB PO SCH (09:48)
== END 2021-08-22 10:41 | disposition home or self-care (01) | DRG 280 ==
LOC: ERS 09:06 → ERHOLD 11:19 → 2NO 08-20 18:02
PROVIDERS: ADMIT Internal Medicine; ATTEND Family Medicine
PROC: 5A09357 Assistance with Respiratory Ventilation, Less than 24 Consecutive Hours, Continuous Positive Airway Pressure (ICD-10-PCS; principal; 2021-08-19)
PROC: 5A1D70Z Performance of Urinary Filtration, Intermittent, Less than 6 Hours Per Day (ICD-10-PCS; 2021-08-20)
DX: I13.2 Hypertensive heart and chronic kidney disease with heart failure and with stage 5 chronic kidney disease, or end stage renal disease (principal); N18.6 End stage renal disease; I21.A1 Myocardial infarction type 2; I50.33 Acute on chronic diastolic (congestive) heart failure; J96.21 Acute and chronic respiratory failure with hypoxia; J18.9 Pneumonia, unspecified organism; I16.1 Hypertensive emergency; J44.0 Chronic obstructive pulmonary disease with (acute) lower respiratory infection; N25.81 Secondary hyperparathyroidism of renal origin; K21.9 Gastro-esophageal reflux disease without esophagitis; E83.52 Hypercalcemia; D63.1 Anemia in chronic kidney disease; E87.5 Hyperkalemia; E78.5 Hyperlipidemia, unspecified; F41.9 Anxiety disorder, unspecified; F32.9 Major depressive disorder, single episode, unspecified; Z99.2 Dependence on renal dialysis; Z90.710 Acquired absence of both cervix and uterus; Z98.51 Tubal ligation status; Z87.891 Personal history of nicotine dependence; Z88.1 Allergy status to other antibiotic agents; Z88.8 Allergy status to other drugs, medicaments and biological substances; Z88.0 Allergy status to penicillin; Z79.899 Other long term (current) drug therapy; Z79.51 Long term (current) use of inhaled steroids; Z79.02 Long term (current) use of antithrombotics/antiplatelets; Z86.16 Personal history of COVID-19; Z91.14 Patient's other noncompliance with medication regimen; Z98.890 Other specified postprocedural states
CPT/HCPCS: 36415; 36600; 71045; 80048; 80053; 81003; 81015; 82553; 82805; 83605; 83880; 84484; 85025; 90935; 93005; 94660; 94760; 96374; 96375; G0257; J0360; J1644; J1940; J1956; J2405; J2920; J2930; J7512; Q5105; U0002

== ENCOUNTER 2021-09-04 14:04 | Emergency (ER) | payer MEDICARE, MEDICAID ==
[2021-09-04 15:19] LABS: #Eosinphils 0.1 thou/uL (0.0-0.7); #Lymphocytes 0.4 thou/uL (1.20-3.40); #Monocytes 0.3 thou/uL (0.11-0.59); #Neutrophils 15.2 thou/uL (1.40-6.50); %Basophils 0.2 % (0.0-1.0); %Eosinophils 0.4 % (0.0-10.0); %Lymphocytes 2.2 % (21.0-51.0); %Monocytes 2.1 % (0.0-10.0); %Neutrophils 95.1 % (42.0-75.0); Mean Corpuscular HGB CONC 31.8 g/dL (32.0-36.0); Mean Corpuscular Hemoglobin 30.7 pg (27.0-31.0); Mean Corpuscular Volume 96.3 fL (78.0-98.0); Mean Platelet Volume 7.4 fL (7.4-10.4); Platelet Count 200 thou/uL (130-400); RBC Distribution Width 18.8 % (11.5-14.5); Red Blood Cell (RBC) Count 3.25 mill/uL (4.20-5.40); White Blood Cell (WBC) Count 15.9 thou/uL (4.8-10.8)
[2021-09-04 15:39] LABS: ALT (SGPT) 21 U/L (8-55); AST (SGOT) 14 U/L (5-34); Albumin 3.9 g/dL (3.5-5.0); Alkaline Phosphatase 65 U/L (40-110); Anion Gap 23 mmol/L (10-20); BUN (Urea Nitrogen) 56 mg/dL (9.8-20.1); Bilirubin, Total 0.8 mg/dL (0.2-1.2); Calc. Creatinine Clearance 0 mL/min (70-130); Calcium 10.3 mg/dL (7.8-10.44); Carbon Dioxide 24 mmol/L (22-29); Chloride 96 mmol/L (98-107); Globulin 2.9 g/dL (2.4-3.5); Glucose 112 mg/dL (70-105); Potassium 4.9 mmol/L (3.5-5.1); Protein, Total 6.8 g/dL (6.0-8.3); Sodium 138 mmol/L (136-145)
[2021-09-04] MEDS ORDERED: methylPREDNISolone Sod Succ/PF 125 MG/2 ML VIAL ONE (15:57)
== END 2021-09-04 17:42 | disposition home or self-care (01) ==
LOC: ERS 14:04
DX: I13.2 Hypertensive heart and chronic kidney disease with heart failure and with stage 5 chronic kidney disease, or end stage renal disease (principal); E87.70 Fluid overload, unspecified; N18.6 End stage renal disease; I50.9 Heart failure, unspecified; J44.9 Chronic obstructive pulmonary disease, unspecified; Z99.2 Dependence on renal dialysis; Z87.891 Personal history of nicotine dependence
CPT/HCPCS: 36415; 71045; 80053; 82553; 83880; 84484; 85025; 93005; 96374; J2930; J7620

== ENCOUNTER 2021-09-22 13:35 | Inpatient (IN) | payer MEDICARE, MEDICAID ==
[2021-09-22] MEDS ORDERED: methylPREDNISolone Sod Succ/PF 125 MG/2 ML VIAL ONE (14:58)
[2021-09-22 15:11] LABS: #Eosinphils 0.1 thou/uL (0.0-0.7); #Lymphocytes 0.9 thou/uL (1.20-3.40); #Monocytes 1.1 thou/uL (0.11-0.59); #Neutrophils 15.3 thou/uL (1.40-6.50); %Basophils 0.2 % (0.0-1.0); %Eosinophils 0.3 % (0.0-10.0); %Lymphocytes 4.9 % (21.0-51.0); %Monocytes 6.4 % (0.0-10.0); %Neutrophils 88.1 % (42.0-75.0); Hemoglobin 11.7 g/dL (12.0-16.0); Mean Corpuscular HGB CONC 32.7 g/dL (32.0-36.0); Mean Corpuscular Hemoglobin 31.4 pg (27.0-31.0); Mean Corpuscular Volume 95.9 fL (78.0-98.0); Mean Platelet Volume 6.9 fL (7.4-10.4); Platelet Count 329 thou/uL (130-400); RBC Distribution Width 18.1 % (11.5-14.5); Red Blood Cell (RBC) Count 3.73 mill/uL (4.20-5.40); White Blood Cell (WBC) Count 17.3 thou/uL (4.8-10.8)
[2021-09-22 15:46] LABS: ALT (SGPT) 7 U/L (8-55); AST (SGOT) 11 U/L (5-34); Alkaline Phosphatase 65 U/L (40-110); Anion Gap 24 mmol/L (10-20); BUN (Urea Nitrogen) 61 mg/dL (9.8-20.1); Bilirubin, Total 0.7 mg/dL (0.2-1.2); Calc. Creatinine Clearance 0 mL/min (70-130); Calcium 10.5 mg/dL (7.8-10.44); Carbon Dioxide 25 mmol/L (22-29); Chloride 89 mmol/L (98-107); Globulin 2.7 g/dL (2.4-3.5); Glucose 104 mg/dL (70-105); Lipase 10 U/L (8-78); Magnesium 2.6 mg/dL (1.6-2.6); Phosphorus 5.3 mg/dL (2.3-4.7); Protein, Total 6.7 g/dL (6.0-8.3); Sodium 133 mmol/L (136-145)
[2021-09-22 16:09] LABS: CKMB 2.9 ng/mL (0-6.6)
[2021-09-22] MEDS ORDERED: Ondansetron PF 4 MG/2 ML Vial IVP PRN (16:36)
[2021-09-22] MEDS ORDERED: Acetaminophen 325 MG TAB PO PRN (16:36)
[2021-09-22] MEDS ORDERED: Ondansetron PF 4 MG/2 ML Vial ONE (17:02)
[2021-09-22] MEDS ORDERED: Aspirin Chewable 81 MG TAB ONE (17:02)
[2021-09-22] MEDS ORDERED: Vancomycin 1 GM/200 ML BAG ONE (17:10)
[2021-09-22 17:54] LABS: Troponin I 0.496 ng/mL (< 0.028)
[2021-09-22 18:23] LABS: Hemoglobin 11.5 g/dL (12.0-16.0); Platelet Count 326 thou/uL (130-400)
[2021-09-22] MEDS ORDERED: Non-Formulary Item 1 EACH (Budesonide-Formoterol [Symbicort 160-4.5] 160 MG/4.5 MG Aer) INH PRN (18:43)
[2021-09-22 19:45] LABS: SARS-CoV-2 NAA Rapid Test Not Detected (NotDetected)
[2021-09-22] MEDS: Heparin 10,000 UNITS/ 10 ML VIAL SLOW IVP SCH (20:05)
[2021-09-22] MEDS: Heparin 25,000 units/D5W 500 ML IVPB SCH (20:09)
[2021-09-22 20:32] LABS: Critical Call Chem Troponin I RESULT DECREASING; Troponin I 0.414 ng/mL (< 0.028)
[2021-09-22] MEDS: Nitroglycerin 0.4 MG TAB (25 Tab Bottle) SL PRN ×2 (22:12→22:20)
[2021-09-22] MEDS: HYDROcodone/Acetaminophen 5/325 mg Tablet PO PRN (22:28)
[2021-09-22] MEDS: Metoprolol Tartrate 50 MG TAB PO SCH (22:31)
[2021-09-22] MEDS: traZODone HCl 50 MG TAB PO SCH (22:31)
[2021-09-22] MEDS: Zolpidem Tartrate 5 MG TAB PO SCH (22:31)
[2021-09-22] MEDS: Atorvastatin Calcium 40 MG TAB PO SCH (22:32)
[2021-09-22] MEDS: hydrALAZINE 25 MG TAB PO SCH (22:37)
[2021-09-22] MEDS ORDERED: HYDROcodone/Acetaminophen 10/325 mg Tablet PO SCH (22:45)
[2021-09-22] MEDS ORDERED: Morphine 4 MG/ML VIAL SLOW IVP SCH (22:45)
[2021-09-22 22:58] LABS: Critical Call Chem Troponin I RESULT DECREASING; Troponin I 0.348 ng/mL (< 0.028)
[2021-09-23 00:36] VITALS: BMI 17.3
[2021-09-23 03:01] LABS: Hemoglobin A1c 4.2 % (4.0-6.0)
[2021-09-23 03:06] LABS: Hemoglobin 11.2 g/dL (12.0-16.0); Mean Corpuscular HGB CONC 33.3 g/dL (32.0-36.0); Mean Corpuscular Hemoglobin 32.3 pg (27.0-31.0); Mean Corpuscular Volume 97.1 fL (78.0-98.0); Mean Platelet Volume 7.2 fL (7.4-10.4); Platelet Count 299 thou/uL (130-400); RBC Distribution Width 18.1 % (11.5-14.5); Red Blood Cell (RBC) Count 3.48 mill/uL (4.20-5.40); White Blood Cell (WBC) Count 9.5 thou/uL (4.8-10.8)
[2021-09-23 03:07] LABS: ALT (SGPT) 8 U/L (8-55); AST (SGOT) 7 U/L (5-34); Albumin 3.7 g/dL (3.5-5.0); Alkaline Phosphatase 56 U/L (40-110); Anion Gap 27 mmol/L (10-20); BUN (Urea Nitrogen) 79 mg/dL (9.8-20.1); Bilirubin, Total 0.6 mg/dL (0.2-1.2); CRP (Inflammatory) 16.31 mg/dL (= or < 0.5); Calc. Creatinine Clearance 5 mL/min (70-130); Calcium 10.4 mg/dL (7.8-10.44); Carbon Dioxide 22 mmol/L (22-29); Cardiac Risk 3.1 (Less than 4.5); Chloride 85 mmol/L (98-107); Cholesterol 186 mg/dl (< 200 Desired); Critical Call Chemistry 2NO.MO@; Globulin 3.2 g/dL (2.4-3.5); Glucose 242 mg/dL (70-105); HDL Cholesterol 60 mg/dL (>60 Neg Risk); LDL Cholesterol, Calculated 116 mg/dL; Magnesium 2.5 mg/dL (1.6-2.6); Phosphorus 8.2 mg/dL (2.3-4.7); Potassium 6.6 mmol/L (3.5-5.1); Protein, Total 6.9 g/dL (6.0-8.3); Sodium 127 mmol/L (136-145); Triglycerides 49 mg/dL (Less than 150)
[2021-09-23 03:08] LABS: PTT Greater than 250.0 sec (22.9-36.1)
[2021-09-23] MEDS ORDERED: Insulin Regular 300 UNITS/3 ML VIAL IVP SCH (03:30)
[2021-09-23] MEDS ORDERED: Dextrose 50% Abboject 50 ML SYRINGE SLOW IVP SCH (03:45)
[2021-09-23] MEDS ORDERED: Dextrose 25% Abboject 10 ML SYRINGE SLOW IVP SCH (03:45)
[2021-09-23] MEDS ORDERED: Calcium Chloride 1 GM/10 ML Abboject SYRINGE IVP SCH (04:30)
[2021-09-23 04:45] LABS: Anion Gap 26 mmol/L (10-20); BUN (Urea Nitrogen) 82 mg/dL (9.8-20.1); Calc. Creatinine Clearance 5 mL/min (70-130); Calcium 10.4 mg/dL (7.8-10.44); Carbon Dioxide 25 mmol/L (22-29); Chloride 86 mmol/L (98-107); Glucose 103 mg/dL (70-105); Sodium 130 mmol/L (136-145)
[2021-09-23 04:52] LABS: Potassium 6.8 mmol/L (3.5-5.1)
[2021-09-23 05:02] LABS: #Lymphocytes 0.6 thou/uL (1.20-3.40); #Monocytes 0.2 thou/uL (0.11-0.59); #Neutrophils 8.7 thou/uL (1.40-6.50); %Basophils 0.2 % (0.0-1.0); %Eosinophils 0.1 % (0.0-10.0); %Lymphocytes 6.7 % (21.0-51.0); %Monocytes 1.6 % (0.0-10.0); %Neutrophils 91.5 % (42.0-75.0); Anisocytosis SLIGHT = 6-15 cells (100X) (0-5/hpf); Band 3 % (5-11); Lymphocytes 6 % (21-51); MDiff Complete? YES; Monocytes 4 % (0-10); Neutrophil 87 % (42-75); Platelet Morphology Comment Appears Adequate; Polychromasia SLIGHT = 2-3 cells (100X) (0-2/hpf)
[2021-09-23] MEDS: Mometasone 200 MCG/Formoterol 5 MCG 120 PUFF INHALER INH SCH ×2 (07:25→18:22)
[2021-09-23] MEDS ORDERED: Losartan 25 MG TAB PO SCH (09:00)
[2021-09-23] MEDS ORDERED: Non-Formulary Item 1 EACH (Omeprazole [Omeprazole] 40 MG Capsule.Dr) PO SCH (09:00)
[2021-09-23 09:27] LABS: HBSAg Index 0.43 S/CO (0-0.99); Hep B Surf Ag Non-Reactive S/CO (NonReactive)
[2021-09-23 09:39] LABS: HBSAB Concentration 14.79 mIU/mL; Hep B Surf AB Reactive (NonReactive)
[2021-09-23] MEDS ORDERED: hydrALAZINE 20 MG/ML VIAL SLOW IVP PRN (10:42)
[2021-09-23] MEDS ORDERED: Lidocaine 5% Patch TD SCH (11:30)
[2021-09-23] MEDS: Sevelamer Carbonate 800 MG TAB PO SCH ×2 (14:41→18:51)
[2021-09-23] MEDS: hydrALAZINE 25 MG TAB PO SCH ×3 (14:41→21:23)
[2021-09-23] MEDS: Metoprolol Tartrate 50 MG TAB PO SCH ×2 (14:42→21:23)
[2021-09-23] MEDS: Aspirin 325 mg Enteric Coated Tablet PO SCH (15:42)
[2021-09-23] MEDS: NIFEdipine XL 90 MG TAB PO SCH (15:44)
[2021-09-23] MEDS: predniSONE 20 MG TAB PO SCH ×2 (15:46→16:10)
[2021-09-23] MEDS: Heparin 10,000 UNITS/ 10 ML VIAL SLOW IVP SCH (16:04)
[2021-09-23 16:14] LABS: Anion Gap 21 mmol/L (10-20); BUN (Urea Nitrogen) 19 mg/dL (9.8-20.1); Calc. Creatinine Clearance 11 mL/min (70-130); Calcium 10.5 mg/dL (7.8-10.44); Carbon Dioxide 23 mmol/L (22-29); Chloride 96 mmol/L (98-107); Glucose 128 mg/dL (70-105); Potassium 3.3 mmol/L (3.5-5.1); Sodium 137 mmol/L (136-145)
[2021-09-23] MEDS: Atorvastatin Calcium 40 MG TAB PO SCH (21:18)
[2021-09-23] MEDS: guaiFENesin ER 600 MG TAB PO SCH (21:19)
[2021-09-23] MEDS: Zolpidem Tartrate 5 MG TAB PO SCH (21:21)
[2021-09-23] MEDS: Transdermal Patch Removal TOP SCH (21:22)
[2021-09-23] MEDS: traZODone HCl 50 MG TAB PO SCH (21:22)
[2021-09-24 05:23] LABS: #Eosinphils 0.3 thou/uL (0.0-0.7); #Lymphocytes 1.5 thou/uL (1.20-3.40); #Monocytes 0.9 thou/uL (0.11-0.59); #Neutrophils 7.2 thou/uL (1.40-6.50); %Basophils 0.1 % (0.0-1.0); %Eosinophils 2.7 % (0.0-10.0); %Lymphocytes 14.8 % (21.0-51.0); %Monocytes 9.4 % (0.0-10.0); %Neutrophils 73.1 % (42.0-75.0); Hemoglobin 11.1 g/dL (12.0-16.0); Mean Corpuscular HGB CONC 30.7 g/dL (32.0-36.0); Mean Corpuscular Hemoglobin 30.1 pg (27.0-31.0); Mean Corpuscular Volume 98.1 fL (78.0-98.0); Mean Platelet Volume 7.5 fL (7.4-10.4); Platelet Count 329 thou/uL (130-400); RBC Distribution Width 18.3 % (11.5-14.5); Red Blood Cell (RBC) Count 3.71 mill/uL (4.20-5.40); White Blood Cell (WBC) Count 9.8 thou/uL (4.8-10.8)
[2021-09-24 06:12] LABS: ALT (SGPT) 8 U/L (8-55); AST (SGOT) 9 U/L (5-34); Albumin 3.6 g/dL (3.5-5.0); Alkaline Phosphatase 67 U/L (40-110); Anion Gap 21 mmol/L (10-20); BUN (Urea Nitrogen) 53 mg/dL (9.8-20.1); Bilirubin, Total 0.4 mg/dL (0.2-1.2); Calc. Creatinine Clearance 7 mL/min (70-130); Calcium 10.2 mg/dL (7.8-10.44); Carbon Dioxide 30 mmol/L (22-29); Chloride 95 mmol/L (98-107); Globulin 2.6 g/dL (2.4-3.5); Glucose 117 mg/dL (70-105); Magnesium 2.3 mg/dL (1.6-2.6); Phosphorus 8.9 mg/dL (2.3-4.7); Potassium 3.8 mmol/L (3.5-5.1); Protein, Total 6.2 g/dL (6.0-8.3); Sodium 142 mmol/L (136-145)
[2021-09-24] MEDS: Mometasone 200 MCG/Formoterol 5 MCG 120 PUFF INHALER INH SCH ×2 (07:03→18:30)
[2021-09-24] MEDS: NIFEdipine XL 90 MG TAB PO SCH (08:29)
[2021-09-24] MEDS: hydrALAZINE 25 MG TAB PO SCH ×3 (08:29→22:47)
[2021-09-24] MEDS: Lidocaine 5% Patch TD SCH (08:29)
[2021-09-24] MEDS: predniSONE 20 MG TAB PO SCH (08:30)
[2021-09-24] MEDS: Aspirin 325 mg Enteric Coated Tablet PO SCH (08:30)
[2021-09-24] MEDS: Sevelamer Carbonate 800 MG TAB PO SCH ×3 (08:30→17:20)
[2021-09-24] MEDS: Metoprolol Tartrate 50 MG TAB PO SCH ×2 (08:31→22:49)
[2021-09-24] MEDS: guaiFENesin ER 600 MG TAB PO SCH ×2 (08:31→22:49)
[2021-09-24] MEDS ORDERED: Lidocaine 5% Patch TD SCH (09:00)
[2021-09-24] MEDS ORDERED: FLU VACC QS2021-22(6MOS UP)/PF 60 MCG/0.5 ML SYRINGE IM ONE (09:00)
[2021-09-24] MEDS: Heparin 10,000 UNITS/ 10 ML VIAL SLOW IVP SCH ×2 (09:21→17:16)
[2021-09-24 18:13] LABS: Hemoglobin 12.2 g/dL (12.0-16.0); Platelet Count 323 thou/uL (130-400)
[2021-09-24] MEDS: Atorvastatin Calcium 40 MG TAB PO SCH (22:45)
[2021-09-24] MEDS: Losartan 25 MG TAB PO SCH (22:45)
[2021-09-24] MEDS: traZODone HCl 50 MG TAB PO SCH (22:49)
[2021-09-24] MEDS: Zolpidem Tartrate 5 MG TAB PO SCH (22:49)
[2021-09-24] MEDS: Transdermal Patch Removal TOP SCH (22:51)
[2021-09-24] MEDS: Heparin 25,000 units/D5W 500 ML IVPB SCH (23:10)
[2021-09-25] MEDS: Heparin 10,000 UNITS/ 10 ML VIAL SLOW IVP SCH (03:00)
[2021-09-25] MEDS: HYDROcodone/Acetaminophen 5/325 mg Tablet PO PRN (03:09)
[2021-09-25 04:40] LABS: #Eosinphils 0.1 thou/uL (0.0-0.7); #Lymphocytes 1.4 thou/uL (1.20-3.40); #Monocytes 1.1 thou/uL (0.11-0.59); #Neutrophils 8.2 thou/uL (1.40-6.50); %Basophils 0.1 % (0.0-1.0); %Monocytes 9.9 % (0.0-10.0); Hemoglobin 10.5 g/dL (12.0-16.0); Mean Corpuscular HGB CONC 32.8 g/dL (32.0-36.0); Mean Corpuscular Hemoglobin 31.5 pg (27.0-31.0); Mean Corpuscular Volume 95.9 fL (78.0-98.0); Mean Platelet Volume 7.2 fL (7.4-10.4); Platelet Count 288 thou/uL (130-400); Red Blood Cell (RBC) Count 3.33 mill/uL (4.20-5.40); White Blood Cell (WBC) Count 10.8 thou/uL (4.8-10.8)
[2021-09-25 05:07] LABS: ALT (SGPT) 8 U/L (8-55); AST (SGOT) 8 U/L (5-34); Albumin 3.6 g/dL (3.5-5.0); Alkaline Phosphatase 62 U/L (40-110); Anion Gap 25 mmol/L (10-20); BUN (Urea Nitrogen) 87 mg/dL (9.8-20.1); Bilirubin, Total 0.5 mg/dL (0.2-1.2); Calc. Creatinine Clearance 5 mL/min (70-130); Calcium 9.9 mg/dL (7.8-10.44); Carbon Dioxide 25 mmol/L (22-29); Chloride 90 mmol/L (98-107); Globulin 2.6 g/dL (2.4-3.5); Glucose 119 mg/dL (70-105); Magnesium 2.2 mg/dL (1.6-2.6); Phosphorus 8.4 mg/dL (2.3-4.7); Potassium 3.4 mmol/L (3.5-5.1); Protein, Total 6.2 g/dL (6.0-8.3); Sodium 137 mmol/L (136-145)
[2021-09-25] MEDS: Mometasone 200 MCG/Formoterol 5 MCG 120 PUFF INHALER INH SCH (07:27)
[2021-09-25] MEDS ORDERED: Epoetin (ESRD) 20,000 UNITS/ML SC SCH (08:30)
[2021-09-25] MEDS ORDERED: EPOETIN ALFA-EPBX (ESRD) 4,000 UNIT/ML VIAL SC SCH (12:00)
[2021-09-25] MEDS: Sevelamer Carbonate 800 MG TAB PO SCH ×2 (12:31→12:34)
[2021-09-25] MEDS: predniSONE 20 MG TAB PO SCH (12:31)
[2021-09-25] MEDS: Lidocaine 5% Patch TD SCH (12:32)
[2021-09-25] MEDS: Aspirin 325 mg Enteric Coated Tablet PO SCH (12:32)
[2021-09-25] MEDS: hydrALAZINE 25 MG TAB PO SCH (12:32)
[2021-09-25] MEDS: guaiFENesin ER 600 MG TAB PO SCH (12:32)
[2021-09-25] MEDS: Losartan 25 MG TAB PO SCH (12:32)
[2021-09-25] MEDS: Metoprolol Tartrate 50 MG TAB PO SCH (12:33)
[2021-09-25] MEDS: NIFEdipine XL 90 MG TAB PO SCH (12:33)
[2021-09-25 12:47] VITALS: BP 132/63
[2021-09-25 13:12] VITALS: TEMP 98
== END 2021-09-25 13:15 | disposition home health service (06) | DRG 190 ==
LOC: ERS 13:35 → SUATTDRO 13:35 → 2NO 16:36
PROVIDERS: ADMIT Family Medicine; ATTEND Family Medicine
PROC: 5A1D70Z Performance of Urinary Filtration, Intermittent, Less than 6 Hours Per Day (ICD-10-PCS; principal; 2021-09-23)
DX: J44.1 Chronic obstructive pulmonary disease with (acute) exacerbation (principal); N18.6 End stage renal disease; I21.A1 Myocardial infarction type 2; I13.2 Hypertensive heart and chronic kidney disease with heart failure and with stage 5 chronic kidney disease, or end stage renal disease; I50.32 Chronic diastolic (congestive) heart failure; Z20.822 Contact with and (suspected) exposure to COVID-19; K21.9 Gastro-esophageal reflux disease without esophagitis; D63.1 Anemia in chronic kidney disease; F32.5 Major depressive disorder, single episode, in full remission; E78.5 Hyperlipidemia, unspecified; F51.01 Primary insomnia; F41.9 Anxiety disorder, unspecified; E87.5 Hyperkalemia; E83.39 Other disorders of phosphorus metabolism; E87.6 Hypokalemia; I25.2 Old myocardial infarction; Z99.2 Dependence on renal dialysis; Z99.81 Dependence on supplemental oxygen; Z88.0 Allergy status to penicillin; Z88.1 Allergy status to other antibiotic agents; Z88.8 Allergy status to other drugs, medicaments and biological substances; Z98.51 Tubal ligation status
CPT/HCPCS: 36415; 71045; 80053; 80061; 82553; 83036; 83690; 83735; 83880; 84100; 84145; 84484; 85014; 85018; 85025; 85049; 85730; 86140; 86706; 86850; 86900; 86901; 87040; 87340; 90935; 93005; 93010; 93306; 96365; 96375; G0257; J1644; J1815; J1956; J2405; J2930; J3370; J7512; J7620; U0002

== ENCOUNTER 2021-10-04 17:23 | Inpatient (IN) | payer MEDICAID, MEDICARE ==
[2021-10-04 18:12] LABS: #Eosinphils 0.1 thou/uL (0.0-0.7); #Lymphocytes 0.6 thou/uL (1.20-3.40); #Monocytes 0.2 thou/uL (0.11-0.59); #Neutrophils 13.7 thou/uL (1.40-6.50); %Eosinophils 0.3 % (0.0-10.0); %Lymphocytes 4.1 % (21.0-51.0); %Monocytes 1.6 % (0.0-10.0); Hemoglobin 10.5 g/dL (12.0-16.0); Mean Corpuscular HGB CONC 32.4 g/dL (32.0-36.0); Mean Corpuscular Hemoglobin 31.3 pg (27.0-31.0); Mean Corpuscular Volume 96.5 fL (78.0-98.0); Mean Platelet Volume 6.6 fL (7.4-10.4); Platelet Count 338 thou/uL (130-400); RBC Distribution Width 18.1 % (11.5-14.5); Red Blood Cell (RBC) Count 3.36 mill/uL (4.20-5.40); White Blood Cell (WBC) Count 14.5 thou/uL (4.8-10.8)
[2021-10-04 18:34] LABS: ALT (SGPT) 24 U/L (8-55); AST (SGOT) 19 U/L (5-34); Albumin 3.9 g/dL (3.5-5.0); Alkaline Phosphatase 67 U/L (40-110); Anion Gap 20 mmol/L (10-20); BUN (Urea Nitrogen) 49 mg/dL (9.8-20.1); Bilirubin, Total 0.7 mg/dL (0.2-1.2); Calc. Creatinine Clearance 0 mL/min (70-130); Calcium 10.3 mg/dL (7.8-10.44); Carbon Dioxide 27 mmol/L (22-29); Chloride 98 mmol/L (98-107); Globulin 2.8 g/dL (2.4-3.5); Glucose 129 mg/dL (70-105); Potassium 4.7 mmol/L (3.5-5.1); Protein, Total 6.7 g/dL (6.0-8.3); Sodium 140 mmol/L (136-145)
[2021-10-04 19:08] LABS: CKMB 12.6 ng/mL (0-6.6)
[2021-10-04] MEDS ORDERED: methylPREDNISolone Sod Succ/PF 125 MG/2 ML VIAL ONE (19:42)
[2021-10-04] MEDS ORDERED: Acetaminophen 650 MG Suppository PR PRN (20:36)
[2021-10-04] MEDS ORDERED: Ondansetron PF 4 MG/2 ML Vial IVP PRN (20:36)
[2021-10-04] MEDS ORDERED: Ondansetron ODT 4 MG TAB PO PRN (20:36)
[2021-10-04 20:44] LABS: SARS-CoV-2 NAA Rapid Test Not Detected (NotDetected)
[2021-10-04] MEDS ORDERED: rOPINIRole HCl 0.25 MG TAB PO SCH (21:00)
[2021-10-04 21:06] LABS: Magnesium 2.2 mg/dL (1.6-2.6)
[2021-10-04 22:57] LABS: Troponin I 0.127 ng/mL (< 0.028)
[2021-10-05 01:56] LABS: Troponin I 0.122 ng/mL (< 0.028)
[2021-10-05] MEDS ORDERED: hydrALAZINE 20 MG/ML VIAL SLOW IVP PRN (02:15)
[2021-10-05] MEDS ORDERED: traZODone HCl 50 MG TAB PO SCH (02:45)
[2021-10-05] MEDS: Acetaminophen 325 MG TAB PO PRN ×2 (02:48→06:56)
[2021-10-05 04:05] LABS: #Eosinphils 0.1 thou/uL (0.0-0.7); #Lymphocytes 0.3 thou/uL (1.20-3.40); #Neutrophils 13.2 thou/uL (1.40-6.50); %Eosinophils 0.7 % (0.0-10.0); %Lymphocytes 2.5 % (21.0-51.0); %Monocytes 0.2 % (0.0-10.0); %Neutrophils 96.6 % (42.0-75.0); Hemoglobin 10.1 g/dL (12.0-16.0); Mean Corpuscular HGB CONC 32.8 g/dL (32.0-36.0); Mean Corpuscular Hemoglobin 31.8 pg (27.0-31.0); Mean Platelet Volume 6.5 fL (7.4-10.4); Platelet Count 280 thou/uL (130-400); RBC Distribution Width 18.5 % (11.5-14.5); Red Blood Cell (RBC) Count 3.18 mill/uL (4.20-5.40); White Blood Cell (WBC) Count 13.7 thou/uL (4.8-10.8)
[2021-10-05 04:24] LABS: Anion Gap 19 mmol/L (10-20); BUN (Urea Nitrogen) 58 mg/dL (9.8-20.1); Calc. Creatinine Clearance 7 mL/min (70-130); Carbon Dioxide 26 mmol/L (22-29); Chloride 95 mmol/L (98-107); Glucose 163 mg/dL (70-105); Potassium 5.1 mmol/L (3.5-5.1); Sodium 135 mmol/L (136-145)
[2021-10-05] MEDS: methylPREDNISolone Sod Succ 40 MG VIAL IVP SCH (08:00)
[2021-10-05] MEDS: Enoxaparin Sodium 30 MG/0.3 ML SYRINGE SC SCH (08:00)
[2021-10-05] MEDS: NIFEdipine XL 90 MG TAB PO SCH (08:00)
[2021-10-05] MEDS: hydrALAZINE 25 MG TAB PO SCH ×3 (08:01→21:32)
[2021-10-05] MEDS: Aspirin 325 MG TAB PO SCH (08:12)
[2021-10-05] MEDS: Sevelamer Carbonate 800 MG TAB PO SCH ×3 (08:12→17:30)
[2021-10-05] MEDS ORDERED: Mometasone 200 MCG/Formoterol 5 MCG 120 PUFF INHALER INH SCH (08:15)
[2021-10-05] MEDS: Metoprolol Tartrate 50 MG TAB PO SCH ×2 (09:19→21:30)
[2021-10-05] MEDS ORDERED: Epoetin (ESRD) 20,000 UNITS/ML SC SCH (09:45)
[2021-10-05] MEDS: HYDROcodone/Acetaminophen 10/325 mg Tablet PO SCH ×5 (09:58→21:31)
[2021-10-05] MEDS ORDERED: EPOETIN ALFA-EPBX (ESRD) 4,000 UNIT/ML VIAL SC SCH (12:00)
[2021-10-05] MEDS: Mometasone 200 MCG/Formoterol 5 MCG 120 PUFF INHALER INH SCH (18:15)
[2021-10-05] MEDS: Atorvastatin Calcium 40 MG TAB PO SCH (21:30)
[2021-10-05] MEDS: traZODone HCl 50 MG TAB PO SCH (21:33)
[2021-10-06 03:32] VITALS: BMI 197587.1
[2021-10-06] MEDS: Mometasone 200 MCG/Formoterol 5 MCG 120 PUFF INHALER INH SCH ×2 (06:50→18:21)
[2021-10-06] MEDS: Sevelamer Carbonate 800 MG TAB PO SCH ×3 (08:48→17:10)
[2021-10-06] MEDS: Metoprolol Tartrate 50 MG TAB PO SCH ×2 (08:50→21:35)
[2021-10-06] MEDS: hydrALAZINE 25 MG TAB PO SCH ×3 (08:50→21:37)
[2021-10-06] MEDS: methylPREDNISolone Sod Succ 40 MG VIAL IVP SCH (08:51)
[2021-10-06] MEDS: Aspirin 325 MG TAB PO SCH (08:51)
[2021-10-06] MEDS: Enoxaparin Sodium 30 MG/0.3 ML SYRINGE SC SCH (08:51)
[2021-10-06 09:26] LABS: #Eosinphils 0.2 thou/uL (0.0-0.7); #Lymphocytes 1.3 thou/uL (1.20-3.40); #Monocytes 0.6 thou/uL (0.11-0.59); #Neutrophils 16.7 thou/uL (1.40-6.50); %Basophils 0.2 % (0.0-1.0); %Eosinophils 1.2 % (0.0-10.0); %Lymphocytes 6.7 % (21.0-51.0); %Monocytes 3.1 % (0.0-10.0); %Neutrophils 88.8 % (42.0-75.0); Hemoglobin 9.8 g/dL (12.0-16.0); Mean Corpuscular HGB CONC 31.6 g/dL (32.0-36.0); Mean Corpuscular Hemoglobin 31.2 pg (27.0-31.0); Mean Corpuscular Volume 98.9 fL (78.0-98.0); Mean Platelet Volume 6.8 fL (7.4-10.4); Platelet Count 286 thou/uL (130-400); Red Blood Cell (RBC) Count 3.13 mill/uL (4.20-5.40); White Blood Cell (WBC) Count 18.8 thou/uL (4.8-10.8)
[2021-10-06 09:46] LABS: Anion Gap 21 mmol/L (10-20); BUN (Urea Nitrogen) 62 mg/dL (9.8-20.1); Calc. Creatinine Clearance 6 mL/min (70-130); Calcium 10.3 mg/dL (7.8-10.44); Carbon Dioxide 25 mmol/L (22-29); Chloride 93 mmol/L (98-107); Glucose 121 mg/dL (70-105); Potassium 4.7 mmol/L (3.5-5.1); Sodium 134 mmol/L (136-145)
[2021-10-06] MEDS: NIFEdipine XL 90 MG TAB PO SCH (10:00)
[2021-10-06] MEDS: HYDROcodone/Acetaminophen 10/325 mg Tablet PO SCH ×3 (10:00→21:37)
[2021-10-06] MEDS ORDERED: Bisacodyl 10 MG SUPP PR PRN (13:37)
[2021-10-06] MEDS ORDERED: Cepastat Lozenges 1 LOZ PO PRN (13:38)
[2021-10-06] MEDS: Benzonatate 100 MG CAP PO SCH ×2 (15:22→21:35)
[2021-10-06] MEDS: guaiFENesin ER 600 MG TAB PO SCH (21:35)
[2021-10-06] MEDS: Atorvastatin Calcium 40 MG TAB PO SCH (21:35)
[2021-10-06] MEDS: Senokot S 8.6-50 MG TAB PO SCH (21:35)
[2021-10-06] MEDS: traZODone HCl 50 MG TAB PO SCH (21:36)
[2021-10-06] MEDS ORDERED: Famotidine 20 MG TAB PO SCH (22:30)
[2021-10-07] MEDS: Acetaminophen 325 MG TAB PO PRN (04:24)
[2021-10-07] MEDS: Mometasone 200 MCG/Formoterol 5 MCG 120 PUFF INHALER INH SCH ×2 (07:41→19:14)
[2021-10-07] MEDS ORDERED: FLU VACC QS2021-22(6MOS UP)/PF 60 MCG/0.5 ML SYRINGE IM ONE (09:00)
[2021-10-07] MEDS: hydrALAZINE 25 MG TAB PO SCH (11:38)
[2021-10-07] MEDS: Metoprolol Tartrate 50 MG TAB PO SCH ×2 (11:39→20:05)
[2021-10-07] MEDS: predniSONE 20 MG TAB PO SCH (11:39)
[2021-10-07] MEDS: NIFEdipine XL 90 MG TAB PO SCH (11:39)
[2021-10-07] MEDS: Aspirin 325 MG TAB PO SCH (11:40)
[2021-10-07] MEDS: Benzonatate 100 MG CAP PO SCH ×3 (11:40→20:00)
[2021-10-07] MEDS: guaiFENesin ER 600 MG TAB PO SCH ×2 (11:41→20:01)
[2021-10-07] MEDS: HYDROcodone/Acetaminophen 10/325 mg Tablet PO SCH ×3 (11:43→21:21)
[2021-10-07] MEDS: Sevelamer Carbonate 800 MG TAB PO SCH ×3 (12:41→16:05)
[2021-10-07] MEDS: Enoxaparin Sodium 30 MG/0.3 ML SYRINGE SC SCH (13:08)
[2021-10-07] MEDS: Senokot S 8.6-50 MG TAB PO SCH ×2 (13:08→20:00)
[2021-10-07] MEDS: Polyethylene Glycol 3350 17 GM Packet PO SCH (13:08)
[2021-10-07] MEDS: Atorvastatin Calcium 40 MG TAB PO SCH (20:00)
[2021-10-07] MEDS: traZODone HCl 50 MG TAB PO SCH (20:01)
[2021-10-07] MEDS ORDERED: Famotidine 20 MG TAB PO SCH (21:00)
[2021-10-08] MEDS: Mometasone 200 MCG/Formoterol 5 MCG 120 PUFF INHALER INH SCH (06:31)
[2021-10-08 07:18] LABS: #Eosinphils 0.1 thou/uL (0.0-0.7); #Lymphocytes 1.3 thou/uL (1.20-3.40); #Monocytes 0.6 thou/uL (0.11-0.59); #Neutrophils 8.5 thou/uL (1.40-6.50); %Basophils 0.1 % (0.0-1.0); %Eosinophils 0.8 % (0.0-10.0); %Lymphocytes 12.8 % (21.0-51.0); %Monocytes 5.4 % (0.0-10.0); Hemoglobin 10.7 g/dL (12.0-16.0); Mean Corpuscular HGB CONC 32.7 g/dL (32.0-36.0); Mean Corpuscular Hemoglobin 32.1 pg (27.0-31.0); Mean Corpuscular Volume 98.3 fL (78.0-98.0); Mean Platelet Volume 7.1 fL (7.4-10.4); Platelet Count 224 thou/uL (130-400); RBC Distribution Width 19.5 % (11.5-14.5); Red Blood Cell (RBC) Count 3.32 mill/uL (4.20-5.40); White Blood Cell (WBC) Count 10.4 thou/uL (4.8-10.8)
[2021-10-08 07:43] LABS: Anion Gap 20 mmol/L (10-20); BUN (Urea Nitrogen) 40 mg/dL (9.8-20.1); Calc. Creatinine Clearance 8 mL/min (70-130); Calcium 10.1 mg/dL (7.8-10.44); Carbon Dioxide 26 mmol/L (22-29); Chloride 96 mmol/L (98-107); Glucose 97 mg/dL (70-105); Potassium 4.9 mmol/L (3.5-5.1); Sodium 137 mmol/L (136-145)
[2021-10-08] MEDS: Enoxaparin Sodium 30 MG/0.3 ML SYRINGE SC SCH (09:10)
[2021-10-08] MEDS: Sevelamer Carbonate 800 MG TAB PO SCH ×3 (09:10→16:29)
[2021-10-08] MEDS: Polyethylene Glycol 3350 17 GM Packet PO SCH (09:10)
[2021-10-08] MEDS: Senokot S 8.6-50 MG TAB PO SCH (09:10)
[2021-10-08] MEDS: NIFEdipine XL 90 MG TAB PO SCH (09:11)
[2021-10-08] MEDS: Benzonatate 100 MG CAP PO SCH ×2 (09:11→16:29)
[2021-10-08] MEDS: predniSONE 20 MG TAB PO SCH (09:11)
[2021-10-08] MEDS: guaiFENesin ER 600 MG TAB PO SCH (09:12)
[2021-10-08] MEDS: Metoprolol Tartrate 50 MG TAB PO SCH (09:12)
[2021-10-08 09:16] VITALS: BP 109/66; TEMP 98.9
[2021-10-08] MEDS: HYDROcodone/Acetaminophen 10/325 mg Tablet PO SCH ×2 (09:19→16:28)
[2021-10-08] MEDS: Aspirin 325 MG TAB PO SCH (09:19)
== END 2021-10-08 16:56 | disposition home or self-care (01) | DRG 291 ==
LOC: ERS 17:23 → ERHOLD 21:15 → CCU 10-05 00:53 → T4-A 10-05 11:26
PROVIDERS: ADMIT Student in an Organized Health Care Education/Training Program; ATTEND Internal Medicine
PROC: 5A1D70Z Performance of Urinary Filtration, Intermittent, Less than 6 Hours Per Day (ICD-10-PCS; principal; 2021-10-05)
PROC: 5A09357 Assistance with Respiratory Ventilation, Less than 24 Consecutive Hours, Continuous Positive Airway Pressure (ICD-10-PCS; 2021-10-05)
DX: I13.2 Hypertensive heart and chronic kidney disease with heart failure and with stage 5 chronic kidney disease, or end stage renal disease (principal); N18.6 End stage renal disease; Z20.822 Contact with and (suspected) exposure to COVID-19; I50.33 Acute on chronic diastolic (congestive) heart failure; J96.21 Acute and chronic respiratory failure with hypoxia; J84.9 Interstitial pulmonary disease, unspecified; J44.1 Chronic obstructive pulmonary disease with (acute) exacerbation; G25.81 Restless legs syndrome; R77.8 Other specified abnormalities of plasma proteins; D63.1 Anemia in chronic kidney disease; T38.0X5A Adverse effect of glucocorticoids and synthetic analogues, initial encounter; D72.829 Elevated white blood cell count, unspecified; Z99.2 Dependence on renal dialysis; Z99.81 Dependence on supplemental oxygen; Z88.1 Allergy status to other antibiotic agents; Z88.0 Allergy status to penicillin; Z88.8 Allergy status to other drugs, medicaments and biological substances; Z79.899 Other long term (current) drug therapy; Z79.51 Long term (current) use of inhaled steroids; Z79.82 Long term (current) use of aspirin; Z79.52 Long term (current) use of systemic steroids; Z98.890 Other specified postprocedural states; Z90.710 Acquired absence of both cervix and uterus; Z98.51 Tubal ligation status; Z87.891 Personal history of nicotine dependence
CPT/HCPCS: 36415; 71045; 80048; 80053; 82553; 83735; 83880; 84484; 85025; 90935; 93005; 94640; 94660; G0257; J1650; J1956; J2405; J2920; J2930; J7512; J7620; Q5105; U0002